=== PATIENT | female | born 1940 | race Caucasian/White ===

== ENCOUNTER 2018-02-14 01:47 | Emergency (ER) | payer MEDICARE, OTHER ==
[2018-02-14] MEDS ORDERED: Ketorolac Tromethamine 30 MG/ML VIAL ONE (02:02)
[2018-02-14] MEDS ORDERED: Metoclopramide HCl 10 MG/2 ML VIAL ONE (02:02)
[2018-02-14] MEDS ORDERED: diphenhydrAMINE 50 MG/ML VIAL ONE (02:02)
== END 2018-02-14 03:23 | disposition home or self-care (01) ==
LOC: SCSER 01:47
DX: R51 Headache (principal); E11.9 Type 2 diabetes mellitus without complications; E78.5 Hyperlipidemia, unspecified; I10 Essential (primary) hypertension; I25.10 Atherosclerotic heart disease of native coronary artery without angina pectoris
CPT/HCPCS: 96365; 96375; J1200; J1885; J2765

== ENCOUNTER 2018-02-15 05:46 | Observation (INO) | payer MEDICARE, OTHER ==
[2018-02-15 06:27] LABS: #Basophils 0.1 thou/uL (0.0-0.2); #Eosinphils 0.3 thou/uL (0.0-0.7); #Monocytes 0.6 thou/uL (0.11-0.59); #Neutrophils 4.7 thou/uL (1.40-6.50); %Basophils 1.2 % (0.0-1.0); %Eosinophils 3.6 % (0.0-10.0); %Lymphocytes 26.2 % (21.0-51.0); %Monocytes 7.7 % (0.0-10.0); %Neutrophils 61.3 % (42.0-75.0); Hemoglobin 10.8 g/dL (12.0-16.0); Mean Corpuscular Hemoglobin 30.9 pg (27.0-31.0); Mean Corpuscular Volume 88.2 fl (81.0-99.0); Mean Platelet Volume 7.4 fL (7.4-10.4); Platelet Count 267 thou/uL (130-400); RBC Distribution Width 10.8 % (11.5-14.5); Red Blood Cell (RBC) Count 3.51 mill/uL (4.20-5.40); White Blood Cell (WBC) Count 7.7 thou/uL (4.8-10.8)
[2018-02-15 06:36] LABS: ALT (SGPT) 10 U/L (8-55); AST (SGOT) 15 U/L (5-34); Albumin 4.1 g/dL (3.4-4.8); Alkaline Phosphatase 70 U/L (40-150); Anion Gap 19 mmol/L (10-20); BUN (Urea Nitrogen) 36 mg/dL (9.8-20.1); Bilirubin, Total 0.3 mg/dL (0.2-1.2); Calc. Creatinine Clearance 0 mL/min (70-130); Carbon Dioxide 18 mmol/L (23-31); Chloride 105 mmol/L (98-107); Estimated GFR-MDRD 12; Globulin 2.7 g/dL (2.4-3.5); Glucose 107 mg/dL (83-110); Potassium 3.9 mmol/L (3.5-5.1); Protein, Total 6.8 g/dL (6.0-8.3); Sodium 138 mmol/L (136-145)
[2018-02-15] MEDS ORDERED: diphenhydrAMINE 50 MG/ML VIAL ONE (06:37)
[2018-02-15] MEDS ORDERED: Metoclopramide HCl 10 MG/2 ML VIAL ONE (06:37)
[2018-02-15] MEDS ORDERED: Ketorolac Tromethamine 30 MG/ML VIAL ONE (06:37)
--- NOTE | 2018-02-15 08:11 | CT ---
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 All CT scans at this facility use one or more dose reduction techniques, viz.: automated exposure control; ma/kV adjustme nt per patient size (including targeted exams where dose is matched to indication; i.e. head); or ite rative reconstruction technique. COMPARISON: No relevant prior studies available. FINDINGS: Brain: Prominent sulci. Patchy hypodensity of the cerebral white matter which are nonspecific but lik ruthann secondary to microangiopathic changes. Ventricles: The ventricles are prominent secondary to diffuse volume loss/atrophy. Bones/joints: Normal. No acute fracture. Soft tissues: Normal. Sinuses: Unremarkable Mastoid air cells: Normal as visualized. No mastoid effusion. IMPRESSION: Chronic age related changes but no evidence of acute intracranial pathology. Thank you for allowing us to participate in the care of your patient. Dictated and Authenticated by: Katina Guerra MD 02/15/2018 7:06 AM Central Time ([place] & [place]) FINAL REPORT HEAD CT WITHOUT CONTRAST: Date: 02/15/18 COMPARISON: 05/27/17. HISTORY: Headache with nausea and vomiting. FINDINGS: I agree with the preliminary report given by vRlinette. The imaged paranasal sinuses and mastoid air cells are well aerated. There is atherosclerotic calcification of the distal vertebral arteries and cavern ous carotid arteries. No displaced calvarial fracture. No intracranial hemorrhage or midline shift. N o mass effect. Periventricular and deep white matter hypodensity noted, suggesting small vessel disea se. IMPRESSION: No acute findings. POS: [facility]
[2018-02-15] MEDS ORDERED: Ondansetron ODT 4 MG TAB SL PRN (10:09)
[2018-02-15] MEDS ORDERED: Ondansetron HCl/PF 4 MG/2 ML Vial IVP PRN (10:09)
[2018-02-15] MEDS ORDERED: Sodium Chloride 0.9% 1,000 ML IV SCH (10:30)
[2018-02-15] MEDS ORDERED: Bisacodyl 5 MG TAB PO PRN (12:54)
--- NOTE | 2018-02-15 13:34 | HP ---
HISTORY OF PRESENT ILLNESS: This is a 77-year-old white female with history of coronary artery disea se and migraine headaches, who presents with intractable nausea and vomiting. The patient was doing relatively well until yesterday. She developed a severe migraine which was unresponsive to her Jose Roberto cet. Her headache became progressively worse and to the point where she had intractable nausea and v omiting approximately 30 times during the past night. She then presented to the emergency room and s he was discharged; however, returned to the ER because the headache continued. Her creatinine was no maximiliano to be 3.65 and she appeared to be quite dehydrated. PAST MEDICAL HISTORY: Hypertension, diabetes, migraines, hyperlipidemia, depression, chronic low luzma k pain, anemia. PAST SURGICAL HISTORY: Include a bone spur right heel in 1961, a fatty tumor in the back of the neck 1964 exploratory surgery for infertility test in 1965, hysterectomy in 1984. Broken ankle in 1987, angioplasty 2000, back surgery T12-L5 fusion 2004. Umbrella filter 2004, hip replacement in 2004, an gioplasty and stent x2 in 2008, blepharoplasty 2010. Neuro stimulator insertion in June of 2013 . Bone density 2005, colonoscopy 2007, gallbladder surgery 12/2014. FAMILY HISTORY: Father at 75 with heart disease. Mother at 86 with deidra willams. No other family history of cancer. SOCIAL HISTORY: She is . She is retired. She has 1 adopted daughter, 1 adopted son. She ex ercises regularly. She travels. MEDICATIONS: Protonix 40 mg daily, aspirin 325 daily, multivitamin, vitamin C, biotin, vitamin E, vi tamin B12, vitamin D3, vitamin K, bupropion XL 150 mg daily, Singulair 10 mg daily, nitroglycerin p.r .n., Bisoprolol 5 daily, amlodipine 10 mg daily, isosorbide ER 60 mg daily, oxybutynin 5 b.i.d., Lipi tor 80 mg daily, tramadol 50 one to two q.8h. p.r.n., alprazolam 2.25 b.i.d. p.r.n., metformin 500 p. o. daily. ALLERGIES: PENICILLIN, CODEINE, SULFA and PHENERGAN. REVIEW OF SYSTEMS: As above. PHYSICAL EXAMINATION: VITAL SIGNS: Temperature 98.6, pulse 65, respiration rate 18, blood pressure 157/77. GENERAL: In no acute distress at this time. She appears well. HEENT: Mucous membranes clear. NECK: Supple. HEART: Regular rate and rhythm with a 2/6 systolic ejection murmur. LUNGS: Clear. ABDOMEN: Soft, nontender. EXTREMITIES: With no edema. LABORATORY AND X-RAY FINDINGS: White count 7.7, H&H 10 and 30, platelet of 267. Sodium 138, potassi um 3.9, creatinine 3.65, BUN 36, glucose 107. ASSESSMENT: 1. Intractable nausea and vomiting. 2. Intractable migraine. 3. Acute kidney injury on chronic kidney disease, creatinine normally is in the 1.4 to 1.8 range, an d it is 3.65 today, most likely consistent with prerenal azotemia. 4. Coronary artery disease. 5. Hypertension. 6. Hyperlipidemia. 7. Migraine history. 8. Gastroesophageal reflux. 9. History of depression. 10. History of anemia. PLAN: 1. Hydrate with normal saline. 2. Ultram p.o. p.r.n. 3. Repeat CBC and comprehensive in the a.m. 4. Migraine under control at this time. Possible hopefully discharge in the a.m.
[2018-02-15] MEDS: Sodium Chloride 0.9% 1,000 ML IV SCH ×2 (14:38→16:55)
[2018-02-15] MEDS: Acetaminophen 325 MG TAB PO PRN (15:25)
[2018-02-15] MEDS: ALPRAZolam 0.25 MG TAB PO PRN (15:27)
[2018-02-15] MEDS ORDERED: metFORMIN 500 MG TAB PO SCH (17:00)
[2018-02-15] MEDS ORDERED: Famotidine/PF 20 mg/2ml Vial SLOW IVP SCH (21:00)
[2018-02-15] MEDS ORDERED: Famotidine 40 MG/4 ML VIAL SLOW IVP SCH ×2 (21:00→21:30)
[2018-02-15] MEDS: Oxybutynin 5 MG TAB PO SCH (21:26)
[2018-02-15] MEDS ORDERED: traMADol HCl 50 MG TAB PO SCH (22:00)
[2018-02-16] MEDS: Sodium Chloride 0.9% 1,000 ML IV SCH ×3 (02:30→11:01)
[2018-02-16] MEDS ORDERED: Sodium Chloride 0.9% 0 ML ONE (05:29)
[2018-02-16 06:04] LABS: #Eosinphils 0.4 thou/uL (0.0-0.7); #Lymphocytes 1.9 thou/uL (1.20-3.40); #Monocytes 0.7 thou/uL (0.11-0.59); %Basophils 0.5 % (0.0-1.0); %Eosinophils 6.7 % (0.0-10.0); %Lymphocytes 31.2 % (21.0-51.0); %Monocytes 11.8 % (0.0-10.0); %Neutrophils 49.8 % (42.0-75.0); Hemoglobin 8.5 g/dL (12.0-16.0); Mean Corpuscular HGB CONC 32.5 g/dL (32.0-36.0); Mean Corpuscular Hemoglobin 29.9 pg (27.0-31.0); Mean Corpuscular Volume 91.8 fl (81.0-99.0); Mean Platelet Volume 7.6 fL (7.4-10.4); Platelet Count 207 thou/uL (130-400); Red Blood Cell (RBC) Count 2.83 mill/uL (4.20-5.40)
[2018-02-16 06:13] LABS: ALT (SGPT) 8 U/L (8-55); AST (SGOT) 11 U/L (5-34); Albumin 3.2 g/dL (3.4-4.8); Alkaline Phosphatase 76 U/L (40-150); Anion Gap 9 mmol/L (10-20); BUN (Urea Nitrogen) 37 mg/dL (9.8-20.1); Bilirubin, Total 0.2 mg/dL (0.2-1.2); Calc. Creatinine Clearance 15 mL/min (70-130); Calcium 7.8 mg/dL (7.8-10.44); Carbon Dioxide 21 mmol/L (23-31); Chloride 114 mmol/L (98-107); Estimated GFR-MDRD 13; Globulin 1.7 g/dL (2.4-3.5); Glucose 125 mg/dL (83-110); Potassium 4.6 mmol/L (3.5-5.1); Protein, Total 4.9 g/dL (6.0-8.3); Sodium 139 mmol/L (136-145)
[2018-02-16] MEDS: Bisoprolol Fumarate 5 MG TAB PO SCH (08:19)
[2018-02-16] MEDS: Oxybutynin 5 MG TAB PO SCH ×2 (08:20→21:02)
[2018-02-16] MEDS: Aspirin 325 MG TAB PO SCH (08:20)
[2018-02-16] MEDS: buPROPion 75 MG TAB PO SCH (08:20)
[2018-02-16] MEDS: metFORMIN 500 MG TAB PO SCH (08:21)
[2018-02-16] MEDS: Amlodipine 10 MG TAB PO SCH (08:21)
--- NOTE | 2018-02-16 10:55 | PRG ---
DATE OF SERVICE: 02/16/2018 SUBJECTIVE: The patient is feeling well. No complaints of headache. The patient desires to go home . OBJECTIVE: VITAL SIGNS: Temperature 98.6, pulse 73, respirations 16, blood pressure 124/76. HEART: Regular rate and rhythm with 2/6 systolic ejection murmur. LUNGS: Clear. ABDOMEN: Soft. EXTREMITIES: With no edema. LABORATORY: White count 6.0, H&H 8.5 and 26.0. Creatinine 3.65-3.42 today. BUN unchanged 37, blood sugar 107 and 125. ASSESSMENT: 1. Intractable nausea and vomiting and migraine, resolved. 2. Acute kidney injury on chronic kidney disease with a mild improvement with creatinine going from 3.65-3.42. Baseline is approximately 1.7-1.8. 3. Coronary artery disease. 4. Hypertension. 5. Hyperlipidemia. 6. Reflux. 7. Depression. 8. History of migraines. 9. Chronic anemia. PLAN: 1. Decrease normal saline from 125 to 75 mL per hour. 2. Recheck CBC and BMP in the a.m. 3. Hopefully, can discharge soon.
[2018-02-16] MEDS: ALPRAZolam 0.25 MG TAB PO PRN (11:25)
[2018-02-16] MEDS: Acetaminophen 325 MG TAB PO PRN (11:25)
[2018-02-16] MEDS ORDERED: Ondansetron ODT 4 MG TAB PO PRN (14:31)
[2018-02-16] MEDS ORDERED: Famotidine 20 MG TAB PO SCH (21:00)
[2018-02-16] MEDS ORDERED: Famotidine 40 MG/4 ML VIAL SLOW IVP SCH (21:00)
[2018-02-17] MEDS: Sodium Chloride 0.9% 1,000 ML IV SCH (01:05)
[2018-02-17 04:05] VITALS: TEMP 98
[2018-02-17 05:38] VITALS: BMI 28.2
[2018-02-17 05:58] LABS: #Eosinphils 0.4 thou/uL (0.0-0.7); #Lymphocytes 1.5 thou/uL (1.20-3.40); #Monocytes 0.6 thou/uL (0.11-0.59); #Neutrophils 3.1 thou/uL (1.40-6.50); %Basophils 0.8 % (0.0-1.0); %Eosinophils 7.2 % (0.0-10.0); %Lymphocytes 26.4 % (21.0-51.0); %Neutrophils 54.6 % (42.0-75.0); Hemoglobin 8.8 g/dL (12.0-16.0); Mean Corpuscular HGB CONC 34.4 g/dL (32.0-36.0); Mean Corpuscular Hemoglobin 31.8 pg (27.0-31.0); Mean Corpuscular Volume 92.2 fl (81.0-99.0); Mean Platelet Volume 7.7 fL (7.4-10.4); Platelet Count 184 thou/uL (130-400); RBC Distribution Width 11.1 % (11.5-14.5); Red Blood Cell (RBC) Count 2.77 mill/uL (4.20-5.40); White Blood Cell (WBC) Count 5.7 thou/uL (4.8-10.8)
[2018-02-17 06:11] LABS: Anion Gap 13 mmol/L (10-20); BUN (Urea Nitrogen) 34 mg/dL (9.8-20.1); Calc. Creatinine Clearance 17 mL/min (70-130); Calcium 7.7 mg/dL (7.8-10.44); Carbon Dioxide 18 mmol/L (23-31); Chloride 115 mmol/L (98-107); Estimated GFR-MDRD 14; Glucose 94 mg/dL (83-110); Potassium 4.5 mmol/L (3.5-5.1); Sodium 141 mmol/L (136-145)
[2018-02-17] MEDS: Acetaminophen 325 MG TAB PO PRN (07:17)
[2018-02-17 08:29] VITALS: BP 168/75
[2018-02-17] MEDS: metFORMIN 500 MG TAB PO SCH (08:49)
[2018-02-17] MEDS: Oxybutynin 5 MG TAB PO SCH (08:49)
[2018-02-17] MEDS: Aspirin 325 MG TAB PO SCH (08:49)
[2018-02-17] MEDS: buPROPion 75 MG TAB PO SCH (08:49)
[2018-02-17] MEDS: Amlodipine 10 MG TAB PO SCH (08:50)
[2018-02-17] MEDS: Bisoprolol Fumarate 5 MG TAB PO SCH (09:08)
[2018-02-17] MEDS: ALPRAZolam 0.25 MG TAB PO PRN (09:12)
--- NOTE | 2018-02-17 15:49 | DIS ---
DATE OF ADMISSION: 02/15/2018 DATE OF DISCHARGE: 02/17/2018 DISCHARGE DIAGNOSES: 1. Intractable nausea and vomiting. 2. Intractable migraine. 3. Acute kidney injury on chronic kidney disease. 4. Coronary artery disease. 5. Hypertension. 6. Hyperlipidemia. 7. Reflux. 8. Depression. 9. History of migraines. 10. Chronic anemia. DISCHARGE MEDICATIONS: Aspirin 325 p.o. daily, amlodipine 10 p.o. daily, alprazolam 0.25 p.o. t.i.d. p.r.n., tramadol 50 q.i.d. p.r.n., vitamin E daily, omeprazole 40 daily, multivitamin daily, lisinop ril 5 daily, vitamin D3 1000 units daily, Fiorinal q.4 p.r.n., bupropion 150 p.o. daily, Biotin 10 da shruthi, Lipitor 80 mg daily, vitamin C 1000 daily, Xanax 0.5 p.o. b.i.d. p.r.n. BRIEF HISTORY: This is a 77-year-old white female who presented with severe migraines with intractab le nausea and vomiting. This presented just the day prior to admission. This was unresponsive to Fi oricet. Her headache became progressively worse and she states that she had nausea and vomiting x3 t hat night. She presented to the emergency room and was found to have a creatinine 3.65. HOSPITAL COURSE: The patient was given IV pain medications with relief of her migraines. Throughout her hospital stay, she was hydrated with IV fluids. Her creatinine decreased from 3.65-3.11 over se veral days. The patient was desiring to go home after the first day, but I encouraged her to stay to hydrate her kidneys. She has improved. She is anxious to go home. She will follow up with Dr. Stanley Wood in the a.m. and repeat her labs. She may need to see Nephrology on an outpatient basis.
== END 2018-02-17 10:35 | disposition home or self-care (01) ==
LOC: SCSER 05:46 → SJJU 09:52
PROVIDERS: ADMIT Family Medicine; ATTEND Family Medicine
DX: R11.2 Nausea with vomiting, unspecified (principal); G43.919 Migraine, unspecified, intractable, without status migrainosus; E11.22 Type 2 diabetes mellitus with diabetic chronic kidney disease; I12.9 Hypertensive chronic kidney disease with stage 1 through stage 4 chronic kidney disease, or unspecified chronic kidney disease; N18.9 Chronic kidney disease, unspecified; N17.9 Acute kidney failure, unspecified; I25.10 Atherosclerotic heart disease of native coronary artery without angina pectoris; E78.5 Hyperlipidemia, unspecified; K21.9 Gastro-esophageal reflux disease without esophagitis; F32.9 Major depressive disorder, single episode, unspecified; D63.1 Anemia in chronic kidney disease; M54.5 Low back pain; G89.29 Other chronic pain; Z79.82 Long term (current) use of aspirin; Z79.84 Long term (current) use of oral hypoglycemic drugs; Z79.899 Other long term (current) drug therapy; Z88.0 Allergy status to penicillin; Z88.2 Allergy status to sulfonamides; Z88.5 Allergy status to narcotic agent; Z88.8 Allergy status to other drugs, medicaments and biological substances; Z98.1 Arthrodesis status; Z98.61 Coronary angioplasty status; Z96.9 Presence of functional implant, unspecified; Z90.710 Acquired absence of both cervix and uterus; Z98.890 Other specified postprocedural states
CPT/HCPCS: 70450; 80048; 80053 ×2; 85025 ×3; 85652; 96361 ×3; 96374; 96375 ×2; 99285; G0378; 36415; A4216; J1200; J1885; J2765; Q0162

== ENCOUNTER 2018-06-30 16:16 | Inpatient (IN) | payer MEDICARE, OTHER ==
[2018-06-30 17:17] LABS: #Basophils 0.1 thou/uL (0.0-0.2); #Eosinphils 0.3 thou/uL (0.0-0.7); #Lymphocytes 1.8 thou/uL (1.20-3.40); #Monocytes 0.9 thou/uL (0.11-0.59); #Neutrophils 5.7 thou/uL (1.40-6.50); %Basophils 1.1 % (0.0-1.0); %Eosinophils 3.4 % (0.0-10.0); %Lymphocytes 20.3 % (21.0-51.0); %Neutrophils 65.1 % (42.0-75.0); Hemoglobin 13.8 g/dL (12.0-16.0); Mean Corpuscular Hemoglobin 29.5 pg (27.0-31.0); Mean Corpuscular Volume 86.8 fL (78.0-98.0); Mean Platelet Volume 6.4 fL (7.4-10.4); Platelet Count 248 thou/uL (130-400); RBC Distribution Width 11.8 % (11.5-14.5); Red Blood Cell (RBC) Count 4.67 mill/uL (4.20-5.40); White Blood Cell (WBC) Count 8.7 thou/uL (4.8-10.8)
[2018-06-30 17:32] LABS: ALT (SGPT) 12 U/L (8-55); AST (SGOT) 13 U/L (5-34); Albumin 3.4 g/dL (3.4-4.8); Alkaline Phosphatase 69 U/L (40-150); Anion Gap 23 mmol/L (10-20); BUN (Urea Nitrogen) 89 mg/dL (9.8-20.1); Bilirubin, Total 0.3 mg/dL (0.2-1.2); Calc. Creatinine Clearance 0 mL/min (70-130); Calcium 8.5 mg/dL (7.8-10.44); Carbon Dioxide 12 mmol/L (23-31); Chloride 104 mmol/L (98-107); Estimated GFR-MDRD 4; Globulin 2.1 g/dL (2.4-3.5); Glucose 109 mg/dL (83-110); Potassium 5.9 mmol/L (3.5-5.1); Protein, Total 5.5 g/dL (6.0-8.3); Sodium 133 mmol/L (136-145)
[2018-06-30 17:34] LABS: CKMB 1.7 ng/mL (0-6.6); Troponin I 0.022 ng/mL (< 0.028)
[2018-06-30] MEDS ORDERED: Calcium Chloride 1 GM/10 ML Abboject SYRINGE ONE (17:57)
[2018-06-30] MEDS ORDERED: Insulin Regular 300 UNITS/3 ML VIAL ONE (17:57)
[2018-06-30] MEDS ORDERED: Dextrose 50% Abboject 50 ML SYRINGE ONE (17:57)
[2018-06-30] MEDS ORDERED: Albuterol Sulfate 2.5 mg/0.5 ml Neb ONE (18:01)
[2018-06-30] MEDS ORDERED: Sodium Chloride For Inhalation 0.9% 3 ML NEB ONE (18:01)
--- NOTE | 2018-06-30 19:04 | CT ---
CT BRAIN NONCONTRAST: HISTORY: 77-year-old female with dysarthria, memory deficit, and headache. FINDINGS: There is no midline shift or any other mass effect. There is no evidence of acute intracranial hemor rhage, large cortical infarct, obstructive hydrocephalus, or extraaxial fluid collection. The calvar ium is intact. There is diffuse parenchymal volume loss. There are low attenuation areas in the whi te matter. These are nonspecific, but in a patient of this age, they are probably chronic ischemic w mouna matter changes due to microvascular atherosclerosis. IMPRESSION: 1) No acute intracranial findings. 2) Involutional changes and chronic ischemic white matter changes. jn POS: [facility]
[2018-06-30 20:25] VITALS: BMI 30.6
[2018-06-30 21:12] LABS: Bilirubin Negative (Negative); Blood, Urine Trace (Negative); Clarity CLOUDY (Clear); Glucose, Urine (Dipstick) Negative (Negative); Leukocyte Large (Negative); Nitrite Negative (Negative); Protein, Urine (Dipstick) 30 mg/dL (Neg-Trace); Specific Gravity, Urine 1.007 (1.002-1.036); Urobilinogen 0.2 mg/dL (0.2-1.0); pH, Urine 5.5 (5.0-9.0)
[2018-06-30 21:14] LABS: Bacteria/HPF None Seen HPF (None Seen); Hyaline Casts/LPF 0-3 HYALINE CAST LPF (0-3 Hyaline); Squamous Epithelial None Seen HPF (0-3)
[2018-06-30] MEDS: Sodium Chloride 0.9% 1,000 ML IV SCH (22:27)
[2018-06-30] MEDS: cloNIDine 0.1 MG TAB PO PRN (22:29)
[2018-06-30] MEDS: Ondansetron ODT 4 MG TAB PO PRN (22:30)
[2018-07-01] MEDS: cefTRIAXone\\ROCEPHIN 1 GM in Sodium Chloride 0.9% 100 ML IVPB SCH (01:10)
[2018-07-01] MEDS: Sodium Chloride 0.9% 1,000 ML IV SCH ×3 (01:14→21:45)
[2018-07-01] MEDS: cloNIDine 0.1 MG TAB PO PRN (04:22)
[2018-07-01 05:37] LABS: #Eosinphils 0.1 thou/uL (0.0-0.7); #Lymphocytes 1.5 thou/uL (1.20-3.40); #Monocytes 0.7 thou/uL (0.11-0.59); #Neutrophils 5.5 thou/uL (1.40-6.50); %Basophils 0.3 % (0.0-1.0); %Eosinophils 1.9 % (0.0-10.0); %Lymphocytes 19.5 % (21.0-51.0); %Monocytes 8.3 % (0.0-10.0); Hemoglobin 12.6 g/dL (12.0-16.0); Mean Corpuscular HGB CONC 33.8 g/dL (32.0-36.0); Mean Corpuscular Hemoglobin 31.3 pg (27.0-31.0); Mean Corpuscular Volume 92.8 fL (78.0-98.0); Mean Platelet Volume 7.1 fL (7.4-10.4); Platelet Count 191 thou/uL (130-400); RBC Distribution Width 12.3 % (11.5-14.5); Red Blood Cell (RBC) Count 4.03 mill/uL (4.20-5.40); White Blood Cell (WBC) Count 7.9 thou/uL (4.8-10.8)
[2018-07-01 05:47] LABS: Anion Gap 23 mmol/L (10-20); BUN (Urea Nitrogen) 89 mg/dL (9.8-20.1); Calc. Creatinine Clearance 7 mL/min (70-130); Calcium 8.2 mg/dL (7.8-10.44); Chloride 109 mmol/L (98-107); Estimated GFR-MDRD 5; Glucose 134 mg/dL (83-110); Potassium 5.3 mmol/L (3.5-5.1); Sodium 136 mmol/L (136-145)
[2018-07-01 05:51] LABS: Carbon Dioxide 9 mmol/L (23-31); Phosphorus 9.5 mg/dL (2.3-4.7)
[2018-07-01] MEDS: Amlodipine 10 MG TAB PO SCH (08:17)
[2018-07-01] MEDS: Calcium Carbonate 500 MG ChewTAB PO PRN (08:18)
[2018-07-01] MEDS: Nebivolol HCl 5 MG TAB PO SCH (08:18)
[2018-07-01] MEDS: Calcitriol 0.25 MCG CAP PO SCH (08:18)
[2018-07-01] MEDS ORDERED: Prevnar 13-Val Conj/PF 0.5 ML SYRINGE IM ONE (09:00)
--- NOTE | 2018-07-01 10:16 | ULT ---
RENAL ULTRASOUND WITH DOPPLER EVALUATION: HISTORY: Renal failure. FINDINGS: Real-time imaging of the right and left kidneys was performed. Both kidneys are of increased echogen icity, the right kidney measuring 9 and the left kidney 9.8 cm. No signs of cyst, mass, or obstructi on. Bladder region appears unremarkable. IMPRESSION: Marked increased echogenicity of both kidneys with cortical thinning. Changes suggest underlying chr onic renal parenchymal disease. No mass or obstruction. POS: [facility]
--- NOTE | 2018-07-01 10:47 | PRG ---
DATE OF SERVICE: 07/01/2018 SERVCIE: Renal Medicine. SUBJECTIVE: Ms. Rojas is a 77-year-old white female, who was admitted for mental status change. Ment ation is much improved. This morning, she is feeling better. We were consulted due to the worsening renal dysfunction. Creatinine was noted at 8.98 on admission. We empirically volume repleted this patient. Creatinine is still relatively about the same with the value being 8.41. She is noted to h ave worsening metabolic acidosis. In addition, the phosphorus elevated at 9.5. She tells me she is feeling better. We also started her on IV antibiotics due to the UTI. No other complaints today. I did discuss at length the possibility of dialysis and the patient would like to think about it. PHYSICAL EXAMINATION: VITAL SIGNS: Blood pressure 175/77, heart rate 70, respiratory rate 19, temperature 98, pulse ox 95% . GENERAL EXAM: Noted to be awake, alert, comfortable, not in overt distress. SKIN: Adequate turgor. HEENT: She has pinkish conjunctivae, anicteric sclerae. NECK: No neck mass, no carotid bruits, no JVD. CHEST: No deformities. LUNGS: Clear breath sounds, no wheezing, no crackles. HEART: Normal sinus rhythm. No murmur, no gallops, no rubs. ABDOMEN: Globular, soft, nontender, no masses. EXTREMITIES: No edema, no deformities. Medications of 07/01/2018 reviewed. LABORATORY DATA: Laboratories of 07/01/2018, white count 7.9, hemoglobin 12.6. Sodium 136, potassiu m 5.3, chloride 109, carbon dioxide 9, BUN 89, creatinine 8.41, glucose 134, calcium 8.2, phosphorus 9.5. ASSESSMENT AND PLAN: 1. Metabolic acidosis. Start sodium bicarbonate 650 mg 1 tab t.i.d. 2. Acute kidney injury/chronic renal failure - renal ultrasound shows cortical thinning. I feel karol t this patient will need dialysis. She is declining at the moment and she would like to think about it. For the moment, we will continue IV hydration with this patient to see if we could still get bakari e significant renal improvement. 4. Hyperphosphatemia - Renvela 800 mg 1 tab t.i.d. with meals. 5. Metabolic acidosis. Sodium bicarbonate at 650 mg tab t.i.d. 6. Urinary tract infection, on IV antibiotics. Urine C and S pending. Overall, agree with current management. Recheck basic metabolic panel and CBC in a.m.
[2018-07-01] MEDS ORDERED: Sodium Chloride 0.9% 10 ML ONE (11:44)
[2018-07-01] MEDS: Sevelamer Carbonate 800 MG TAB PO SCH ×2 (11:46→17:15)
[2018-07-01] MEDS: Ondansetron ODT 4 MG TAB PO PRN ×2 (11:46→19:44)
--- NOTE | 2018-07-01 12:04 | HP ---
DATE OF ADMISSION: 06/30/2018 CHIEF COMPLAINT: Trouble thinking and increased blood pressure. HISTORY OF PRESENT ILLNESS: This is a 77-year-old female, patient of Dr. Fernandez Wood, wh o came to the emergency room due to family worried about having a TIA, due to the trouble thinking an d increased blood pressure. By the time of arrival in the ER, blood pressure had resolved and her ne urologic status was back to baseline. Full workup was entailed looking for possible TIA including he ad CT and the only thing found was a renal function that was acutely worse with a creatinine of 8.4. Of note, she had an admission back in January of this year with prerenal acute renal injury with a cre atinine up to 3.6 when she normally is around 1. In a short period of time that resolved back down t o her normal levels. PAST MEDICAL HISTORY: Positive for type 2 diabetes, I see where she had been on metformin, but was d iscontinued after the January renal insufficiency episode; hypertension; coronary artery disease; hyper lipidemia; migraines; anemia; depression; chronic low back pain; stress incontinence; and vitamin D d eficiency. PAST SURGICAL HISTORY: She had a catheterization done in 2000 and another catheterization done in 18 07 and in that second catheterization she had 2 stents placed. She also had a cholecystectomy done i 2014. She has had a neurostimulator done by Dr. Ambrose in her low back in 2012. She had a T2 through T5 fusion in 2004, along with a total hip replacement in 2004 and a Monroe filter placed in 2004. She had a total abdominal hysterectomy in 1984. She had an ankle fracture repair in 1987. She had an exploratory laparotomy in 1965, since they were looking for the reason given was inferti gabe. She also had a neck lipoma removed [id number], and a bone spur in heel removed in 1961. FAMILY HISTORY: Father at age 75 from heart disease. Mother at age 86 due t o natural causes. No heart disease is known. SOCIAL HISTORY: She is , retired, has 2 adopted children, and no toxic habits. ALLERGIES: PENICILLIN, SULFA, CODEINE, and PHENERGAN. CURRENT MEDICATIONS: She is on aspirin 325 once a day. She is on Bystolic 10 mg daily. She is on I smo ER 60 mg daily. She is on amlodipine 10 mg daily. She is on nitroglycerin 0.4 p.r.n. She is on Lipitor 80 mg daily. She is on Wellbutrin-XL 150 daily. She is on Singulair 10 mg daily, Protonix 40 mg daily, Detrol 5 mg b.i.d., vitamin D3 supplement, B12 supplement, and calcitriol 25 mcg daily. REVIEW OF SYSTEMS: No fevers or chills. No constitutional symptoms. No changes in vision, trouble chewing, or swallowing. Denies any chest pain, shortness of breath, cough. Denies any nausea or vom iting. No changes in bowel or bladder habits. No dysuria or hematuria. No paresis or paresthesias. No psych complaints. PHYSICAL EXAMINATION: VITAL SIGNS: On exam, she is afebrile with a blood pressure 167/63, satting 93% on room air, pulse 8 6, respiration is 16. HEENT EXAM: Essentially unremarkable. Pupils equal, round, reactive to light and accommodation. Ex traocular movements intact. Mucosal membranes are moist. NECK: Supple, no JVD, no bruits, no thyromegaly. LUNGS: Clear to auscultation bilaterally, no rales, rhonchi, or wheezes. HEART: S1 and S2, with no rubs, murmurs, or gallops. ABDOMEN: Soft, nontender, nondistended, no palpable masses, no hepatosplenomegaly. GENITOURINARY EXAM: Deferred. EXTREMITIES: Show good palpable pulses x4, mild rash in lower extremities with 1+ pitting edema. NEUROLOGIC: She is alert and oriented x4. Cranial nerves II-XII are equal and symmetrical. There a re no focal deficits noted. LABORATORY AND X-RAY FINDINGS: White count normal at 7.9, H and H is 12.6 and 37.4 respectively with 191,000 platelets. Sodium 136, potassium 5.3, chloride 109, bicarb is 9. Her BUN is 89, creatinine 8.4, glucose of 134. ASSESSMENT: Acute renal failure. PLAN: Hydration and Nephrology to see for possible dialysis. She has been admitted for that purpose .
[2018-07-01 12:30] LABS: Albumin 3.2 g/dL (3.4-4.8); Anion Gap 24 mmol/L (10-20); BUN (Urea Nitrogen) 87 mg/dL (9.8-20.1); BUN/Creatinine Ratio 10.36; Calc. Creatinine Clearance 7 mL/min (70-130); Calcium 8.3 mg/dL (7.8-10.44); Chloride 109 mmol/L (98-107); Estimated GFR-MDRD 5; Glucose 113 mg/dL (83-110); Potassium 4.8 mmol/L (3.5-5.1); Sodium 137 mmol/L (136-145)
[2018-07-01 12:34] LABS: Carbon Dioxide 9 mmol/L (23-31); Phosphorus 9.5 mg/dL (2.3-4.7)
[2018-07-01] MEDS: Sodium Bicarbonate Tab 325 MG TAB PO SCH ×2 (14:18→21:46)
--- NOTE | 2018-07-01 21:26 | CON ---
DATE OF CONSULTATION: 06/30/2018 HISTORY OF PRESENT ILLNESS: Ms. Rojas is a 77-year-old, white female with known history of chronic re nal failure secondary to a presumed diabetic nephropathy and was admitted for confusion. She went to the ER earlier tonight. She was noted initially to have a blood pressure of about 178/89. Unfortun ately, her creatinine was noted to be elevated more than 8 mg percent. I saw this patient at the [facility] back in April, and her creatinine was noted at 3.34 mg percent. She has underlying diabetic nephropathy and a previous acute kidney injury. We are currently empirically volume repleting this patient on normal saline at 125 mL per hour. She is less confused on my exam. A CT scan of the [facility] n showed no acute intracranial abnormality. REVIEW OF SYSTEMS: Positive for generalized malaise, decreased appetite, decreased p.o. intake. No gross hematuria, no dysuria, no frequency, no headache, no diplopia. Positive for confusion, decreas ed energy level. No dysuria. Occasional pruritus. Occasional headache. No tremors. No asterixis. Positive for occasional nausea. No hematochezia, no melena, no hematemesis. PAST MEDICAL HISTORY: Includes coronary artery disease, hyperlipidemia, hypertension, chronic renal failure from presumed diabetic nephropathy, DJD, chronic low back pain, chronic headache. PAST SURGICAL HISTORY: 1. Status post laparoscopic cholecystectomy. 2. Status post colonoscopy. 3. Status post back surgery. 4. Status post cardiac catheterization with coronary stent placement. 5. Status post left hip replacement. 6. Status post left ankle surgery. 7. Status post hysterectomy. 8. Status post appendectomy. 9. Status post back surgery. ALLERGIES: PENICILLIN, CODEINE, SULFA, IODINE, PHENERGAN. TRAUMA: Status post left ankle fracture. IMMUNIZATIONS: Up to date. HOSPITALIZATIONS: Please see past medical history. FAMILY HISTORY: No family history of ESRD. SOCIAL HISTORY: Patient is , 2 children, both adopted, lives in [place]. Education, 3 years of college. No history of smoking. Social drinking. 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 No IV drug abuse. PHYSICAL EXAMINATION: VITAL SIGNS: Blood pressure is noted at 177/91, heart rate 73, respiration 20, temperature 98.2, O2 sat 93% on room air. GENERAL: Awake, alert, obese, not in distress. SKIN: Adequate turgor, slightly lethargic. HEENT: Slightly pale conjunctivae, anicteric sclerae. NECK: No neck mass, no carotid bruits, no JVD. CHEST: No deformities. LUNGS: Clear breath sounds, no wheezing, no crackles. HEART: Normal sinus rhythm. No murmur, no gallops or rubs. ABDOMEN: Globular, soft, nontender, no masses. Positive for bowel sounds. EXTREMITIES: No edema, no deformities. NEUROLOGIC: Awake, alert, comfortable, moving extremities, no tremors, no asterixis, no ataxia. LABORATORY DATA AND X-RAY FINDINGS: Laboratories of 06/30/2018, sodium 133, 104, potassium 5.9 , 12, carbon dioxide 89, creatinine 8.98, glucose 109, GFR 4 mL per minute, calcium 8.5. AST 1 3, ALT 12, albumin is 3.4. Troponin I 0.022. On 05/13/2018, SPEP negative for M spike. White count 8.7, hemoglobin 13.8. On 06/30/2018, urinalysis shows specific gravity of 1.07, protein is 30. Positive for hyaline casts. No pigmented granular cast. Urine wbc greater than 50, rbc 11-20. CT scan of the head, no acute intracranial abnormality. ASSESSMENT AND PLAN: 1. Acute kidney injury on top of her chronic renal failure possibility of superimposed preren al azotemia. Empiric volume repletion with normal saline. We will increase IV fluid to 125 mL per h our. If no significant improvement, we may need to consider the possibility of dialytic intervention . This was mentioned to the patient and her edwardo. There is no emergent indication for an y dialytic intervention. 2. Mild hyperkalemia. Continue supportive care. We will simply observe this. Recheck in a. m. Please note this patient without any nephrotoxic drugs. My last note showed that the patient was not on lisinopril. However, we will make sure that she is not taking this. 3. Anemia, much improved-the patient has been evaluated by Dr. Martinez. She has received p.r.n. Pr ocrit in the past. 4. Renal ultrasound and Doppler will be ordered. I have resumed back some of her medications. Review of her medications shows that the patient is taking the following: Metformin? 500 mg p.o. b.i .d.?, lisinopril? 5 mg daily, calcitriol 0.25 mcg tab daily, amlodipine 10 mg tab once a day, atorvas tatin 80 mg tab at bedtime, Wellbutrin 150 mg daily, Bystolic 5 mg tab once a day, Zofran 4 mg sublin gual q.6 hours p.r.n. Overall, continue supportive care. Overall, prognosis remains guarded. Continue current management.
[2018-07-01] MEDS: Montelukast Sodium 10 mg Tablet PO SCH (21:45)
[2018-07-02] MEDS: ALPRAZolam 0.5 MG TAB PO PRN ×2 (00:53→20:55)
[2018-07-02] MEDS: Calcium Carbonate 500 MG ChewTAB PO PRN ×2 (00:53→20:54)
[2018-07-02] MEDS: cefTRIAXone\\ROCEPHIN 1 GM in Sodium Chloride 0.9% 100 ML IVPB SCH ×2 (00:53→23:37)
[2018-07-02] MEDS: Ondansetron ODT 4 MG TAB PO PRN (05:04)
[2018-07-02] MEDS: Sodium Chloride 0.9% 1,000 ML IV SCH ×3 (05:04→22:00)
[2018-07-02 05:23] LABS: #Basophils 0.1 thou/uL (0.0-0.2); #Eosinphils 0.4 thou/uL (0.0-0.7); #Lymphocytes 1.8 thou/uL (1.20-3.40); #Monocytes 0.5 thou/uL (0.11-0.59); #Neutrophils 4.1 thou/uL (1.40-6.50); %Basophils 0.8 % (0.0-1.0); %Eosinophils 5.6 % (0.0-10.0); %Lymphocytes 26.6 % (21.0-51.0); %Monocytes 7.8 % (0.0-10.0); %Neutrophils 59.3 % (42.0-75.0); Hemoglobin 12.4 g/dL (12.0-16.0); Mean Corpuscular Hemoglobin 30.6 pg (27.0-31.0); Mean Corpuscular Volume 92.8 fL (78.0-98.0); Mean Platelet Volume 7.3 fL (7.4-10.4); Platelet Count 202 thou/uL (130-400); RBC Distribution Width 12.4 % (11.5-14.5); Red Blood Cell (RBC) Count 4.05 mill/uL (4.20-5.40); White Blood Cell (WBC) Count 6.9 thou/uL (4.8-10.8)
[2018-07-02 05:40] LABS: Anion Gap 18 mmol/L (10-20); BUN (Urea Nitrogen) 85 mg/dL (9.8-20.1); Calc. Creatinine Clearance 7 mL/min (70-130); Calcium 8.1 mg/dL (7.8-10.44); Carbon Dioxide 14 mmol/L (23-31); Chloride 109 mmol/L (98-107); Estimated GFR-MDRD 5; Glucose 105 mg/dL (83-110); Potassium 4.6 mmol/L (3.5-5.1); Sodium 136 mmol/L (136-145)
--- NOTE | 2018-07-02 08:41 | PRG ---
DATE OF SERVICE: 07/02/2018 SUBJECTIVE: Ms. Rojas is a 77-year-old white female with chronic renal failure and admitted for worse millicent dysfunction. She has thought about dialysis. She wanted to proceed with hemodialysis. I have made arrangements for surgery to place a cuffed hemodialysis catheter as well as an AV fistula. She voices no new complaints today, no chest pain or shortness of breath. OBJECTIVE: VITAL SIGNS: Blood pressure 182/77, heart rate 70, respiratory rate 18, temperature 98.1, pulse ox 9 5%. GENERAL: Noted to be awake, alert, comfortable, not in distress, obese. SKIN: Adequate turgor. HEENT: She has pinkish conjunctivae, anicteric sclerae. NECK: No neck mass, no carotid bruits, no JVD. CHEST: No deformities. LUNGS: Clear breath sounds. No wheezing, no crackles. HEART: Normal sinus rhythm. No murmur, no gallops or rubs. ABDOMEN: Globular, soft, nontender, no masses. EXTREMITIES: No edema. No deformities. MEDICATIONS: 07/02/2018 - Reviewed. LABORATORY: 07/02/2018 - White count 6.9, hemoglobin 12.4. Sodium 136, potassium 4.6, chloride 109, carbon dioxide 14, BUN 85, creatinine 8.15, GFR 5 mL per minute, glucose 105, calcium 8.1. ASSESSMENT AND PLAN: 1. Acute kidney injury/chronic renal failure, unimproved renal function in spite of IV hydration. G FR remains unchanged at 5 mL per minute. My plan is to start dialysis. My plan is to do a 1-hour he modialysis today after a cuffed hemodialysis catheter is placed by surgery. A surgical consult has b een done. Social Work consult for outpatient dialysis placement has been done. 2. Hyperphosphatemia. Continue Renvela. 3. Secondary hyperparathyroidism, on calcitriol. Recheck base met and CBC in a.m.
[2018-07-02] MEDS ORDERED: Tuberculin PPD 0.1 ML VIAL I-DERMAL SCH (09:00)
[2018-07-02] MEDS: Sevelamer Carbonate 800 MG TAB PO SCH ×3 (09:36→17:36)
[2018-07-02] MEDS: Amlodipine 10 MG TAB PO SCH (09:36)
[2018-07-02] MEDS: Calcitriol 0.25 MCG CAP PO SCH (09:37)
[2018-07-02] MEDS: Bupropion 150 MG XL TAB PO SCH (09:37)
[2018-07-02] MEDS: Aspirin 325 MG TAB PO SCH (09:37)
[2018-07-02] MEDS: Isosorbide Mononitrate 20 MG TAB PO SCH (09:37)
[2018-07-02] MEDS: Sodium Bicarbonate Tab 325 MG TAB PO SCH ×3 (09:38→20:55)
[2018-07-02] MEDS: Nebivolol HCl 5 MG TAB PO SCH (09:38)
[2018-07-02] MEDS: TROSPIUM 20 MG TABLET PO SCH (09:39)
--- NOTE | 2018-07-02 11:57 | CON ---
HISTORY OF PRESENT ILLNESS: Guy Rojas is a 69-year-old female who lives with her and mirta rueda in [place]. The patient has history of diabetes, hypertension with chronic kidney dise ase progressing to end-stage renal disease. Dr. Quinn has seen her and recommended dialysis access. T he patient has had ultrasound vein mapping performed, results pending. She is left handed. ALLERGIES: PENICILLIN, IODINE, CODEINE, PHENERGAN. TOBACCO/ALCOHOL: None. MEDICATIONS: Xanax 0.5 mg t.i.d. p.r.n., Norvasc 10 mg daily, aspirin 81 mg a day, Wellbutrin 150 mg daily, Calcitriol 0.25 mg daily, Tums 1000 mg p.o. t.i.d. p.r.n., Rocephin daily, clonidine 0.1 mg d aily, turmeric daily, Ditropan 5 mg b.i.d., omeprazole 40 mg a day, nitroglycerin p.r.n., multivitami ns daily, isosorbide 60 mg a day, ginkgo biloba daily, ferrous sulfate b.i.d., calcitriol 1 cap p.o. daily p.r.n. Fiorinal q.4h. p.r.n., Wellbutrin-XL 150 mg at bedtime, atorvastatin, Lipitor 80 mg da shruthi, aspirin 81 mg a day, vitamin C daily, amlodipine 10 mg daily, Xanax 0.5 mg b.i.d. p.r.n. PAST SURGICAL HISTORY: Left hip replacement, multiple gynecological surgeries culminating in a total abdominal hysterectomy, laparoscopic cholecystectomy, lumbar surgery. Nerve stimulators Dr. Heredia pher 2012. She hopes to have that removed soon, T2-T5 fusion in 2004, [place] filter placement in 2004. Ankle fracture in 1987, laparotomy 1965 for fertility reasons, lipoma neck area 1964. Bone s pur heal in 1961, colonoscopy more than 10 years ago in [place], polypectomy performed, no colonosc opy since. SOCIAL HISTORY: The patient is , retired, 2 adopted children. PAST MEDICAL HISTORY: Type 2 diabetes mellitus, hypertension, coronary artery disease, status post c oronary stent placed by Dr. Mckeon, followed Dr. Mckeon, seen this year. No cardiac symptoms. C hronic low back pain, followed by Dr. Ambrose, stress urinary incontinence, vitamin D deficiency. FAMILY HISTORY: Noncontributory. REVIEW OF SYSTEMS: [place] otherwise noncontributory. No cardiac symptoms. PHYSICAL EXAMINATION: VITAL SIGNS: 5 feet, 172 pounds, 31 BMI, 98.1 degrees, 70, 18, 182/77. HEENT: Unremarkable. LUNGS: Clear to auscultation. CARDIAC: Regular rate and rhythm without murmur or gallop. ABDOMEN: Soft, nontender, no hernias evident. EXTREMITIES: Unremarkable. Palpable radial pulses. ASSESSMENT AND PLAN: 1. End-stage renal disease. We will plan placement of a hemodialysis catheter and right or left arm fistula. She is left handed. We will prefer the right arm, but this will depend on vein mapping th at is pending. Risk of infection, bleeding, reoperation discussed. They have discussed peritoneal d ialysis and they may be interested in that in the future. 2. Coronary artery disease, stable. 3. Chronic back pain, followed Dr. Ambrose status post TL spine fusion.
[2018-07-02 12:26] LABS: HBSAB Concentration 0.83 mIU/mL; Hep B Core Total Ab Non-Reactive (NonReactive); Hep B Core Total Index 0.05 S/CO (0-0.79); Hep B Surf AB Non-Reactive (NonReactive); Hep B Surf Ag Non-Reactive S/CO (NonReactive); Hep C IgG Ab Non-Reactive (NonReactive); Hep C Index 0.06 S/CO (0-0.79)
--- NOTE | 2018-07-02 15:30 | PRG ---
DATE OF SERVICE: 07/02/2018 SUBJECTIVE: Ms. Rojas is feeling well. She has no medical complaints. She is scheduled to undergo d ialysis catheter placed. . PHYSICAL EXAMINATION: VITAL SIGNS: BP 137/63, temperature 97.2. LUNGS: Clear. HEART: Reveals no murmur. LABORATORY DATA: Her creatinine is 8.15, glucoses are well controlled. Urine culture does reveal E. coli organism. IMPRESSION: 1. Acute on chronic renal failure. 2. Urinary tract infection. 3. Type 2 diabetes mellitus. 4. Atherosclerotic coronary artery disease. PLAN: I have spoken with the patient regards to need for hemodialysis. She is also on peritoneal di alysis, which can be undertaken at a later date. undergo hemodialysis more urgently. She unde rstands this and wishes to proceed.
[2018-07-02] MEDS: Montelukast Sodium 10 mg Tablet PO SCH (20:55)
[2018-07-03] MEDS: Ondansetron ODT 4 MG TAB PO PRN (02:40)
[2018-07-03 06:40] LABS: #Basophils 0.1 thou/uL (0.0-0.2); #Eosinphils 0.5 thou/uL (0.0-0.7); #Lymphocytes 1.9 thou/uL (1.20-3.40); #Monocytes 0.6 thou/uL (0.11-0.59); #Neutrophils 4.5 thou/uL (1.40-6.50); %Basophils 0.9 % (0.0-1.0); %Lymphocytes 25.1 % (21.0-51.0); %Monocytes 7.6 % (0.0-10.0); %Neutrophils 59.4 % (42.0-75.0); Mean Corpuscular HGB CONC 32.5 g/dL (32.0-36.0); Mean Corpuscular Hemoglobin 30.2 pg (27.0-31.0); Mean Corpuscular Volume 92.9 fL (78.0-98.0); Mean Platelet Volume 7.9 fL (7.4-10.4); Platelet Count 250 thou/uL (130-400); RBC Distribution Width 12.5 % (11.5-14.5); Red Blood Cell (RBC) Count 4.31 mill/uL (4.20-5.40); White Blood Cell (WBC) Count 7.5 thou/uL (4.8-10.8)
[2018-07-03 06:54] LABS: Anion Gap 23 mmol/L (10-20); BUN (Urea Nitrogen) 85 mg/dL (9.8-20.1); Calc. Creatinine Clearance 7 mL/min (70-130); Calcium 8.4 mg/dL (7.8-10.44); Carbon Dioxide 13 mmol/L (23-31); Chloride 108 mmol/L (98-107); Estimated GFR-MDRD 5; Glucose 85 mg/dL (83-110); Potassium 4.6 mmol/L (3.5-5.1); Sodium 139 mmol/L (136-145)
--- NOTE | 2018-07-03 08:33 | PRG ---
DATE OF SERVICE: 07/03/2018 SUBJECTIVE: Ms. Rojas is a 77-year-old white female with chronic renal failure and we are following h er up for her worsening renal dysfunction. Renal function remains unimproved in spite of volume repl etion. GFR today is still at 5 mL per minute and this remains unimproved. Our plan is to initiate d ialysis with her. We are awaiting for a dialysis catheter placement with Dr. Flores. No new complai nts today, no chest pain or shortness of breath. PHYSICAL EXAMINATION: VITAL SIGNS: Blood pressure 173/74, heart rate 79, respiratory rate 20, temperature 97.9, pulse ox 9 3%. GENERAL: Awake, alert, comfortable, obese, not in distress SKIN: Adequate turgor. HEENT: Pinkish conjunctivae, anicteric sclerae. NECK: No neck mass, no carotid bruits, no JVD. CHEST: No deformities. LUNGS: Clear breath sounds, no wheezing, no crackles. HEART: Normal sinus rhythm. No murmur, no gallops or rubs. ABDOMEN: Globular, soft, nontender, no masses. EXTREMITIES: Trace edema. MEDICATIONS: 07/03/2018 - Reviewed. LABORATORY DATA: 06/30/2018 - Urine C&S showed E. coli noted to be sensitive to ceftriaxone. White count 7.5, hemoglobin 13. Sodium 131, potassium 4.6, chloride 108, carbon dioxide 13, BUN 85, creatinine 7.95, GFR 5 mL per minute, glucose 85, calcium 8.4. ASSESSMENT AND PLAN: 1. Acute kidney injury/chronic renal failure, unimproved renal function. I am preparing this patien t for dialysis. Awaiting dialysis catheter placement. We will initiate a 1 hour hemodialysis once t he catheter line is in place. I will do then daily dialysis with incremental increase of treatment b y 1 hour each day for a total of 3-4 days. Awaiting outpatient dialysis placement. 2. Urinary tract infection on ceftriaxone. 3. Renal osteodystrophy, calcitriol and phosphate binders have been initiated. Recheck base met in a.m.
[2018-07-03] MEDS: Amlodipine 10 MG TAB PO SCH (08:50)
[2018-07-03] MEDS: Isosorbide Mononitrate 20 MG TAB PO SCH (08:51)
[2018-07-03] MEDS: Bupropion 150 MG XL TAB PO SCH (08:51)
[2018-07-03] MEDS: Nebivolol HCl 5 MG TAB PO SCH (08:52)
[2018-07-03] MEDS: TROSPIUM 20 MG TABLET PO SCH (08:52)
[2018-07-03] MEDS: Calcitriol 0.25 MCG CAP PO SCH (08:52)
[2018-07-03] MEDS: ALPRAZolam 0.5 MG TAB PO PRN (08:52)
[2018-07-03] MEDS: Sodium Bicarbonate Tab 325 MG TAB PO SCH ×3 (08:52→20:53)
[2018-07-03] MEDS: Sevelamer Carbonate 800 MG TAB PO SCH ×3 (09:03→16:45)
[2018-07-03] MEDS: Aspirin 325 MG TAB PO SCH (09:03)
--- NOTE | 2018-07-03 09:34 | ULT ---
ULTRASOUND VESSEL MAPPING FOR DIALYSIS ACCESS: Date: 07/02/18 HISTORY: 77-year-old female with ESRD. RIGHT UPPER EXTREMITY CEPHALIC VEIN Proximal Arm: 2.7 mm Mid Arm: 2.2 mm Distal Arm: 2.6 mm Antecubital Fossa: 3.3 mm Proximal Forearm: 3.0 mm Mid Forearm: 2.3 mm Distal Forearm: 1.6 mm BASILIC VEIN Proximal Arm: 7.9 mm Mid Arm: 4.2 mm Distal Arm: 2.7 mm Antecubital Fossa: 1.1 mm Proximal Forearm: 1.1 mm Mid Forearm: 1.0 mm Distal Forearm: 0.7 mm BRACHIAL ARTERY: 3.0 mm RADIAL ARTERY: 2.8 mm ULNAR ARTERY: 2.4 mm LEFT UPPER EXTREMITY CEPHALIC VEIN Proximal Arm: 3.8 mm Mid Arm: 4.7 mm Distal Arm: 3.0 mm Antecubital Fossa: 2.9 mm Proximal Forearm: Not given Mid Forearm: Not given Distal Forearm: Not given BASILIC VEIN Proximal Arm: 4.5 mm Mid Arm: 4.1 mm Distal Arm: 3.9 mm Antecubital Fossa: 3.8 mm Proximal Forearm: 2.4 mm Mid Forearm: 2.0 mm Distal Forearm: 1.7 mm BRACHIAL ARTERY: 4.8 mm RADIAL ARTERY: 2.8 mm ULNAR ARTERY: 2.8 mm POS: [facility]
[2018-07-03] MEDS: Sodium Chloride 0.9% 1,000 ML IV SCH ×2 (10:12→14:58)
[2018-07-03] MEDS ORDERED: Heparin 10,000 UNITS/ 10 ML VIAL ONE ×2 (10:27→12:20)
--- NOTE | 2018-07-03 10:44 | PRG ---
DATE OF SERVICE: 07/03/2018 Ms. Rojas is doing well. She is awaiting her hemodialysis catheter fistula creation. She notes no me dical complaints. OBJECTIVE: VITAL SIGNS: BP 141/69, pulse 79, temperature 97.6. LUNGS: Clear. HEART: Reveals no murmur. LABORATORY: Hemoglobin is 13.0, hematocrit 40.0, creatinine 7.95, potassium 4.6. IMPRESSION: Acute on chronic renal failure. PLAN: Continue process of setting up for hemodialysis.
[2018-07-03] MEDS ORDERED: Bupivacaine HCl 0.5%/Epinephrine 1:200,000/PF 30 ml Vial ONE ×2 (11:08→15:21)
[2018-07-03] MEDS ORDERED: Ondansetron HCl/PF 4 MG/2 ML Vial ONE (12:20)
[2018-07-03] MEDS ORDERED: Metoclopramide HCl 10 MG/2 ML VIAL ONE (12:20)
[2018-07-03] MEDS ORDERED: Lidocaine 1% PF 5 ML VIAL ONE (12:20)
[2018-07-03] MEDS ORDERED: PROPOFOL 200 MG/20 ML VIAL ONE (12:20)
[2018-07-03] MEDS ORDERED: Levofloxacin 500 mg/D5W 100 ml Premix Bag ONE (14:27)
[2018-07-03] MEDS ORDERED: Heparin 5,000 UNITS/ML VIAL ONE (15:21)
[2018-07-03] MEDS ORDERED: Protamine Sulfate 50 MG/5 ML VIAL ONE (15:21)
[2018-07-03] MEDS ORDERED: Lidocaine 2% 10 ML INJ ONE (15:21)
[2018-07-03] MEDS ORDERED: Heparin 10,000 UNITS/1 ML VIAL ONE (15:21)
[2018-07-03] MEDS ORDERED: Sodium Chloride 0.9% 40 ML ONE (15:23)
[2018-07-03] MEDS ORDERED: Esmolol 100 MG/10 ML VIAL ONE (15:36)
[2018-07-03] MEDS ORDERED: Midazolam HCl 2 mg/2 ml Vial ONE ×2 (15:39→18:22)
[2018-07-03] MEDS ORDERED: traMADol HCl 50 MG TAB PO PRN ×2 (15:53)
[2018-07-03] MEDS ORDERED: Famotidine/PF 20 mg/2ml Vial ONE (16:02)
[2018-07-03] MEDS ORDERED: Phenylephrine HCL 10 MG/ML VIAL ONE (16:03)
[2018-07-03] MEDS ORDERED: Ondansetron HCl/PF 4 MG/2 ML Vial IVP PRN (17:27)
[2018-07-03] MEDS ORDERED: Rocuronium Bromide 50 MG/5 ML VIAL ONE (18:15)
[2018-07-03] MEDS ORDERED: PROPOFOL 20 ML ONE (18:15)
[2018-07-03] MEDS ORDERED: Ventilator Sedation Protocol 1 EACH FS SCH (18:30)
[2018-07-03] MEDS ORDERED: Fentanyl BOLUS 250 ML IVPB PRN (18:37)
[2018-07-03] MEDS ORDERED: Propofol BOLUS 1,000 MG/100 ML VIAL IV PRN (18:37)
[2018-07-03] MEDS ORDERED: Propofol 1,000 MG/100 ML VIAL IV PRN (18:37)
[2018-07-03] MEDS ORDERED: DISCONTINUE PREVIOUS NARCOTIC PAIN MEDICATIONS AND BENZODIAZEPINES FS SCH (18:37)
[2018-07-03] MEDS ORDERED: fentaNYL Citrate/PF 2,000 MCG in Sodium Chloride 0.9% 60 ML IV SCH (18:37)
[2018-07-03] MEDS ORDERED: Lorazepam 2 MG/ML VIAL SLOW IVP PRN (18:37)
[2018-07-03] MEDS ORDERED: Propofol 1,000 MG/100 ML VIAL IV ONE (18:42)
--- NOTE | 2018-07-03 18:51 | RAD ---
PORTABLE AP CHEST X-RAY: 07/03/18 HISTORY: Central line placement. COMPARISON: 08/13/15. FINDINGS: A left internal jugular vein central venous catheter is noted in place. The tip is difficult to visua lize but probably overlies the expected location of the right atrium. A tunneled right internal jugul ar vein hemodialysis catheter has also been placed in the interim with the tip overlying the region o f the cavoatrial junction. No pneumothorax is present. Dorsal column stimulator leads again overlie t he thoracic spine with partial visualization of postsurgical changes of the thoracolumbar spine. The right hemidiaphragm is elevated on today's examination with volume loss at the right lung base. The cardiac silhouette is magnified by projection but is at the upper limits of normal in size. Coron lawson artery stent overlies the left cardiac border. Vascular calcifications are seen in the thoracic a rich. There is atelectasis at the left lung base. IMPRESSION: 1. Left internal jugular vein central venous catheter in place with tip overlying the region of the right atrium. 2. Tunneled right internal jugular vein hemodialysis catheter noted in place with tip overlying the cavoatrial junction. 3. No evidence of a pneumothorax. 4. Elevation right hemidiaphragm with volume loss at the right lung base. Small right pleural ef fusion cannot be entirely excluded. 5. Mild volume loss left lung base. POS: [facility]
[2018-07-03] MEDS ORDERED: Sodium Bicarb 50 MEQ/50 ML Abboject 8.4% SYRINGE IVP SCH (20:12)
[2018-07-03 20:39] LABS: Actual Bicarbonate (HCO3a) 10.7 mEq/L (22-28); Base Excess (BEa) 15.7 mEq/L (-2.0 to +3.0); CO2 Tension 27.7 mmHg (35.0-45.0); Hemoglobin (Hb) 13.2 g/dL (12.0-16.0); O2 Tension (PaO2) 155.1 mmHg (> 70.0); pH, Arterial 7.21 (7.35-7.45)
[2018-07-03 20:40] LABS: Calcium, Ionized 1.08 mmol/L (1.12-1.30); Potassium - ABG Lab 4.4 mmol/L (3.70-5.30); Puncture Site LRA
[2018-07-03 20:41] LABS: ALV-art Gradient 303.075 (0-20)
[2018-07-03] MEDS: Sodium Chloride 0.45% 1,000 ML IV SCH (20:51)
[2018-07-03] MEDS: Montelukast Sodium 10 mg Tablet PO SCH (20:53)
--- NOTE | 2018-07-03 23:33 | OP ---
DATE OF SERVICE: 07/03/2018 PREOPERATIVE DIAGNOSES: End-stage renal disease, poor IV access, obesity, respiratory failure, post- diabetes, hypertension. POSTOPERATIVE DIAGNOSES: End-stage renal disease, poor IV access, obesity, respiratory failure, post -diabetes, hypertension. PROCEDURE: Right IJ cuffed tunnel hemodialysis catheter, angiodynamics precurved. Left IJ triple nathaniel men catheter, ultrasound fluoroscopy used. Right arm (left-handed) primary AV fistula, perforating b ranch antecubital vein to the proximal of radial artery, outflow basilic, and cephalic vein, both wit h the cephalic vein outflow calibrated to 4 mm coronary artery dilator. SURGEON: Fernandez Flores M.D. ANESTHESIA: Regional. TIVA. Local 0.5% Marcaine with epinephrine 30 mL with 2% Xylocaine, 10 mL. PROCEDURE IN DETAIL: Patient was taken to the operating room where under intravenous sedation of reg ional anesthesia. Neck, chest, and right upper extremity were prepped with ChloraPrep, draped in rou eda fashion. Local anesthetic infiltrated into skin and subcutaneous tissue for placement of the ce ntral lines. A 0.5% Marcaine with epinephrine of 30 mL mixed with 2% Xylocaine, 10 mL mixture used. Using ultrasound guidance, the right and left internal jugular veins were cannulated with trocar cat heter. J-wire threaded. Trocar catheter removed. Skin incised and enlarged sharply. Stab incision made over the right chest. Using the Seldinger technique, a triple-lumen catheter placed into the l eft internal jugular vein and secured with 3-0 nylon suture x2. Biopatch sterile dressing applied. Each port aspirated and blood flushed with saline solution. Tunneling device used to tunnel a precurved angiodynamics and hemodialysis catheter between the two i ncisions over the right chest and neck. Fabric cuff beneath the placement of the skin exit site and catheter secured with 2 interrupted sutures of 3-0 nylon. Biopatch sterile dressing applied. Small er medium size dilators placed over the J-wire into the internal jugular vein and dilator and pull-aw ay sheath placed over the J-wire and into the superior vena cava and dilator and J-wire removed. Cat heter placed with a pull-away sheath. Pull-away sheath removed. Platysma approximated with 4-0 Foster cryl, skin with subdermal 4-0 Monocryl. DermaGlue and sterile dressings applied. Each port aspirate d blood and flushed with saline solution and heparinized saline solution of 1000 units of heparin per mL indicated volume of the port. Fluoroscopic images revealed good line placement. Incision was made in the proximal volar forearm longitudinally just below the antecubital fossa miguel ed down to the skin and subcutaneous tissue. Antecubital vein, proximal radial artery, brachial, ul atul arteries dissected free. Patient was given 6000 units of heparin intravenously. Perforating bra [facility] antecubital vein dissected free, dividing branch with 4-0 silk ties and clips. It was spatulated over a branch point and interrogated with coronary artery dilators, passing coronary artery dilators from a 2 mm to a 4 mm coronary artery dilator out the cephalic vein outflow. It also had a large co mmunicating branch to the basilic vein, which was preserved. Retrograde antecubital vein preserved. Proximal radial artery, brachial and ulnar artery clamped with vascular clamps. Longitudinal arteri otomy made in the proximal artery and elongated for a 2.5 to 3 cm arteriotomy and end vein perforatin g branch to side proximal aortic anastomosis created with continuous suture of 6-0 Prolene. After co mpleting the anastomosis, vascular clamps were released and there was good hemostasis noted and good flow in the cephalic and basilic vein outflows as interrogated by Doppler. Good hemostasis noted. P atient was given 25 mg protamine intravenously by Anesthesia. Subcutaneous tissues approximated with 3-0 Monocryl, skin with subdermal 4-0 Monocryl, and DermaGlue applied.
[2018-07-03] MEDS: cefTRIAXone\\ROCEPHIN 1 GM in Sodium Chloride 0.9% 100 ML IVPB SCH (23:35)
[2018-07-04 05:05] LABS: #Basophils 0.1 thou/uL (0.0-0.2); #Eosinphils 0.2 thou/uL (0.0-0.7); #Lymphocytes 1.3 thou/uL (1.20-3.40); #Monocytes 0.6 thou/uL (0.11-0.59); #Neutrophils 6.2 thou/uL (1.40-6.50); %Basophils 0.9 % (0.0-1.0); %Monocytes 7.2 % (0.0-10.0); %Neutrophils 73.9 % (42.0-75.0); Hemoglobin 11.5 g/dL (12.0-16.0); Mean Corpuscular HGB CONC 34.2 g/dL (32.0-36.0); Mean Corpuscular Hemoglobin 30.9 pg (27.0-31.0); Mean Corpuscular Volume 90.2 fL (78.0-98.0); Mean Platelet Volume 7.8 fL (7.4-10.4); Platelet Count 198 thou/uL (130-400); RBC Distribution Width 12.4 % (11.5-14.5); Red Blood Cell (RBC) Count 3.72 mill/uL (4.20-5.40); White Blood Cell (WBC) Count 8.3 thou/uL (4.8-10.8)
[2018-07-04 05:22] LABS: ALT (SGPT) 11 U/L (8-55); AST (SGOT) 16 U/L (5-34); Albumin 3.3 g/dL (3.4-4.8); Alkaline Phosphatase 61 U/L (40-150); Anion Gap 22 mmol/L (10-20); BUN (Urea Nitrogen) 58 mg/dL (9.8-20.1); Bilirubin, Total 0.3 mg/dL (0.2-1.2); Calc. Creatinine Clearance 9 mL/min (70-130); Calcium 8.3 mg/dL (7.8-10.44); Carbon Dioxide 15 mmol/L (23-31); Chloride 106 mmol/L (98-107); Estimated GFR-MDRD 7; Globulin 2.1 g/dL (2.4-3.5); Glucose 73 mg/dL (83-110); Magnesium 1.7 mg/dL (1.6-2.6); Phosphorus 6.3 mg/dL (2.3-4.7); Potassium 3.8 mmol/L (3.5-5.1); Protein, Total 5.4 g/dL (6.0-8.3); Sodium 139 mmol/L (136-145)
[2018-07-04 06:49] LABS: Actual Bicarbonate (HCO3a) 17.1 mEq/L (22-28); Base Excess (BEa) -7.4 mEq/L (-2.0 to +3.0); CO2 Tension 31.3 mmHg (35.0-45.0); Carboxyhemoglobin (COHb) 1.1 gm% (0.0-3.0); Hemoglobin (Hb) 11.8 g/dL (12.0-16.0); pH, Arterial 7.36 (7.35-7.45)
[2018-07-04 06:50] LABS: ALV-art Gradient 119.555 (0-20); Potassium - ABG Lab 4.1 mmol/L (3.70-5.30); Puncture Site LRA
[2018-07-04] MEDS ORDERED: DC Sedation Protocol FS ONE (07:50)
--- NOTE | 2018-07-04 08:08 | PRG ---
DATE OF SERVICE: 07/04/2018 Ms. Rojas was transferred to the unit last night, yesterday afternoon due to "acting different" she wa s intubated. The patient had previously undergone a procedure for fistula placement as well as dialy sis catheter placement. She underwent dialysis last night. She was seen this morning. She is arous able, breathing on her own. PHYSICAL EXAMINATION: VITAL SIGNS: Blood pressure 192/66, temperature 98.8. LUNGS: Revealed dry crackles bilaterally. HEART: Regular rate and rhythm with a 1/6 systolic murmur. LABORATORY: Hemoglobin 11.5, hematocrit 33.5, white blood count 8.3, sodium 139, potassium 3.8, chlo ride 106, CO2 15, BUN 58, creatinine 6.2. IMPRESSION: 1. Acute renal failure. 2. Acute change in mental status of unknown etiology, possibly related to fluid overload, possibly a cute renal failure. PLAN: Continue current medications. Pulmonary consult has been obtained from Dr. Best.
[2018-07-04] MEDS ORDERED: READ PPD TEST SITE PO SCH (09:00)
[2018-07-04] MEDS: Sodium Bicarbonate Tab 325 MG TAB PO SCH ×3 (09:00→20:41)
--- NOTE | 2018-07-04 09:02 | CON ---
DATE OF CONSULTATION: 07/04/2018 HISTORY: This is a 77-year-old female with acute on chronic renal failure. She was intubated post-p rocedure yesterday by Surgery. She came up to the ICU, intubated on the vent. She underwent emergency dialysis at about 8 or 9 o'cl ock in the evening. She was left on the vent. With a small amount of Diprivan. This medicine was discontinued this morn ing. She is awake, responsive, but slightly encephalopathic. The patient has been in the hospital since 06/30/2018. She presented initially with uncontrolled hyp ertension. Blood pressure was 290/109. She had some kind of metabolic encephalopathy. At the time she was admitted to the hospital most of her symptoms resolved with blood pressure improvement. EXTENSIVE PAST MEDICAL HISTORY: 1. Pertinent for carotid disease. 2. Previous multiple stents. 3. History of diabetes. 4. Hyperlipidemia. 5. High cholesterol. 6. Hypertension. 7. Arthritis. PAST SURGICAL HISTORY: 1. Back fusion T12 level 5. 2. Appendectomy. 3. Hysterectomy. 4. Some kind of hip surgery. 5. Ankle surgery. ALCOHOL/TOBACCO: No history of alcohol or tobacco abuse. HOME MEDICATIONS: Her list of medicine from home includes Xanax 0.5 p.r.n., Norvasc 10, vitamin C, L ipitor 8, ____ p.r.n. 10, Fiorinal, ISMO 60. Nitroglycerin, ____ 5, tramadol. REVIEW OF SYSTEMS: Unobtainable. PHYSICAL EXAMINATION: GENERAL: She is a little bit more responsive after sedation is withheld. VITAL SIGNS: Pulse 88, blood pressure 183/86, sats 100, respirations 19. CHEST: Chest revealed decreased breath sounds, no wheezing. CARDIAC: Normal S1-S2. No gallops. ABDOMEN: Soft, no masses. LABORATORY: White count 8000, H&H 11 and 33, platelet 188. PO2 is 98, pCO2 is 37.36, 36%. BUN and creatinine are 50 and 6.2. Urine shows E. coli. Chest x-ray shows cardiomegaly, small pleural effusion. IMPRESSION: 1. Urinary tract infection. 2. Acute on chronic renal failure. 3. Hypertension. 4. Metabolic encephalopathy. PLAN: Minimize sedation. Hopefully wean and extubate when she is more stable. Forty-five minutes critical care time.
[2018-07-04] MEDS: Sevelamer Carbonate 800 MG TAB PO SCH ×3 (09:45→16:08)
--- NOTE | 2018-07-04 10:13 | RAD ---
SEMIUPRIGHT PORTABLE CHEST 1 VIEW: Date: 07/03/18 HISTORY: 77-year-old female with history of respiratory insufficiency. COMPARISON: 07/03/18. FINDINGS: Left-sided central line, which appears to extend down to near the region of the right atrium. Large c aliber right venous access catheter. Endotracheal tube in satisfactory location. Considerable rotatio n to the left. Bilateral vascular congestion with poor inspiration with increased opacity in the left lower lobe, but with obliteration of the left hemidiaphragm when compared to the most recent prior s tudy, evidence for developing pleural effusion and/or atelectasis and/or pneumonia. IMPRESSION: Obliteration of the left hemidiaphragm, evidence for developing left lower lobe pneumonia, atelectasi s, and/or pleural effusion. Cardiomegaly. Bilateral vascular congestion. No pneumothorax. POS: OFF
--- NOTE | 2018-07-04 10:14 | PRG ---
DATE OF SERVICE: 07/04/2018 SUBJECTIVE: Ms. Rojas is a 77-year-old white female who was seen by the Renal Service for "worsening chronic renal failure". A dialysis catheter and AV fistula was placed yesterday. She underwent a 2 hour hemodialysis with about 2 liter fluid removal. She was transferred to the ICU due to mental sta tus change. This morning she is mentating better. No new complaints. No chest pain or shortness of breath. OBJECTIVE: VITAL SIGNS: Blood pressure is 196/76, heart rate 91, respiratory rate 21, pulse ox 99% on 3 liters. GENERAL: Noted to be awake, somewhat confused, but not in distress SKIN: Adequate turgor. HEENT: She has pinkish conjunctivae, anicteric sclerae. NECK: No neck mass, no carotid bruits, no JVD. CHEST: No deformities. LUNGS: Clear breath sounds. No wheezing, no crackles. HEART: Normal sinus rhythm. No murmur, no gallops or rubs. ABDOMEN: Globular, soft, nontender, no masses. EXTREMITIES: Trace edema. Chest x-ray of 07/04/2018 pending. LABORATORY: 07/04/2018 - White count 8.3, hemoglobin 11.5. Sodium 139, potassium 3.8, chloride 106, carbon dioxide 15, BUN 58, creatinine 6.2, phosphorus is 6.3, magnesium 1.7. ASSESSMENT AND PLAN: 1. End-stage renal disease/chronic renal failure - patient undergoing a 3-hour hemodialysis today. We will attempt 2 liter fluid removal as tolerated by the patient. We will then plan another 3-1/2 h our hemodialysis in a.m. 2. Hyperphosphatemia - on Renvela 800 mg p.o. t.i.d. with meals. 3. Mental status change. This could be related to the anesthetic she received from the surgery yest erday. She is mentating better. Overall, I agree with current management.
[2018-07-04] MEDS: Acetaminophen 500 MG TAB PO PRN (12:47)
[2018-07-04] MEDS: Nebivolol HCl 5 MG TAB PO SCH (12:47)
[2018-07-04] MEDS: Aspirin 325 MG TAB PO SCH (12:47)
[2018-07-04] MEDS: Calcitriol 0.25 MCG CAP PO SCH (12:47)
[2018-07-04] MEDS: Amlodipine 10 MG TAB PO SCH (12:47)
[2018-07-04] MEDS: Bupropion 150 MG XL TAB PO SCH (12:48)
[2018-07-04] MEDS: Isosorbide Mononitrate 20 MG TAB PO SCH (12:57)
[2018-07-04] MEDS: TROSPIUM 20 MG TABLET PO SCH (12:57)
[2018-07-04] MEDS: Sodium Chloride 0.45% 1,000 ML IV SCH ×2 (16:02→17:33)
[2018-07-04] MEDS ORDERED: Aspirin 81 mg Enteric Coated Tablet PO SCH (17:30)
[2018-07-04 17:51] LABS: Troponin I 0.029 ng/mL (< 0.028)
--- NOTE | 2018-07-04 18:04 | PRG ---
DATE OF SERVICE: 07/04/2018 SUBJECTIVE: Ms. Rojas is doing better today. She has been extubated this morning. Surgical wound lo oks good. Right arm fistula had good thrill and bruit. ASSESSMENT AND PLAN: Doing well. At this point, I will see as needed this hospitalization. She can use her arm and exercise it without restriction. She should follow up in my office in 3-4 weeks or sooner as indicated.
--- NOTE | 2018-07-04 22:35 | CON ---
DATE OF CONSULTATION: 07/04/2018 CARDIOLOGY CONSULTATION PRIMARY PIPE STEM ALIGNER: Kenroy Mckeon M.D. REASON FOR CONSULTATION: Congestive heart failure. HISTORY OF PRESENT ILLNESS: Ms. Guy Rojas is a pleasant patient with end-stage renal disease, adm itted to the hospital with difficulty breathing and renal failure. Ms. Rojas is 77 years of age. She was brought to the hospital apparently on 06/30/2018 with renal anup lure and diabetic nephropathy. She developed difficulty breathing while she is here related to volum e overload. She received dialysis and has improved dramatically. Apparently, 4 liters had been take n off. She was transiently intubated. The patient's blood pressure was as high as 290/109. PAST MEDICAL HISTORY: 1. Carotid arterial disease. 2. History of coronary stent implantation. 3. Diabetes. 4. Hypercholesterolemia. PAST SURGICAL HISTORY: 1. Appendectomy. 2. Hysterectomy. SOCIAL HISTORY: Alcohol and tobacco, none. ALLERGIES: To CODEINE, IODINE, PENICILLIN, PROMETHAZINE. REVIEW OF SYSTEMS: Constitutional: No significant weight gain or loss. Vision: No changes. Heari ng: No changes. Pulmonary: Positive for shortness of breath. Cardiac: No chest pain or pressure. Gastrointestinal: No nausea, vomiting or diarrhea. PHYSICAL EXAMINATION: GENERAL: This is a pleasant 77-year-old woman who is now resting comfortably. VITAL SIGNS: Her blood pressure is 126/53, pulse 83, it is regular. NECK: Neck veins are normal. Carotid normal upstrokes. LUNGS: A few rales at the bases. No wheezing. CARDIOVASCULAR: Normal S1, normal S2. There is a 3/6 systolic murmur heard loudest at the left mids ternal border. There is no diastolic murmur. No S3. ABDOMEN: Soft, nontender. EXTREMITIES: No clubbing or cyanosis. There is only [id number] edema. SKIN: Warm and dry. PSYCHIATRIC: Mood and affect normal. NEUROLOGIC: Grossly normal. Reviewing the previous notes, the patient does have a history of percutaneous stent implantation. Dr walker-coated stent placed in 2008 in the [facility]. The stent was a 2.5 x 24 mm stent and another stent, a 2. 5 x 16. These were Taxus stents. She also had stenting done in 2000 and a PTCA in 1999. PERTINENT LABORATORY DATA: Here, she has had a hemoglobin of 11.5, creatinine 6.2, potassium 3.8. H er blood gas 07/03/2018 was 7.21 pH, today it was 7.36. Troponin level was 0.022 on the 2nd. ASSESSMENT: 1. Episode of congestive heart failure, thought to be related to volume overloaded. 2. History of coronary artery disease. 3. There were no acute changes on EKG on 06/30/2018. I do not see a recent EKG. PLAN: 1. EKG to be requested. 2. Troponin now and tomorrow morning. 3. Continue antiplatelet drugs. 4. Echocardiogram will need to be done in view of the murmur. Dr. Mckeon to resume care tomorrow.
[2018-07-05] MEDS: Acetaminophen 500 MG TAB PO PRN (00:05)
[2018-07-05 04:50] LABS: #Basophils 0.1 thou/uL (0.0-0.2); #Eosinphils 0.5 thou/uL (0.0-0.7); #Lymphocytes 1.6 thou/uL (1.20-3.40); #Monocytes 0.9 thou/uL (0.11-0.59); #Neutrophils 3.7 thou/uL (1.40-6.50); %Basophils 1.2 % (0.0-1.0); %Eosinophils 7.5 % (0.0-10.0); %Lymphocytes 23.3 % (21.0-51.0); %Monocytes 13.2 % (0.0-10.0); %Neutrophils 54.9 % (42.0-75.0); Hemoglobin 10.7 g/dL (12.0-16.0); Mean Corpuscular HGB CONC 33.5 g/dL (32.0-36.0); Mean Corpuscular Hemoglobin 30.7 pg (27.0-31.0); Mean Corpuscular Volume 91.7 fL (78.0-98.0); Mean Platelet Volume 7.9 fL (7.4-10.4); Platelet Count 169 thou/uL (130-400); RBC Distribution Width 12.5 % (11.5-14.5); Red Blood Cell (RBC) Count 3.48 mill/uL (4.20-5.40); White Blood Cell (WBC) Count 6.7 thou/uL (4.8-10.8)
[2018-07-05 05:05] LABS: ALT (SGPT) 11 U/L (8-55); AST (SGOT) 18 U/L (5-34); Albumin 3.2 g/dL (3.4-4.8); Alkaline Phosphatase 60 U/L (40-150); Anion Gap 15 mmol/L (10-20); BUN (Urea Nitrogen) 30 mg/dL (9.8-20.1); Bilirubin, Total 0.3 mg/dL (0.2-1.2); Calc. Creatinine Clearance 13 mL/min (70-130); Calcium 8.2 mg/dL (7.8-10.44); Carbon Dioxide 26 mmol/L (23-31); Chloride 104 mmol/L (98-107); Estimated GFR-MDRD 9; Glucose 91 mg/dL (83-110); Potassium 3.5 mmol/L (3.5-5.1); Protein, Total 5.2 g/dL (6.0-8.3); Sodium 141 mmol/L (136-145)
[2018-07-05] MEDS: Sevelamer Carbonate 800 MG TAB PO SCH ×3 (08:00→17:53)
--- NOTE | 2018-07-05 08:05 | PRG ---
DATE OF SERVICE: 07/05/2018 Ms. Rojas is doing a little better. She is more awake and alert. She has developed atrial fibrillati on through the night last night. Otherwise, no other medical complaints. She is feeling better. PHYSICAL EXAMINATION: VITAL SIGNS: Pulse 118 and regular, temperature 98.4. LUNGS: Clear bilaterally. HEART: Reveals an irregular regular rhythm with a 2/6 systolic ejection murmur. EXTREMITIES: No clubbing, edema or cyanosis. Creatinine is down to 4.5. IMPRESSION: 1. Acute renal injury with renal failure. 2. New development of atrial fibrillation. 3. Mental status changes, improving. 4. Urinary tract infection. PLAN: 1. Further workup with Cardiology as well as treatment for atrial fibrillation will be addressed by Cardiology. 2. Continue IV Levaquin. 3. Continue renal dialysis per Renal team.
--- NOTE | 2018-07-05 08:19 | PRG ---
DATE OF SERVICE: 07/05/2018 Ms. Rojas was extubated yesterday post-resection of a dialysis catheter. She had developed SVT yester day. She has history of asthma, but denies any shortness of breath, coughing or wheezing. PHYSICAL EXAMINATION: VITAL SIGNS: Her pulse is 100. Blood pressure 137/98, pulse 120, atrial fibrillation, respirations 14. CHEST: No wheezing or crackles. CARDIAC: Normal S1, S2, no gallops. ABDOMEN: Soft. No masses. LABORATORY AND X-RAY FINDINGS: Chest x-ray shows continued cardiomegaly and some cephalization. IMPRESSION: 1. Chronic renal failure. 2. Pulmonary edema. 3. Supraventricular tachycardia. 4. Asthma. PLAN: Deep venous thrombosis prophylaxis is being initiated. Otherwise, PT and supportive care. She can be transferred to a monitored bed.
--- NOTE | 2018-07-05 09:17 | RAD ---
CHEST 1 VIEW: Date: 07/05/18 HISTORY: Ventilated patient. COMPARISON: Chest radiograph prior day. FINDINGS: Heart size is enlarged. Mild edema. Left IJ central venous catheter tip right atrium. Dialysis cathet er tip cavoatrial junction. Vascular calcifications are present. Dorsal column stimulator leads are seen. IMPRESSION: Improving left basilar air space opacity. POS: [facility]
--- NOTE | 2018-07-05 09:54 | PRG ---
DATE OF SERVICE: 07/05/2018 SUBJECTIVE: Ms. Rojas is a 77-year-old white female who was admitted for worsening renal dysfunction. She has been initiated with hemodialysis due to uremic signs and symptoms. She has undergone 2 con secutive dialysis. Her mentation is much improved today. I am currently at the bedside supervising her dialysis. My plan is to do a 3.5 hour dialysis with fluid removal only as tolerated. No other c omplaints, no chest pain or shortness of breath. OBJECTIVE: VITAL SIGNS: Blood pressure 137/69, heart rate 105, respiratory rate 17, pulse ox 99%. GENERAL: Noted to be awake, supine, comfortable, not in distress. SKIN: Adequate turgor. HEENT: Pinkish conjunctivae, anicteric sclerae. NECK: No neck mass, no carotid bruits, no JVD. CHEST: No deformities. LUNGS: Clear breath sounds. No wheezing, no crackles. HEART: Normal sinus rhythm. No murmur, no gallops or rubs. ABDOMEN: Globular, soft, nontender, no masses. EXTREMITIES: No edema, no deformities. MEDICATIONS: 07/05/2018 - Reviewed. LABORATORY DATA: 07/05/2018 - White count 6.7, hemoglobin 10.7, sodium 141, potassium 3.5, chloride 104, carbon dioxide 26, BUN 30, creatinine 4.74. AST 18, ALT 11, albumin 3.2. ASSESSMENT AND PLAN: 1. Chronic renal failure/end-stage renal disease - continue hemodialysis regimen. We will do a 3.5 hour hemodialysis and then place her on regular 3 times a week hemodialysis regimen. Fluid removal a s tolerated. We are awaiting outpatient dialysis placement with this patient. 2. Hyperphosphatemia currently on Renvela. Overall, I agree with current management.
[2018-07-05] MEDS: TROSPIUM 20 MG TABLET PO SCH (14:15)
[2018-07-05] MEDS: Amlodipine 10 MG TAB PO SCH (14:15)
[2018-07-05] MEDS: Aspirin 81 mg Enteric Coated Tablet PO SCH (14:15)
[2018-07-05] MEDS: Bupropion 150 MG XL TAB PO SCH (14:15)
[2018-07-05] MEDS: Calcitriol 0.25 MCG CAP PO SCH (14:15)
[2018-07-05] MEDS: Nebivolol HCl 5 MG TAB PO SCH (14:16)
[2018-07-05] MEDS: Heparin 5,000 UNITS/ML VIAL SC SCH ×2 (14:17→20:13)
[2018-07-05] MEDS: Sodium Bicarbonate Tab 325 MG TAB PO SCH (14:18)
--- NOTE | 2018-07-05 16:06 | EKG ---
Test Reason : ROUTINE Blood Pressure : / mmHG Vent. Rate : 081 BPM Atrial Rate : 081 BPM P-R Int : 162 ms QRS Dur : 086 ms QT Int : 418 ms P-R-T Axes : 041 034 062 degrees QTc Int : 485 ms Sinus rhythm Possible Inferior infarct , age undetermined Abnormal ECG When compared with ECG of 30-JUN-2018 16:34, (Unconfirmed) Fusion complexes are now Present Premature ventricular complexes are now Present Inverted T waves have replaced nonspecific T wave abnormality in Anterior leads Confirmed by DR. Mei SEGURA ([id number]) on 07/05/2018 4:06:04 PM Referred By: Confirmed By:DR. Mei SEGURA
--- NOTE | 2018-07-05 16:07 | EKG ---
Test Reason : STAT Blood Pressure : / mmHG Vent. Rate : 083 BPM Atrial Rate : 082 BPM P-R Int : 000 ms QRS Dur : 094 ms QT Int : 410 ms P-R-T Axes : 000 048 043 degrees QTc Int : 481 ms Atrial fibrillation Nonspecific T wave abnormality Prolonged QT Abnormal ECG When compared with ECG of 04-JUL-2018 17:58, (Unconfirmed) Atrial fibrillation has replaced Sinus rhythm Confirmed by DR. Mei SEGURA ([id number]) on 07/05/2018 4:07:00 PM Referred By: DONALD Confirmed By:DR. Mei SEGURA
[2018-07-05] MEDS ORDERED: Diltiazem 125 MG in Sodium Chloride 0.9% 100 ML IVPB SCH (16:45)
[2018-07-05] MEDS ORDERED: Heparin 10,000 UNITS/ 10 ML VIAL ONE (17:23)
[2018-07-05] MEDS: Sodium Chloride 0.45% 1,000 ML IV SCH (17:52)
[2018-07-05] MEDS: cefTRIAXone\\ROCEPHIN 1 GM in Sodium Chloride 0.9% 100 ML IVPB SCH ×2 (23:23)
[2018-07-06 05:00] LABS: ALT (SGPT) 17 U/L (8-55); AST (SGOT) 24 U/L (5-34); Albumin 3.1 g/dL (3.4-4.8); Alkaline Phosphatase 53 U/L (40-150); Anion Gap 13 mmol/L (10-20); BUN (Urea Nitrogen) 16 mg/dL (9.8-20.1); Bilirubin, Total 0.3 mg/dL (0.2-1.2); Calc. Creatinine Clearance 18 mL/min (70-130); Calcium 8.4 mg/dL (7.8-10.44); Carbon Dioxide 26 mmol/L (23-31); Chloride 103 mmol/L (98-107); Estimated GFR-MDRD 14; Globulin 2.1 g/dL (2.4-3.5); Glucose 115 mg/dL (83-110); Potassium 3.9 mmol/L (3.5-5.1); Protein, Total 5.2 g/dL (6.0-8.3); Sodium 138 mmol/L (136-145)
[2018-07-06] MEDS: Sevelamer Carbonate 800 MG TAB PO SCH ×3 (08:30→18:17)
[2018-07-06] MEDS: Calcitriol 0.25 MCG CAP PO SCH (08:30)
[2018-07-06] MEDS: TROSPIUM 20 MG TABLET PO SCH (08:31)
[2018-07-06] MEDS: Heparin 5,000 UNITS/ML VIAL SC SCH ×2 (08:31→20:30)
[2018-07-06] MEDS: Aspirin 81 mg Enteric Coated Tablet PO SCH (08:31)
[2018-07-06] MEDS: Bupropion 150 MG XL TAB PO SCH (08:31)
[2018-07-06] MEDS: Amlodipine 10 MG TAB PO SCH (09:45)
[2018-07-06] MEDS: Nebivolol HCl 5 MG TAB PO SCH (09:45)
--- NOTE | 2018-07-06 10:37 | PRG ---
DATE OF SERVICE: 07/06/2018 PRIMARY CARE PHYSICIAN: Dr. Fernandez Wood. SUBJECTIVE: The patient is feeling much better. She continues to have a cough. Denies chest pain, denies shortness of breath. She is tolerating physical therapy. She is anxious to go home. She is tolerating hemodialysis and feels like her swelling has gone down. Again, her only complaint is her cough which is improved. OBJECTIVE: VITAL SIGNS: Temperature 98.6, pulse of 75, respirations 18, blood pressure 129/60, pulse oximetry i s 95% on 2 liters. GENERAL: She is awake and alert, in no acute distress. Speech is clear. HEENT: Mucosa is moist. HEART: Regular rate and rhythm with a 3/6 systolic ejection murmur. LUNGS: With scattered rhonchi, no wheezes. EXTREMITIES: No clubbing, cyanosis or edema, 2+ peripheral pulses bilaterally. LABORATORY DATA: Sodium 138, potassium 3.9, chloride 103, CO2 26, BUN and creatinine are 16 and 3.26 with a GFR of 14. Accu-Cheks of 101, 110, 132. Albumin of 3.1. X-RAY FINDINGS: Chest x-ray from yesterday was reviewed and showed improved left basilar airspace op acity. ASSESSMENT AND PLAN: This is a 77-year-old female with type 2 diabetes and hypertension admitted wit h acute renal failure. 1. End-stage renal disease. We will continue hemodialysis per Dr. Quinn. Family states that outpatie nt dialysis was arranged already. 2. Episode of supraventricular tachycardia, which is resolved with Cardizem. Cardiology likely to d iscontinue the Cardizem. She may need oral antiarrhythmics. 3. Respiratory failure, resolved after postoperatively episode. 4. Urinary tract infection on day 7 of Rocephin. We will continue the 7-day treatment while she is here in the hospital due to her severe illness with respiratory failure and renal failure. 5. Disposition: Home when okay with Cardiology and Nephrology.
--- NOTE | 2018-07-06 10:44 | PRG ---
DATE OF SERVICE: 07/06/2018 RENAL MEDICINE SUBJECTIVE: Ms. Rojas is a 77-year-old white female followed by the Renal Service for her maintenance hemodialysis. She was started on dialysis due to uremic signs and symptoms. She underwent a three and half hour dialysis yesterday with fluid removal. No new complaints except for occasional cough. No chest pain, no shortness of breath. PHYSICAL EXAMINATION: VITAL SIGNS: Blood pressure is 129/60, heart rate 75, respiratory rate 18, temperature 98.6, pulse o x 95%. GENERAL: Noted to be awake, supine, comfortable, not in overt distress. SKIN: Adequate turgor. HEENT: She has pinkish conjunctivae, anicteric sclerae. NECK: No neck mass, no carotid bruits, no JVD. CHEST: No deformities. LUNGS: Decreased breath sounds. HEART: Normal sinus rhythm. No murmur, no gallops, no rubs. ABDOMEN: Globular, soft, nontender, no masses. EXTREMITIES: No edema, no deformities. MEDICATIONS: Of 07/06/2018 reviewed. LABORATORY DATA: Of 07/05/2018, white count 6.7, hemoglobin 10.7. On 07/06/2018, sodium 138, potass ium 3.9, chloride 103, carbon dioxide 26, BUN 16, creatinine 3.23, glucose 115, calcium 8.4, AST 24, ALT 17, albumin 3.1. Chest x-ray of 07/05/2018 showed improving left basilar air space opacity - mil d edema. ASSESSMENT AND PLAN: 1. End-stage renal disease/chronic renal failure, stable. Tolerating hemodialysis. My plan is to r esume back dialysis this coming Sunday. I plan to do a 3.5 hour hemodialysis with this patient. 2. Mild congestive heart failure - clinically improved with the repeat chest x-ray. Significant flu id has been removed with dialysis. 3. Left basilar opacity - clinically much improved. Overall, agree with current management. Recheck base met and CBC in a.m.
[2018-07-06] MEDS: Acetaminophen 500 MG TAB PO PRN ×2 (13:37→20:31)
--- NOTE | 2018-07-06 13:50 | PRG ---
DATE OF SERVICE: 07/06/2018. SUBJECTIVE: The patient is sitting up, eating, appears to be doing well, has no complaints. PHYSICAL EXAMINATION: VITAL SIGNS: Temperature is 98.7, pulse 74, respirations 18, O2 sat 94% room air, blood pressure 136 /61. HEENT: Unremarkable. NECK: No JVD. LUNGS: Diminished breath sounds in the bases. CARDIAC: S1 and S2 regular. ABDOMEN: Soft. EXTREMITIES: No edema. LABORATORY DATA: Sodium 130, potassium 3.9, chloride 103, CO2 26, BUN 16, creatinine 3.2, glucose 11 5, albumin 3.1. ASSESSMENT: 1. Chronic renal failure. 2. Pulmonary edema. 3. Supraventricular tachycardia. 4. Asthma. PLAN: The patient seems stable from a pulmonary standpoint. Main issue now is the treatment of the renal failure and Rehabilitation. No further pulmonary recommendations. We will sign off the case. Please recall if further assistance needed.
--- NOTE | 2018-07-06 17:36 | PDOC.CTH ---
<Jocelin Mayorga - Last Filed: 07/06/18 17:34> Cardiology Progress Note - Subjective The pt seen and examined. No overnight events. No cardiac complaints. Bruise to Rt side. - Objective Vital Signs Temp Pulse Pulse Resp BP BP BP 07/06/18 16:00 98.5 F 74 18 156/70 H 07/06/18 11:55 76 164/72 H 144/68 H 07/06/18 11:41 98.7 F 74 18 138/61 07/06/18 07:48 98.6 F 75 18 07/06/18 07:29 98.6 F 75 18 129/60 07/06/18 05:39 Pulse Ox 07/06/18 16:00 92 L 07/06/18 11:55 07/06/18 11:41 94 L 07/06/18 07:48 95 07/06/18 07:29 95 07/06/18 05:39 93 L Weight 166 lb 6.4 oz 07/05/18 07/06/18 07/07/18 06:59 06:59 06:59 Intake Total 1670.9 1724 Output Total 1515 3585 Balance 155.9 -1861 - Physical Examination General/Neuro: alert & oriented x3 Neck: no JVD present Lungs: CTA Heart: RRR Abdomen: soft Extremities: other: (No edema) - Telemetry Telemetry Rhythm: SR 70s - Labs Result Diagrams: 07/05/18 04:35 07/06/18 03:54 Troponin/CKMB CK-MB (CK-2) 1.7 ng/mL (0-6.6) 06/30/18 17:10 Troponin I 0.029 ng/mL (< 0.028) H 07/04/18 17:00 - Assessment/Plan 1. Hx of SVT/Afib - Converted back to SR on 129, 07/06/18. Changed Diltiazem from IV to Po 120mg qd. Cont. to monitor on tele/ 2. New-onset of CHF - Stable with Echo result is pending. On Bblocer, but no on JESI/ARB due to hx of CKD 3. Acute on CKD stage 5 - possible HD, managed by solid tire finisher 4. CAD with hx of stent in 1999, 2000, 2008 5. DM type 2 - 6. Hyperlipidemia - 7. UTI - on IV antibiotics; managed by PCP 8. Asthma - MAR reviewed Review of Systems - Review of Systems Constitutional: reports: no symptoms reported EENTM: reports: no symptoms reported Respiratory: reports: no symptoms reported Cardiac (ROS): reports: no symptoms reported ABD/GI: reports: no symptoms reported : reports: no symptoms reported Musculoskeletal: reports: no symptoms reported <Jeannette Castorena - Last Filed: 07/06/18 23:44> Cardiology Progress Note - Objective Vital Signs Temp Pulse Pulse Resp BP BP BP 07/06/18 20:21 98.2 F 78 18 157/78 H 07/06/18 20:00 98.2 F 78 18 07/06/18 16:00 98.5 F 74 18 156/70 H 07/06/18 11:55 76 164/72 H 144/68 H Pulse Ox 07/06/18 20:21 92 L 07/06/18 20:00 07/06/18 16:00 92 L 07/06/18 11:55 Weight 166 lb 6.4 oz 07/05/18 07/06/18 07/07/18 06:59 06:59 06:59 Intake Total 1670.9 1724 1215 Output Total 1515 3585 600 Balance 155.9 -1861 615 - Labs Result Diagrams: 07/05/18 04:35 07/06/18 03:54 Troponin/CKMB CK-MB (CK-2) 1.7 ng/mL (0-6.6) 06/30/18 17:10 Troponin I 0.029 ng/mL (< 0.028) H 07/04/18 17:00 - Assessment/Plan Pt. seen and evaluated by me.I agree with the A/P by the ROCK CRUSHING MACHINE OPERATOR. Chest clear
[2018-07-06] MEDS: Sodium Chloride 0.45% 1,000 ML IV SCH (18:18)
--- NOTE | 2018-07-06 19:20 | EKG ---
Test Reason : Blood Pressure : / mmHG Vent. Rate : 070 BPM Atrial Rate : 070 BPM P-R Int : 190 ms QRS Dur : 094 ms QT Int : 412 ms P-R-T Axes : 011 043 045 degrees QTc Int : 444 ms Normal sinus rhythm Normal ECG Confirmed by GREGORY ZHU DO ([id number]), purchase request editor REGINO GUZMAN ([id number]) on 07/06/2018 7:19:42 PM Referred By: Confirmed By:GREGORY ZHU DO
[2018-07-07] MEDS: cefTRIAXone\\ROCEPHIN 1 GM in Sodium Chloride 0.9% 100 ML IVPB SCH (00:09)
[2018-07-07] MEDS ORDERED: ALPRAZolam 0.5 MG TAB PO SCH (04:15)
[2018-07-07 05:07] LABS: #Basophils 0.1 thou/uL (0.0-0.2); #Eosinphils 0.7 thou/uL (0.0-0.7); #Lymphocytes 1.7 thou/uL (1.20-3.40); #Monocytes 0.8 thou/uL (0.11-0.59); #Neutrophils 3.7 thou/uL (1.40-6.50); %Basophils 1.4 % (0.0-1.0); %Eosinophils 9.5 % (0.0-10.0); %Lymphocytes 24.3 % (21.0-51.0); %Monocytes 11.7 % (0.0-10.0); %Neutrophils 53.2 % (42.0-75.0); Hemoglobin 9.6 g/dL (12.0-16.0); Mean Corpuscular HGB CONC 32.9 g/dL (32.0-36.0); Mean Corpuscular Hemoglobin 30.5 pg (27.0-31.0); Mean Corpuscular Volume 92.9 fL (78.0-98.0); Mean Platelet Volume 8.6 fL (7.4-10.4); Platelet Count 163 thou/uL (130-400); RBC Distribution Width 12.2 % (11.5-14.5); Red Blood Cell (RBC) Count 3.16 mill/uL (4.20-5.40)
[2018-07-07 05:15] LABS: Anion Gap 15 mmol/L (10-20); BUN (Urea Nitrogen) 24 mg/dL (9.8-20.1); Calc. Creatinine Clearance 13 mL/min (70-130); Calcium 8.6 mg/dL (7.8-10.44); Carbon Dioxide 25 mmol/L (23-31); Chloride 99 mmol/L (98-107); Estimated GFR-MDRD 10; Glucose 102 mg/dL (83-110); Potassium 3.8 mmol/L (3.5-5.1); Sodium 135 mmol/L (136-145)
[2018-07-07] MEDS: Amlodipine 10 MG TAB PO SCH (09:20)
[2018-07-07] MEDS: Calcitriol 0.25 MCG CAP PO SCH (09:21)
[2018-07-07] MEDS: Bupropion 150 MG XL TAB PO SCH (09:21)
[2018-07-07] MEDS: Aspirin 81 mg Enteric Coated Tablet PO SCH (09:21)
[2018-07-07] MEDS: Nebivolol HCl 5 MG TAB PO SCH (09:23)
[2018-07-07] MEDS: TROSPIUM 20 MG TABLET PO SCH (09:24)
[2018-07-07] MEDS: Heparin 5,000 UNITS/ML VIAL SC SCH ×2 (09:25→21:18)
[2018-07-07] MEDS: Sevelamer Carbonate 800 MG TAB PO SCH ×3 (09:31→19:01)
--- NOTE | 2018-07-07 10:39 | RAD ---
FRONTAL RADIOGRAPH CHEST: DATE: 07/07/18. COMPARISON: 07/05/18. HISTORY: Cough. FINDINGS: Stable dorsal column stimulators overlie the midthoracic spine. There is stable right dialysis manuel ter, left vascular catheter, and incompletely imaged thoracolumbar junction postoperative hardware. No pneumothorax, pleural fluid, lobar consolidation, or alveolar edema. Heart and mediastinal contou rs are stable. IMPRESSION: Stable appearance of the chest. POS: KARTHIKEYAN
[2018-07-07] MEDS ORDERED: Epoetin (ESRD) 20,000 UNITS/ML SC SCH (11:00)
--- NOTE | 2018-07-07 11:10 | PRG ---
DATE OF SERVICE: 07/07/2018 SERVICE: Renal Medicine. SUBJECTIVE: Ms. Rojas is a 77-year-old white female with chronic renal failure/ESRD. Due to the wors ening renal dysfunction, patient had been initiated with dialysis. She underwent dialysis last Luiza y. The plan is for her to undergo dialysis again tomorrow for 3-1/2 hours. No new complaints today, no chest pain or shortness of breath. OBJECTIVE: VITAL SIGNS: Blood pressure 156/64, heart rate 73, respiratory rate 18, temperature 98.2, pulse ox 9 2%. GENERAL EXAM: Awake, alert, comfortable, not in distress, sitting SKIN: Adequate turgor. HEENT: She has pinkish conjunctivae, anicteric sclerae. NECK: No neck mass, no carotid bruits, no JVD. CHEST: No deformities. LUNGS: Clear breath sounds. HEART: She has a normal sinus rhythm. She does have a grade 2/6 systolic murmur, no gallops, no rub s. ABDOMEN: Globular, soft, nontender, no masses. EXTREMITIES: No edema, no deformities. Medications of 07/07/2018 was reviewed. LABORATORY DATA: Laboratories of 07/07/2018, white count 7, hemoglobin 9.6. Sodium 135, potassium 3 .8, chloride 99, carbon dioxide 25, BUN 24, creatinine 4.4, glucose 102, calcium 8.6. Cardiac echo, normal EF. ASSESSMENT AND PLAN: 1. Anemia. Restart Epogen 7500 units subcutaneously every week. 2. End-stage renal disease/chronic renal failure. Continue 3 times a week hemodialysis. Awaiting o utpatient dialysis placement. 3. Shortness of breath, clinically much improved. Fluid removal with dialysis. Recheck basic metab olic panel and CBC in a.m.
--- NOTE | 2018-07-07 14:53 | PDOC.CTH ---
<Jocelin Mayorga - Last Filed: 07/07/18 14:51> Cardiology Progress Note - Subjective The pt seen and examined. No overnight events. No cardiac complaints. Bruise to Rt side. - Objective Vital Signs Temp Pulse Resp BP BP BP BP 07/07/18 14:35 86 18 07/07/18 11:52 97.8 F 70 14 152/76 H 07/07/18 09:33 73 156/64 H 07/07/18 09:20 73 156/65 H 07/07/18 08:25 98.2 F 73 18 07/07/18 08:07 98.2 F 73 18 156/64 H 07/07/18 04:00 97.8 F 73 20 148/70 H Pulse Ox 07/07/18 14:35 90 L 07/07/18 11:52 94 L 07/07/18 09:33 07/07/18 09:20 07/07/18 08:25 92 L 07/07/18 08:07 92 L 07/07/18 04:00 92 L Weight 169 lb 11.2 oz 07/06/18 07/07/18 07/08/18 06:59 06:59 06:59 Intake Total 1724 1955 Output Total 3585 950 Balance -1861 1005 - Physical Examination General/Neuro: alert & oriented x3 Neck: no JVD present Lungs: CTA (diminished at bases) Heart: RRR Abdomen: soft Extremities: other: (No edema) - Telemetry Telemetry Rhythm: SR - Labs Result Diagrams: 07/07/18 04:33 07/07/18 04:33 Troponin/CKMB CK-MB (CK-2) 1.7 ng/mL (0-6.6) 06/30/18 17:10 Troponin I 0.029 ng/mL (< 0.028) H 07/04/18 17:00 - Assessment/Plan 1. Hx of SVT/Afib - Converted back to SR on 129, 07/06/18. Maintains in SR with Diltiazem 120mg qd. Cont. to monitor on 2. New-onset of CHF - Echo on 07/06/18 showed EF 60-65%, mild-mod MR, mild TR, mild HI and mod-severe . Stable with BBlocker, but not on JESI/ARB due to hx of CKD 3. Acute on CKD stage 5 - Plan for 4th HD tomorrow, managed by photo lab technician 4. CAD with hx of stent in 1999, 2000, 2009 - stable; on BBlocker and ASA. 5. DM type 2 - managed by PCP 6. UTI - on IV antibiotics; managed by PCP 8. Asthma - stable MAR reviewed * Plan for d/c tomorrow. Waiting for HD placement. * Dr Mckeon's Pt. Review of Systems - Review of Systems Constitutional: reports: no symptoms reported EENTM: reports: no symptoms reported Respiratory: reports: no symptoms reported Cardiac (ROS): reports: no symptoms reported ABD/GI: reports: no symptoms reported : reports: no symptoms reported Musculoskeletal: reports: no symptoms reported <Jeannette Castorena - Last Filed: 07/07/18 18:35> Cardiology Progress Note - Objective Vital Signs Temp Pulse Resp BP BP BP BP 07/07/18 16:00 97.8 F 74 16 156/67 H 07/07/18 14:35 86 18 07/07/18 11:52 97.8 F 70 14 152/76 H 07/07/18 09:33 73 156/64 H 07/07/18 09:20 73 156/65 H 07/07/18 08:25 98.2 F 73 18 07/07/18 08:07 98.2 F 73 18 156/64 H Pulse Ox 07/07/18 16:00 96 07/07/18 14:35 90 L 07/07/18 11:52 94 L 07/07/18 09:33 07/07/18 09:20 07/07/18 08:25 92 L 07/07/18 08:07 92 L Weight 169 lb 11.2 oz 07/06/18 07/07/18 07/08/18 06:59 06:59 06:59 Intake Total 1724 1955 960 Output Total 3585 950 340 Balance -1861 1005 620 - Labs Result Diagrams: 07/07/18 04:33 07/07/18 04:33 Troponin/CKMB CK-MB (CK-2) 1.7 ng/mL (0-6.6) 06/30/18 17:10 Troponin I 0.029 ng/mL (< 0.028) H 07/04/18 17:00 - Assessment/Plan Pt. seen and eval. by me. I agree with the A/P by the SENIOR SALES ENGINEER. She is feeling better and wants to go home. RRR, scattered rhonchi.
--- NOTE | 2018-07-07 17:21 | DIS ---
DATE OF ADMISSION: 06/30/2018 DATE OF DISCHARGE: 07/07/2018 ADMISSION DIAGNOSES: 1. Acute on chronic renal failure. 2. Type 2 diabetes. 3. Hypertension. 4. Hyperlipidemia. 5. Coronary artery disease. DISCHARGE DIAGNOSES: 1. End-stage renal disease on hemodialysis. 2. Postoperative respiratory arrest, requiring intubation. 3. Urinary tract infection. 4. Metabolic encephalopathy. 5. Congestive heart failure secondary to volume overload. CONSULTATIONS: Dr. Quinn for Nephrology, Dr. Flores for Surgery, Dr. Best for Pulmonary, Dr. Lafleur [facility] Cardiology. PROCEDURES: Renal ultrasound, hemodialysis catheter placement, ICU monitoring, echocardiogram to rul e out myocardial infarction. HOSPITAL COURSE: This is a 77-year-old female patient of Dr. Fernandez Wood with a history of type 2 diabetes, hypertension, hyperlipidemia, coronary artery disease, chronic pain, presented to the emerg ency department with confusion. On admission, she was found to have a creatinine of 8.4 and symptoms of uremia. Nephrology was consulted. Dr. Quinn saw the patient and agreed with admission. Emergent dialysis was not necessary, but then she eventually did show no improvement in her kidney function an d needed dialysis. She underwent a catheter placement, but then following postoperative period, she had an episode of respiratory distress, requiring intubation. She was transferred to the ICU and she was able to quickly wean off of the ventilator and was transferred out of the ICU at that point. Silke figueroa was seen by Dr. Lafleur as well for cardiac evaluation and felt like her CHF was likely due to fluid overload. She was diuresed with dialysis and that improved as well. She clinically continued to im prove. Her respiratory status improved except for her chronic cough which has been going on for montez ral months. Outpatient dialysis was arranged and she was anxious to go home and stable for discharge on the day of discharge. DISCHARGE PHYSICAL EXAMINATION: VITAL SIGNS: Temperature 98.2, pulse of 73, respirations 18, blood pressure 156/64, pulse ox 92%-95% on room air, blood pressure 156/64. GENERAL: She is awake and alert, in no acute distress. Speech is clear. HEENT: Mucosa is moist. NECK: Supple. HEART: Regular rate and rhythm with a 3/6 systolic ejection murmur. LUNGS: With a rare rhonchi, no wheeze, rales to auscultation, her breathing is easy. ABDOMEN: Soft. EXTREMITIES: With trace edema. DISCHARGE LABORATORY DATA: White blood cell count 7000, hemoglobin and hematocrit 9.6 and 29.3, plat elets of 163,000. Sodium 135, potassium 3.8, chloride 99, CO2 of 25, BUN and creatinine 24 and 4.4 w ith a GFR of 10. Accu-Cheks of 129, 108, 124. Chest x-ray showed no active disease. DISCHARGE MEDICATIONS: Tylenol p.r.n., DuoNebs for cough, albuterol inhaler p.r.n., amlodipine 10 mg daily, aspirin 81 mg daily, Wellbutrin 150 mg daily, calcitriol 0.25 mcg daily, Tums 1000 mg t.i.d., Cardizem-CD 120 mg daily, Procrit 7500 units every week, Imdur 60 mg daily, Bystolic 5 mg daily, Pro tonix 40 mg daily, Renvela 800 mg t.i.d., trospium 20 mg p.o. daily. FOLLOWUP INSTRUCTIONS: Patient to follow up with Dr. Quinn as continue dialysis. Follow up with Dr. Mónica nicholas in 1 week.?
[2018-07-08] MEDS: cefTRIAXone\\ROCEPHIN 1 GM in Sodium Chloride 0.9% 100 ML IVPB SCH (00:05)
[2018-07-08 05:46] LABS: #Basophils 0.1 thou/uL (0.0-0.2); #Eosinphils 0.6 thou/uL (0.0-0.7); #Lymphocytes 1.3 thou/uL (1.20-3.40); #Monocytes 0.7 thou/uL (0.11-0.59); #Neutrophils 3.8 thou/uL (1.40-6.50); %Eosinophils 9.1 % (0.0-10.0); %Lymphocytes 20.6 % (21.0-51.0); %Monocytes 11.2 % (0.0-10.0); %Neutrophils 58.1 % (42.0-75.0); Hemoglobin 9.4 g/dL (12.0-16.0); Mean Corpuscular HGB CONC 32.6 g/dL (32.0-36.0); Mean Corpuscular Hemoglobin 30.4 pg (27.0-31.0); Mean Corpuscular Volume 93.2 fL (78.0-98.0); Mean Platelet Volume 8.1 fL (7.4-10.4); Platelet Count 188 thou/uL (130-400); RBC Distribution Width 12.2 % (11.5-14.5); Red Blood Cell (RBC) Count 3.08 mill/uL (4.20-5.40); White Blood Cell (WBC) Count 6.5 thou/uL (4.8-10.8)
[2018-07-08 05:52] LABS: Anion Gap 17 mmol/L (10-20); BUN (Urea Nitrogen) 35 mg/dL (9.8-20.1); Calc. Creatinine Clearance 9 mL/min (70-130); Calcium 8.9 mg/dL (7.8-10.44); Carbon Dioxide 24 mmol/L (23-31); Chloride 100 mmol/L (98-107); Estimated GFR-MDRD 7; Glucose 117 mg/dL (83-110); Potassium 3.8 mmol/L (3.5-5.1); Sodium 137 mmol/L (136-145)
--- NOTE | 2018-07-08 08:33 | PRG ---
DATE OF SERVICE: 07/08/2018 SUBJECTIVE: Ms. Rojas is a 77-year-old white female, who was initiated with hemodialysis due to progr essive azotemia. She is currently being dialyzed. I am at the bedside, supervising her dialysis. S he voices no new complaints. No chest pain or shortness of breath. PHYSICAL EXAMINATION: VITAL SIGNS: Blood pressure 171/79, heart rate 73, respiratory rate 18, temperature 98.2, and pulse ox 98%. GENERAL: Noted to be awake, alert, supine, comfortable, not in distress. SKIN: Adequate turgor. HEENT: Pinkish conjunctivae, anicteric sclerae. NECK: No neck mass, no carotid bruits, no JVD. CHEST: No deformities. LUNGS: Clear breath sounds. No wheezing, no crackles. HEART: Normal sinus rhythm. She has a grade 2/6 systolic murmur, no gallops or rubs. ABDOMEN: Globular, soft, nontender. EXTREMITIES: No edema. MEDICATIONS: 07/08/2018 was reviewed. LABORATORY DATA: On 07/08/2018, white count 6.5, hemoglobin 9.4, sodium 137, potassium 3.8, chloride 100, carbon dioxide 24, BUN 35, creatinine 5.94, glucose 117, calcium 8.9. ASSESSMENT AND PLAN: 1. End-stage renal disease/chronic renal failure, continuing 3 times a week hemodialysis. My plan i s to do a 3.5 hour hemodialysis today. Again, fluid removal only as tolerated. 2. Anemia - continuing weekly Epogen. Awaiting outpatient dialysis placement.
[2018-07-08] MEDS: Sevelamer Carbonate 800 MG TAB PO SCH ×3 (09:24→18:41)
[2018-07-08 12:28] VITALS: TEMP 98.6
[2018-07-08] MEDS: Calcitriol 0.25 MCG CAP PO SCH (12:29)
[2018-07-08] MEDS: Aspirin 81 mg Enteric Coated Tablet PO SCH (12:29)
[2018-07-08] MEDS: Bupropion 150 MG XL TAB PO SCH (12:29)
[2018-07-08] MEDS: TROSPIUM 20 MG TABLET PO SCH (12:29)
[2018-07-08] MEDS: Nebivolol HCl 5 MG TAB PO SCH (12:29)
[2018-07-08] MEDS: Heparin 5,000 UNITS/ML VIAL SC SCH (12:38)
[2018-07-08] MEDS: Amlodipine 10 MG TAB PO SCH (14:04)
[2018-07-08 17:12] VITALS: BP 141/62
[2018-07-08] MEDS ORDERED: Apixaban 5 MG TAB PO SCH (21:00)
--- NOTE | 2018-07-11 13:39 | PQF ---
SAP Data Sme Crystal Reports Winform ViewerBRAXTON CARNEY RICHARD A MD [id number] [facility]251 [id number] CLINICAL DOCUMENTATION CLARIFICATION FORM: POST DISCHARGE Please exercise your independent, professional judgment in responding to the clarification form. Clinical indicators are provided on the bottom of this form for your review. Thank you. Please check appropriate box(s): HEART FAILURE: A. TYPE: [ ] Systolic / HFrEF [ ] Diastolic / HFpEF [ ] Combined Systolic / Diastolic B. ACUITY [ ] Acute [ ] Acute on Chronic [ ] Chronic [ ] Other diagnosis [ ] Unable to determine In addition, please specify: Present on Admission (POA): [ ] Yes [ ] No [ ] Unable to determine For continuity of documentation, please document condition throughout progress notes and discharge summary. Thank You. CLINICAL INDICATORS - SIGNS / SYMPTOMS / LABS Congestive heart failure secondary to volume overload - DS 07/07/18 mild congestive heart failure - PN 07/06/18 New development of afib - PN 07/05/18 Echo - 07/06/18 - 60-65 % EF mod-severe aortic stenosis, mild TR, mild MS, mild MR RISKS: HTN, CAD, ARF - HP 07/01/18, ESRD - PN 07/06/18 TREATMENTS: dialysis 07/08/18 (This form is maintained as a part of the permanent medical record) SAP Data Sme Crystal Reports Winform [id number]. All Rights Reserved Nora Villa, CCS, AIRCRAFT SYSTEMS TECHNICIAN, CASC [email or web address]
--- NOTE | 2018-07-11 13:51 | PQF ---
SAP Microfilm Technician Crystal Reports Winform AnibalSHAMARJANESSA GARZA MD [id number] [facility]251 [id number] CLINICAL DOCUMENTATION CLARIFICATION FORM: POST DISCHARGE Please exercise your independent, professional judgment in responding to the clarification form. Clinical indicators are provided on the bottom of this form for your review. Thank you. Please check appropriate box(s): [ ] Post-op Acute pulmonary insufficiency [ ] Thoracic surgery [ ] Non-Thoracic surgery [ ] Post-op Acute respiratory failure [ ] Thoracic surgery [ ] Non-Thoracic surgery [ ] Length of Ventilator management as a part of normal recovery, usual and customary for procedure [ ] Respiratory failure not related to surgical procedure [ ] Acute [ ] Chronic [ ] Acute on chronic [ ] Other diagnosis [ ] Unable to determine In addition, please specify: Present on Admission (POA): [ ] Yes [ ] No [ ] Unable to determine For continuity of documentation, please document condition throughout progress notes and discharge summary. Thank You. CLINICAL INDICATORS - SIGNS / SYMPTOMS / LABS Respiratory Failure resolved after postoperative episode - PN 07/06/18 mild congestie heart failure - clinically improved with the repeat x-ray - PN 07/06/18 following postoperative period required intubation - DS 07/08/18 O2 sat 93, 94, room air 07/03/18 RISKS FACTORS Tunnelled catheter placement and Fistula creation for dialysis 07/03/2018 congestive heart failure - DS 07/08/18, ESRD - PN 07/06/18 TREATMENT: intubation with ventilation 07/03/18 (This form is maintained as a part of the permanent medical record) 2014 [employer], [employer]. All Rights Reserved SAP Microfilm Technician Crystal Reports Baljeet[employer] Jacoby Villa, JOSE, VECTOR CONTROL SPECIALIST, CASC [email or web address]
== END 2018-07-08 18:22 | disposition home or self-care (01) | DRG 673 ==
LOC: SCSER 16:16 → 2NO 18:15 → CCU 07-03 20:03 → 2NO 07-05 11:59
PROVIDERS: ADMIT Family Medicine; ATTEND Family Medicine
PROC: 0JH63XZ Insertion of Tunneled Vascular Access Device into Chest Subcutaneous Tissue and Fascia, Percutaneous Approach (ICD-10-PCS; principal; 2018-07-03)
PROC: 031B0ZF Bypass Right Radial Artery to Lower Arm Vein, Open Approach (ICD-10-PCS; 2018-07-03)
PROC: 05HN33Z Insertion of Infusion Device into Left Internal Jugular Vein, Percutaneous Approach (ICD-10-PCS; 2018-07-03)
PROC: 5A1935Z Respiratory Ventilation, Less than 24 Consecutive Hours (ICD-10-PCS; 2018-07-03)
DX: N17.9 Acute kidney failure, unspecified (principal); J96.90 Respiratory failure, unspecified, unspecified whether with hypoxia or hypercapnia; G93.41 Metabolic encephalopathy; I12.0 Hypertensive chronic kidney disease with stage 5 chronic kidney disease or end stage renal disease; I47.1 Supraventricular tachycardia; J81.1 Chronic pulmonary edema; N39.0 Urinary tract infection, site not specified; E87.2 Acidosis; I25.10 Atherosclerotic heart disease of native coronary artery without angina pectoris; E78.5 Hyperlipidemia, unspecified; D64.9 Anemia, unspecified; F32.9 Major depressive disorder, single episode, unspecified; M54.5 Low back pain; G89.29 Other chronic pain; Z88.5 Allergy status to narcotic agent; Z88.2 Allergy status to sulfonamides; E11.22 Type 2 diabetes mellitus with diabetic chronic kidney disease; N18.6 End stage renal disease; E66.9 Obesity, unspecified; J45.909 Unspecified asthma, uncomplicated; I50.9 Heart failure, unspecified; E83.39 Other disorders of phosphorus metabolism; I48.91 Unspecified atrial fibrillation; R41.82 Altered mental status, unspecified; E21.3 Hyperparathyroidism, unspecified; E11.21 Type 2 diabetes mellitus with diabetic nephropathy; Z90.49 Acquired absence of other specified parts of digestive tract; Z90.710 Acquired absence of both cervix and uterus; E87.5 Hyperkalemia; I48.0 Paroxysmal atrial fibrillation; I08.3 Combined rheumatic disorders of mitral, aortic and tricuspid valves; Z95.5 Presence of coronary angioplasty implant and graft
CPT/HCPCS: 36415; 36416; 70450; 71045; 76770; 80048; 80053; 81003; 81015; 82553; 82805; 83735; 83970; 84100; 84443; 84484; 85025; 86580; 86704; 86706; 86803; 87077; 87086; 87186; 87340; 90471; 90670; 90935; 93005; 93010; 93306; 93970; 94002; 94003; 94640; 94760; 96361; 96374; 96375; A4216; C1752; C1769; G0009; G0257; G0365; G8978-GP-CM; G8979-GP-CK; J0670; J0696; J1644; J1815; J1956; J2001; J2060; J2250; J2370; J2405; J2704; J2720; J2765; J7050; J7611; J7620; Q0162; Q4081; S0028

== ENCOUNTER 2018-09-13 07:29 | Day surgery (SDC) | payer MEDICARE, OTHER ==
[2018-09-13 09:54] VITALS: BMI 29.0
[2018-09-13 09:55] VITALS: TEMP 98.1
--- NOTE | 2018-09-13 11:27 | SPC ---
RIGHT UPPER EXTREMITY DIALYSIS FISTULOGRAM: HISTORY: Renal failure. New right upper extremity dialysis fistula. Evaluate for access. TECHNIQUE: Sonographic guided access, right upper extremity dialysis fistula. After explaining the procedure and answering all questions, the right upper extremity was prepped and draped in the usual sterile fashion. Sterile technique, buffered local anesthesia, sonographic guid ance, and a 22 gauge needle were used to carefully access the right cephalic dialysis fistula, just a samir the level of the antecubital fossa. A 4 [place] micropuncture sheath was placed for serial imaging. FINDINGS: The cephalic vein is small but widely patent with multiple small collaterals along its course. There is dominant outflow to a widely patent basilic vein with very few collaterals. The superior ve na cava is patent. Attempts to reflux the arterial anastomosis were unsuccessful due to vigorous arterial inflow and dom inant outflow from the basilic vein. The sheath was removed, and hemostasis was obtained using direct pressure. The patient tolerated the procedure well and was returned to the holding area in good condition, for further monitoring. IMPRESSION: Right upper arm dialysis fistula is widely patent with dominant flow to the basilic vein. POS: KARTHIKEYAN
[2018-09-13] MEDS ORDERED: Heparin 1,000 UNITS/ML VIAL ONE (14:27)
== END 2018-09-13 09:43 | disposition home or self-care (01) ==
LOC: SPEC 07:29
PROVIDERS: ATTEND Specialist
PROC: B50W1ZZ Plain Radiography of Dialysis Shunt/Fistula using Low Osmolar Contrast (ICD-10-PCS; principal; 2018-09-13)
DX: I12.0 Hypertensive chronic kidney disease with stage 5 chronic kidney disease or end stage renal disease (principal); E11.22 Type 2 diabetes mellitus with diabetic chronic kidney disease; N18.6 End stage renal disease; D63.1 Anemia in chronic kidney disease; E78.00 Pure hypercholesterolemia, unspecified; F32.9 Major depressive disorder, single episode, unspecified; Z79.01 Long term (current) use of anticoagulants; Z79.899 Other long term (current) drug therapy; Z88.0 Allergy status to penicillin; Z88.5 Allergy status to narcotic agent; Z88.8 Allergy status to other drugs, medicaments and biological substances; Z91.041 Radiographic dye allergy status; Z99.2 Dependence on renal dialysis
CPT/HCPCS: 36901; 76942; J1644

== ENCOUNTER 2018-09-24 10:47 | Day surgery (SDC) | payer MEDICARE, OTHER ==
[2018-09-23 15:41] VITALS: BMI 29.0
== END 2018-09-24 12:00 | disposition home or self-care (01) ==
LOC: SDC 10:47
PROVIDERS: ATTEND Specialist
DX: N18.6 End stage renal disease (principal); Z53.09 Procedure and treatment not carried out because of other contraindication; Z79.01 Long term (current) use of anticoagulants; Z88.0 Allergy status to penicillin; Z88.2 Allergy status to sulfonamides; Z88.5 Allergy status to narcotic agent; Z88.8 Allergy status to other drugs, medicaments and biological substances; Z91.013 Allergy to seafood; Z91.041 Radiographic dye allergy status; Z79.899 Other long term (current) drug therapy; Z79.82 Long term (current) use of aspirin

== ENCOUNTER 2018-10-01 10:12 | Day surgery (SDC) | payer MEDICARE, OTHER ==
[2018-09-30 13:26] VITALS: BMI 29.0
[2018-10-01] MEDS ORDERED: CEFAZOLIN 2 GM/50 ML BAG ONE (11:19)
[2018-10-01 11:26] LABS: #Basophils 0.1 thou/uL (0.0-0.2); #Eosinphils 0.2 thou/uL (0.0-0.7); #Lymphocytes 1.8 thou/uL (1.20-3.40); #Monocytes 0.7 thou/uL (0.11-0.59); #Neutrophils 3.4 thou/uL (1.40-6.50); %Basophils 0.8 % (0.0-1.0); %Eosinophils 3.1 % (0.0-10.0); %Monocytes 11.6 % (0.0-10.0); %Neutrophils 55.5 % (42.0-75.0); Hemoglobin 8.1 g/dL (12.0-16.0); Mean Corpuscular HGB CONC 35.9 g/dL (32.0-36.0); Mean Corpuscular Hemoglobin 33.3 pg (27.0-31.0); Mean Corpuscular Volume 92.7 fL (78.0-98.0); Mean Platelet Volume 7.8 fL (7.4-10.4); Platelet Count 263 thou/uL (130-400); RBC Distribution Width 13.3 % (11.5-14.5); Red Blood Cell (RBC) Count 2.44 mill/uL (4.20-5.40); White Blood Cell (WBC) Count 6.1 thou/uL (4.8-10.8)
[2018-10-01] MEDS ORDERED: Propofol 500 MG/50 ML VIAL ONE (11:37)
[2018-10-01] MEDS ORDERED: Fentanyl 100 MCG/2 ML VIAL ONE ×2 (11:37→12:15)
[2018-10-01] MEDS ORDERED: Ketamine 50 MG/ML (10ML VIAL) ONE (11:37)
[2018-10-01] MEDS ORDERED: Midazolam HCl 2 mg/2 ml Vial ONE ×2 (11:37→12:14)
[2018-10-01] MEDS ORDERED: Heparin 5,000 UNITS/ML VIAL ONE (11:40)
[2018-10-01] MEDS ORDERED: Protamine Sulfate 50 MG/5 ML VIAL ONE (11:40)
[2018-10-01] MEDS ORDERED: Bupivacaine HCl 0.5%/Epinephrine 1:200,000/PF 30 ml Vial ONE ×2 (11:40→15:41)
[2018-10-01] MEDS ORDERED: Ioversol 68 % 50 ML VIAL ONE (11:41)
[2018-10-01] MEDS ORDERED: Lidocaine 2% PF 5 ML VIAL ONE (11:41)
[2018-10-01 11:42] LABS: Anion Gap 14 mmol/L (10-20); BUN (Urea Nitrogen) 53 mg/dL (9.8-20.1); Calc. Creatinine Clearance 10 mL/min (70-130); Calcium 9.1 mg/dL (7.8-10.44); Carbon Dioxide 31 mmol/L (23-31); Chloride 97 mmol/L (98-107); Estimated GFR-MDRD 8; Glucose 101 mg/dL (83-110); Potassium 4.7 mmol/L (3.5-5.1); Sodium 137 mmol/L (136-145)
[2018-10-01] MEDS ORDERED: Levofloxacin 500 mg/D5W 100 ml Premix Bag ONE (12:35)
[2018-10-01] MEDS ORDERED: Phenylephrine HCL 10 MG/ML VIAL ONE (13:42)
[2018-10-01] MEDS ORDERED: Albumin 5% 500 ML ONE (16:15)
[2018-10-01] MEDS ORDERED: Heparin 10,000 UNITS/ 10 ML VIAL ONE ×2 (16:21→16:59)
[2018-10-01] MEDS ORDERED: PHENYLEPHRINE-NS 100 MCG/ML 10 ML SYRINGE ONE (16:21)
[2018-10-01] MEDS ORDERED: ePHEDrine/0.9% NaCl/PF SYRINGE 50 mg/10 ml ONE (16:21)
--- NOTE | 2018-10-01 21:18 | OP ---
DATE OF PROCEDURE: 10/01/2018 PREOPERATIVE DIAGNOSES: End-stage renal disease, right arm dialysis fistula malfunction. POSTOPERATIVE DIAGNOSES: End-stage renal disease, right arm dialysis fistula malfunction. PROCEDURE: Right arm basilic vein transposition. ANESTHESIA: Regional TIVA, local of 0.5% Marcaine with epinephrine 30 mL mixed with 2% Xylocaine 10 mL. DESCRIPTION OF PROCEDURE: The patient was taken to the operating room where under regional anesthesia and sedation, right upper extremity was prepared with ChloraPrep, draped in routine fashion. An incision was made the right arm from the proximal volar forearm skin and subcutaneous tissue through the deep fascia. Mobilized the basilic vein, dividing branches between 4-0 silk ties and clips marking it for orientation. used to create a new tunnel anteriorly in the arm and using a tunneling device, the basilic vein was then connected and tunneled and then disconnected and flushed with heparinized saline solution. The patient given 6000 units of heparin intravenously. Arterial inflow to the fistula. I clamped the cephalic vein stump, dissected free and outflow ligated with 3-0 silk ties. At the point where the basilic vein was disconnected, a venotomy was created in end basilic vein to end cephalic vein inflow, anastomosis created with continuous suture of 6-0 Prolene. Complete anastomosis released with arterial inflow, noting good flow in the fistula. Good hemostasis was noted. Surgicel placed in the vein harvest wound. Subcutaneous tissues were approximated with 3-0 Monocryl, skin with alina. Sterile dressing applied. Job ID: [id number]
== END 2018-10-01 17:50 | disposition home or self-care (01) ==
LOC: SDC 10:12
PROVIDERS: ATTEND Specialist
PROC: 05SB0ZZ Reposition Right Basilic Vein, Open Approach (ICD-10-PCS; principal; 2018-10-01)
DX: I12.0 Hypertensive chronic kidney disease with stage 5 chronic kidney disease or end stage renal disease (principal); E11.22 Type 2 diabetes mellitus with diabetic chronic kidney disease; N18.6 End stage renal disease; D63.1 Anemia in chronic kidney disease; T82.510A Breakdown (mechanical) of surgically created arteriovenous fistula, initial encounter; I48.91 Unspecified atrial fibrillation; E78.00 Pure hypercholesterolemia, unspecified; J45.909 Unspecified asthma, uncomplicated; F32.9 Major depressive disorder, single episode, unspecified; Z79.01 Long term (current) use of anticoagulants; Z79.82 Long term (current) use of aspirin; Z79.899 Other long term (current) drug therapy; Z88.0 Allergy status to penicillin; Z88.2 Allergy status to sulfonamides; Z88.5 Allergy status to narcotic agent; Z91.013 Allergy to seafood; Z91.041 Radiographic dye allergy status; Z99.2 Dependence on renal dialysis
CPT/HCPCS: 36819; 80048; 85025; P9045; 36415; J0131; J0670; J1644; J1956; J2001; J2250; J2370; J2704; J2720; J3010; Q9967

== ENCOUNTER 2018-11-28 09:54 | Day surgery (SDC) | payer MEDICARE, OTHER ==
--- NOTE | 2018-11-19 08:36 | HP ---
HISTORY OF PRESENT ILLNESS: Guy Rojas is a 78-year-old female, who dialysis at [facility], Sunday, Sunday, and Sunday, who on July 03, 2018, had a right IJ cuffed tunneled hemodialysis catheter and right arm primary AV fistula (left-handed patient), perforating branch antecubital vein to the proximal radial artery outflow, basilic vein and cephalic vein, both calibrated to a 4-mm dilator. The patient's fistula was not developing well. She underwent angiogram revealing cephalic vein widely patent with multiple small collaterals. Abdominal outflow, widely patent basilic vein with very few collaterals. She had good arterial inflow. The patient's fistula did not mature and she underwent a right arm basilic vein transposition on October 01, 2018. This has been serving her well for dialysis and is well healed. She is interested in laparoscopic peritoneal dialysis catheter. I have discussed with Dr. Kenroy Mckeon, her pinner printed circuit boards, states she should do well with a general anesthetic for this procedure. We will plan this as an outpatient. Family understands risks and benefits of the procedure and consents. ALLERGIES: CODEINE, IODINE, PENICILLINS, PROMETHAZINE, SHELLFISH. PAST SURGICAL HISTORY: On 01/04/2015, laparoscopic cholecystectomy, normal cholangiograms. On 01/03/2015, ERCP, sphincterotomy, left hip replacement, multiple gynecological surgeries culminating total abdominal hysterectomy, laparoscopic lumbar surgery, nerve stimulator, Dr. Ambrose in 2012, T2 to T5 fusion in 2004, [place] filter in 2004, ankle fracture in 1987, laparotomy in 1967 for fertility reasons, lipoma of neck resected in 1964, bone spur of heel in 1961. Colonoscopy more than 10 years ago in [place], polypectomy, no polypectomy since. SOCIAL HISTORY: The patient is , retired, has two adopted children. PAST MEDICAL HISTORY: Type 2 diabetes mellitus, end-stage renal disease, on maintenance dialysis at [facility], Sunday, Sunday, and Sunday. Stable coronary artery disease, post coronary stent placed by Dr. Mckeon, followed by Dr. Mckeon, asymptomatic from cardiac standpoint. Chronic low back pain, followed by Dr. Ambrose, stress urinary incontinence. Vitamin D deficiency. TOBACCO: None. ALCOHOL: None. MEDICATIONS: Vitamin C, Biotin, multivitamins, vitamin E 400 units a day, B12 vitamins, vitamin D3, atorvastatin 80 mg a day, bupropion HCL ER 150 mg a day, Protonix 40 mg a day Cartia (diltiazem) 120 mg sustained release daily, Eliquis 5 mg orally a day, ferrous sulfate 220 mg a day, Bystolic 10 mg orally a day, folic acid daily, aspirin 81 mg delayed release a day, Cardia XT 120 mg a day, Prilosec 40 mg a day, Renvela 800 mg a day with meals, Cardizem 150 a day, Wellbutrin XL daily, tramadol p.r.n., Xanax 0.5 mg twice a day, prednisone 25 mg b.i.d. on tapering dose, discontinued, tramadol p.r.n. pain, isosorbide mononitrate 60 mg daily, bisoprolol daily, lisinopril 5 mg a day, amlodipine 10 mg a day. PHYSICAL EXAMINATION: VITAL SIGNS: Weight 162 pounds, height 60 inches, blood pressure 95/76, 60 heart rate, temperature 97.5 degrees. HEAD, EARS EYES, NOSE, AND THROAT: Unremarkable. LUNGS: Clear to auscultation. CARDIAC: Regular and rhythm without murmur or gallop. ABDOMEN: Soft and nontender. Scar per above history. EXTREMITIES: Right basilic vein transposition fistula functioning. Extremities are unremarkable. ASSESSMENT AND PLAN: Desires peritoneal dialysis. I have talked to Dr. Mckeon who has cleared her for surgery. She will need to hold her Eliquis three days prior to surgery. Risk of infection, bleeding, reoperation, malfunction of the catheter was discussed, she consents. Job ID: [id number]
[2018-11-27 16:16] VITALS: BMI 29.2
[2018-11-28] MEDS ORDERED: Levofloxacin 500 mg/D5W 100 ml Premix Bag ONE (11:12)
[2018-11-28] MEDS ORDERED: Fentanyl 100 MCG/2 ML VIAL ONE ×2 (11:16→13:19)
[2018-11-28 11:43] LABS: #Basophils 0.1 thou/uL (0.0-0.2); #Eosinphils 0.2 thou/uL (0.0-0.7); #Lymphocytes 2.4 thou/uL (1.20-3.40); #Monocytes 0.6 thou/uL (0.11-0.59); #Neutrophils 2.3 thou/uL (1.40-6.50); %Basophils 1.6 % (0.0-1.0); %Eosinophils 3.4 % (0.0-10.0); %Lymphocytes 42.7 % (21.0-51.0); %Monocytes 11.1 % (0.0-10.0); %Neutrophils 41.3 % (42.0-75.0); Hemoglobin 11.1 g/dL (12.0-16.0); Mean Corpuscular HGB CONC 32.3 g/dL (32.0-36.0); Mean Corpuscular Hemoglobin 32.1 pg (27.0-31.0); Mean Corpuscular Volume 99.5 fL (78.0-98.0); Mean Platelet Volume 8.3 fL (7.4-10.4); Platelet Count 224 thou/uL (130-400); RBC Distribution Width 13.1 % (11.5-14.5); Red Blood Cell (RBC) Count 3.45 mill/uL (4.20-5.40); White Blood Cell (WBC) Count 5.7 thou/uL (4.8-10.8)
[2018-11-28] MEDS ORDERED: Bupivacaine HCl 0.5%/Epinephrine 1:200,000/PF 30 ml Vial ONE (11:43)
[2018-11-28] MEDS ORDERED: Lidocaine 2% PF 5 ML VIAL ONE (11:43)
[2018-11-28] MEDS ORDERED: Heparin 10,000 UNITS/1 ML VIAL ONE (11:43)
[2018-11-28 12:14] LABS: Anion Gap 17 mmol/L (10-20); BUN (Urea Nitrogen) 35 mg/dL (9.8-20.1); Calc. Creatinine Clearance 13 mL/min (70-130); Calcium 9.4 mg/dL (7.8-10.44); Carbon Dioxide 29 mmol/L (23-31); Chloride 96 mmol/L (98-107); Estimated GFR-MDRD 11; Glucose 96 mg/dL (83-110); Potassium 4.5 mmol/L (3.5-5.1); Sodium 137 mmol/L (136-145)
[2018-11-28] MEDS ORDERED: Albuterol Sulfate 1.25 MG/3 ML NEB ONE (13:12)
--- NOTE | 2018-11-28 13:49 | OP ---
DATE OF PROCEDURE: 11/28/2018 PREOPERATIVE DIAGNOSES: End-stage renal disease, functioning fistula right upper arm, desires peritoneal dialysis. POSTOPERATIVE DIAGNOSES: End-stage renal disease, functioning fistula right upper arm, desires peritoneal dialysis, prior hysterectomy and no adhesions in the pelvis, omentum adherent to the upper abdominal wall, not required omentopexy. PROCEDURE PERFORMED: Laparoscopic placement of double-cuffed pigtail peritoneal dialysis catheter. ANESTHESIA: General, local 0.25% Marcaine with epinephrine 60 mL. DESCRIPTION OF PROCEDURE: The patient was taken to the operating room, where under intravenous sedation, abdomen was prepared with ChloraPrep and draped in routine fashion. Local anesthetic was infiltrated in the skin and subcutaneous tissue about the operative site. Bilateral far lateral subcostal incision was made and pneumoperitoneum to 15 mmHg was obtained with a Veress needle, replaced with a 5 port. Laparoscope was inserted. Contralateral 5 port was placed under laparoscopic visualization. The omentum was adherent to the anterior abdominal wall superiorly. Omentopexy was not required. In the pelvis, there were no adhesions. A counter incision was made right paraumbilical slightly above and using an 8 mm trocar catheter directed through this incision directed caudally towards the pelvis. Visualized laparoscopically tunneled within the rectus sheath to train the abdominal wall inferiorly. Double-cuffed pigtail peritoneal dialysis catheter was placed under laparoscopic visualization directed into the pelvis, placing the internal cuff in the rectus sheath and the port was removed. A counter incision was made at the planned exit site in the right lower quadrant and a [place] dissector was placed through the tunnel, grasping the catheter and pulling out the excess. I placed an external cuff beneath the skin exit site. Catheter device was inserted in the end, and it was flushed with saline solution and heparinized saline solution with 1000 units of heparin per 10 mL. The catheter had a good dependent line in the pelvis. Omentum was noted to be adherent to the abdominal wall superiorly. Omentopexy not required. Irrigant and pneumoperitoneum evacuated. All instruments were removed. All skin incisions were approximated with interrupted subdermal 4-0 Monocryl and [place] glue and sterile dressings applied. Job ID: [id number]
[2018-11-28] MEDS ORDERED: Heparin 10,000 UNITS/ 10 ML VIAL ONE ×3 (15:30→15:31)
[2018-11-28] MEDS ORDERED: PROPOFOL 200 MG/20 ML VIAL ONE (17:11)
[2018-11-28] MEDS ORDERED: Rocuronium Bromide 10 MG/ML (10ML VIAL) ONE (17:11)
[2018-11-28] MEDS ORDERED: Ondansetron PF 4 MG/2 ML Vial ONE (17:11)
[2018-11-28] MEDS ORDERED: Glycopyrrolate 0.2 MG/ML 5 ML SYRINGE ONE (17:11)
[2018-11-28] MEDS ORDERED: ePHEDrine 50 MG/ML VIAL ONE (17:11)
[2018-11-28] MEDS ORDERED: Lidocaine 1% PF 5 ML VIAL ONE (17:11)
== END 2018-11-28 15:50 | disposition home or self-care (01) ==
LOC: SDC 09:54
PROVIDERS: ATTEND Specialist
PROC: 0WHG43Z Insertion of Infusion Device into Peritoneal Cavity, Percutaneous Endoscopic Approach (ICD-10-PCS; principal; 2018-11-28)
DX: E11.22 Type 2 diabetes mellitus with diabetic chronic kidney disease (principal); N18.6 End stage renal disease; I25.10 Atherosclerotic heart disease of native coronary artery without angina pectoris; E55.9 Vitamin D deficiency, unspecified; G89.29 Other chronic pain; M54.5 Low back pain; N39.3 Stress incontinence (female) (male); Z79.01 Long term (current) use of anticoagulants; Z79.82 Long term (current) use of aspirin; Z79.899 Other long term (current) drug therapy; Z99.2 Dependence on renal dialysis; Z88.0 Allergy status to penicillin; Z88.5 Allergy status to narcotic agent; Z88.8 Allergy status to other drugs, medicaments and biological substances; Z91.013 Allergy to seafood; Z91.041 Radiographic dye allergy status; Z95.5 Presence of coronary angioplasty implant and graft
CPT/HCPCS: 49324; 80048; 85025; C1769; J0670; J1644; J1956; J2001; J2405; J2704; J3010; J3490

== ENCOUNTER 2019-01-28 15:21 | Observation (INO) | payer MEDICARE, OTHER ==
[2019-01-28] MEDS ORDERED: Nitroglycerin 2% Ointment 1 INCH/1 GM Packet ONE (15:47)
[2019-01-28] MEDS ORDERED: Famotidine/PF 20 mg/2ml Vial ONE (15:47)
[2019-01-28] MEDS ORDERED: Aspirin Chewable 81 MG TAB ONE (15:47)
[2019-01-28 16:07] LABS: #Basophils 0.1 thou/uL (0.0-0.2); #Eosinphils 0.2 thou/uL (0.0-0.7); #Monocytes 1.1 thou/uL (0.11-0.59); #Neutrophils 6.9 thou/uL (1.40-6.50); %Basophils 1.1 % (0.0-1.0); %Eosinophils 2.3 % (0.0-10.0); %Lymphocytes 19.8 % (21.0-51.0); %Monocytes 10.1 % (0.0-10.0); %Neutrophils 66.7 % (42.0-75.0); Hemoglobin 10.8 g/dL (12.0-16.0); Mean Corpuscular HGB CONC 31.8 g/dL (32.0-36.0); Mean Corpuscular Hemoglobin 30.1 pg (27.0-31.0); Mean Corpuscular Volume 94.7 fL (78.0-98.0); Mean Platelet Volume 7.8 fL (7.4-10.4); Platelet Count 181 thou/uL (130-400); RBC Distribution Width 13.3 % (11.5-14.5); Red Blood Cell (RBC) Count 3.58 mill/uL (4.20-5.40); White Blood Cell (WBC) Count 10.3 thou/uL (4.8-10.8)
--- NOTE | 2019-01-28 16:07 | RAD ---
FExam: Chest one view HISTORY:Chest pain Comparison: 07/05/2018 FINDINGS: Lungs: Left lung base is partially obscured by the enlarged cardiac silhouette Cardiac silhouette:Enlarged, similar appearing Pulmonary vessels: Slight prominence Pleural Spaces: Clear Pneumothorax: None Osseous abnormalities: No acute findings IMPRESSION: Enlarged cardiac silhouette and mild prominence of pulmonary vasculature indicating CHF. Left lung base is obscured by the enlarged cardiac silhouette. As necessary, further evaluation may b e obtained with 2 view chest series.
[2019-01-28 16:25] LABS: ALT (SGPT) 9 U/L (8-55); AST (SGOT) 8 U/L (5-34); Albumin 3.6 g/dL (3.4-4.8); Alkaline Phosphatase 89 U/L (40-150); Anion Gap 18 mmol/L (10-20); BUN (Urea Nitrogen) 49 mg/dL (9.8-20.1); Bilirubin, Total 0.4 mg/dL (0.2-1.2); Calc. Creatinine Clearance 0 mL/min (70-130); Calcium 8.5 mg/dL (7.8-10.44); Carbon Dioxide 21 mmol/L (23-31); Chloride 102 mmol/L (98-107); Estimated GFR-MDRD 5; Globulin 2.3 g/dL (2.4-3.5); Glucose 144 mg/dL (83-110); Lipase 11 U/L (8-78); Protein, Total 5.9 g/dL (6.0-8.3); Sodium 137 mmol/L (136-145)
[2019-01-28 16:42] LABS: CKMB 0.8 ng/mL (0-6.6)
[2019-01-28] MEDS ORDERED: Ondansetron ODT 4 MG TAB PO PRN (17:51)
[2019-01-28] MEDS ORDERED: Acetaminophen 325 MG TAB PO PRN (17:51)
[2019-01-28] MEDS ORDERED: Morphine 2 MG/ML SYRINGE IVP PRN (17:54)
[2019-01-28] MEDS ORDERED: Dextrose 50% Abboject 50 ML SYRINGE SLOW IVP PRN (17:55)
[2019-01-28] MEDS ORDERED: HumaLOG 300 UNITS/3 ML VIAL SC PRN (17:55)
[2019-01-28] MEDS ORDERED: Dextrose 5% in Water 1,000 ML IV PRN (17:55)
[2019-01-28] MEDS ORDERED: ALPRAZolam 0.5 MG TAB PO PRN (17:56)
[2019-01-28 18:33] VITALS: BMI 30.4
[2019-01-28] MEDS: Bupropion 150 MG XL TAB PO SCH (21:34)
[2019-01-28] MEDS: Atorvastatin Calcium 40 MG TAB PO SCH (21:34)
[2019-01-28] MEDS: Apixaban 5 MG TAB PO SCH (21:34)
[2019-01-28] MEDS: Ferrous Sulfate 325 MG TAB PO SCH (21:34)
[2019-01-28 22:19] LABS: Troponin I 0.019 ng/mL (< 0.028)
--- NOTE | 2019-01-29 00:09 | HP ---
HISTORY OF PRESENT ILLNESS: The patient is a 78-year-old female with known history of atherosclerotic coronary artery disease, type 2 diabetes mellitus, history of renal disease, now on peritoneal dialysis, have been previously on hemodialysis. She reported to the emergency room complaining of shortness of breath associated with midsternal chest pain, fullness, and pressure. She was seen and evaluated in the ER. Initial cardiac enzymes did not show evidence of acute MS, although elevated troponin was noted to be indeterminate. She has a known history of atrial fibrillation. Her BNP was slightly elevated. She was given transdermal nitroglycerin as well as aspirin. Her chest pain did debi somewhat. She has not noted any fever, productive coughing, nausea, vomiting, or diarrhea. The pain actually began approximately 1 day ago and has become worse over the last 24 to 48 hours. Once again, no fever. She had chest x-ray performed, which did reveal a large cardiac silhouette with prominent vasculature indicating possible congestive heart failure. As noted, she has a known history of atherosclerotic coronary artery disease, previous history of end-stage renal disease, previous history of atrial fibrillation, previous history of type 2 diabetes mellitus. She states, otherwise, that she is feeling well. ALLERGIES: SHE IS ALLERGIC TO CODEINE, IODINE, PENICILLIN, PROMETHAZINE, AND SHELLFISH. PAST SURGICAL HISTORY: Positive for cholecystectomy, left hip replacement, hysterectomy, multiple lumbar surgeries. PAST MEDICAL HISTORY: Positive for type 2 diabetes mellitus, end-stage renal disease, and atherosclerotic coronary artery disease. SOCIAL AND PERSONAL HISTORY: She is . She does not smoke nor does she drink alcohol. CURRENT MEDICATIONS: Have been reviewed and noted in the chart. FAMILY HISTORY: Noncontributory. PHYSICAL EXAMINATION: VITAL SIGNS: Temperature 98.4, BP 110/74, pulse 78 and regular, O2 sats 97%. GENERAL: She is alert and active, in no distress. HEENT: Normocephalic and atraumatic. Extraocular movements intact. Sclerae and conjunctivae clear. NECK: Supple. Full range of motion. No masses. LUNGS: Clear. HEART: Reveals a regular rate and rhythm. Question of a 2/6 systolic ejection murmur at the left sternal border, appears to be fairly soft otherwise. ABDOMEN: Soft and nontender. Bowel sounds present and active. There is a peritoneal dialysis catheter insert present and does not show any adverse tenderness. EXTREMITIES: No clubbing, edema, or cyanosis noted. LABORATORY DATA: Her hemoglobin is 10.8, hematocrit 33.9, white count is 10.3. Sodium 137, potassium 4.0, chloride 102, CO2 of 21, BUN 49, creatinine 7.2, glucose is 144. BNP is elevated at 1167.8. EKG revealed atrial fibrillation without evidence of acute changes. Troponin is noted to be mildly elevated at 0.41, indeterminate range. IMPRESSION: 1. A 78-year-old female with midsternal chest pain and discomfort, possibly consistent with atherosclerotic coronary artery disease and angina, could be consistent with volume overload. 2. History of type 2 diabetes mellitus. 3. History of end-stage renal disease. PLAN: The patient will be placed on observation on telemetry tonight. We will get Cardiology consult as well as Nephrology consult. We will get serial cardiac enzymes as well. Further treatment will be dictated by her further laboratory analysis. Job ID: [id number]
[2019-01-29] MEDS: Sevelamer Carbonate 800 MG TAB PO SCH ×3 (08:59→17:44)
[2019-01-29] MEDS: Bisoprolol Fumarate 5 MG TAB PO SCH (09:00)
[2019-01-29] MEDS: Apixaban 5 MG TAB PO SCH (09:00)
[2019-01-29] MEDS: Amlodipine 10 MG TAB PO SCH (09:00)
[2019-01-29] MEDS: Aspirin 81 mg Enteric Coated Tablet PO SCH (09:00)
[2019-01-29] MEDS: Famotidine 20 MG TAB PO SCH (09:01)
[2019-01-29] MEDS: Vitamin E 400 UNITS CAP PO SCH (09:01)
[2019-01-29] MEDS: Calcitriol 0.25 MCG CAP PO SCH (09:01)
[2019-01-29] MEDS: Ferrous Sulfate 325 MG TAB PO SCH ×2 (09:02→21:50)
--- NOTE | 2019-01-29 10:15 | CON ---
DATE OF CONSULTATION: SERVICE: Renal Medicine HISTORY OF PRESENT ILLNESS: Ms. Rojas is a 78-year-old white female, who was admitted for chest pain. On close questioning, she describes her chest pain as more pleuritic in nature. She tells me that the pain occurs when she takes a deep breath and also when moving on certain directions. We are now being consulted for peritoneal dialysis. I did review the chest x-ray and it shows increased lung markings. The patient is hemodynamically stable and comfortable. My plan is to initiate back her peritoneal dialysis tonight. We will be using a 2.5% PD solution to enhance ultrafiltration. We are awaiting Cardiology consult with her. REVIEW OF SYSTEMS: No shortness of breath. Positive for pleuritic chest pain. No nausea. No vomiting. No syncopal episode. No productive cough. No fever or chills. No abdominal pain. No dysuria. No urinary frequency. No headache. No diplopia. No hematochezia. No melena. No hematemesis. Occasional joint pains. MEDICATIONS: The patient is currently on the following; 1. Xanax 0.5 mg p.o. b.i.d. 2. Norvasc 10 mg q.a.m. 3. Eliquis 5 mg p.o. b.i.d. 4. Ecotrin 81 mg daily. 5. Lipitor 80 mg at bedtime. 6. Zebeta 5 mg q.a.m. 7. Bupropion 150 mg at bedtime. 8. Calcitriol 0.25 mcg daily. 9. Pepcid 20 mg daily. 10. Ferrous sulfate 325 mg p.o. b.i.d. 11. Humalog/lispro sliding scale. 12. Imdur 60 mg q.a.m. 13. Morphine sulfate 2 mg IV q.2. 14. Protonix 40 mg tablet once a day. 15. Renvela 800 mg p.o. t.i.d. with meals. PAST MEDICAL HISTORY: 1. ESRD, currently on peritoneal dialysis - CCPD regimen and previously was on hemodialysis. 2. Coronary artery disease. 3. Type 2 diabetes mellitus. 4. DJD. 5. Chronic low back pain. 6. Chronic headache. 7. Hypertension. 8. Hyperlipidemia. PAST SURGICAL HISTORY: Status post cuffed hemodialysis catheter placement, status post PD catheter placement, status post colonoscopy, status post cardiac cath with coronary stent placement, status post left hip replacement, status post left ankle surgery, status post back surgery, status post appendectomy, and status post hysterectomy. ALLERGIES: SULFA, PENICILLIN, CODEINE, IODINE, AND PHENERGAN. TRAUMA: Status post left ankle fracture. IMMUNIZATIONS: Up-to-date. HOSPITALIZATIONS: Please see past medical history. FAMILY HISTORY: No family history of ESRD. SOCIAL HISTORY: The patient lives in [place]. , 2 children - both adopted. Education, 3 years college. 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 No IV drug abuse. No smoking. No alcohol intake. PHYSICAL EXAMINATION: VITAL SIGNS: Blood pressure is noted at 106/53, heart rate 64, respiratory rate 16, pulse ox 97%, and temperature 97.8. GENERAL: Noted to be awake, alert, supine, comfortable, not in distress. SKIN: Adequate turgor. HEENT: She has pinkish conjunctivae. Anicteric sclerae. NECK: No neck mass. No carotid bruits. No JVD. CHEST: No deformities. LUNGS: Clear breath sounds. No wheezing. No crackles. HEART: Normal sinus rhythm. No murmurs. No gallops. No rubs. ABDOMEN: Globular, soft, and nontender. No masses. Positive for PD catheter. EXTREMITIES: No edema. No deformities. LABORATORY DATA: Laboratories of January 28, 2019; white count 10.3, hemoglobin 10.8. On January 29, 2019; glucose 110. On January 28, 2019; sodium 137, potassium 4, chloride 102, carbon dioxide 21, BUN 49, creatinine 7.82, glucose 144, calcium 8.5, AST 8, and ALT 9. Troponin I 0.041. IMAGING DATA: Chest x-ray, increased lung marking. ASSESSMENT AND PLAN: 1. End-stage renal disease - no indication for any emergent peritoneal dialysis this morning. My plan is to resume back her PD regimen starting tonight. Due to the increased lung markings on chest x-ray, I will be using a 2.5% PD solution to enhance ultrafiltration with this patient. 2. Chest pain. The patient being ruled out for myocardial infarction. Cardiology has been consulted. 3. Chronic anemia. No indication for any Procrit at the moment. Overall, agree with current management. Job ID: [id number]
--- NOTE | 2019-01-29 14:00 | PRG ---
DATE OF SERVICE: 01/29/2019 SUBJECTIVE: Ms. Rojas is still having some chest pain, but notes that the pain is worse when she moves. No shortness of breath is otherwise noted. OBJECTIVE: VITAL SIGNS: Temperature 98.3, BP 92/51. LUNGS: Clear. HEART: Reveals regular rhythm without murmur, gallops, or rubs. LABORATORY DATA: Troponins now are normal. Her blood sugars are under control. IMPRESSION: 1. Chest pain, does not appear to be cardiac. 2. End-stage renal disease. PLAN: I think the patient possibly discharged home, but we will look for Dr. Mckeon to evaluate the patient. No further renal intervention per Dr. Quinn. Job ID: [id number]
[2019-01-29] MEDS: Atorvastatin Calcium 40 MG TAB PO SCH (21:49)
[2019-01-29] MEDS: Bupropion 150 MG XL TAB PO SCH (21:50)
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
[2019-01-30] MEDS ORDERED: Enoxaparin Sodium 80 MG/0.8 ML SYRINGE SC SCH (06:00)
--- NOTE | 2019-01-30 09:33 | PRG ---
DATE OF SERVICE: 01/30/2019 SUBJECTIVE: Ms. Rojas is a 78-year-old white female with ESRD, admitted for chest pain. She has been evaluated by Cardiology and currently being worked up. She underwent peritoneal dialysis last night without any difficulty. My plan is to continue current CCPD regimen. No complaints of chest pain or shortness of breath. OBJECTIVE: VITAL SIGNS: Blood pressure is 104/52, heart rate 84, respiratory rate 12, temperature 99, and pulse oximetry 92%. GENERAL: Awake, comfortable, not in overt distress. SKIN: Adequate turgor. HEENT: She has a pinkish conjunctivae. Anicteric sclerae. NECK: No neck mass. No carotid bruits. No JVD. CHEST: No deformities. LUNGS: Clear breath sounds. No wheezing. No crackles. HEART: Normal sinus rhythm. No murmur. No gallops. No rubs. ABDOMEN: Globular, soft, nontender. No masses. Positive for PD catheter. EXTREMITIES: No edema. MEDICATIONS: Of January 30, 2019 was reviewed. LABORATORY DATA: Laboratories of January 30, 2019, glucose 129. January 28, 2019, BUN 49, creatinine 7.82, potassium 4. Troponin I 0.019. BNP is 1167. ASSESSMENT AND PLAN: 1. Congestive heart failure, I have changed the PD solution to 2.5% PD solution to enhance ultrafiltration. So far tolerating said treatment. 2. End-stage renal disease, stable. As previously mentioned, we will continue the current 2.5% PD solution. No changes will be made with the current peritoneal dialysis regimen. 3. Anemia, currently on ferrous sulfate. 4. Chest pain. The patient ruled out for myocardial infarction, being evaluated by Cardiology. 5. Recheck basic metabolic panel and CBC in a.m. Job ID: [id number]
[2019-01-30] MEDS: Ferrous Sulfate 325 MG TAB PO SCH (09:54)
[2019-01-30] MEDS: Sevelamer Carbonate 800 MG TAB PO SCH ×2 (09:54→13:00)
[2019-01-30] MEDS: Bisoprolol Fumarate 5 MG TAB PO SCH (09:55)
[2019-01-30] MEDS: Calcitriol 0.25 MCG CAP PO SCH (09:55)
[2019-01-30] MEDS: Vitamin E 400 UNITS CAP PO SCH (09:55)
[2019-01-30] MEDS: Famotidine 20 MG TAB PO SCH (09:55)
[2019-01-30] MEDS: Aspirin 81 mg Enteric Coated Tablet PO SCH (09:55)
[2019-01-30] MEDS: Amlodipine 10 MG TAB PO SCH (09:55)
[2019-01-30 11:51] VITALS: BP 101/55; TEMP 98.3
--- NOTE | 2019-01-30 21:02 | PRG ---
DATE OF SERVICE: 01/30/2019 SUBJECTIVE: Ms. Rojas is resting comfortably. She notes no further chest pain or discomfort at this time. A 2D echocardiogram has been done. OBJECTIVE: VITAL SIGNS: Temperature 98.3, BP 101/55. LUNGS: Clear. HEART: Reveals an irregularly irregular rhythm with a grade 2/6 systolic ejection murmur. EXTREMITIES: No clubbing, edema, or cyanosis. LABORATORY DATA: Her blood sugars are adequately controlled. IMPRESSION: Chest pain, I believe it is noncardiac chest pain. PLAN: We will await final echocardiogram. I believe she can be discharged home. Follow up with me in approximately 1 week. Job ID: [id number]
== END 2019-01-30 15:57 | disposition home or self-care (01) ==
LOC: SCSER 15:21 → 2SW 16:55
PROVIDERS: ADMIT Family Medicine; ATTEND Family Medicine
DX: R07.89 Other chest pain (principal); I12.0 Hypertensive chronic kidney disease with stage 5 chronic kidney disease or end stage renal disease; E11.22 Type 2 diabetes mellitus with diabetic chronic kidney disease; N18.6 End stage renal disease; Z99.2 Dependence on renal dialysis; D63.1 Anemia in chronic kidney disease; I25.10 Atherosclerotic heart disease of native coronary artery without angina pectoris; I35.0 Nonrheumatic aortic (valve) stenosis; I48.91 Unspecified atrial fibrillation; M19.90 Unspecified osteoarthritis, unspecified site; E78.00 Pure hypercholesterolemia, unspecified; E66.9 Obesity, unspecified; Z68.30 Body mass index [BMI] 30.0-30.9, adult; F41.9 Anxiety disorder, unspecified; Z88.5 Allergy status to narcotic agent; Z88.0 Allergy status to penicillin; Z88.8 Allergy status to other drugs, medicaments and biological substances; Z91.013 Allergy to seafood; Z91.09 Other allergy status, other than to drugs and biological substances; Z96.642 Presence of left artificial hip joint; Z95.5 Presence of coronary angioplasty implant and graft; Z90.49 Acquired absence of other specified parts of digestive tract; Z90.710 Acquired absence of both cervix and uterus; Z88.2 Allergy status to sulfonamides; Z79.01 Long term (current) use of anticoagulants; Z79.4 Long term (current) use of insulin; Z79.891 Long term (current) use of opiate analgesic; Z79.899 Other long term (current) drug therapy; Z98.890 Other specified postprocedural states
CPT/HCPCS: 71045; 80053; 82553; 82962 ×3; 83690; 83880; 84484 ×2; 85025; 93005; 93306; 96374; 96375; 99285; G0378 ×2; 36415; 36416; 90945; G0257; J1650; J2270; Q0162; S0028

== ENCOUNTER 2019-02-07 17:11 | Inpatient (IN) | payer MEDICARE, OTHER ==
[2019-02-07 17:45] LABS: #Basophils 0.1 thou/uL (0.0-0.2); #Eosinphils 0.1 thou/uL (0.0-0.7); #Lymphocytes 1.5 thou/uL (1.20-3.40); %Eosinophils 1.5 % (0.0-10.0); %Lymphocytes 15.5 % (21.0-51.0); %Monocytes 10.1 % (0.0-10.0); %Neutrophils 71.9 % (42.0-75.0); Hemoglobin 9.7 g/dL (12.0-16.0); Mean Corpuscular HGB CONC 31.4 g/dL (32.0-36.0); Mean Corpuscular Volume 95.4 fL (78.0-98.0); Mean Platelet Volume 7.4 fL (7.4-10.4); Platelet Count 284 thou/uL (130-400); RBC Distribution Width 13.8 % (11.5-14.5); Red Blood Cell (RBC) Count 3.22 mill/uL (4.20-5.40); White Blood Cell (WBC) Count 9.8 thou/uL (4.8-10.8)
[2019-02-07 18:01] LABS: ALT (SGPT) 6 U/L (8-55); AST (SGOT) 8 U/L (5-34); Albumin 3.6 g/dL (3.4-4.8); Alkaline Phosphatase 104 U/L (40-150); Anion Gap 22 mmol/L (10-20); BUN (Urea Nitrogen) 60 mg/dL (9.8-20.1); Bilirubin, Total 0.3 mg/dL (0.2-1.2); Calc. Creatinine Clearance 0 mL/min (70-130); Calcium 8.8 mg/dL (7.8-10.44); Carbon Dioxide 21 mmol/L (23-31); Chloride 96 mmol/L (98-107); Estimated GFR-MDRD 4; Globulin 2.5 g/dL (2.4-3.5); Glucose 188 mg/dL (83-110); Potassium 4.7 mmol/L (3.5-5.1); Protein, Total 6.1 g/dL (6.0-8.3); Sodium 134 mmol/L (136-145)
--- NOTE | 2019-02-07 18:22 | RAD ---
Chest one view HISTORY: Chest pain. COMPARISON: 01/28/2019. FINDINGS: Cardiac silhouette is magnified and enlarged. Pulmonary vasculature is slightly improved. M ediastinum is midline with aortic calcification. No lobar consolidation or evidence of pneumothorax. applications processor leads overlie the chest. IMPRESSION: Cardiomegaly with borderline pulmonary vascular congestion.
[2019-02-07 20:42] LABS: Troponin I 0.016 ng/mL (< 0.028)
[2019-02-07] MEDS ORDERED: Ondansetron ODT 4 MG TAB SL PRN (21:05)
[2019-02-07] MEDS ORDERED: Ondansetron PF 4 MG/2 ML Vial IVP PRN (21:05)
[2019-02-07 21:14] VITALS: BMI 28.1
[2019-02-07 22:16] LABS: Lactic Acid 1.6 mmol/L (0.5-2.2)
[2019-02-08 00:10] LABS: Troponin I 0.019 ng/mL (< 0.028)
[2019-02-08] MEDS ORDERED: Acetaminophen 500 MG TAB PO PRN (10:30)
[2019-02-08] MEDS ORDERED: ALPRAZolam 0.5 MG TAB PO PRN (10:30)
[2019-02-08] MEDS ORDERED: traMADol HCl 50 MG TAB PO PRN (10:30)
--- NOTE | 2019-02-08 12:22 | CON ---
DATE OF CONSULTATION: HISTORY OF PRESENT ILLNESS: Ms. Rojas is a 78-year-old white female with ESRD, admitted for a ? of chest pain with mild shortness of breath. She has also complained abdominal fullness. She is currently using a 2 L of fill volume with dialysis. Due to the issue that she may not be tolerating the PD fill volume, we will decrease the PD fill volume from 2 L to 1.75 L. In view of also the increased lung markings on chest x-ray, we will use a 2.5% PD solution to enhance fluid removal. This morning, she is feeling better. Shortness of breath is mild. Denies any chest pain. On close examination, the chest pain was more felt by pressure or application pressure. We are being consulted for maintenance peritoneal dialysis. REVIEW OF SYSTEMS: Positive for abdominal fullness. Positive for chest pain - reproducible with palpation. Mild shortness of breath. No diarrhea. No constipation. No fever or chills. No productive cough. No syncopal episode. No dysuria. No urinary frequency. No headache. No sore throat. Occasional joint pains. MEDICATIONS: 1. Xanax 0.5 mg p.o. b.i.d. 2. Eliquis 5 mg p.o. b.i.d. 3. Ecotrin 81 mg tablet daily. 4. Zebeta 5 mg q.a.m. 5. Wellbutrin 150 mg at bedtime. 6. Calcitriol 0.25 mcg daily. 7. Diltiazem 120 mg once a day. 8. Imdur 60 mg q.a.m. 9. Lipitor 80 mg at bedtime. 10. Vitamin E 400 units daily. 11. Renvela 800 mg p.o. t.i.d. 12. Tramadol p.r.n. PAST MEDICAL HISTORY: 1. ESRD - currently on peritoneal dialysis, previously on hemodialysis. 2. Hyperlipidemia. 3. Coronary artery disease. 4. Status post CHF. 5. Type 2 diabetes mellitus. 6. History of diastolic dysfunction. 7. Hypertension. 8. Chronic headache. 9. Chronic low back pain. PAST SURGICAL HISTORY: Status post cuffed hemodialysis catheter placement, status post AV fistula placement, status post PD catheter placement, status post cuffed hemodialysis catheter placement, status post appendectomy, status post hysterectomy, status post left hip replacement, status post cardiac catheterization with coronary artery stent placement, and status post left ankle surgery. ALLERGIES: SULFA, PENICILLIN, CODEINE, IODINE, AND PHENERGAN. TRAUMA: Status post left ankle fracture. IMMUNIZATION: Up-to-date. HOSPITALIZATIONS: Please see past medical history. FAMILY HISTORY: No family history of ESRD. SOCIAL HISTORY: The patient lives in [place]. , 2 children, both adopted. Education, 3 years college. 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 IV drug abuse. No smoking. No alcohol. PHYSICAL EXAMINATION: VITAL SIGNS: Blood pressure is noted at 104/53, heart rate 84, respiratory rate 16, temperature 98.5, and pulse ox 93%. GENERAL: Awake, alert, supine, comfortable, not in distress. SKIN: Adequate turgor. HEENT: Slightly pale conjunctivae. Anicteric sclerae. NECK: No neck mass. No carotid bruits. No JVD. CHEST: No deformities. LUNGS: Clear breath sounds. No wheezing. No crackles. HEART: Normal sinus rhythm. Grade 2/6 systolic murmur. No gallops. No rubs. ABDOMEN: Globular, soft, and nontender. No masses. Positive for PD catheter. EXTREMITIES: No edema. No deformities. Right upper extremity AV fistula - positive for bruit. LABORATORY DATA: Laboratories of February 07, 2019, white count 9.8 and hemoglobin 9.7. Sodium 134, potassium 4.7, chloride 96, carbon dioxide 21, BUN 60, creatinine 9.48, glucose 188, calcium 8.8, AST 8, and ALT 6. Troponin I 0.019. Chest x-ray increased lung markings. ASSESSMENT AND PLAN: 1. Mild congestive heart failure - we will be using a 2.5% PD solution to enhance ultrafiltration. 2. Abdominal fullness - we will decrease the fill volume with the patient using 2.5% PD solution with a fill volume of 1.75 L. 3. End-stage renal disease. We will be continue current continuous cycling peritoneal dialysis regimen except for the decrease fill volume. I did instruct the nursing staff to change the PD solution to a 2.5% PD solution instead of the standard regular PD bath. We will recheck basic metabolic and CBC. Anemia, start Epogen 7500 units subcu every week. Job ID: [id number] [facility]
[2019-02-08] MEDS ORDERED: EPOETIN ALFA-EPBX (ESRD) 4,000 UNIT/ML VIAL SC SCH (13:00)
[2019-02-08 14:18] LABS: Hemoglobin 9.8 g/dL (12.0-16.0); Platelet Count 229 thou/uL (130-400)
[2019-02-08] MEDS: Sevelamer Carbonate 800 MG TAB PO SCH ×2 (14:36→16:51)
[2019-02-08] MEDS ORDERED: Epoetin (ESRD) 20,000 UNITS/ML SC SCH (15:45)
[2019-02-08] MEDS ORDERED: HumaLOG 300 UNITS/3 ML VIAL SC PRN (17:00)
[2019-02-08] MEDS ORDERED: Bupropion 150 MG XL TAB PO SCH (21:00)
[2019-02-08] MEDS ORDERED: Atorvastatin Calcium 40 MG TAB PO SCH (21:00)
[2019-02-08] MEDS: Ascorbic Acid 500 mg Chewable Tablet PO SCH (21:29)
[2019-02-08] MEDS: Apixaban 5 MG TAB PO SCH (21:29)
[2019-02-08] MEDS: Ferrous Sulfate 325 MG TAB PO SCH (21:30)
[2019-02-09 05:28] LABS: #Eosinphils 0.3 thou/uL (0.0-0.7); #Lymphocytes 1.4 thou/uL (1.20-3.40); #Monocytes 0.8 thou/uL (0.11-0.59); #Neutrophils 4.5 thou/uL (1.40-6.50); %Basophils 0.4 % (0.0-1.0); %Eosinophils 3.6 % (0.0-10.0); %Monocytes 11.6 % (0.0-10.0); %Neutrophils 64.4 % (42.0-75.0); Hemoglobin 10.1 g/dL (12.0-16.0); Mean Corpuscular HGB CONC 31.8 g/dL (32.0-36.0); Mean Corpuscular Hemoglobin 31.3 pg (27.0-31.0); Mean Corpuscular Volume 98.4 fL (78.0-98.0); Mean Platelet Volume 8.2 fL (7.4-10.4); Platelet Count 253 thou/uL (130-400); RBC Distribution Width 13.2 % (11.5-14.5); Red Blood Cell (RBC) Count 3.23 mill/uL (4.20-5.40); White Blood Cell (WBC) Count 6.9 thou/uL (4.8-10.8)
[2019-02-09 05:53] LABS: Anion Gap 22 mmol/L (10-20); BUN (Urea Nitrogen) 64 mg/dL (9.8-20.1); Calc. Creatinine Clearance 6 mL/min (70-130); Calcium 8.6 mg/dL (7.8-10.44); Carbon Dioxide 17 mmol/L (23-31); Chloride 98 mmol/L (98-107); Estimated GFR-MDRD 4; Glucose 260 mg/dL (83-110); Potassium 3.8 mmol/L (3.5-5.1); Sodium 133 mmol/L (136-145)
[2019-02-09] MEDS: Sevelamer Carbonate 800 MG TAB PO SCH ×2 (08:33→12:13)
[2019-02-09] MEDS: Ascorbic Acid 500 mg Chewable Tablet PO SCH (08:34)
[2019-02-09] MEDS: Ferrous Sulfate 325 MG TAB PO SCH (08:34)
[2019-02-09] MEDS: Apixaban 5 MG TAB PO SCH (08:34)
[2019-02-09] MEDS ORDERED: Vitamin E 400 UNITS CAP PO SCH (09:00)
[2019-02-09] MEDS ORDERED: Calcitriol 0.25 MCG CAP PO SCH (09:00)
[2019-02-09] MEDS ORDERED: Non-Formulary Item 1 EACH (Biotin/Keratin [Biotin Plus Keratin Tablet] 1 EACH) PO SCH (09:00)
[2019-02-09] MEDS ORDERED: Gentamicin TOPICAL Ointment 0.1% 15 gm Tube TOP SCH (09:00)
[2019-02-09] MEDS ORDERED: Multivit, Chewable SF 1 TAB PO SCH (09:00)
[2019-02-09] MEDS ORDERED: Aspirin 81 mg Enteric Coated Tablet PO SCH (09:00)
[2019-02-09] MEDS ORDERED: Bisoprolol Fumarate 5 MG TAB PO SCH (09:00)
--- NOTE | 2019-02-09 12:01 | PRG ---
DATE OF SERVICE: 02/09/2019 SERVICE: Renal Medicine. SUBJECTIVE: Ms. Rojas is a 78-year-old white female with known history of ESRD-currently on peritoneal dialysis and admitted for abdominal discomfort. In the interim, I adjusted the fill volume of her PD regimen-decreased from 2 L to 1.75 L. She tolerated said treatment. Denies any abdominal fullness. No chest pain or shortness of breath. OBJECTIVE: VITAL SIGNS: Blood pressure is 93/52, heart rate 64, respiratory rate 20, temperature 97.7, pulse ox 92%. GENERAL: Awake, alert, comfortable, not in distress. SKIN: Adequate turgor. HEENT: She has slightly pale conjunctivae. Anicteric sclerae. NECK: No neck mass. No carotid bruits. No JVD. CHEST: No deformities. LUNGS: Clear breath sounds. No wheezing. No crackles. HEART: Normal sinus rhythm. She does have a grade 2/6 systolic murmur. No gallops. No rubs. ABDOMEN: Globular, soft, nontender. No masses. Positive for PD catheter. EXTREMITIES: No edema. No deformities. MEDICATIONS: Medications of February 09, 2019, reviewed. LABORATORY DATA: Laboratories of February 09, 2019; hemoglobin 10.1. Sodium 133, potassium 3.8, chloride 98, carbon dioxide 17, BUN 64, creatinine 9.5, glucose 260, calcium 8.6. ASSESSMENT AND PLAN: 1. Abdominal fullness, much improved with adjustment of the peritoneal dialysis fill volume. Continue current PD regimen. My plan is to continue 2.5% PD solution with her tonight. Ultrafiltration only as tolerated. 2. Mild congestive heart failure, clinically improved with fluid removal with dialysis. 3. Anemia, continuing weekly Epogen. No changes to be made with the current PD regimen. Agree with current management. Job ID: [id number]
[2019-02-09 15:12] VITALS: BP 103/55; TEMP 98.5
--- NOTE | 2019-02-09 22:32 | SS ---
DATE OF ADMISSION: 02/07/2019 DATE OF DISCHARGE: 02/09/2019 PRIMARY CARE PHYSICIAN: Dr. Fernandez Wood. ADMISSION DIAGNOSES: 1. Chest pain. 2. Shortness of breath. 3. Renal failure. 4. Intolerance to peritoneal dialysis. CONSULTATION: Dr. Quinn for Nephrology. PROCEDURES: Telemetry monitoring, rule out CT protocol, peritoneal dialysis. HOSPITAL COURSE: This is a 78-year-old female patient with a history of end-stage renal disease on peritoneal dialysis, recently transitioned, hypertension, hyperlipidemia, coronary artery disease, anxiety disorder, presented to the emergency department with chest pain and feeling short of breath. The patient states that she has had several episodes of this, was recently admitted for similar episode. Dr. Quinn had been changing her fluid to do the fills for her dialysis and she apparently has not been tolerating them. She felt bloated, fluid overloaded and short of breath and presented to emergency department for evaluation. She was admitted. She was eventually ruled out for an CT with negative cardiac enzymes. No EKG changes. She was seen by Dr. Quinn and he adjusted her fluid filled for the peritoneal dialysis and she tolerated it well last night and is feeling much better this morning and back at her baseline and wanting to go home. Her blood pressure did get low over the last day and her blood pressure medicines were held this morning except for the Cardizem. She had no further episodes. Her heart rate remained stable throughout and she was stable for discharge. DISCHARGE PHYSICAL EXAMINATION: VITAL SIGNS: Temperature 97.7, pulse 64 to 96, respirations 20, blood pressure 93-110/52-77, pulse ox is 94% to 95% on room air. GENERAL: She is awake and alert, in no acute distress. Speech is clear. She is smiling, sitting up in bed, ate all of her breakfast. HEENT: Mucosa is moist. NECK: Supple. HEART: Irregularly irregular. LUNGS: Clear. ABDOMEN: Soft, minimal tenderness. EXTREMITIES: With no edema. LABORATORY DATA: White blood cell count 6900, hemoglobin and hematocrit 10.1 and 31.8, platelets of 253. Sodium 133, potassium 3.8, chloride 98, CO2 of 17, BUN and creatinine 64 and 9.5 with a GFR of 4, serum glucose of 260. DISCHARGE MEDICATIONS: Include: 1. Tylenol p.r.n. 2. Xanax 0.5 mg b.i.d. p.r.n. Eliquis 5 mg b.i.d. 3. Vitamin C 1000 mg b.i.d. 4. Aspirin 81 mg daily. 5. Lipitor 80 mg daily. 6. Wellbutrin 150 mg daily. 7. Calcitriol 0.25 mcg daily. 8. Cardizem 120 mg daily. 9. Procrit 7500 units weekly. 10. Iron sulfate 325 b.i.d. 11. Multivitamin daily. 12. Pantoprazole 40 mg daily. 13. Renvela 800 mg t.i.d. 14. Tramadol p.r.n. pain. 15. Vitamin E 400 units daily. 16. She is to hold her Imdur and bisoprolol until she follows up with Dr. Wood in 1 to 2 weeks. Job ID: [id number]
--- NOTE | 2019-02-10 08:35 | HP ---
PRIMARY CARE PHYSICIAN: Dr. Fernandez Wood. CHIEF COMPLAINT: Chest pain and shortness of breath. HISTORY OF PRESENT ILLNESS: This is a 78-year-old female patient of Dr. Wood's with a past history of end-stage renal disease, on dialysis; type 2 diabetes; known coronary artery disease, who has been transitioned to peritoneal dialysis from hemodialysis over the past few months, presents to the emergency department with shortness of breath and pleuritic type chest pain. She was recently admitted on 01/28/2019 and discharged on 01/30/2019 with similar complaints. She was sent home in good condition, and her symptoms worsened over the past couple of days. The patient states that per instructions given by Nephrology, she infused 2 L of fluid on night, and I was to perform peritoneal dialysis yesterday, but she felt so badly she presented to the emergency department. She has some improved this morning, but continues to have some chest pain with deep inspirations. Shortness of breath is stable and improved with oxygen therapy at this time. On the last admission, she ruled out for an PA. PAST MEDICAL HISTORY: Type 2 diabetes; end-stage renal disease, on peritoneal dialysis; atherosclerotic coronary artery disease. MEDICATIONS: Include, 1. Tylenol p.r.n. 2. Xanax 0.5 mg b.i.d. p.r.n. anxiety. 3. Eliquis 5 mg b.i.d. 4. Aspirin 81 mg daily. 5. Bisoprolol 5 mg daily. 6. Wellbutrin 150 mg at bedtime. 7. Calcitriol 0.25 mcg daily. 8. Cardizem CD 120 mg daily. 9. Imdur 60 mg daily. 10. Vitamin C daily. 11. Atorvastatin 80 mg at bedtime. 12. Ferrous sulfate 325 mg b.i.d. 13. Biotin daily. 14. Multivitamin daily. 15. Vitamin E daily. 16. Protonix 40 mg daily. 17. Renvela 800 mg t.i.d. 18. Tramadol 50 mg q.4 p.r.n. pain. ALLERGIES: TO IODINE, CODEINE, PENICILLIN, PROMETHAZINE, SHELLFISH, AND SULFA. PAST SURGICAL HISTORY: Peritoneal dialysis catheter placement, dialysis fistula procedure, cholecystectomy, left hip replacement, hysterectomy, multiple lumbar surgeries. SOCIAL HISTORY: She is . Has a supportive . No smoking. No alcohol. Lives at home. FAMILY HISTORY: Noncontributory. REVIEW OF SYSTEMS: As per the history of present illness. CONSTITUTIONAL: She denies any recent fevers or chills. She has had upper respiratory cough. CARDIAC: As per the history of present illness. No palpitations. History of rate controlled atrial fibrillation. PULMONARY: Positive cough, some shortness of breath. GI: No nausea, vomiting, abdominal pain, melena, or hematochezia. : Denies hematuria. MUSCULOSKELETAL: Positive chronic back pain. Positive chronic hip pain. PHYSICAL EXAMINATION: VITAL SIGNS: Temperature 98.5, pulse of 70 to 84, respirations 16, blood pressure 104/53, pulse ox is 93% on 2 L nasal cannula. GENERAL: She is awake and alert, in no acute distress. Speech is clear. HEENT: Mucosa is moist. NECK: Supple. HEART: Irregularly irregular. LUNGS: Distant, but clear anteriorly. ABDOMEN: Soft, nontender, and nondistended. EXTREMITIES: No edema. 2+ peripheral pulses bilaterally. LABORATORY DATA: Sodium 134, potassium 4.7, chloride 96, CO2 of 21, BUN and creatinine 60 and 9.48 with a GFR of 4, serum glucose of 188, Accu-Chek of 136. Lactic acid 2.2 and 1.6. Calcium of 8.8. Troponin I has been negative x3. BNP last night was 1529. White blood cell count 9800, hemoglobin and hematocrit 9.7 and 30.9, and platelets of 284. DIAGNOSTIC DATA: Chest x-ray reveals cardiomegaly with borderline pulmonary vascular congestion. No signs of infiltrates. ASSESSMENT AND PLAN: This is a 78-year-old female with multiple medical problems including end-stage chronic kidney disease with renal failure, on dialysis; coronary artery disease; atrial fibrillation, now with apparent fluid overload. 1. Chronic kidney disease, on dialysis. Plan per Dr. Quinn, likely to dialyze soon. 2. History of congestive heart failure with elevated BNP. Should improve with dialysis. Continue to monitor. Echo on 07/06/2018 revealed an ejection fraction of 60% to 65%. 3. Coronary artery disease with history of stent in 1999, 2000, and 2008, appears to be stable at this time. 4. Type 2 diabetes. We will continue serial Accu-Cheks. 5. Anemia of chronic disease. We will continue iron supplementation and management per Nephrology. Job ID: [id number]
--- NOTE | 2019-02-11 13:25 | PQF ---
BRAXTON CARNEYDENNIS HERNANDEZ DO [id number] [id number] CLINICAL DOCUMENTATION IMPROVEMENT CLARIFICATION FORM: ICD-10 Updated PLEASE DO AN ADDENDUM TO THE PROGRESS NOTE WITH ANY DOCUMENTATION UPDATES OR ADDITIONS AND CARRY THROUGH TO DC SUMMARY. THANK YOU. DATE: 02/11/19 ATTN: DR BENTON Please exercise your independent, professional judgment in responding to the clarification form. Clinical indicators are provided on the bottom of this form for your review Please check appropriate box(s): HEART FAILURE: A. TYPE: [ ] Diastolic / HFpEF [ xx ] Combined Systolic / Diastolic B. ACUITY [ xx] Acute on Chronic [ ] Chronic [ ] Other diagnosis [ ] Unable to determine In addition, please specify: Present on Admission (POA): [ xx ] Yes [ ] No [ ] Unable to determine For continuity of documentation, please document condition throughout progress notes and discharge summary. Thank You. CLINICAL INDICATORS - SIGNS / SYMPTOMS / LABS 02/08 HISTORY OF CHF WITH ELEVATED BNP ECHO 07/06/18 EF 60-65% H&P Elevated BNP 1529 per 02/07 LAB SOB / FLUID OVERLOAD H&P 02/07 CXR: CARDIOMEGALY WITH BORDERLINE PULM VASC CONGESTION 02/08 RENAL: ABD FULLNESS. MILD CHF RISKS: S/P CHF, DIASTOLIC DYSFUNCTION, HTN, ESRD 02/08 RENAL NOTE TREATMENTS: PERITONEAL DIALYSIS 02/08-02/09 PER ORDERS Cardiac monitoring / telemetry 02/07 ORDERS OXYGEN 2L NC PER 02/07 ORDERS (This form is maintained as a part of the permanent medical record) 2014 [employer]. All Rights Reserved Liliane Presley RN, BSN, CCDS [email or web address]
== END 2019-02-09 16:31 | disposition home or self-care (01) | DRG 640 ==
LOC: SCSER 17:11 → 2NO 19:21
PROVIDERS: ADMIT Family Medicine; ATTEND Family Medicine
DX: E87.70 Fluid overload, unspecified (principal); N18.6 End stage renal disease; I50.43 Acute on chronic combined systolic (congestive) and diastolic (congestive) heart failure; I13.2 Hypertensive heart and chronic kidney disease with heart failure and with stage 5 chronic kidney disease, or end stage renal disease; E11.22 Type 2 diabetes mellitus with diabetic chronic kidney disease; Z99.2 Dependence on renal dialysis; E78.5 Hyperlipidemia, unspecified; I25.10 Atherosclerotic heart disease of native coronary artery without angina pectoris; D63.1 Anemia in chronic kidney disease; I48.91 Unspecified atrial fibrillation; G89.29 Other chronic pain; M54.9 Dorsalgia, unspecified
CPT/HCPCS: 36415; 36416; 71045; 80048; 80053; 82565; 83605; 83880; 84484; 85014; 85018; 85025; 85049; 90945; 96360; G0257; Q4081; Q5105

== ENCOUNTER 2019-05-04 10:17 | Emergency (ER) | payer MEDICARE, OTHER ==
[2019-05-04] MEDS ORDERED: traMADol HCl 50 MG TAB ONE (10:29)
[2019-05-04 10:42] LABS: #Basophils 0.1 thou/uL (0.0-0.2); #Eosinphils 0.3 thou/uL (0.0-0.7); #Lymphocytes 2.1 thou/uL (1.20-3.40); #Monocytes 0.6 thou/uL (0.11-0.59); #Neutrophils 4.2 thou/uL (1.40-6.50); %Basophils 1.8 % (0.0-1.0); %Eosinophils 3.8 % (0.0-10.0); %Lymphocytes 28.5 % (21.0-51.0); %Monocytes 8.3 % (0.0-10.0); %Neutrophils 57.6 % (42.0-75.0); Hemoglobin 10.2 g/dL (12.0-16.0); Mean Corpuscular HGB CONC 33.3 g/dL (32.0-36.0); Mean Corpuscular Hemoglobin 30.4 pg (27.0-31.0); Mean Corpuscular Volume 91.3 fL (78.0-98.0); Mean Platelet Volume 7.3 fL (7.4-10.4); Platelet Count 238 thou/uL (130-400); RBC Distribution Width 12.4 % (11.5-14.5); Red Blood Cell (RBC) Count 3.35 mill/uL (4.20-5.40); White Blood Cell (WBC) Count 7.3 thou/uL (4.8-10.8)
[2019-05-04 10:56] LABS: ALT (SGPT) 14 U/L (8-55); AST (SGOT) 11 U/L (5-34); Albumin 3.5 g/dL (3.4-4.8); Alkaline Phosphatase 104 U/L (40-150); Anion Gap 22 mmol/L (10-20); BUN (Urea Nitrogen) 44 mg/dL (9.8-20.1); Bilirubin, Total 0.3 mg/dL (0.2-1.2); Calc. Creatinine Clearance 0 mL/min (70-130); Carbon Dioxide 22 mmol/L (23-31); Chloride 101 mmol/L (98-107); Estimated GFR-MDRD 5; Globulin 2.6 g/dL (2.4-3.5); Glucose 145 mg/dL (83-110); Protein, Total 6.1 g/dL (6.0-8.3); Sodium 141 mmol/L (136-145)
== END 2019-05-04 11:19 | disposition home or self-care (01) ==
LOC: SCSER 10:17
DX: T85.691A Other mechanical complication of intraperitoneal dialysis catheter, initial encounter (principal)
CPT/HCPCS: 80053; 85025; 99284

== ENCOUNTER 2019-05-05 12:02 | Outpatient (CLI) | payer MEDICARE, OTHER ==
--- NOTE | 2019-05-05 12:23 | RAD ---
Exam: 1 VIEW ABDOMEN: HISTORY: Nonfunctioning dialysis catheter. FINDINGS: There appears to be a left-sided hip arthroplasty. Bilateral lumbar spine transpedicular screws from T12 to L5. No perihardware lucency. Laminectomy def ect at L3, L4. IVC filter is noted. Right-sided dorsal column stimulator. There is a catheter projecting over the right hemipelvis with the distal coil in the midline of the p radhames, compatible with a peritoneal dialysis catheter. IMPRESSION: Lines and tubes as above. Post surgical changes as above. Transcribed Date/Time: 05/05/2019 1:10 PM
== END 2019-05-05 12:03 | disposition home or self-care (01) ==
LOC: BICRAD 12:02
PROVIDERS: ATTEND Internal Medicine Nephrology
DX: T85.611A Breakdown (mechanical) of intraperitoneal dialysis catheter, initial encounter (principal); Z98.890 Other specified postprocedural states
CPT/HCPCS: 74018

== ENCOUNTER 2019-07-08 00:45 | Inpatient (IN) | payer MEDICARE, OTHER ==
[2019-07-08 01:22] LABS: #Basophils 0.1 thou/uL (0.0-0.2); #Eosinphils 0.6 thou/uL (0.0-0.7); #Lymphocytes 1.3 thou/uL (1.20-3.40); #Monocytes 0.9 thou/uL (0.11-0.59); #Neutrophils 5.6 thou/uL (1.40-6.50); %Basophils 1.2 % (0.0-1.0); %Eosinophils 6.9 % (0.0-10.0); %Monocytes 10.6 % (0.0-10.0); %Neutrophils 66.2 % (42.0-75.0); Hemoglobin 10.9 g/dL (12.0-16.0); Mean Corpuscular HGB CONC 34.1 g/dL (32.0-36.0); Mean Corpuscular Hemoglobin 30.9 pg (27.0-31.0); Mean Corpuscular Volume 90.5 fL (78.0-98.0); Platelet Count 229 thou/uL (130-400); RBC Distribution Width 12.8 % (11.5-14.5); Red Blood Cell (RBC) Count 3.53 mill/uL (4.20-5.40); White Blood Cell (WBC) Count 8.5 thou/uL (4.8-10.8)
[2019-07-08 01:52] LABS: ALT (SGPT) 9 U/L (8-55); AST (SGOT) 8 U/L (5-34); Albumin 3.5 g/dL (3.4-4.8); Alkaline Phosphatase 94 U/L (40-150); Anion Gap 22 mmol/L (10-20); BUN (Urea Nitrogen) 40 mg/dL (9.8-20.1); Bilirubin, Total 0.2 mg/dL (0.2-1.2); Calcium 8.9 mg/dL (7.8-10.44); Carbon Dioxide 24 mmol/L (23-31); Chloride 96 mmol/L (98-107); Globulin 2.6 g/dL (2.4-3.5); Glucose 194 mg/dL (83-110); Potassium 3.5 mmol/L (3.5-5.1); Protein, Total 6.1 g/dL (6.0-8.3); Sodium 138 mmol/L (136-145)
[2019-07-08] MEDS ORDERED: ALPRAZolam 0.5 MG TAB ONE (01:56)
[2019-07-08] MEDS ORDERED: Aspirin 325 MG TAB ONE (01:57)
[2019-07-08 02:01] LABS: Calc. Creatinine Clearance 0 mL/min (70-130); Estimated GFR-MDRD 5
[2019-07-08 03:26] VITALS: BMI 28.7
[2019-07-08] MEDS ORDERED: Acetaminophen 325 MG TAB PO PRN ×2 (04:13→07:50)
[2019-07-08] MEDS ORDERED: Ondansetron ODT 4 MG TAB SL PRN (04:13)
[2019-07-08] MEDS ORDERED: Ondansetron PF 4 MG/2 ML Vial IVP PRN (04:13)
[2019-07-08 06:03] LABS: Troponin I 0.026 ng/mL (< 0.028)
[2019-07-08] MEDS ORDERED: Insulin Regular 300 UNITS/3 ML VIAL SC PRN (07:50)
[2019-07-08] MEDS ORDERED: Dextrose 5% in Water 1,000 ML IV PRN (07:50)
[2019-07-08] MEDS ORDERED: Dextrose 50% Abboject 50 ML SYRINGE SLOW IVP PRN (07:50)
[2019-07-08] MEDS ORDERED: [UNRECOGNIZED DRUG - OTHER] PO PRN (07:54)
[2019-07-08] MEDS ORDERED: Non-Formulary Item 1 EACH (Lactulose [Lactulose] 15 ML) PO PRN (07:54)
[2019-07-08] MEDS ORDERED: ALPRAZolam 0.5 MG TAB PO PRN (07:54)
[2019-07-08] MEDS ORDERED: Non-Formulary Item 1 EACH (Omeprazole [Omeprazole] 40 MG) PO PRN (07:54)
[2019-07-08] MEDS ORDERED: BUTALBITAL PO PRN (07:54)
[2019-07-08] MEDS ORDERED: traMADol HCl 50 MG TAB PO PRN (07:54)
[2019-07-08] MEDS ORDERED: ASPIRIN PO PRN (07:54)
[2019-07-08] MEDS ORDERED: CAFFEINE PO PRN (07:54)
--- NOTE | 2019-07-08 08:20 | RAD ---
PORTABLE CHEST: Date: 07/08/19 INDICATION: Shortness of breath. COMPARISON: 02/07/19. FINDINGS: Right pleural effusion and right lung atelectasis and consolidation obscures the right lung base. Left lung appears clear. Mild cardiomegaly again noted with aortic calcification again noted. IMPRESSION: New opacification in the right lung base consistent with effusion and right basilar infiltrate and co nsolidation. POS: OFF
[2019-07-08] MEDS ORDERED: Non-Formulary Item 1 EACH (Vitamin E [Vitamin E] 400 UNIT) PO SCH (09:00)
[2019-07-08] MEDS ORDERED: Non-Formulary Item 1 EACH (Ascorbic Acid [Vitamin C] 1,000 MG) PO SCH (09:00)
[2019-07-08] MEDS ORDERED: MULTIVITAMIN PO SCH (09:00)
[2019-07-08] MEDS ORDERED: MONTELUKAST SODIUM PO SCH (09:00)
[2019-07-08] MEDS ORDERED: FERRIC CITRATE PO SCH (09:00)
[2019-07-08] MEDS ORDERED: Non-Formulary Item 1 EACH (Biotin/Keratin [Biotin Plus Keratin Tablet] 1 EACH) PO SCH (09:00)
[2019-07-08] MEDS: Sevelamer Carbonate 800 MG TAB PO SCH ×3 (09:12→16:18)
[2019-07-08] MEDS: Ascorbic Acid 500 mg Chewable Tablet PO SCH ×2 (09:13→20:48)
[2019-07-08] MEDS: Vitamin E 400 UNITS CAP PO SCH (09:13)
[2019-07-08] MEDS: Ezetimibe 10 MG TAB PO SCH (09:13)
[2019-07-08] MEDS: Calcitriol 0.25 MCG CAP PO SCH (09:13)
[2019-07-08] MEDS: Multivit, Therapeutic 1 TAB PO SCH (09:13)
[2019-07-08] MEDS ORDERED: Activase 2 MG VIAL CATH SCH (09:30)
[2019-07-08 10:09] LABS: Troponin I 0.039 ng/mL (< 0.028)
[2019-07-08 11:34] LABS: Fluid, Triglycerides Less than 11 mg/dL (Not Available); Pleural Fluid, Amylase Less than 30 U/L (Not Available); Pleural Fluid, Glucose 238 mg/dL; Pleural Fluid, LDH 31 U/L (Not Available); Pleural Fluid, Protein Less than 1.0 g/dL
--- NOTE | 2019-07-08 13:19 | CON ---
DATE OF CONSULTATION: HISTORY OF PRESENT ILLNESS: The patient is a 78-year-old female, who presents to the hospital with shortness of breath. Denied any fever or chills. In fact, she was just recently in the hospital in January, where chest x-ray was normal. She denied any chest pain, chills, or sweats. PAST MEDICAL HISTORY: End-stage renal disease, diabetes, hypertension. She is in the peritoneal dialysis for about a year. Hyperlipidemia. Chronic arthritis. PAST SURGICAL HISTORY: Appendix, hysterectomy, left hip and ankle surgery. HABITS: Alcohol, none. Tobacco, none. HOME MEDICATIONS: Includes, 1. Singulair 10. 2. Bisoprolol. 3. Zetia. 4. Lactulose. 5. Imdur 60. 6. Eliquis 5 twice a day. 7. Xanax 0.5. 8. Lipitor 80. 9. Aspirin. 10. Wellbutrin 150. 11. Cardizem 120. 12. Omeprazole 40. 13. Vitamin. ALLERGIES: IODINE, CODEINE, PENICILLIN, PHENERGAN, SULFA. REVIEW OF SYSTEMS: Unremarkable. PHYSICAL EXAMINATION: GENERAL: She is in mild distress. VITAL SIGNS: Temperature 97, pulse 79, respirations 16, saturations 100% on 2 L, blood pressure 120/70. CHEST: Decreased breath sounds right lower one-third. Left unremarkable. CARDIAC: Normal S1, S2. No gallops. ABDOMEN: No mass. LABORATORY DATA: White count 8000, H and H 10 and 31, platelet count 229. Creatinine 8.5. ASSESSMENT AND PLAN: 1. Chronic renal failure. 2. Diabetes. 3. Hypertension. 4. Advanced age. PLAN: I think the fluid is probably secondary to her peritoneal dialysis. I spoke to the nurse, apparently they are not able to get the fluid back as much they are putting in. In the round, we will try and do a diagnostic/therapeutic thoracentesis to relieve some of her dyspnea. Further recommendation thereafter. Consultation note, 70 minutes, 50% direct patient care. This is exclusive of the thoracentesis. Job ID: [id number]
--- NOTE | 2019-07-08 13:29 | OP ---
DATE OF PROCEDURE: 07/08/2019 PROCEDURE PERFORMED: Thoracentesis. INDICATION: Pleural effusion. DESCRIPTION OF PROCEDURE: After informed consent, the right posterior thorax was cleaned with chlorhexidine. 1% lidocaine was infiltrated into the right ninth intercostal space in the midscapular area all the way to pleura. Pleural cavity was entered in and about 20 mL of relatively clear pleural effusion was removed, felt to be secondary to the peritoneal dialysis fluid. Thereafter, using an 8-Kazakh catheter, a total of 1200 mL was removed without difficulty. The patient tolerated the procedure well. Pleural effusion sent only for Gram stain and INSPECTOR PUBLICATIONS. We will notify Dr. Quinn that the pleural effusion is probably secondary to peritoneal fluid that is being used as a dialysis for peritoneal dialysis. Job ID: [id number]
[2019-07-08 14:26] LABS: RBC Count-Automated (BF) 43 /cumm; WBC/Nucleated-Auto (BF) 373 uL
[2019-07-08 14:32] LABS: BF Color Colorless; Body Fluid Source Thoracentesis Fluid; Clarity Hazy (Clear); Tube # EDTA
--- NOTE | 2019-07-08 14:50 | HP ---
HISTORY OF PRESENT ILLNESS: The patient is a 78-year-old white female with known history of type 2 diabetes mellitus, atherosclerotic coronary artery disease, aortic stenosis, end-stage renal disease, down to using peritoneal dialysis. The patient presented to the emergency room complaining of shortness of breath. She was seen and evaluated in the ER. It was noted on a chest x-ray, she had a large pleural effusion. No evidence of any atherosclerotic coronary artery disease causing her problems such as congestive heart failure were noted. Her BNP was noted she had fairly normal. She has been experiencing probably shortness of breath for several weeks, noted increasingly, so she was seen by my physician addictions counselor assistant yesterday. She did not get her chest x-ray yesterday due to other problems. As noted, she was came in yesterday for shortness of breath. She was found to have O2 saturation of 84% on room air prior to oxygen administration. She did not note any fever, nausea, vomiting, or diarrhea. No chest pain. No productive coughing. She notes she has been having difficulties, she feels like was getting complete drainage from her peritoneal dialysis catheter, which she changed 2 weeks ago. Otherwise, no other medical complaints are noted. ALLERGIES: SHE IS ALLERGIC TO CODEINE, IODINE, PENICILLIN, PHENERGAN, AND SULFA. CURRENT MEDICATIONS: 1. Wellbutrin. 2. Omeprazole. 3. Atorvastatin. 4. Zantac. 5. Tramadol. 6. Aspirin. 7. Bisoprolol. 8. Butalbital/acetaminophen/caffeine. 9. Calcitriol. 10. Diltiazem. 11. Eliquis. 12. Isosorbide mononitrate. 13. Lactulose. 14. Montelukast. PAST MEDICAL HISTORY: Significant for end-stage renal disease; atherosclerotic coronary artery disease; aortic stenosis; type 2 diabetes mellitus, controlled with diet; hypercholesterolemia; and chronic back pain. PAST SURGICAL HISTORY: Positive for nerve stimulator, appendectomy, hysterectomy, and multiple orthopedic surgeries. SOCIAL AND PERSONAL HISTORY: She retired. She lives with her . She does not smoke nor does she drink alcohol. REVIEW OF SYSTEMS: GI: Positive as above. : Negative. CARDIOVASCULAR: Positive as above. RESPIRATORY: Positive as above. NEUROLOGICAL: Positive as above. PHYSICAL EXAMINATION: VITAL SIGNS: Temperature 98.2, pulse 84, O2 saturation is 97% on 3 L, and blood pressure 134/73. GENERAL: She is alert and active, in no acute distress. HEENT: Normocephalic and atraumatic. Sclerae and conjunctivae clear. NECK: Supple. Full range of motion. No masses. No bruits. Thyroid is midline. No thyromegaly or thyroid masses. LUNGS: Reveal decreased breath sounds at the right lung. HEART: Reveals a regular rate and rhythm with a grade 2/6 systolic ejection murmur heard best at left sternal border. ABDOMEN: Soft. There is no evidence of any significant abdominal tenderness. EXTREMITIES: No clubbing, edema, or cyanosis. NEUROLOGIC: She is alert and oriented x3. LABORATORY DATA: Hemoglobin is 10.9, hematocrit 31.9, and white blood count 8.5. Sodium 138, potassium 3.5, chloride 96, CO2 of 24, BUN 40, and creatinine 8.5. Troponin 0.046. Repeat troponin 0.026. BNP 404.9. IMPRESSION: 1. Pleural effusion with hypoxia. 2. End-stage renal disease. 3. History of atherosclerotic coronary artery disease. 4. Aortic stenosis. PLAN: 1. We will consult Pulmonology for a consideration for diagnostic and therapeutic tap of pleural effusion. 2. We will consult Dr. Flores for evaluation of her peritoneal dialysis catheter. 3. Consider Cardiology consult if necessary. Job ID: [id number]
[2019-07-08 14:52] LABS: BF Segmented Neutrophils 13 %; Cell Count Non Hematic 67 %; Eosinophils 3 %; Lymphocytes 15 %
--- NOTE | 2019-07-08 15:21 | CON ---
DATE OF CONSULTATION: SERVICE: Renal Medicine. HISTORY OF PRESENT ILLNESS: Ms. Rojas is a 78-year-old white female with ESRD, who was admitted for shortness of breath and cough. Denies any associated fever with this. We are now being consulted for peritoneal dialysis. The tells me that the PD catheter was not draining well. For that reason, we will probably Activase the PD catheter. She was also complaining of some dried blood around the PD catheter site. Surgery has been reconsulted regarding this. REVIEW OF SYSTEMS: No chest pain. Mild shortness of breath. Positive for cough. Denies any fever or chills. No gross hematuria. No abdominal pain. No dysuria. No frequency. No hematochezia. No melena. Appetite and energy level are fair. No headache. No diplopia. No syncopal episode. CURRENT MEDICATIONS: 1. Xanax 0.5 mg p.o. b.i.d. 2. Ascorbic acid 1000 mg p.o. b.i.d. 3. Atorvastatin 80 mg at bedtime. 4. Bisoprolol 5 mg p.o. at bedtime. 5. Bupropion 150 mg at bedtime. 6. Butalbital 1 capsule q.4 p.r.n. 7. Calcitriol 0.25 mcg tab daily. 8. Diltiazem 120 mg ER daily. 9. Zetia 10 mg at bedtime. 10. Imdur 60 mg at bedtime. 11. Singulair 20 mg q.p.m. 12. Protonix 40 mg tablet once a day. 13. Renvela 800 mg p.o. t.i.d. 14. Vitamin E 400 international units daily. PAST MEDICAL HISTORY: 1. ESRD, currently on peritoneal dialysis. 2. Coronary artery disease. 3. Hyperlipidemia. 4. Hypertension. 5. Chronic headache. 6. Chronic low back pain. 7. DJD. 8. Depression. 9. Type 2 diabetes mellitus. PAST SURGICAL HISTORY: 1. Status post cuffed hemodialysis catheter placement. 2. Status post AV fistula placement. 3. Status post PD catheter placement. 4. Status post colonoscopy. 5. Status post cardiac catheterization with coronary artery stent placement. 6. Status post left hip replacement. 7. Status post left ankle surgery. 8. Status post back surgery. 9. Status post appendectomy. 10. Status post hysterectomy. ALLERGIES: 1. SULFA. 2. PENICILLIN. 3. CODEINE. 4. IODINE. 5. PHENERGAN. TRAUMA: Status post left ankle fracture. IMMUNIZATION: Up-to-date. HOSPITALIZATIONS: Please see past medical history. FAMILY HISTORY: No family history of ESRD. SOCIAL HISTORY: The patient is . She lives in [place]. 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 Education, 3 years of college. No IV drug abuse. No smoking. No alcohol intake. Two children, both adopted. PHYSICAL EXAMINATION: VITAL SIGNS: Blood pressure is noted at 120/70, heart rate 79, respiratory rate 16, temperature 97.4, pulse ox 100%. GENERAL: Noted to be awake, alert, comfortable, not in distress. SKIN: Adequate turgor. HEENT: Slightly pale conjunctivae. Anicteric sclerae. NECK: No neck mass. No carotid bruits. No JVD. CHEST: No deformities. LUNGS: Decreased breath sounds. HEART: Normal sinus rhythm. Grade 2/6 systolic murmur. No gallops or rubs. ABDOMEN: Globular, soft, nontender. No masses. Positive for PD catheter. EXTREMITIES: No edema. No deformities. NEUROLOGIC: Moving all extremities. No tremors. No asterixis. No ataxia. LABORATORY DATA: Laboratories of July 08, 2019, white count 8.5, hemoglobin 10.9, sodium 138, potassium 3.5, chloride 96, carbon dioxide 24, BUN 40, creatinine 8.5, glucose 194, calcium 8.9, AST 8, ALT 9, CK 2.0. IMAGING STUDIES: Chest x-ray of July 08, 2019, shows new opacification of the right lung base consistent with effusion and right basilar infiltrate/consolidation. Left lung appears clear. ASSESSMENT AND PLAN: 1. Shortness of breath. Unclear etiology. Consider maxing out fluid removal. Due to the PD catheter not functioning well, we will apply Activase the whole day and then resume peritoneal dialysis tonight. We will use a 2.5% PD solution to enhance ultrafiltration. I offered hemodialysis backup with this patient, she declined. 2. Bleeding around PD catheter site, Surgical consult has been done. 3. Anemia, continuing weekly Epogen. 4. Shortness of breath, Pulmonary to evaluate the patient. I overall agree with current management. Job ID: [id number]
[2019-07-08] MEDS: Bupropion 150 MG XL TAB PO SCH (20:48)
[2019-07-08] MEDS: Atorvastatin Calcium 40 MG TAB PO SCH (20:48)
[2019-07-08] MEDS: Bisoprolol Fumarate 5 MG TAB PO SCH (20:48)
[2019-07-08] MEDS: Montelukast Sodium 10 mg Tablet PO SCH (20:48)
[2019-07-08] MEDS ORDERED: Non-Formulary Item 1 EACH (Atorvastatin Calcium [Lipitor] 80 MG) PO SCH (21:00)
[2019-07-08] MEDS ORDERED: Bisoprolol Fumarate 5 MG TAB PO SCH (21:00)
[2019-07-09 05:16] LABS: #Eosinphils 0.5 thou/uL (0.0-0.7); #Lymphocytes 1.2 thou/uL (1.20-3.40); #Monocytes 0.7 thou/uL (0.11-0.59); #Neutrophils 4.7 thou/uL (1.40-6.50); %Basophils 0.7 % (0.0-1.0); %Eosinophils 7.6 % (0.0-10.0); %Monocytes 9.7 % (0.0-10.0); %Neutrophils 65.1 % (42.0-75.0); Hemoglobin 9.6 g/dL (12.0-16.0); Mean Corpuscular HGB CONC 34.2 g/dL (32.0-36.0); Mean Corpuscular Hemoglobin 31.3 pg (27.0-31.0); Mean Corpuscular Volume 91.5 fL (78.0-98.0); Mean Platelet Volume 7.7 fL (7.4-10.4); Platelet Count 206 thou/uL (130-400); RBC Distribution Width 12.4 % (11.5-14.5); Red Blood Cell (RBC) Count 3.06 mill/uL (4.20-5.40); White Blood Cell (WBC) Count 7.2 thou/uL (4.8-10.8)
[2019-07-09 05:31] LABS: Anion Gap 25 mmol/L (10-20); BUN (Urea Nitrogen) 50 mg/dL (9.8-20.1); Calc. Creatinine Clearance 6 mL/min (70-130); Calcium 8.4 mg/dL (7.8-10.44); Carbon Dioxide 18 mmol/L (23-31); Chloride 97 mmol/L (98-107); Estimated GFR-MDRD 5; Glucose 207 mg/dL (83-110); Potassium 3.9 mmol/L (3.5-5.1); Sodium 136 mmol/L (136-145)
[2019-07-09] MEDS ORDERED: Epoetin (ESRD) 20,000 UNITS/ML SC SCH (08:15)
--- NOTE | 2019-07-09 08:42 | PRG ---
DATE OF SERVICE: 07/09/2019 SUBJECTIVE: Ms. Rojas is a 78-year-old white female with ESRD. Last night, we did the CCPD. She had a good inflow with the peritoneal dialysis. However, outflow was nonfunctional. For that reason, we placed a hold on dialysis. My plan is to do a KUB to make sure that the dialysis is located in an appropriate location. If it is located in an appropriate location and there is no outflow, we probably will consider surgical reconsult with Dr. Flores for nonfunctional PD catheter. For the moment, I will do a backup hemodialysis for 2 hours. The patient has not had a good peritoneal dialysis for the last three nights. No complaints of chest pain or shortness of breath. OBJECTIVE: VITAL SIGNS: Blood pressure 130/59, heart rate 77, respiratory rate 20, temperature 99.2, and pulse ox is 97%. GENERAL: Noted to be awake, alert, and comfortable, not in overt distress. SKIN: Adequate turgor. HEENT: She has slightly pale conjunctivae. Anicteric sclerae. NECK: No neck mass. No carotid bruits. No JVD. CHEST: No deformities. LUNGS: Clear breath sounds. HEART: Normal sinus rhythm. No murmurs. No gallops. No rubs. ABDOMEN: Globular, soft, and nontender. No masses. Positive for PD catheter. EXTREMITIES: Trace edema. MEDICATIONS: Medications of July 09, 2019, reviewed. LABORATORY DATA: Laboratories of July 09, 2019, white count 7.2 and hemoglobin 9.6. Sodium 136, potassium 3.9, chloride 97, carbon dioxide 18, BUN 50, creatinine 8.48, and calcium 8.4. ASSESSMENT AND PLAN: 1. End-stage renal disease - nonfunctional peritoneal dialysis. We will do a backup hemodialysis for 2 hours, fluid removal as tolerated. Check KUB for position of the peritoneal dialysis catheter. 2. Anemia - resume Epogen 7500 units subcu weekly. 3. Agree with current management. Recheck basic metabolic and CBC in a.m. KUB today. ADDENDUM: Renal Medicine. I discussed the case with Dr. Best. He did a thoracentesis of her pleural effusion, it turned out that it was PD fluid from the abdomen. I feel that there maybe a diaphragmatic hole. For this reason, we will place this patient on hemodialysis for the next several weeks in the hope that the hole would spontaneously close. I did discuss the case with the patient and her . They have agreed to go to backup hemodialysis. I plan to do hemodialysis 3 times a week for the next several weeks. Job ID: [id number]
[2019-07-09] MEDS: Sevelamer Carbonate 800 MG TAB PO SCH ×3 (08:51→17:29)
--- NOTE | 2019-07-09 09:59 | RAD ---
KUB: Date: 07/09/19 HISTORY: Evaluation of peritoneal dialysis catheter position. COMPARISON: 05/05/19. FINDINGS: Bowel gas pattern is nonobstructed with a moderate amount of stool in the colon. Postoperative change s of the spine are noted. A dorsal column stimulator and IVC filters are noted. Peritoneal dialysis c atheter is seen within the pelvis. A left hip prosthesis is noted. Postop cholecystectomy changes are seen. IMPRESSION: Stable overall examination. Peritoneal dialysis catheter is seen in the pelvis. POS: TPC
[2019-07-09] MEDS ORDERED: EPOETIN ALFA-EPBX (ESRD) 4,000 UNIT/ML VIAL SC SCH ×2 (12:00→14:00)
--- NOTE | 2019-07-09 13:22 | PRG ---
DATE OF SERVICE: 07/09/2019 SUBJECTIVE: The patient is feeling much better. She had thoracentesis done 1200 mL of fluid, felt to be dialysate fluid, was drawn off her chest. She reports that she is breathing better. OBJECTIVE: VITAL SIGNS: Temperature 99.2, BP 138/59, O2 saturations 97% on room air. LUNGS: Reveal bilateral breath sounds. HEART: Reveals a regular rate and rhythm. No murmurs, gallops, or rubs. LABORATORY DATA: Hemoglobin 9.6 and hematocrit 28.0. Sodium 136, potassium 3.9, chloride 97, CO2 of 18. Blood sugars adequately controlled. IMPRESSION: 1. Pleural effusion secondary to dialysate, improved. 2. Probable malfunction of her peritoneal dialysis catheter. PLAN: Await further input from Nephrology and General Surgery regarding her PD catheter. She has improved at this time. Continue current care. Job ID: [id number]
[2019-07-09] MEDS: Ascorbic Acid 500 mg Chewable Tablet PO SCH ×2 (13:40→20:45)
[2019-07-09] MEDS: Calcitriol 0.25 MCG CAP PO SCH (13:57)
[2019-07-09] MEDS: Vitamin E 400 UNITS CAP PO SCH (13:58)
[2019-07-09] MEDS: Ezetimibe 10 MG TAB PO SCH (13:58)
[2019-07-09] MEDS: Multivit, Therapeutic 1 TAB PO SCH (13:59)
[2019-07-09] MEDS: BIOTIN PO SCH (15:06)
[2019-07-09] MEDS: KERATIN PO SCH (15:06)
[2019-07-09] MEDS ORDERED: Diabetic Tussin 200 MG/10 ML UDCUP PO PRN (17:26)
[2019-07-09] MEDS: Montelukast Sodium 10 mg Tablet PO SCH (20:44)
[2019-07-09] MEDS: Bisoprolol Fumarate 5 MG TAB PO SCH (20:44)
[2019-07-09] MEDS: Atorvastatin Calcium 40 MG TAB PO SCH (20:45)
[2019-07-09] MEDS: Bupropion 150 MG XL TAB PO SCH (20:45)
[2019-07-10 04:56] LABS: Anion Gap 12 mmol/L (10-20); BUN (Urea Nitrogen) 21 mg/dL (9.8-20.1); Calc. Creatinine Clearance 11 mL/min (70-130); Calcium 8.3 mg/dL (7.8-10.44); Carbon Dioxide 28 mmol/L (23-31); Chloride 101 mmol/L (98-107); Estimated GFR-MDRD 9; Glucose 103 mg/dL (83-110); Potassium 3.4 mmol/L (3.5-5.1); Sodium 138 mmol/L (136-145)
[2019-07-10 05:06] LABS: Band 1 % (5-11); Eosinophils 2 % (0-10); Hemoglobin 9.9 g/dL (12.0-16.0); Hypochromia SLIGHT = 6-15 cells (100X) (0-5/hpf); Lymphocytes 19 % (21-51); MDiff Complete? YES; Mean Corpuscular HGB CONC 33.5 g/dL (32.0-36.0); Mean Corpuscular Hemoglobin 31.2 pg (27.0-31.0); Mean Corpuscular Volume 93.1 fL (78.0-98.0); Monocytes 4 % (0-10); Neutrophil 74 % (42-75); Platelet Count 199 thou/uL (130-400); Platelet Morphology Comment Appears Adequate; RBC Distribution Width 12.2 % (11.5-14.5); Red Blood Cell (RBC) Count 3.17 mill/uL (4.20-5.40); White Blood Cell (WBC) Count 6.6 thou/uL (4.8-10.8)
[2019-07-10] MEDS: Sevelamer Carbonate 800 MG TAB PO SCH ×2 (08:27→12:09)
[2019-07-10] MEDS: Ezetimibe 10 MG TAB PO SCH (08:27)
[2019-07-10] MEDS: Ascorbic Acid 500 mg Chewable Tablet PO SCH (08:27)
[2019-07-10] MEDS: Calcitriol 0.25 MCG CAP PO SCH (08:27)
[2019-07-10] MEDS: Multivit, Therapeutic 1 TAB PO SCH (08:27)
[2019-07-10] MEDS: Vitamin E 400 UNITS CAP PO SCH (08:32)
--- NOTE | 2019-07-10 08:38 | PRG ---
DATE OF SERVICE: 07/09/2019 SUBJECTIVE: Guy Rojas's pleural fluid has been reviewed. Protein was less than 1 g, glucose 238, LDH 31, triglycerides less than 11, white count 373, RBC 43. IMPRESSION: Trsnsudative effusion most consistent with pleural effusion associated with ineffective volume removal with peritoneal dialysis ,or right hemidiaphragm transfer of peritoneal fluid into pleural space{more likely}. We will sign off. Job ID: [id number] MTDD
[2019-07-10] MEDS ORDERED: Potassium Chloride 20 MEQ TAB PO SCH (09:30)
--- NOTE | 2019-07-10 10:10 | PRG ---
DATE OF SERVICE: 07/10/2019 SUBJECTIVE: Ms. Rojas is a 78-year-old white female followed up by the Renal Service for her maintenance peritoneal dialysis. Her PD catheter was essentially partially functioning. A KUB was done and showed it to be in place. However, she did show moderate amount of stools in the KUB. In addition, significant pleural effusion was tapped by the senior publications specialist. They think this is PD fluid in the thoracic cavity. We will place a hold on PD for the moment and place her on backup hemodialysis for the next several weeks. OBJECTIVE: VITAL SIGNS: Blood pressure is 112/58, heart rate 68, respiratory rate 18, temperature 98.3, and pulse ox 94%. GENERAL EXAM: Awake, alert, comfortable. Not in distress. SKIN: Adequate turgor. HEENT: Slightly pale conjunctivae. Anicteric sclerae. No neck mass. No carotid bruits. No JVD. CHEST: No deformities. LUNGS: Decreased breath sounds. HEART: Normal sinus rhythm. No murmurs. No gallops. No rubs. ABDOMEN: Globular, soft, nontender. No masses. EXTREMITIES: No edema. No deformities. Positive for PD catheter. Positive for AV fistula. MEDICATIONS: Medications of July 10, 2019, reviewed. LABORATORY DATA: Laboratories of July 10, 2019; white count is 6.6, hemoglobin 9.9, hematocrit is 29. Sodium 138, potassium 3.4, chloride 101, carbon dioxide 28, BUN 21, creatinine 4.68, glucose 103, calcium 8.3. ASSESSMENT AND PLAN: 1. End-stage renal disease, currently on backup hemodialysis due to extravasation of the PD fluid to the thoracic cavity. We will hold off peritoneal dialysis for several weeks. Hopefully, the diaphragmatic leak will close. 2. For the moment, continue laxatives for her constipation. No indication for an emergent hemodialysis. She tolerated hemodialysis yesterday. Job ID: [id number] [facility]
--- NOTE | 2019-07-10 10:56 | PRG ---
DATE OF SERVICE: 07/10/2019 SUBJECTIVE: The patient is doing well. She had undergone hemodialysis as it appears that she would not need further peritoneal dialysis. By nurse reports, she is supposed to be looking for a dialysis bed. Once the dialysis bed can be found, she could be discharged in my opinion. OBJECTIVE: VITAL SIGNS: BP 112/58, O2 saturation is 94% on room air, and temperature 98.3. LUNGS: Clear. HEART: Reveals a regular rate and rhythm. No murmurs, gallops, or rubs. IMPRESSION: Left pleural effusion, dialysate fluid secondary to malfunctioning of peritoneal dialysis. PLAN: Hemodialysis in the future. Once that is settled, she can be discharged safely. Job ID: [id number]
[2019-07-10 12:08] VITALS: BP 130/73; TEMP 97.9
[2019-07-10] MEDS: Ferric Citrate [Auryxia] PO SCH ×2 (15:11→15:12)
== END 2019-07-10 15:05 | disposition home or self-care (01) | DRG 919 ==
LOC: SCSER 00:45 → 2NO 02:06
PROVIDERS: ADMIT Family Medicine; ATTEND Family Medicine
PROC: 0W993ZZ Drainage of Right Pleural Cavity, Percutaneous Approach (ICD-10-PCS; principal; 2019-07-08)
DX: T85.611A Breakdown (mechanical) of intraperitoneal dialysis catheter, initial encounter (principal); N18.6 End stage renal disease; J90 Pleural effusion, not elsewhere classified; I12.0 Hypertensive chronic kidney disease with stage 5 chronic kidney disease or end stage renal disease; I25.10 Atherosclerotic heart disease of native coronary artery without angina pectoris; E11.22 Type 2 diabetes mellitus with diabetic chronic kidney disease; I35.0 Nonrheumatic aortic (valve) stenosis; E78.00 Pure hypercholesterolemia, unspecified; G89.29 Other chronic pain; M54.9 Dorsalgia, unspecified; D64.9 Anemia, unspecified; M19.90 Unspecified osteoarthritis, unspecified site; K59.00 Constipation, unspecified; Z99.2 Dependence on renal dialysis; Z88.5 Allergy status to narcotic agent; Z88.0 Allergy status to penicillin; Z88.2 Allergy status to sulfonamides; Z88.8 Allergy status to other drugs, medicaments and biological substances; Z90.710 Acquired absence of both cervix and uterus; Y84.1 Kidney dialysis as the cause of abnormal reaction of the patient, or of later complication, without mention of misadventure at the time of the procedure
CPT/HCPCS: 36415; 36416; 71045; 74018; 80048; 80053; 82150; 82553; 82945; 83615; 83880; 84157; 84478; 84484; 85025; 85060; 87070; 87116; 87205; 87206; 88112; 88305; 89051; 90935; 90945; 93005; G0257; J1642; J1815; J2997; Q5105

== ENCOUNTER 2019-08-30 15:51 | Inpatient (IN) | payer MEDICARE, OTHER ==
[2019-08-30] MEDS ORDERED: Nitroglycerin 2% Ointment 1 INCH/1 GM Packet ONE (16:16)
[2019-08-30 16:25] LABS: #Basophils 0.1 thou/uL (0.0-0.2); #Eosinphils 0.3 thou/uL (0.0-0.7); #Lymphocytes 1.7 thou/uL (1.20-3.40); #Monocytes 0.5 thou/uL (0.11-0.59); #Neutrophils 4.8 thou/uL (1.40-6.50); %Eosinophils 4.1 % (0.0-10.0); %Lymphocytes 23.2 % (21.0-51.0); %Monocytes 7.3 % (0.0-10.0); %Neutrophils 64.4 % (42.0-75.0); Hemoglobin 10.4 g/dL (12.0-16.0); Mean Corpuscular HGB CONC 33.5 g/dL (32.0-36.0); Mean Corpuscular Hemoglobin 31.8 pg (27.0-31.0); Mean Platelet Volume 6.9 fL (7.4-10.4); Platelet Count 238 thou/uL (130-400); RBC Distribution Width 13.1 % (11.5-14.5); Red Blood Cell (RBC) Count 3.26 mill/uL (4.20-5.40); White Blood Cell (WBC) Count 7.4 thou/uL (4.8-10.8)
--- NOTE | 2019-08-30 16:31 | RAD ---
PORTABLE CHEST: 08/30/19 HISTORY: Difficulty breathing. COMPARISON: 07/08/19 study. Heart size is enlarged. Persistent large right pleural effusion and parenchymal lung changes fairly s imilar to the prior examination. It may be slightly increased but the difference is minimal. The left lung is clear. No pulmonary vascular engorgement. A dorsal column stimulator is seen. Postoperative changes of the spine. IMPRESSION: Large right pleural effusion with associated parenchymal lung change. This is of fairly similar appea tatiana to that seen on the prior 07/08/19 study. POS: ENRIQUE
[2019-08-30 16:44] LABS: ALT (SGPT) 14 U/L (8-55); AST (SGOT) 12 U/L (5-34); Albumin 3.9 g/dL (3.4-4.8); Alkaline Phosphatase 120 U/L (40-110); Anion Gap 23 mmol/L (10-20); BUN (Urea Nitrogen) 51 mg/dL (9.8-20.1); Bilirubin, Total 0.4 mg/dL (0.2-1.2); CK (CPK) 38 U/L (29-168); Calc. Creatinine Clearance 0 mL/min (70-130); Calcium 9.2 mg/dL (7.8-10.44); Carbon Dioxide 20 mmol/L (23-31); Chloride 102 mmol/L (98-107); Estimated GFR-MDRD 4; Globulin 2.6 g/dL (2.4-3.5); Glucose 149 mg/dL (83-110); Potassium 3.6 mmol/L (3.5-5.1); Protein, Total 6.5 g/dL (6.0-8.3); Sodium 141 mmol/L (136-145)
[2019-08-30 19:28] VITALS: BMI 28.5
[2019-08-30] MEDS ORDERED: Dextrose 5% in Water 1,000 ML IV PRN (19:36)
[2019-08-30] MEDS ORDERED: Acetaminophen 325 MG TAB PO PRN (19:36)
[2019-08-30] MEDS ORDERED: HumaLOG 300 UNITS/3 ML VIAL SC PRN (19:36)
[2019-08-30] MEDS ORDERED: Dextrose 50% Abboject 50 ML SYRINGE SLOW IVP PRN (19:36)
[2019-08-30] MEDS ORDERED: hydrALAZINE 20 MG/ML VIAL SLOW IVP PRN (19:36)
--- NOTE | 2019-08-30 20:23 | HP ---
PRIMARY CARE PHYSICIAN: Dr. Fernandez Wood. CHIEF COMPLAINT: Trouble breathing. HISTORY OF PRESENT ILLNESS: Ms. Rojas is a pleasant 78-year-old female who has a history of end-stage renal disease, diabetes, as well as aortic stenosis. She says that she had done her peritoneal dialysis the last night and noticed that she had a lot less fluid come out than what she had administered. She also says that she believes she slept on her right side and possibly the catheter may have been obstructed. She says later she started to have difficulty breathing. It progressed throughout the day to the point where she could not lay back without getting short of breath. She denies having any chest pain. No palpitations and no lower extremity edema. She also denies any fevers or chills or any other type of symptoms, but as a result of the difficulty breathing, she went to the [facility] for evaluation. There, it was noted that she had a fairly large right pleural effusion and she is being admitted for further evaluation. The patient says she was not aware of the aortic stenosis. She says that she has been seeing Dr. Mckeon and saw him about 5 months ago and her next appointment is in about a month. It was noted that on her last echo, which was in January, the valve area was estimated at 0.76 sq cm. REVIEW OF SYSTEMS: The patient denies any syncope or presyncope. No palpitations and no dyspnea on exertion. Otherwise, all systems were reviewed and are negative, except for that mentioned above. PAST MEDICAL HISTORY: Significant for end-stage renal disease, on peritoneal dialysis; atrial fibrillation; coronary artery disease; diabetes mellitus; hypercholesterolemia; and critical aortic stenosis. PAST SURGICAL HISTORY: Includes she has had a nerve stimulator placed, appendectomy, hysterectomy, and multiple orthopedic surgeries. ALLERGIES: TO PHENERGAN, CODEINE, IODINE, PENICILLIN, AND SULFA. FAMILY HISTORY: No history of any heritable diseases. SOCIAL HISTORY: She is a nonsmoker and nondrinker. She is retired and she is . CURRENT MEDICATIONS: Include; 1. Renvela 800 mg t.i.d. with meals. 2. Lactulose 30 b.i.d. 3. Epogen 7500 units as directed. 4. Calcitriol 0.25 mcg p.o. daily. 5. Aspirin 81 mg daily. 6. Eliquis 5 mg twice daily. 7. Vitamin E 400 units daily. 8. Tramadol 50 mg q.4 hours as needed. 9. Omeprazole 40 mg p.o. daily. 10. Multivitamin once a day. 11. Singulair 10 mg daily. 12. as needed. 13. Imdur 60 mg at bedtime. 14. Auryxia one tablet t.i.d. 15. Zetia 10 mg daily. 16. Cartia XT 120 mg daily. 17. Aspirin plus caffeine 1 tablet q.4 as needed. 18. Wellbutrin XR 150 mg at bedtime. 19. Bisoprolol 5 mg at bedtime. 20. Atorvastatin 80 mg at bedtime. 21. Vitamin C 1000 mg daily. 22. Xanax 0.5 mg twice a day as needed. PHYSICAL EXAMINATION: GENERAL: She is alert and oriented. She appears to be in no acute distress. She is well developed and well nourished. VITAL SIGNS: Blood pressure was 182/77, heart rate 79, respiratory rate of 22, temperature is 98.2, and O2 saturation 95% on room air. HEENT: Pupils are equal, round, and reactive to light. Extraocular muscles are intact. Her sclerae anicteric. Throat, no erythema, no exudates. NECK: No adenopathy. No bruits. LUNGS: Essentially clear to auscultation. She did have some coarse breath sounds and basically decreased breath sounds throughout most of the right lung field. CARDIOVASCULAR: She has a normal S1, S2. I did not appreciate an S3 or S4. She did have a fairly loud grade 2/6 systolic murmur which was radiating to the carotids and also into the axilla. ABDOMEN: Soft. It is nontender and nondistended. Positive bowel sounds. No rebound. No guarding. EXTREMITIES: There is no clubbing or cyanosis. No edema. NEUROLOGIC: The exam is grossly nonfocal. SKIN AND INTEGUMENT: No skin changes. No rash. LAB RESULTS: Her sodium is 141, potassium 3.6, chloride is 102, CO2 is 20, BUN is 51, creatinine 10.4, and glucose is 149. She had a troponin of 0.031. The white blood cell count 7.4, hemoglobin 10.4, hematocrit is 30.9, and platelet count is 238. ASSESSMENT: 1. This is a very pleasant 78-year-old female who presents with acute respiratory failure as a result of the large right pleural effusion. This could be the result of the dialysis fluid as it appears it had been a few months ago when this occurred. However, she does have a history of aortic stenosis and this could be related to valvular heart disease as well. She will be admitted to telemetry. We will consult Pulmonology to see if she is a candidate for a therapeutic thoracentesis. We will also consult Cardiology given her history of critical aortic stenosis. 2. End-stage renal disease, on peritoneal dialysis. Nephrology has been consulted for continued peritoneal dialysis. 3. Diabetes mellitus. This is apparently diet controlled. We will place her on a sliding scale. 4. History of atrial fibrillation. She is on chronic anticoagulation and currently her heart rate is regular. Job ID: [id number]
[2019-08-30] MEDS: Atorvastatin Calcium 40 MG TAB PO SCH (20:55)
[2019-08-30] MEDS: Bisoprolol Fumarate 5 MG TAB PO SCH (20:55)
[2019-08-30] MEDS ORDERED: Apixaban 5 MG TAB PO SCH (21:00)
--- NOTE | 2019-08-30 21:59 | CON ---
DATE OF CONSULTATION: 08/30/2019 SERVICE: Nephrology. REQUESTING PHYSICIAN: Gunner Lucas MD REASON FOR CONSULTATION: End-stage renal disease management. HISTORY OF PRESENT ILLNESS: A 78-year-old female with known history of end-stage renal disease, on peritoneal dialysis, who presents to the hospital with acute onset of shortness of breath while doing peritoneal dialysis last night. The patient was admitted in this hospital in June due to acute onset of shortness of breath during dialysis. Evaluation then showed right pleural effusion, which was felt to be hydrothorax due to PD fluid leakage into the pleural space. The patient had thoracentesis with improvement of shortness of breath while peritoneal dialysis was suspended and the patient commenced on hemodialysis for about a month. The patient was started back on PD about a month ago and was doing well up until last night when she noticed poor drainage with exchanges such that by the third exchange, she has already 1700 mL of fluid positive and about the same time, she started having shortness of breath. Because of the shortness of breath and poor drainage, the patient discontinued PD and was later seen in the ER for same symptoms. Evaluation with chest x-ray showed large pleural effusion on the right side. The patient denied chest pain, fever, abdominal pain, leg swelling, dysuria, hematuria, headache, nausea, vomiting, or focal weakness. She, however, admitted to constipation. Blood pressure was elevated on presentation; hence, the patient was started on Nitropaste. She also was started on oxygen supplementation due to shortness of breath. She is currently feeling better. She admitted to orthopnea and exertional dyspnea since onset of symptoms. PAST MEDICAL HISTORY: 1. End-stage renal disease, on PD. 2. Atrial fibrillation. 3. Chronic anticoagulation with Eliquis. 4. Coronary artery disease. 5. Diabetes mellitus. 6. Hyperlipidemia. 7. Critical aortic stenosis. PAST SURGICAL HISTORY: 1. Nerve stimulator placement. 2. Appendectomy. 3. Hysterectomy. 4. Multiple orthopedic surgeries. 5. Recent thoracentesis. FAMILY HISTORY: Reviewed, but noncontributory. SOCIAL HISTORY: The patient lives with spouse. She is retired. She denied smoking, alcohol, or recreational drug use. ALLERGIES: 1. PHENERGAN. 2. CODEINE. 3. IODINE. 4. PENICILLIN. 5. SULFA. PRIOR TO HOSPITAL MEDICATIONS: 1. Butalbital/aspirin/caffeine 50/325/40 one tablet q.4 p.r.n. for pain. 2. Lactulose 10 g q.4 p.r.n. for constipation. 3. Tramadol 50 mg q.4 p.r.n. 4. Xanax 0.5 mg q.6 p.r.n. 5. Lipitor 80 mg daily at bedtime. 6. Bisoprolol 5 mg p.o. daily at bedtime. 7. Wellbutrin XL 150 mg p.o. daily at bedtime. 8. 120 mg p.o. daily. 9. Zetia 10 mg p.o. daily. 10. Ferric citrate (Auryxia) 210 mg p.o. daily. 11. Isosorbide mononitrate 60 mg p.o. daily. 12. Omeprazole 40 mg p.o. daily. 13. Eliquis 5 mg p.o. b.i.d. 14. Aspirin 81 mg p.o. daily. 15. Calcitriol 0.25 mcg p.o. daily. 16. Epoetin chel 7500 units subcutaneously q.7 days. 17. Sevelamer 800 mg p.o. t.i.d. with meals. REVIEW OF SYSTEMS: 12-point review of systems performed was negative other than pertinent positives and negatives included in the history of present illness. PHYSICAL EXAMINATION: VITAL SIGNS: Temperature 97.9, pulse 76, respiratory rate 12, SpO2 of 97% on 2 L nasal cannula, blood pressure is 155/70. GENERAL: Comfortable elderly female, in no obvious distress. Afebrile. Anicteric. Acyanotic. HEENT: Normocephalic, atraumatic. Oral mucosa is moist. NECK: Supple. Nontender with good range of motion. No JVD or masses appreciated. CARDIOVASCULAR: Regular rhythm and rate with normal heart sounds 1 and 2. Systolic murmur heard over the precordium. RESPIRATORY: Diminished air movement on the right hemithorax noted especially at the base and mid zone. Work of breathing is not increased. No obvious rhonchi were appreciated. GI: Full, soft, nontender, nondistended with normal bowel sounds. PD catheter noted. EXTREMITIES: Grossly normal looking, atraumatic with no edema or erythema. TECHNICAL ASSISTANT: Conscious, alert, oriented x3 with appropriate mental status. Cranial nerves 2 through 12 are grossly intact. The patient moves all extremities. AV FISTULA: Access. PD catheter and right upper limb AV fistula noted. DIAGNOSTIC DATA: CBC showed WBC count of 7.4, hemoglobin of 10.4, MCV of 95, platelet of 238. CMP showed sodium 141, potassium 3.6, chloride 102, CO2 of 20, anion gap 23, BUN 51, creatinine 10.43, glucose 149, calcium 9.2, total bilirubin 0.4, AST 12, ALT 14, alkaline phosphatase 120, total protein 6.5, albumin 3.9, globulin 2.6. Initial cardiac enzymes showed CK 38, CK-MB 2.0, troponin 0.031, and BNP 270. Chest x-ray showed large right pleural effusion. Cardiomegaly also was noted. ASSESSMENT: 1. Acute respiratory failure with hypoxia: Due to acute hydrothorax on the right side. 2. 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 This is recurrent. This is the second episode in the last 3 months. The patient was doing well prior to yesterday when she suddenly developed shortness of breath and poor drainage of peritoneal dialysis fluid. 3. Hypertension: Control is suboptimal. We will monitor the patient with resumption of usual antihypertensives. 4. Aortic stenosis. 5. Paroxysmal atrial fibrillation. 6. Diabetes mellitus. 7. End-stage renal disease, on peritoneal dialysis. The patient's peritoneal dialysis was suspended for about a month, but was restarted a month ago. She was doing well prior to last night. PLAN: 1. We will hold peritoneal dialysis for now. 2. We will agree with pulmonary consultation. Thoracentesis tomorrow is anticipated. 3. We will hold Eliquis for now until after the thoracentesis. We will check glucose in the pleural fluid to confirm PD leakage. We will plan on doing hemodialysis tomorrow. The patient has a functional AV fistula on the right upper extremity. 4. We will restart antihypertensives and monitor blood pressure with a view to adjusting to get adequate BP control. 5. We will continue phosphate binder. 6. Other treatment as per primary attending and other consulted specialties. Many thanks for involving us in the care of this patient. We will follow along with you. Job ID: [id number]
[2019-08-31 05:49] LABS: #Basophils 0.1 thou/uL (0.0-0.2); #Eosinphils 0.3 thou/uL (0.0-0.7); #Lymphocytes 2.2 thou/uL (1.20-3.40); #Monocytes 0.6 thou/uL (0.11-0.59); #Neutrophils 3.8 thou/uL (1.40-6.50); %Basophils 0.9 % (0.0-1.0); %Eosinophils 4.8 % (0.0-10.0); %Lymphocytes 31.1 % (21.0-51.0); %Neutrophils 54.2 % (42.0-75.0); Hemoglobin 9.4 g/dL (12.0-16.0); Mean Corpuscular HGB CONC 33.3 g/dL (32.0-36.0); Mean Corpuscular Hemoglobin 31.5 pg (27.0-31.0); Mean Corpuscular Volume 94.5 fL (78.0-98.0); Mean Platelet Volume 7.7 fL (7.4-10.4); Platelet Count 241 thou/uL (130-400); RBC Distribution Width 12.7 % (11.5-14.5); Red Blood Cell (RBC) Count 2.99 mill/uL (4.20-5.40); White Blood Cell (WBC) Count 6.9 thou/uL (4.8-10.8)
[2019-08-31 06:12] LABS: Albumin 3.5 g/dL (3.4-4.8); Anion Gap 22 mmol/L (10-20); BUN (Urea Nitrogen) 58 mg/dL (9.8-20.1); BUN/Creatinine Ratio 5.43; Calc. Creatinine Clearance 5 mL/min (70-130); Calcium 8.8 mg/dL (7.8-10.44); Carbon Dioxide 22 mmol/L (23-31); Chloride 101 mmol/L (98-107); Estimated GFR-MDRD 3; Glucose 111 mg/dL (83-110); Sodium 141 mmol/L (136-145)
[2019-08-31 06:18] LABS: Phosphorus 9.6 mg/dL (2.3-4.7)
[2019-08-31] MEDS: Aspirin 81 mg Enteric Coated Tablet PO SCH (08:49)
[2019-08-31] MEDS: Calcitriol 0.25 MCG CAP PO SCH (08:49)
[2019-08-31] MEDS: Sevelamer Carbonate 800 MG TAB PO SCH ×3 (08:50→17:27)
--- NOTE | 2019-08-31 09:29 | PDOC.HOSPP ---
- Subjective Encounter Date: 08/31/19 Encounter Time: 09:28 Subjective: Ms. Rojas was seen today in follow-up of respiratory failure. She is still short of breath. She denies any chest pain. - Objective Vital Signs & Weight: Vital Signs (12 hours) Temp Pulse Resp BP Pulse Ox 08/31/19 08:49 63 08/31/19 07:31 97.6 F 63 18 150/67 H 93 L 08/31/19 03:08 98 F 66 24 H 137/60 93 L Weight Weight 156 lb I&O: 08/30/19 08/31/19 09/01/19 07:59 06:59 06:59 Intake Total Output Total Balance Result Diagrams: 08/31/19 05:01 08/31/19 05:01 Additional Labs: Accuchecks 08/31/19 08/30/19 05:57 20:58 POC Glucose 97 106 Hospitalist ROS - Medication Medications: Active Medications Generic Name Dose Route Start Last Admin Trade Name Freq PRN Reason Stop Dose Admin Aspirin 81 mg 08/31/19 09:00 08/31/19 08:49 Ecotrin PO 81 mg DAILY CHRIS Administration Atorvastatin Calcium 80 mg 08/30/19 21:00 08/30/19 20:55 Lipitor PO 80 mg HS CHRIS Administration Bisoprolol Fumarate 5 mg 08/30/19 21:00 08/30/19 20:55 Zebeta PO 5 mg HS CHRIS Administration Calcitriol 0.25 mcg 08/31/19 09:00 08/31/19 08:49 Rocaltrol PO 0.25 mcg DAILY CHRIS Administration Diltiazem HCl 120 mg 08/31/19 09:00 08/31/19 08:49 Cardizem Cd PO 120 mg DAILY CHRIS Administration Isosorbide Mononitrate 60 mg 08/30/19 21:00 08/30/19 20:55 Imdur PO 60 mg HS CHRIS Administration Sevelamer Carbonate 800 mg 08/31/19 08:00 08/31/19 08:50 Renvela PO Not Given TID-WM CHRIS Sodium Chloride 10 ml 08/30/19 21:00 08/31/19 08:49 Flush - Normal Saline IVF 10 ml Q12HR CHRIS Administration - Exam Eye: PERRL Heart: RRR, no murmur, no gallops, murmur present (systolic to carotids, and axilla), III/IV Respiratory: CTAB (but with diminished breath sounds on the right, through most of the lung field), no wheezes, no rales, no ronchi Gastrointestinal: soft, non-tender, non-distended, normal bowel sounds Extremities: no cyanosis, no clubbing, no edema Hosp A/P (1) Acute respiratory failure with hypoxemia Code(s): J96.01 - ACUTE RESPIRATORY FAILURE WITH HYPOXIA Status: Acute (2) Hypertension Code(s): I10 - ESSENTIAL (PRIMARY) HYPERTENSION Status: Acute (3) End-stage renal disease (ESRD) Code(s): N18.6 - END STAGE RENAL DISEASE Status: Acute (4) CAD (coronary artery disease) Code(s): I25.10 - ATHSCL HEART DISEASE OF [place] CORONARY ARTERY W/O ANG PCTRS Status: Chronic (5) Diabetes mellitus type 2 in nonobese Code(s): E11.9 - TYPE 2 DIABETES MELLITUS WITHOUT COMPLICATIONS Status: Chronic - Plan * Acute respiratory failure with hypoxemia- due to large right pleural effusion - await Pulmonary Consult * ESRD on PD- plan is to transition to HD * Aortic Stenosis- not sure if this is contributing to her volume overload- will consult Mike Hickey in the AM * Prognosis is guarded to to multiple advanced medical conditions * HTN- blood pressure is stable * DM- blood glucose is stable
[2019-08-31 12:25] LABS: Fluid, Triglycerides Less than 11 mg/dL (Not Available); Pleural Fluid, Amylase Less than 30 U/L (Not Available); Pleural Fluid, Glucose 358 mg/dL; Pleural Fluid, LDH Less than 25 U/L (Not Available); Pleural Fluid, Protein Less than 1.0 g/dL
--- NOTE | 2019-08-31 12:41 | CON ---
DATE OF CONSULTATION: 08/31/2019 REASON FOR CONSULTATION: Right pleural effusion. The following encompassed 70 minutes time, of that time, greater than 50% spent with the patient and/or the patient unit in the hospital. HISTORY OF PRESENT ILLNESS: The patient is a 78-year-old female, who presented to the hospital yesterday with trouble breathing for several days. She has a history of right-sided pleural effusion thought secondary to peritoneal dialysis. She was tapped by Dr. Best about a month ago and had a large volume of fluid removed. At that time, the glucose in the pleural fluid was 238, which is extremely elevated and is probably consistent with pleural fluid dialysate. The fluid was otherwise transudative in nature. She stopped peritoneal dialysis for a while, went on hemodialysis and had recovery of her pulmonary status. However, she switched back to peritoneal dialysis recently and now has shortness of breath again. PAST MEDICAL HISTORY: 1. End-stage renal disease, requiring peritoneal dialysis. 2. Atrial fibrillation. 3. Coronary artery disease. 4. Diabetes mellitus. 5. Critical aortic stenosis. 6. Hyperlipidemia. PAST SURGICAL HISTORY: 1. Appendectomy. 2. Hysterectomy. 3. Multiple orthopedic procedures. ALLERGIES: 1. PHENERGAN. 2. CODEINE. 3. IODINE. 4. PENICILLIN. 5. SULFA. FAMILY MEDICAL HISTORY: Unremarkable. SOCIAL HISTORY: Nonsmoker and nondrinker. . MEDICATIONS: Prior to admission, these were reviewed and listed on chart. Of note, she is on Eliquis 5 mg b.i.d. for her atrial fibrillation. REVIEW OF SYSTEMS: Twelve-point review of systems was negative. PHYSICAL EXAMINATION: VITAL SIGNS: Temperature 97.6, pulse 63, respirations 18, O2 saturation 93%, and blood pressure 150/67. GENERAL: She is awake, sitting up, alert, and in no distress. HEENT: Pupils react. Sclerae are icteric. Oropharynx clear. NECK: No adenopathy or JVD. LUNGS: She has diminished breath sounds and dullness to percussion right inferior two-thirds of her chest. Left side is clear. CARDIAC: S1 and S2. Irregular with a 3/6 holosystolic murmur. ABDOMEN: Soft and nontender to palpation. EXTREMITIES: No clubbing, cyanosis, or edema. LABORATORY DATA: White blood cell count 6.9, hematocrit 28.3, and platelet count 241. D-dimer 0.45. Sodium 141, potassium 4, chloride 101, CO2 of 22, BUN 58, creatinine 10.0, and glucose 111. Chest x-ray shows a sizable right pleural effusion. ASSESSMENT: 1. Right pleural effusion secondary to peritoneal dialysate. 2. Symptomatic dyspnea. 3. History of critical aortic stenosis. PLAN: Therapeutic right-sided thoracentesis. Explained the risks to the patient and her including bleeding, infection, and pneumothorax and they agreed to proceed. Further disposition to follow. Job ID: [id number]
--- NOTE | 2019-08-31 12:44 | OP ---
DATE OF PROCEDURE: 08/31/2019 PROCEDURE PERFORMED: Right thoracentesis. PREOPERATIVE DIAGNOSIS: Right pleural effusion. POSTOPERATIVE DIAGNOSIS: Right pleural effusion. ANESTHESIA: 1% lidocaine without epinephrine. DESCRIPTION OF PROCEDURE: Informed consent was obtained prior to the procedure. The patient was placed in the sitting position. 1% lidocaine was used to anesthetize the space at the midscapular line, approximately in the 5th and 6th space posteriorly on the right. The site had been previously prepped with chlorhexidine and draped sterilely. After a local anesthetic was applied, a [id number] catheter was placed in the pleural space. Approximately, 1.5 L of clear pleural fluid was removed and sent for appropriate studies. She tolerated the procedure very well. Job ID: [id number]
[2019-08-31 13:46] LABS: RBC Count-Automated (BF) 67 /cumm; WBC/Nucleated-Auto (BF) 48 uL
[2019-08-31 13:50] LABS: Body Fluid Source Pleural Fluid
[2019-08-31 13:51] LABS: BF Color Colorless; Clarity Hazy (Clear)
[2019-08-31 13:59] LABS: BF Segmented Neutrophils 3 %; Cell Count Non Hematic 70 %; Eosinophils 9 %; Lymphocytes 17 %
--- NOTE | 2019-08-31 14:27 | PRG ---
DATE OF SERVICE: 08/31/2019 SERVICE: Nephrology. SUBJECTIVE: A 78-year-old female with known history of end-stage renal disease on PD, admitted due to acute onset of shortness of breath while doing peritoneal dialysis treatment. The patient reported that she had poor drainage with positive of 1700 after 3rd exchange. Evaluation in the ER showed large pleural effusion on the right side. Of note, the patient had a similar problem and was thought to have a PD fluid leakage into the peritoneal fluid and PD was suspended for a period. The patient is still having some shortness of breath, but denied nausea, vomiting, abdominal pain, fever, chills, or rigors. OBJECTIVE: VITAL SIGNS: Temperature 98.3, pulse 60, respiratory rate 17, SpO2 of 96% on 2 L nasal cannula, blood pressure is 143/64. GENERAL: Elderly female, in no obvious distress. Afebrile. Anicteric. Acyanotic. HEENT: Normocephalic and atraumatic. Oral mucosa is moist. NECK: Supple with no JVD. CARDIOVASCULAR: Regular rhythm and rate with normal heart sounds one and two. Systolic murmur heard over the precordium. RESPIRATORY: Diminished air entry on right hemithorax. However, work of breathing is not increased. GI: Full, soft, nontender, nondistended with normal bowel sounds. PD catheter noted. EXTREMITIES: Grossly normal looking and atraumatic with no edema or erythema. SHOE STICKS REPAIRER: Conscious, alert, oriented x3 with appropriate mental status. Cranial nerves 2 through 12 are grossly intact. DIAGNOSTIC DATA: CBC showed WBC count of 6.9, hemoglobin of 9.4, MCV of 94.5, platelet of 241. Renal function panel showed sodium 141, potassium 4.0, chloride 101, CO2 of 22, BUN 58, creatinine 10.68, glucose 111, calcium 8.8, phosphorus 9.6, albumin 3.5. ASSESSMENT: 1. Acute respiratory failure with hypoxia due to hydrothorax on the right side. 2. Right hydrothorax: Presumed to be leakage of PD fluid into the right pleural effusion. The patient had a similar problem about 2 months ago. 3. Hypertension: Control is better. 4. Aortic stenosis. 5. Paroxysmal atrial fibrillation, on chronic anticoagulation. 6. End-stage renal disease, on peritoneal dialysis. PLAN: In view of normal electrolytes and acceptable acid-base balance and volume status, there is no urgent need for hemodialysis today. We will plan on dialyzing the patient tomorrow morning and continue with Sunday, Sunday, Sunday regimen. We will also get Case Management to arrange for outpatient hemodialysis here as the patient will be on hemodialysis for some time. Continue current antihypertensives. We will start phosphate binder and increase the dose given hyperphosphatemia. Further treatment to follow depending on hospital course. Pulmonology and primary attending are also following. Job ID: [id number]
[2019-08-31] MEDS: HumaLOG 300 UNITS/3 ML VIAL SC PRN (17:27)
[2019-08-31] MEDS: Apixaban 5 MG TAB PO SCH (20:38)
[2019-08-31] MEDS: Atorvastatin Calcium 40 MG TAB PO SCH (20:38)
[2019-08-31] MEDS: Bisoprolol Fumarate 5 MG TAB PO SCH (20:38)
--- NOTE | 2019-08-31 21:55 | CON ---
DATE OF CONSULTATION: HISTORY OF PRESENT ILLNESS: The patient is a 78-year-old woman, who presents for evaluation of dyspnea. The patient has a previous history of congestive heart failure and aortic stenosis. The patient has a long history of coronary artery disease. She has previously undergone placement of several stents. She has recently been switching between hemodialysis and peritoneal dialysis. The patient presents with acute onset of dyspnea. She had an episode several months ago, where she presented with dyspnea and had a pleural effusion. The patient denied having any chest discomfort. PAST MEDICAL HISTORY: 1. Congestive heart failure. 2. Aortic stenosis. 3. Chronic kidney disease. 4. Diabetes mellitus. 5. Hypertension. 6. End-stage renal disease. PAST SURGICAL HISTORY: AV fistula placed, hip replacement, ankle surgery, back surgery, appendectomy, and hysterectomy. ALLERGIES: SULFA, IODINE, CODEINE, PENICILLIN, AND PHENERGAN. FAMILY HISTORY: No strong family history of heart disease. SOCIAL HISTORY: Nonsmoker. MEDICATIONS: See nursing list. REVIEW OF SYSTEMS: Ten-point system otherwise unremarkable. PHYSICAL EXAMINATION: GENERAL: This is a well-developed woman, in no acute distress. VITAL SIGNS: Blood pressure 143/64. NECK: Showed no jugular venous distention. LUNGS: Have decreased breath sounds in the right base. HEART: Regular rate and rhythm. Normal S1, S2. 3/6 systolic ejection murmur. ABDOMEN: Nondistended. EXTREMITIES: Showed no edema, VASCULAR: Radial pulses 2+. LABORATORY DATA: Sodium 141, potassium 4.0, chloride 101, bicarbonate 22, BUN 58, creatinine was 10. Her chest x-ray revealed a large right-sided effusion. EKG revealed normal sinus rhythm with a non-specific ST-T wave abnormality. IMPRESSION: 1. Pleural effusion. 2. Congestive heart failure. 3. Aortic stenosis. 4. Coronary artery disease. 5. Diabetes mellitus. 6. Hypertension. This patient presents with a pleural effusion. This is most likely secondary to her dialysis. The patient has significant aortic stenosis, but this does not appear to be the etiology of the effusion or her symptoms. We will follow this patient with you through her hospitalization. Job ID: [id number] [facility]
[2019-09-01 05:16] LABS: Albumin 3.2 g/dL (3.4-4.8); Anion Gap 19 mmol/L (10-20); BUN (Urea Nitrogen) 63 mg/dL (9.8-20.1); BUN/Creatinine Ratio 5.85; Calc. Creatinine Clearance 5 mL/min (70-130); Calcium 8.2 mg/dL (7.8-10.44); Carbon Dioxide 21 mmol/L (23-31); Chloride 98 mmol/L (98-107); Estimated GFR-MDRD 3; Glucose 196 mg/dL (83-110); Potassium 3.9 mmol/L (3.5-5.1); Sodium 134 mmol/L (136-145)
[2019-09-01 05:22] LABS: Phosphorus 9.5 mg/dL (2.3-4.7)
[2019-09-01] MEDS: HumaLOG 300 UNITS/3 ML VIAL SC PRN ×2 (06:23→17:00)
[2019-09-01] MEDS ORDERED: EPOETIN ALFA-EPBX (ESRD) 4,000 UNIT/ML VIAL SC SCH (08:45)
--- NOTE | 2019-09-01 09:19 | PRG ---
DATE OF SERVICE: 09/01/2019 SERVICE: Renal Medicine SUBJECTIVE: Ms. Rojas is a 78-year-old white female with ESRD and was on CCPD. However, she had again recurrence of her pleural effusion. The feeling is that there maybe a PD leakage into the thoracic cavity. This happened to her about more than a month ago. Our plan is to place her on maintenance hemodialysis. She is undergoing hemodialysis at the present time. She voices no new complaints. She also underwent a thoracentesis. No other complaints today. OBJECTIVE: VITAL SIGNS: Blood pressure 120/59, heart rate 55, respiratory rate 18, temperature 98.1, and pulse ox is 93%. GENERAL: Noted to be awake, alert, comfortable, not in overt distress. SKIN: Adequate turgor. HEENT: She has slightly pale conjunctivae. Anicteric sclerae. NECK: No neck mass. No carotid bruits. No JVD. CHEST: No deformities. LUNGS: Decreased breath sounds. HEART: Normal sinus rhythm. No murmur. No gallops. No rubs. ABDOMEN: Globular, soft, nontender. No masses. EXTREMITIES: No edema. No deformities. MEDICATIONS: Medications of September 01, 2019, were reviewed. LABORATORY DATA: Laboratories of August 31, 2019; white count 6.9, hemoglobin 9.4. Sodium 134, potassium 3.9, chloride 98, carbon dioxide 21, BUN 63, creatinine 10.7, phosphorus 9.5, albumin 3.2, glucose 205. ASSESSMENT AND PLAN: 1. Hyperphosphatemia. Renvela 800 mg 2 tablets t.i.d. with meals. 2. End-stage renal disease. The patient changed to hemodialysis for 3-hour treatment with fluid removal as tolerated. 3. Pleural effusion status post thoracentesis secondary to peritoneal leak from the abdomen into the thoracic cavity. Continue to hold PD regimen for the moment. 4. Anemia. We will continue current weekly Epogen with this patient, 7500 units subcu q.week. Job ID: [id number]
--- NOTE | 2019-09-01 09:39 | PRG ---
DATE OF SERVICE: 09/01/2019 SUBJECTIVE: She is much better this morning. She is being dialyzed. Less short of breath. Recurrent right pleural effusion, which appears to be a transudate. OBJECTIVE: VITAL SIGNS: Blood pressure is 120/59, saturations are 96% on room air, respiratory rate 18, temperature 98. CHEST: No wheezing or crackles. CARDIAC: Normal S1 and S2. No gallops. ASSESSMENT: 1. Recurrent right pleural effusion, status post thoracentesis, transudate. 2. End-stage renal disease, on dialysis. PLAN: 1. Pulmonary josé, disposition as per Nephrology. She can be discharged home any time. 2. In the past, transudate secondary to the peritoneal dialysis. 3. We will follow. Job ID: [id number] MTDD
[2019-09-01] MEDS: Sevelamer Carbonate 800 MG TAB PO SCH ×3 (10:02→16:59)
--- NOTE | 2019-09-01 10:12 | PDOC.HOSPP ---
- Subjective Encounter Date: 09/01/19 Encounter Time: 10:10 Subjective: Ms. Rojas was seen today in follow-up of respiratory failure. She is breathing better today after the thorocentesis. - Objective Vital Signs & Weight: Vital Signs (12 hours) Temp Pulse Resp BP Pulse Ox 09/01/19 07:30 98.2 F 56 L 16 125/58 L 93 L 09/01/19 07:25 93 L 09/01/19 04:10 98.1 F 55 L 18 120/59 L 96 Weight Weight 155 lb I&O: 08/31/19 09/01/19 09/02/19 06:59 06:59 06:59 Intake Total 300 Output Total 500 Balance -200 Result Diagrams: 08/31/19 05:01 09/01/19 04:08 Additional Labs: Accuchecks 09/01/19 08/31/19 08/31/19 06:08 20:39 16:54 POC Glucose 205 H 142 H 180 H 08/31/19 10:46 POC Glucose 135 H Hospitalist ROS - Medication Medications: Active Medications Generic Name Dose Route Start Last Admin Trade Name Freq PRN Reason Stop Dose Admin Apixaban 5 mg 08/31/19 21:00 08/31/19 20:38 Eliquis PO 5 mg BID CHRIS Administration Aspirin 81 mg 08/31/19 09:00 08/31/19 08:49 Ecotrin PO 81 mg DAILY CHRIS Administration Atorvastatin Calcium 80 mg 08/30/19 21:00 08/31/19 20:38 Lipitor PO 80 mg HS CHRIS Administration Bisoprolol Fumarate 5 mg 08/30/19 21:00 08/31/19 20:38 Zebeta PO 5 mg HS CHRIS Administration Calcitriol 0.25 mcg 08/31/19 09:00 08/31/19 08:49 Rocaltrol PO 0.25 mcg DAILY CHRIS Administration Diltiazem HCl 120 mg 08/31/19 09:00 08/31/19 08:49 Cardizem Cd PO 120 mg DAILY CHRIS Administration Insulin Human Lispro 0 units 08/30/19 19:36 09/01/19 06:23 Humalog SC 3 unit .MILD SLIDING SCALE PRN Administration Mild Correctional Scale Isosorbide Mononitrate 60 mg 08/30/19 21:00 08/31/19 20:38 Imdur PO 60 mg HS CHRIS Administration Lactulose 10 gm 08/31/19 19:41 08/31/19 20:40 Lactulose PO 10 gm Q4H PRN Administration STOOL SOFTNER Sevelamer Carbonate 1,600 mg 08/31/19 13:58 09/01/19 10:02 Renvela PO Not Given TID-WM CHRIS Sodium Chloride 10 ml 08/30/19 21:00 08/31/19 20:39 Flush - Normal Saline IVF 10 ml Q12HR CHRIS Administration - Exam Eye: PERRL, anicteric sclera Heart: RRR, no murmur, no gallops, no rubs, murmur present (systolic murmur to the carotids and axilla), III/IV Respiratory: CTAB, no wheezes, no rales, no ronchi, normal chest expansion Gastrointestinal: soft, non-tender, non-distended, normal bowel sounds, no palpable masses, no hepatomegaly, no splenomegaly Extremities: no cyanosis, no clubbing, no edema Hosp A/P (1) Acute respiratory failure with hypoxemia Code(s): J96.01 - ACUTE RESPIRATORY FAILURE WITH HYPOXIA Status: Acute (2) Hypertension Code(s): I10 - ESSENTIAL (PRIMARY) HYPERTENSION Status: Acute (3) End-stage renal disease (ESRD) Code(s): N18.6 - END STAGE RENAL DISEASE Status: Acute (4) CAD (coronary artery disease) Code(s): I25.10 - ATHSCL HEART DISEASE OF [place] CORONARY ARTERY W/O ANG PCTRS Status: Chronic (5) Diabetes mellitus type 2 in nonobese Code(s): E11.9 - TYPE 2 DIABETES MELLITUS WITHOUT COMPLICATIONS Status: Chronic - Plan * Acute respiratory failure with hypoxemia- due to large right pleural effusion - she is s/p therapeutic thorocentesis * ESRD on PD- she is currently undergoing HD * Aortic Stenosis- severe * HTN- blood pressure is stable * DM- blood glucose is stable * Home once ok by Cardiology and Nephrology
[2019-09-01 10:38] LABS: HBSAg Index 0.14 S/CO (0-0.99); Hep B Surf Ag Non-Reactive S/CO (NonReactive)
[2019-09-01] MEDS: Calcitriol 0.25 MCG CAP PO SCH (12:26)
[2019-09-01] MEDS: Aspirin 81 mg Enteric Coated Tablet PO SCH (12:27)
[2019-09-01] MEDS: Apixaban 5 MG TAB PO SCH ×2 (12:27→21:06)
[2019-09-01] MEDS: Bisoprolol Fumarate 5 MG TAB PO SCH (21:06)
[2019-09-01] MEDS: Atorvastatin Calcium 40 MG TAB PO SCH (21:06)
[2019-09-01] MEDS: ALPRAZolam 0.5 MG TAB PO PRN (21:15)
[2019-09-02] MEDS: HumaLOG 300 UNITS/3 ML VIAL SC PRN ×2 (06:02→12:09)
[2019-09-02] MEDS ORDERED: Lidocaine 1% (PF) 30 ML VIAL ONE (06:37)
[2019-09-02] MEDS ORDERED: Heparin 10,000 UNITS/1 ML VIAL ONE (06:37)
[2019-09-02 06:42] LABS: Cardiac Risk 2.8 (Less than 4.5)
--- NOTE | 2019-09-02 09:41 | PRG ---
DATE OF SERVICE: 09/02/2019 SUBJECTIVE: Ms. Rojas is a 78-year-old white female with ESRD and admitted for shortness of breath. She had significant pleural effusion and a thoracentesis was done. About 1.7 L of fluid was removed. This is most likely related to her peritoneal dialysis fluid, which is communicating with her thoracic cavity. Her PD will be discontinued. She is now currently on maintenance hemodialysis. No new complaints today. No chest pain or shortness of breath. OBJECTIVE: VITAL SIGNS: Blood pressure is ranging from 90/47 to 121/57, heart rate 56, respiratory rate 16, temperature 98.4, and pulse ox 98%. GENERAL: Awake, alert, comfortable, not in distress. SKIN: Adequate turgor. HEENT: She has slightly pale conjunctivae. Anicteric sclerae. NECK: No neck mass. No carotid bruits. No JVD. CHEST: No deformities. LUNGS: Clear breath sounds. HEART: Normal sinus rhythm. She does have a grade 2/6 systolic murmur. No gallops. No rubs. ABDOMEN: Globular, soft, nontender. No masses. EXTREMITIES: No edema. MEDICATIONS: Of September 02, 2019, were reviewed. LABORATORY DATA: Laboratories of August 31, 2019; hemoglobin 9.4. On September 02, 2019, glucose was 181. On September 01, 2019, BUN 63, creatinine 10.7, and phosphorus 9.5. ASSESSMENT: 1. End-stage renal disease-the patient has now been converted to hemodialysis. Peritoneal dialysis will be discontinued due to the fact that she must probably have a diaphragmatic leak that is precipitating the PD fluid to traverse the thoracic cavity. I did explain it to the patient. I have made arrangements for her to go to a Sunday, Sunday, and Sunday hemodialysis regimen. 2. Anemia, currently on Epogen. 3. Hyperphosphatemia. Renvela has been started. 4. Aortic stenosis-medical safety director is following her up for this. Job ID: [id number]
[2019-09-02] MEDS: Sevelamer Carbonate 800 MG TAB PO SCH ×3 (09:43→18:12)
[2019-09-02] MEDS: Aspirin 81 mg Enteric Coated Tablet PO SCH (09:43)
[2019-09-02] MEDS: Calcitriol 0.25 MCG CAP PO SCH (09:43)
[2019-09-02] MEDS: Apixaban 5 MG TAB PO SCH ×2 (09:43→20:19)
--- NOTE | 2019-09-02 11:49 | PRG ---
DATE OF SERVICE: 09/02/2019 SUBJECTIVE: This morning, she is better, less short of breath. OBJECTIVE: VITAL SIGNS: Saturations are 98% on room air, blood pressure 107/52, pulse 60, and respirations 18. CHEST: Good breath sounds at right base. Left, unremarkable. CARDIAC: Normal S1, S2. No gallops. ABDOMEN: No masses. IMPRESSION: Right pleural effusion, secondary to peritoneal dialysis. End-stage renal disease. Pulmonary josé, she is discharged to home. Disposition as per Nephrology. Job ID: [id number]
--- NOTE | 2019-09-02 13:49 | PDOC.HOSPP ---
- Subjective Encounter Date: 09/02/19 Encounter Time: 13:47 Subjective: Ms. Rojas was seen today in follow-up of Respiratory failure. She does not have any new complaints. She is breathing better today. - Objective Vital Signs & Weight: Vital Signs (12 hours) Temp Pulse Pulse Pulse Resp BP BP 09/02/19 11:35 98.3 F 59 L 20 09/02/19 09:56 60 58 L 113/60 09/02/19 09:45 56 L 99/50 L 09/02/19 07:15 98.4 F 56 L 16 09/02/19 05:23 98 F 54 L 17 BP BP Pulse Ox Pulse Ox Pulse Ox 09/02/19 11:35 102/55 L 96 09/02/19 09:56 107/52 L 95 97 09/02/19 09:45 09/02/19 07:15 90/47 L 98 09/02/19 05:23 121/57 L 93 L Weight Weight 146 lb 9.718 oz I&O: 09/01/19 09/02/19 09/03/19 06:59 06:59 06:59 Intake Total 300 1440 300 Output Total 500 2150 Balance -200 -710 300 Result Diagrams: 08/31/19 05:01 09/01/19 04:08 Additional Labs: Accuchecks 09/02/19 09/02/19 09/01/19 11:40 05:32 21:28 POC Glucose 229 H 181 H 167 H 09/01/19 16:51 POC Glucose 166 H Hospitalist ROS - Medication Medications: Active Medications Generic Name Dose Route Start Last Admin Trade Name Jaradq PRN Reason Stop Dose Admin Alprazolam 0.5 mg 08/30/19 19:37 09/01/19 21:15 Xanax PO 0.5 mg BIDPRN PRN Administration Anxiety Apixaban 5 mg 08/31/19 21:00 09/02/19 09:43 Eliquis PO 5 mg BID CHRIS Administration Aspirin 81 mg 08/31/19 09:00 09/02/19 09:43 Ecotrin PO 81 mg DAILY CHRIS Administration Atorvastatin Calcium 80 mg 08/30/19 21:00 09/01/19 21:06 Lipitor PO 80 mg HS CHRIS Administration Calcitriol 0.25 mcg 08/31/19 09:00 09/02/19 09:43 Rocaltrol PO 0.25 mcg DAILY CHRIS Administration Diltiazem HCl 120 mg 08/31/19 09:00 09/02/19 09:45 Cardizem Cd PO 120 mg DAILY CHRIS Administration Epoetin Jayce-epbx 7,500 unit 09/01/19 08:45 09/01/19 13:17 Retacrit SC 7,500 unit Q7D CHRIS Administration Insulin Human Lispro 0 units 08/30/19 19:36 09/02/19 12:09 Humalog SC 3 unit .MILD SLIDING SCALE PRN Administration Mild Correctional Scale Isosorbide Mononitrate 60 mg 08/30/19 21:00 09/01/19 21:06 Imdur PO 60 mg HS CHRIS Administration Lactulose 10 gm 08/31/19 19:41 09/01/19 21:07 Lactulose PO 10 gm Q4H PRN Administration STOOL SOFTNER Sevelamer Carbonate 1,600 mg 08/31/19 13:58 09/02/19 12:09 Renvela PO 1,600 mg TID-WM CHRIS Administration Sodium Chloride 10 ml 08/30/19 21:00 09/02/19 07:44 Flush - Normal Saline IVF 10 ml Q12HR CHRIS Administration - Exam Eye: PERRL Heart: RRR, no murmur, no gallops, no rubs, normal peripheral pulses Respiratory: CTAB, no wheezes, no rales, no ronchi, normal chest expansion, no tachypnea Gastrointestinal: soft, non-tender, non-distended, normal bowel sounds, no palpable masses, no hepatomegaly Extremities: no cyanosis, no clubbing, no edema Hosp A/P (1) Acute respiratory failure with hypoxemia Code(s): J96.01 - ACUTE RESPIRATORY FAILURE WITH HYPOXIA Status: Acute (2) Hypertension Code(s): I10 - ESSENTIAL (PRIMARY) HYPERTENSION Status: Acute (3) End-stage renal disease (ESRD) Code(s): N18.6 - END STAGE RENAL DISEASE Status: Acute (4) CAD (coronary artery disease) Code(s): I25.10 - ATHSCL HEART DISEASE OF [place] CORONARY ARTERY W/O ANG PCTRS Status: Chronic (5) Diabetes mellitus type 2 in nonobese Code(s): E11.9 - TYPE 2 DIABETES MELLITUS WITHOUT COMPLICATIONS Status: Chronic - Plan * Acute respiratory failure with hypoxemia- due to large right pleural effusion - improved after thorcentesis * ESRD on PD- she is currently undergoing HD * Aortic Stenosis- severe but stable * HTN- blood pressure is stable * DM- blood glucose is stable * Anticipate home tomorrow
[2019-09-02] MEDS: ALPRAZolam 0.5 MG TAB PO PRN (20:19)
[2019-09-02] MEDS: Atorvastatin Calcium 40 MG TAB PO SCH (20:19)
[2019-09-03 06:09] LABS: Hemoglobin 9.5 g/dL (12.0-16.0); Platelet Count 211 thou/uL (130-400)
[2019-09-03] MEDS: Apixaban 5 MG TAB PO SCH (09:01)
[2019-09-03] MEDS: Sevelamer Carbonate 800 MG TAB PO SCH ×2 (09:02→12:25)
[2019-09-03] MEDS: Aspirin 81 mg Enteric Coated Tablet PO SCH (09:02)
[2019-09-03] MEDS: Calcitriol 0.25 MCG CAP PO SCH (09:02)
--- NOTE | 2019-09-03 10:55 | PRG ---
DATE OF SERVICE: 09/03/2019 SUBJECTIVE: This morning, she is better. She is less short of breath. She is due to be dialyzed sometime today. OBJECTIVE: VITAL SIGNS: Temperature 98, pulse 52, blood pressure 112/57, saturations are 90% on room air. CHEST: No wheezing. No crackles. CARDIAC: Normal S1 and S2. ABDOMEN: Negative mass. IMPRESSION: Chronic renal failure. Right pleural effusion. No recurrence. Status post thoracentesis. PLAN: Continue supportive care PT. Disposition home any time. Job ID: [id number]
[2019-09-03] MEDS: HumaLOG 300 UNITS/3 ML VIAL SC PRN (11:18)
[2019-09-03 11:47] VITALS: BP 121/80; TEMP 97.5
--- NOTE | 2019-09-03 19:05 | DIS ---
DATE OF ADMISSION: 08/30/2019 DATE OF DISCHARGE: 09/03/2019 PRIMARY CARE PHYSICIAN: Fernandez Wood MD DISCHARGE DISPOSITION: Home. PRIMARY DISCHARGE DIAGNOSES: 1. Acute respiratory failure with hypoxemia. 2. Large right pleural effusion. 3. End-stage renal disease, on dialysis, currently she has been changed to hemodialysis. 4. Hypertension. 5. Critical aortic stenosis. DISCHARGE MEDICATIONS: Include; 1. Renvela 800 mg p.o. t.i.d. 2. Retacrit 7500 units subcu daily. 3. Calcitriol 0.25 mcg p.o. daily. 4. Aspirin 81 mg daily. 5. Eliquis 5 mg p.o. twice daily. 6. Tramadol 50 mg q.4 as needed. 7. Omeprazole 40 mg daily. 8. Lactulose q.4 hours as needed. 9. Imdur 60 mg daily. 10. Ferric citrate 210 mg p.o. daily. 11. Zetia 10 mg daily. 12. Cartia XT 120 mg extended release daily. 13. Gymkxuedwe-rurpnxd-pupdbxxn 1 tablet q.4 hours as needed. 14. Wellbutrin XL 150 mg at bedtime. 15. Bisoprolol 5 mg at bedtime. 16. Lipitor 80 mg at bedtime. 17. Xanax 0.5 q.6 as needed. PROCEDURES DONE DURING ADMISSION: The patient had a therapeutic thoracentesis with a removal of 1.5 L of fluid. The patient also had an echocardiogram showing an EF of 60% to 65%, E-to-A flow reversal suggestive of diastolic dysfunction and odqrkmyk-nt-wgdvel aortic stenosis with a valve area of 0.99 cm2. HOSPITAL COURSE: Ms. Rojas is a pleasant 78-year-old female, who presented to the emergency room complaining of dyspnea on exertion. She was found to have a recurrent right pleural effusion. This is thought to be as a result of the peritoneal dialysis fluid leaking into the pleural space. She underwent therapeutic thoracentesis with good improvement in her symptoms and during her hospital stay, she was taken off peritoneal dialysis and transitioned to hemodialysis. She tolerated this well and once the outpatient hemodialysis chair was arranged, she was able to be discharged home. She was also seen by Nephrology as well as Cardiology during her hospital stay and Pulmonology, Dr. Holt, who performed the thoracentesis. Job ID: [id number]
--- NOTE | 2019-09-04 06:38 | PQF ---
BRAXTON CARNEY TONI MD [id number] [facility] [id number] CLINICAL DOCUMENTATION CLARIFICATION FORM: POST DISCHARGE Addendum to original discharge summary date: ____ Late entry note date: __ DATE: 09/04/19 ATTN: Gunner Nicholson Please exercise your independent, professional judgment in responding to the clarification form. Clinical indicators are provided on the bottom of this form for your review Please check appropriate box(s): [X ] Pleural effusion is a complication of Peritoneal dialysis [ ] Pleural effusion is not a complication of Peritoneal dialysis [ ] Other diagnosis [ ] Unable to determine In addition, please specify: Present on Admission (POA): [ X] Yes [ ] No [ ] Unable to determine CLINICAL INDICATORS - SIGNS / SYMPTOMS / LABS H&P p1 08/30 Dr Lucas She says that she had done her peritoneal dialysis the last night and noticed that she had a lot less fluid come out than what she administered H&P p1 08/30 Dr Lucas She did have some coarse breath sounds ad basically decreased breath sounds H&P p3 08/30 Dr Lucas A larege pleural effusion this could be result of dialysis fluid as it appears it had been a few month Consult p3 08/30 Right hydrothorax due to leakage of peritoneal dialysis fluid into the right pleural effusion RISK FACTORS H&P p1 11 ESRD H&P p1 08/30 DM H&P p3 08/30 Acute respiratory Failure TREATMENT: H&P p3 08/30- Therapeutic thoracenthesis Nephro consult 08/30 Maryann Hickey Obi (This form is maintained as a part of the permanent medical record) 2014 [employer] All Rights Reserved [email or web address] [not provided] MTDD
== END 2019-09-03 12:23 | disposition home or self-care (01) | DRG 811 ==
LOC: SCSER 15:51 → 2SW 17:44 → OBSVTOIN 17:44
PROVIDERS: ADMIT Internal Medicine; ATTEND Internal Medicine
PROC: 0W993ZZ Drainage of Right Pleural Cavity, Percutaneous Approach (ICD-10-PCS; principal; 2019-08-31)
PROC: 5A1D70Z Performance of Urinary Filtration, Intermittent, Less than 6 Hours Per Day (ICD-10-PCS; 2019-09-02)
DX: T80.89XA Other complications following infusion, transfusion and therapeutic injection, initial encounter (principal); J96.01 Acute respiratory failure with hypoxia; N18.6 End stage renal disease; J90 Pleural effusion, not elsewhere classified; I12.0 Hypertensive chronic kidney disease with stage 5 chronic kidney disease or end stage renal disease; J94.8 Other specified pleural conditions; I13.2 Hypertensive heart and chronic kidney disease with heart failure and with stage 5 chronic kidney disease, or end stage renal disease; E11.22 Type 2 diabetes mellitus with diabetic chronic kidney disease; I35.0 Nonrheumatic aortic (valve) stenosis; I25.10 Atherosclerotic heart disease of native coronary artery without angina pectoris; E78.00 Pure hypercholesterolemia, unspecified; I48.0 Paroxysmal atrial fibrillation; I50.9 Heart failure, unspecified; Z96.649 Presence of unspecified artificial hip joint; Y84.1 Kidney dialysis as the cause of abnormal reaction of the patient, or of later complication, without mention of misadventure at the time of the procedure; E83.39 Other disorders of phosphorus metabolism; Z88.2 Allergy status to sulfonamides; Z91.041 Radiographic dye allergy status; Z88.0 Allergy status to penicillin; Z91.013 Allergy to seafood; Z79.899 Other long term (current) drug therapy; Z79.82 Long term (current) use of aspirin; Z79.01 Long term (current) use of anticoagulants; Z90.710 Acquired absence of both cervix and uterus; Z99.2 Dependence on renal dialysis
CPT/HCPCS: 36415; 36416; 71045; 80053; 80061; 80069; 82150; 82550; 82553; 82565; 82945; 83615; 83880; 84157; 84478; 84484; 85014; 85018; 85025; 85049; 85060; 85379; 87070; 87116; 87205; 87206; 87340; 88112; 89051; 90935; 93005; 93306; 93798; G0257; J1642; J1644; J2001; Q5105

== ENCOUNTER 2019-11-19 05:40 | Day surgery (SDC) | payer MEDICARE, OTHER ==
[2019-11-18 12:07] VITALS: BMI 29.0
--- NOTE | 2019-11-18 12:30 | HP ---
HISTORY OF PRESENT ILLNESS: Guy Rojas is an 79-year-old female, dialyzes at [facility] at 3 p.m. on Sunday, Sunday, and Sunday. She is followed by Dr. Quinn. She is morbidly obese, complicating her dialysis access. On July 03, 2018, she had a right IJ cuffed tunneled dialysis catheter, right arm fistula, perforating branch antecubital vein to the proximal radial artery outflow basilic vein and cephalic vein, both calibrated to a 4 mm dilator. On 10/01/2018, the patient was taken back to the operating room for a basilic vein transposition fistula on the right and the laparoscopic PD catheter placed on 11/28/2018. She has a functioning right arm fistula. She; however, wants her PD catheter removed as she is not utilizing it. She has been started back on Eliquis for atrial fibrillation. She has a cardiac murmur. She has had a cardiac workup recently at [facility] for renal transplant. She is asymptomatic from a cardiac standpoint. She presents my office today, expecting to have her PD catheter removed, but it was explained to her that she needs to hold her Eliquis and we do this under sedation local as an outpatient in the hospital. We will schedule this on a nondialysis day as an outpatient. She hold her Eliquis for two and half days prior and resume her Eliquis 36 hours postoperatively. The patient states that they have told at the dialysis center, she needs to have her fistula checked every three months. I have told her that I disagree with this and this is not necessary. She states her fistula is working fine. ALLERGIES: IODINE, CODEINE, PENICILLIN, AND PROMETHAZINE. SOCIAL HISTORY: Tobacco, none. Alcohol, none. MEDICATIONS: 1. Alprazolam. 2. B12. 3. D3. 4. Folic acid. 5. Sevelamer. 6. Vitamin C. 7. Biotin. 8. Multivitamins. 9. Vitamin E. 10. Iron sulfate. 11. Aspirin. 12. Tramadol. 13. Diltiazem. 14. Eliquis 5 mg b.i.d. 15. Atorvastatin 80 mg daily. 16. Bupropion daily. 17. Isosorbide mononitrate 60 mg daily. 18. Omeprazole 40 mg a day. 19. Bisoprolol fumarate 5 mg daily. 20. Calcitriol 0.25 mg daily. 21. Zetia 10 mg daily. 22. Lactulose daily. PAST MEDICAL HISTORY: Hypertension, diabetes mellitus, headaches, high cholesterol, anemia, depression, end-stage renal disease on maintenance dialysis, neurostimulator placed by Dr. Ambrose, coronary artery disease, atrial fibrillation, stress test and cardiac evaluation is negative for transplant, and atrial fibrillation. PAST SURGICAL HISTORY: Bone spur right heel, fatty tumor, back and neck exploration for infertility in 1965 and 1969, hysterectomy in 1984, ORIF ankle in 1987, angioplasty in 2000, back surgery T12-L5 fusion in 2004, umbrella filter in 2004, hip replacement in 2004, angioplasty stent placement in 2008, blepharoplasty in 2010, neurostimulator insertion in June 2013, colonoscopy in 2007, cholecystectomy in 2014, and hemodialysis access as noted above. REVIEW OF SYSTEMS: Ten-point noncontributory. PHYSICAL EXAMINATION: VITAL SIGNS: Weight 158 pounds, 62 inches, and 28 BMI. HEAD, EARS, EYES, NOSE, AND THROAT: Unremarkable. LUNGS: Clear to auscultation. CARDIAC: Irregular rate and rhythm with 2/6 ejection murmur. ABDOMEN: Soft, obese, and nontender. PD catheter placement, right upper extremity, brachiobasilic transposition fistula, good thrill and bruit. EXTREMITIES: Unremarkable, otherwise. ASSESSMENT AND PLAN: Desire PD catheter. Plan removal of her PD catheter as an outpatient. She understands risks and benefits, consents. She will hold her Eliquis two and half days prior and resume a day and half postoperatively. Job ID: [id number]
[2019-11-19] MEDS ORDERED: Levofloxacin 500 mg/D5W 100 ml Premix Bag ONE (06:21)
[2019-11-19] MEDS ORDERED: Fentanyl 100 MCG/2 ML VIAL ONE (06:37)
[2019-11-19] MEDS ORDERED: Famotidine/PF 20 mg/2ml Vial ONE (06:37)
[2019-11-19 06:42] LABS: #Basophils 0.1 thou/uL (0.0-0.2); #Eosinphils 0.2 thou/uL (0.0-0.7); #Lymphocytes 2.2 thou/uL (1.20-3.40); #Monocytes 0.7 thou/uL (0.11-0.59); #Neutrophils 4.1 thou/uL (1.40-6.50); %Basophils 0.8 % (0.0-1.0); %Eosinophils 3.2 % (0.0-10.0); %Lymphocytes 30.6 % (21.0-51.0); %Monocytes 9.7 % (0.0-10.0); %Neutrophils 55.7 % (42.0-75.0); Mean Corpuscular Volume 97.1 fL (78.0-98.0); Mean Platelet Volume 8.4 fL (7.4-10.4); Platelet Count 207 thou/uL (130-400); RBC Distribution Width 11.6 % (11.5-14.5); Red Blood Cell (RBC) Count 2.42 mill/uL (4.20-5.40); White Blood Cell (WBC) Count 7.3 thou/uL (4.8-10.8)
[2019-11-19] MEDS ORDERED: Bupivacaine PF 0.5% 30 ML VIAL ONE (06:48)
[2019-11-19] MEDS ORDERED: Lidocaine 1% w/Epinephrine 1:100K 20 ML VIAL ONE (06:48)
[2019-11-19 07:03] LABS: Anion Gap 19 mmol/L (10-20); BUN (Urea Nitrogen) 48 mg/dL (9.8-20.1); Calc. Creatinine Clearance 8 mL/min (70-130); Calcium 9.1 mg/dL (7.8-10.44); Carbon Dioxide 28 mmol/L (23-31); Chloride 98 mmol/L (98-107); Estimated GFR-MDRD 6; Glucose 142 mg/dL (83-110); Potassium 4.7 mmol/L (3.5-5.1); Sodium 140 mmol/L (136-145)
[2019-11-19] MEDS ORDERED: Midazolam HCl 2 mg/2 ml Vial ONE (07:30)
--- NOTE | 2019-11-19 09:58 | OP ---
DATE OF PROCEDURE: 11/19/2019 PREOPERATIVE DIAGNOSES: 1. Undesired peritoneal dialysis catheter. 2. End-stage renal disease. POSTOPERATIVE DIAGNOSES: 1. Undesired peritoneal dialysis catheter. 2. End-stage renal disease. PROCEDURE PERFORMED: Removal of peritoneal dialysis catheter. ANESTHESIA: LMA, local 0.5% Marcaine 30 mL mixed with 1% Xylocaine with epinephrine 20 mL, 30 mL volume used. DESCRIPTION OF PROCEDURE: The patient was taken to the operating room, where under anesthesia, abdomen and PD catheter prepared with ChloraPrep and draped in routine fashion. Local anesthetic was infiltrated in the skin and subcutaneous tissue about the operative site. Catheter and cuffs removed, dissected free. Catheter removed intact along with cuffs, and gauze dressing applied. The patient tolerated the procedure well without complications. Job ID: [id number]
[2019-11-19] MEDS ORDERED: Metoclopramide HCl 10 MG/2 ML VIAL ONE (12:22)
[2019-11-19] MEDS ORDERED: ePHEDrine/0.9% NaCl/PF SYRINGE 50 mg/10 ml ONE (12:22)
[2019-11-19] MEDS ORDERED: Ondansetron PF 4 MG/2 ML Vial ONE (12:22)
[2019-11-19] MEDS ORDERED: Lidocaine 1% PF 5 ML VIAL ONE (12:22)
[2019-11-19] MEDS ORDERED: PROPOFOL 200 MG/20 ML VIAL ONE (12:22)
== END 2019-11-19 09:59 | disposition home or self-care (01) ==
LOC: SDC 05:40
PROVIDERS: ATTEND Specialist
PROC: 05PY0YZ Removal of Other Device from Upper Vein, Open Approach (ICD-10-PCS; principal; 2019-11-19)
DX: I12.0 Hypertensive chronic kidney disease with stage 5 chronic kidney disease or end stage renal disease (principal); E11.22 Type 2 diabetes mellitus with diabetic chronic kidney disease; N18.6 End stage renal disease; D63.1 Anemia in chronic kidney disease; E78.00 Pure hypercholesterolemia, unspecified; F32.9 Major depressive disorder, single episode, unspecified; E66.01 Morbid (severe) obesity due to excess calories; Z68.29 Body mass index [BMI] 29.0-29.9, adult; Z79.01 Long term (current) use of anticoagulants; Z79.82 Long term (current) use of aspirin; Z79.899 Other long term (current) drug therapy; Z88.0 Allergy status to penicillin; Z88.5 Allergy status to narcotic agent; Z88.8 Allergy status to other drugs, medicaments and biological substances; Z91.041 Radiographic dye allergy status; Z99.2 Dependence on renal dialysis
CPT/HCPCS: 36415; 80048; 85025; J1956; J2001; J2250; J2405; J2704; J2765; J3010; S0020; S0028

== ENCOUNTER 2020-02-16 00:18 | Observation (INO) | payer MEDICARE, OTHER ==
[2020-02-16 01:00] LABS: #Basophils 0.1 thou/uL (0.0-0.2); #Eosinphils 0.2 thou/uL (0.0-0.7); #Lymphocytes 2.1 thou/uL (1.20-3.40); #Monocytes 0.9 thou/uL (0.11-0.59); #Neutrophils 5.5 thou/uL (1.40-6.50); %Basophils 0.7 % (0.0-1.0); %Eosinophils 2.6 % (0.0-10.0); %Lymphocytes 23.6 % (21.0-51.0); %Monocytes 10.1 % (0.0-10.0); Mean Corpuscular Hemoglobin 31.4 pg (27.0-31.0); Mean Corpuscular Volume 98.1 fL (78.0-98.0); Mean Platelet Volume 7.9 fL (7.4-10.4); Platelet Count 268 thou/uL (130-400); RBC Distribution Width 14.8 % (11.5-14.5); Red Blood Cell (RBC) Count 3.83 mill/uL (4.20-5.40); White Blood Cell (WBC) Count 8.8 thou/uL (4.8-10.8)
[2020-02-16 01:26] LABS: ALT (SGPT) 14 U/L (8-55); AST (SGOT) 14 U/L (5-34); Albumin 4.1 g/dL (3.4-4.8); Alkaline Phosphatase 75 U/L (40-110); BUN (Urea Nitrogen) 46 mg/dL (9.8-20.1); Bilirubin, Total 0.5 mg/dL (0.2-1.2); Calc. Creatinine Clearance 0 mL/min (70-130); Calcium 9.3 mg/dL (7.8-10.44); Carbon Dioxide 24 mmol/L (23-31); Chloride 100 mmol/L (98-107); Estimated GFR-MDRD 6; Glucose 97 mg/dL (83-110); Potassium 4.7 mmol/L (3.5-5.1); Protein, Total 6.1 g/dL (6.0-8.3); Sodium 139 mmol/L (136-145)
[2020-02-16 01:42] LABS: CKMB 1.2 ng/mL (0-6.6)
[2020-02-16 01:48] LABS: Anion Gap 20 mmol/L (10-20)
[2020-02-16] MEDS ORDERED: Acetaminophen 325 MG TAB PO PRN (04:55)
[2020-02-16] MEDS ORDERED: Nitroglycerin 0.4 MG TAB (25 Tab Bottle) PO PRN (04:55)
--- NOTE | 2020-02-16 05:00 | PDOC.HHP ---
Hospitalist HPI - History of Present Illness has anxiety History of Present Illness: Case of an 79 female w pmhx of htn ckd cad and dm who presents to the ED with c /o anxiety since yesterday afternoon. Pt states her anxiety has become worse tonight. Pt denies fever, cough, chest pain, vomiting, diarrhea, or new weakness /numbness. Pt states she is not anxious about anything in particular. was evaluated at the ed and fund with elevated troponin for which hospitalist was consulted for further evaluation and managment Hospitalist ROS - Review of Systems All other systems reviewed; all pertinent +/- noted in HPI/Subj Hospitalist History - Past Medical History Cardiac: reports: CAD, HTN, Hyperlipidemia Endocrine: reports: Diabetes - Past Surgical History Past Surgical History: reports: Cholecystectomy, Hysterectomy - Family History Family History: reports: cardiac disorder - Social History Smoking Status: Never smoker Alcohol: reports: None Drugs: reports: none Living Situation: With Family Activity level: uses cane/walker - Exam General Appearance: awake alert Eye: PERRL, anicteric sclera ENT: normocephalic atraumatic, no oropharyngeal lesions Neck: supple, symmetric, no JVD Heart: RRR, no murmur, no gallops, no rubs Respiratory: CTAB, no wheezes, no rales, no ronchi Gastrointestinal: soft, non-tender, non-distended, normal bowel sounds Extremities: no cyanosis, no clubbing Skin: normal turgor, no lesions Neurological: cranial nerve grossly intact, normal sensation to touch, no weakness Musculoskeletal: normal tone, normal strength, no muscle wasting, generalized weakness Psychiatric: normal affect, normal behavior, A&O x 3, oriented to person Hospitalist Results - Labs Result Diagrams: 02/16/20 00:52 02/16/20 00:52 Lab results: WBC 8.8 thou/uL (4.8-10.8) 02/16/20 00:52 Hgb 12.0 g/dL (12.0-16.0) 02/16/20 00:52 Hct 37.6 % (36.0-47.0) 02/16/20 00:52 MCV 98.1 fL (78.0-98.0) H 02/16/20 00:52 Plt Count 268 thou/uL (130-400) 02/16/20 00:52 Neutrophils % 63.0 % (42.0-75.0) 02/16/20 00:52 Sodium 139 mmol/L (136-145) 02/16/20 00:52 Potassium 4.7 mmol/L (3.5-5.1) 02/16/20 00:52 Chloride 100 mmol/L (98-107) 02/16/20 00:52 Carbon Dioxide 24 mmol/L (23-31) 02/16/20 00:52 BUN 46 mg/dL (9.8-20.1) H 02/16/20 00:52 Creatinine 6.76 mg/dL (0.6-1.1) H 02/16/20 00:52 Glucose 97 mg/dL (83-110) 02/16/20 00:52 Calcium 9.3 mg/dL (7.8-10.44) 02/16/20 00:52 Total Bilirubin 0.5 mg/dL (0.2-1.2) 02/16/20 00:52 AST 14 U/L (5-34) 02/16/20 00:52 ALT 14 U/L (8-55) 02/16/20 00:52 Alkaline Phosphatase 75 U/L (40-110) 02/16/20 00:52 CK-MB (CK-2) 1.2 ng/mL (0-6.6) 02/16/20 00:52 Troponin I 0.041 ng/mL (< 0.028) H 02/16/20 03:51 Serum Total Protein 6.1 g/dL (6.0-8.3) 02/16/20 00:52 Albumin 4.1 g/dL (3.4-4.8) 02/16/20 00:52 - EKG Interpretation EK lead EKG interpreted by Emergency Department Physician at time of study, 12 lead EKG shows normal sinus rhythm, Rate (beats per minute): 68, Interpretation : normal EKG, Conduction normal, ST segments normal, T waves normal, Clinical impression: Normal EKG. - Radiology Interpretation Chest x-ray Status: image reviewed by me (no effusion infiltrates or consolidation) Hospitalist H&P A/P - Problem (1) Elevated troponin Code(s): R79.89 - OTHER SPECIFIED ABNORMAL FINDINGS OF BLOOD CHEMISTRY Status : Acute (2) End-stage renal disease (ESRD) Code(s): N18.6 - END STAGE RENAL DISEASE Status: Acute (3) Hypertension Code(s): I10 - ESSENTIAL (PRIMARY) HYPERTENSION Status: Acute (4) CAD (coronary artery disease) Code(s): I25.10 - ATHSCL HEART DISEASE OF [place] CORONARY ARTERY W/O ANG PCTRS Status: Chronic (5) Diabetes mellitus type 2 in nonobese Code(s): E11.9 - TYPE 2 DIABETES MELLITUS WITHOUT COMPLICATIONS Status: Chronic - Plan Plan: elevated troponins - minor elevation, likely related to ckd, will continue to send series to evaluated trend, will monitor overnight with tele, if no significant increase d/h in am. pt is completly asymptomtic, ekg nsr, cxr wnl esrd on h/d - neprhologist consulted, continue w treatment contiue home meds for chronic conditions dm - accu checks and sliding scale
[2020-02-16] MEDS ORDERED: Dextrose 5% in Water 1,000 ML IV PRN (05:35)
[2020-02-16] MEDS ORDERED: Dextrose 50% Abboject 50 ML SYRINGE SLOW IVP PRN (05:35)
[2020-02-16] MEDS ORDERED: Ondansetron PF 4 MG/2 ML Vial ONE (05:35)
[2020-02-16] MEDS ORDERED: cloNIDine 0.1 MG TAB ONE (05:35)
[2020-02-16] MEDS ORDERED: HumaLOG 300 UNITS/3 ML VIAL SC PRN (05:35)
[2020-02-16 07:28] VITALS: BMI 29.7
--- NOTE | 2020-02-16 07:38 | RAD ---
SINGLE VIEW CHEST: Date: 02/16/2020 COMPARISON: 08/30/2019. HISTORY: Anxious feeling and chest pain. FINDINGS: Single view of the chest shows an enlarged but stable cardiomediastinal silhouette. There is no evide nce of consolidation, mass, or pleural effusion. Hardware is seen in the spine. A spinal stimulation device is seen. IMPRESSION: No evidence of acute cardiopulmonary disease. POS: [facility]
[2020-02-16 09:14] LABS: Troponin I 0.036 ng/mL (< 0.028)
[2020-02-16] MEDS ORDERED: ALPRAZolam 0.5 MG TAB PO PRN (12:26)
[2020-02-16] MEDS ORDERED: Buprenorphine Hcl [Belbuca] 75 MCG SL PRN (12:45)
[2020-02-16 12:46] LABS: Troponin I 0.037 ng/mL (< 0.028)
[2020-02-16] MEDS ORDERED: Sevelamer Carbonate 800 MG TAB PO SCH ×2 (13:30→17:00)
[2020-02-16 15:55] VITALS: BP 153/70; TEMP 97.7
--- NOTE | 2020-02-16 17:52 | CON ---
DATE OF CONSULTATION: HISTORY OF PRESENT ILLNESS: Ms. Rojas is an 79-year-old white female with ESRD and was initially seen in the ER due to severe anxiety. During the workup, she was noted to have elevated troponin I. For this reason, she is admitted for rule out ND. In addition, we are being consulted for maintenance hemodialysis. REVIEW OF SYSTEMS: Positive for anxiety. No chest pain. Denies any shortness of breath. No productive cough. No fever or chills. Appetite and energy level are fair. No gross hematuria. No dysuria. No urinary frequency. No productive cough. No hematochezia. No melena. No hematemesis. HOME MEDICATIONS: Include the following. These are medications based on the last medical history: 1. Xanax 0.5 mg p.o. b.i.d. 2. Ascorbic acid 1000 mg p.o. b.i.d. 3. Atorvastatin 80 mg tablet at bedtime. 4. Bisoprolol 5 mg at bedtime. 5. Bupropion 150 mg at bedtime. 6. Calcitriol 0.25 mcg tablet daily. 7. Diltiazem 120 mg ER tab daily. 8. Zetia 10 mg at bedtime. 9. Imdur 60 mg at bedtime. 10. Renvela 800 mg p.o. t.i.d. with meals. PAST MEDICAL HISTORY: 1. ESRD - currently on maintenance hemodialysis, failed peritoneal dialysis. 2. Coronary artery disease. 3. Hyperlipidemia. 4. Longstanding hypertension. 5. Chronic headache. 6. Chronic low back pain. 7. DJD. 8. Depression. 9. Type 2 diabetes mellitus. PAST SURGICAL HISTORY: Status post cuffed hemodialysis catheter placement, status post AV fistula placement, status post PD catheter placement with subsequent removal, status post cardiac cath with coronary artery stent placement, status post colonoscopy, status post left hip replacement, status post left ankle surgery, status post back surgery, status post appendectomy, status post hysterectomy. ALLERGIES: SULFA, PENICILLIN, CODEINE, IODINE, PHENERGAN. TRAUMA: Status post left ankle fracture. IMMUNIZATION: Up-to-date. HOSPITALIZATIONS: Please see past medical history. FAMILY HISTORY: No family history of ESRD. SOCIAL HISTORY: The patient is . Lives with her . She lives in [place]. 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 Education, 3 years of college. No IV drug use. No smoking. No alcohol intake. Two children, both adopted. PHYSICAL EXAMINATION: VITAL SIGNS: Blood pressure 177/77, heart rate 65, respiratory rate 18, temperature 97.8, pulse ox 94%. GENERAL: The patient is awake, alert, comfortable, not in distress. SKIN: Adequate turgor. HEENT: She has pinkish conjunctivae, anicteric sclerae. NECK: No neck mass. No carotid bruits. No JVD. CHEST: No deformities. LUNGS: Clear breath sounds. HEART: Normal sinus rhythm. No murmur. No gallops. No rubs. ABDOMEN: Globular, soft, nontender no masses. EXTREMITIES: No edema. LABORATORY DATA: February 16, 2020; white count 8.8, hemoglobin 12. Sodium 139, potassium 4.7, chloride 100, carbon dioxide 24. BUN is 46, creatinine 6.76. Calcium 9.3. AST 14, ALT 14. CK-MB is 1.2. Albumin is 4.1. Troponin I is 0.036. Chest x-ray, February 16, 2020, showed no evidence of cardiopulmonary disease. ASSESSMENT AND PLAN: 1. End-stage renal disease, stable. We will continue current hemodialysis regimen on Sunday, Sunday, and Sunday. Fluid removal only as tolerated. She has been tolerating a regular dialysis. Review of the last Kt/V suggests she is adequately dialyzed with the current dialysis regimen. 2. Borderline elevated troponin I - the patient being ruled out for myocardial infarction. 3. Anxiety. Continue p.r.n. antianxiety medications. Agree with current management. Job ID: [id number]
[2020-02-16] MEDS ORDERED: Bupropion 150 MG XL TAB PO SCH (21:00)
[2020-02-16] MEDS ORDERED: Atorvastatin Calcium 40 MG TAB PO SCH (21:00)
[2020-02-16] MEDS ORDERED: Ezetimibe 10 MG TAB PO SCH (21:00)
[2020-02-16] MEDS ORDERED: Apixaban 2.5 MG TAB PO SCH (21:00)
[2020-02-17] MEDS ORDERED: Aspirin 81 mg Enteric Coated Tablet PO SCH (09:00)
[2020-02-17] MEDS ORDERED: Multivit, Therapeutic 1 TAB PO SCH (09:00)
--- NOTE | 2020-02-18 10:14 | DIS ---
DATE OF ADMISSION: 02/16/2020 DATE OF DISCHARGE: 02/16/2020 DISCHARGE DIAGNOSES: 1. Anxiety. 2. Chronically elevated troponin. 3. End-stage renal disease, on dialysis. 4. Hypertension. 5. Diabetes. 6. Coronary artery disease. HISTORY OF PRESENT ILLNESS: This patient is an 79-year-old female, who presented to the emergency department reporting an increase in anxiety. Her workup was negative with the exception of slightly elevated troponins and the patient was subsequently admitted to the hospital for observation. HOSPITAL COURSE: The patient remained stable. Her troponins remained . She subsequently underwent hemodialysis and felt completely fine and back to her baseline. Review of the record indicates the patient's troponins were consistent with her usual level based on her age and her end-stage renal disease and were not felt to be significant and therefore the patient was felt to be stable for discharge to home. PHYSICAL EXAMINATION: VITAL SIGNS: At the time of discharge, temperature is 97.7, pulse 72, respirations 16, O2 saturation 98% on room air, and blood pressure 153/70. GENERAL: She was awake and alert, pleasant, cooperative. HEART: Regular rate and rhythm. LUNGS: Clear. ABDOMEN: Benign. EXTREMITIES: No edema. DISPOSITION: The patient is discharged to home. DIET: She is to continue a renal diet. ACTIVITY: As tolerated. DISCHARGE MEDICATIONS: She will have no changes in her medications. FOLLOWUP: She is to follow up with her [employer] Operator and Primary Care Provider within next 2 weeks. She can return to the hospital at anytime should she have the need to do so. Job ID: [id number]
== END 2020-02-16 18:40 | disposition home or self-care (01) ==
LOC: ERS 00:18 → 2NO 04:58
PROVIDERS: ADMIT Internal Medicine; ATTEND Internal Medicine
DX: R79.89 Other specified abnormal findings of blood chemistry (principal); F41.9 Anxiety disorder, unspecified; I12.0 Hypertensive chronic kidney disease with stage 5 chronic kidney disease or end stage renal disease; E11.22 Type 2 diabetes mellitus with diabetic chronic kidney disease; N18.6 End stage renal disease; I25.10 Atherosclerotic heart disease of native coronary artery without angina pectoris; E78.5 Hyperlipidemia, unspecified; M19.90 Unspecified osteoarthritis, unspecified site; G89.29 Other chronic pain; R51 Headache; M54.5 Low back pain; F32.9 Major depressive disorder, single episode, unspecified; Z79.01 Long term (current) use of anticoagulants; Z79.82 Long term (current) use of aspirin; Z79.899 Other long term (current) drug therapy; Z88.0 Allergy status to penicillin; Z88.2 Allergy status to sulfonamides; Z88.5 Allergy status to narcotic agent; Z88.8 Allergy status to other drugs, medicaments and biological substances; Z91.013 Allergy to seafood; Z99.2 Dependence on renal dialysis
CPT/HCPCS: 71045; 80053; 82553; 82962; 84484 ×2; 85025; 93005; 96374; 99285; G0378; J2405; 36415; 36416; 90935; G0257

== ENCOUNTER 2020-06-22 08:31 | Emergency (ER) | payer MEDICARE, OTHER ==
[2020-06-22 09:26] LABS: Base Excess-Venous -0.1 mmol/L (-2.0 to 3.0); Bicarbonate (HCO3v) 22.9 mmol/L (22.0-28.0); CO2 Tension (PvCO2) 31.3 mmHg (40.0-50.0); Calcium, Ionized 0.98 mmol/L (See Comments:); Chloride 103 mmol/L (98-107); Hemoglobin - Calc 11.3 g/dL (12.0-16.0); Potassium 4.3 mmol/L (3.5-5.1); Sodium 135 mmol/L (138-145); T. Carbon Dioxide 23.9 mmol/L (22.0-28.0); vO2 Saturation-calc 93.7 % (60.0-85.0)
[2020-06-22 09:32] LABS: #Basophils 0.1 thou/uL (0.0-0.2); #Eosinphils 0.3 thou/uL (0.0-0.7); #Lymphocytes 1.5 thou/uL (1.20-3.40); #Monocytes 0.8 thou/uL (0.11-0.59); #Neutrophils 5.1 thou/uL (1.40-6.50); %Basophils 0.8 % (0.0-1.0); %Lymphocytes 19.1 % (21.0-51.0); %Monocytes 10.2 % (0.0-10.0); Hemoglobin 10.8 g/dL (12.0-16.0); Mean Corpuscular HGB CONC 32.3 g/dL (32.0-36.0); Mean Corpuscular Hemoglobin 32.2 pg (27.0-31.0); Mean Corpuscular Volume 99.7 fL (78.0-98.0); Mean Platelet Volume 9.1 fL (7.4-10.4); Platelet Count 212 thou/uL (130-400); RBC Distribution Width 15.3 % (11.5-14.5); Red Blood Cell (RBC) Count 3.34 mill/uL (4.20-5.40); White Blood Cell (WBC) Count 7.7 thou/uL (4.8-10.8)
[2020-06-22 09:51] LABS: ALT (SGPT) 9 U/L (8-55); AST (SGOT) 11 U/L (5-34); Alkaline Phosphatase 105 U/L (40-110); Anion Gap 19 mmol/L (10-20); BUN (Urea Nitrogen) 53 mg/dL (9.8-20.1); Bilirubin, Total 0.7 mg/dL (0.2-1.2); Calc. Creatinine Clearance 0 mL/min (70-130); Calcium 9.4 mg/dL (7.8-10.44); Carbon Dioxide 23 mmol/L (23-31); Chloride 98 mmol/L (98-107); Estimated GFR-MDRD 6; Globulin 2.4 g/dL (2.4-3.5); Glucose 150 mg/dL (83-110); Potassium 4.4 mmol/L (3.5-5.1); Protein, Total 6.4 g/dL (6.0-8.3); Sodium 136 mmol/L (136-145)
--- NOTE | 2020-06-22 10:05 | RAD ---
PORTABLE CHEST: Date: 06/22/2020 INDICATION: Dyspnea. COMPARISON: 02/16/2020. FINDINGS: Cardiomegaly. There is vascular and interstitial congestion bilaterally which is more pronounced than on the prior study. Evidence of small effusions. Right basilar atelectasis and/or confluent infiltra te. IMPRESSION: Diffuse vascular and interstitial prominence suggesting congestion with interstitial edema. Small eff usions and right basilar infiltrate and/or atelectasis. Superimposed infectious process cannot be exc luded. POS: [facility]
[2020-06-22 10:12] LABS: CKMB 1.4 ng/mL (0-6.6)
== END 2020-06-22 11:01 | disposition home or self-care (01) ==
LOC: ERS 08:31
DX: I12.0 Hypertensive chronic kidney disease with stage 5 chronic kidney disease or end stage renal disease (principal); E11.22 Type 2 diabetes mellitus with diabetic chronic kidney disease; N18.6 End stage renal disease; Z99.2 Dependence on renal dialysis; E87.70 Fluid overload, unspecified; E78.5 Hyperlipidemia, unspecified; I25.10 Atherosclerotic heart disease of native coronary artery without angina pectoris; E78.00 Pure hypercholesterolemia, unspecified; Z79.01 Long term (current) use of anticoagulants; Z79.82 Long term (current) use of aspirin; Z79.899 Other long term (current) drug therapy
CPT/HCPCS: 36415; 71045; 80053; 82330; 82553; 82803; 83880; 84484; 85025; 93005

== ENCOUNTER 2021-01-27 11:35 | Inpatient (IN) | payer MEDICARE, OTHER ==
[2021-01-27] MEDS ORDERED: Iopamidol-370 76% 500 ML 1 ML ONE (13:57)
[2021-01-27 14:33] LABS: #Eosinphils 0.5 thou/uL (0.0-0.7); #Lymphocytes 1.4 thou/uL (1.20-3.40); #Monocytes 0.9 thou/uL (0.11-0.59); #Neutrophils 4.6 thou/uL (1.40-6.50); %Basophils 0.4 % (0.0-1.0); %Eosinophils 6.8 % (0.0-10.0); %Monocytes 11.6 % (0.0-10.0); %Neutrophils 62.2 % (42.0-75.0); Hemoglobin 10.4 g/dL (12.0-16.0); Mean Corpuscular HGB CONC 32.3 g/dL (32.0-36.0); Mean Corpuscular Hemoglobin 31.1 pg (27.0-31.0); Mean Corpuscular Volume 96.4 fL (78.0-98.0); Mean Platelet Volume 8.6 fL (7.4-10.4); Platelet Count 223 thou/uL (130-400); RBC Distribution Width 14.3 % (11.5-14.5); Red Blood Cell (RBC) Count 3.35 mill/uL (4.20-5.40); White Blood Cell (WBC) Count 7.4 thou/uL (4.8-10.8)
[2021-01-27 14:57] LABS: ALT (SGPT) 11 U/L (8-55); AST (SGOT) 16 U/L (5-34); Alkaline Phosphatase 107 U/L (40-110); Anion Gap 16 mmol/L (10-20); BUN (Urea Nitrogen) 52 mg/dL (9.8-20.1); Bilirubin, Total 0.6 mg/dL (0.2-1.2); Calc. Creatinine Clearance 0 mL/min (70-130); Carbon Dioxide 29 mmol/L (23-31); Chloride 95 mmol/L (98-107); Globulin 2.5 g/dL (2.4-3.5); Glucose 249 mg/dL (83-110); Lipase 14 U/L (8-78); Potassium 4.4 mmol/L (3.5-5.1); Protein, Total 6.5 g/dL (5.8-8.1); Sodium 136 mmol/L (136-145)
[2021-01-27] MEDS ORDERED: Famotidine/PF 20 mg/2ml Vial ONE (15:03)
[2021-01-27] MEDS ORDERED: diphenhydrAMINE 50 MG/ML VIAL ONE (15:03)
[2021-01-27] MEDS ORDERED: methylPREDNISolone Sod Succ 40 MG VIAL ONE (15:03)
[2021-01-27 15:09] LABS: CKMB 0.9 ng/mL (0-6.6)
[2021-01-27] MEDS ORDERED: Lorazepam 2 MG/ML VIAL ONE (15:32)
[2021-01-27] MEDS ORDERED: cefTRIAXone\\ROCEPHIN 1 GM VIAL ONE (16:57)
[2021-01-27] MEDS ORDERED: Dexamethasone 10 MG/ML VIAL ONE (16:57)
[2021-01-27] MEDS ORDERED: Albuterol 200 PUFF (6.7GM INHALER) ONE (17:24)
[2021-01-27] MEDS ORDERED: Vancomycin 1 GM/200 ML BAG ONE (17:43)
[2021-01-27 18:15] LABS: SARS-CoV-2 NAA Rapid Test Not Detected (NotDetected)
[2021-01-27] MEDS ORDERED: Dextrose 50% Abboject 50 ML SYRINGE SLOW IVP PRN (20:38)
[2021-01-27] MEDS ORDERED: Dextrose 5% in Water 1,000 ML IV PRN (20:38)
[2021-01-27 20:51] VITALS: BMI 28.7
[2021-01-27] MEDS: Azithromycin 200 MG/5 ML Oral Suspension PO SCH (21:02)
[2021-01-27 21:21] LABS: Troponin I 0.076 ng/mL (< 0.028)
[2021-01-27] MEDS ORDERED: Melatonin 3 MG TAB PO PRN (21:43)
[2021-01-28 01:34] LABS: Troponin I 0.064 ng/mL (< 0.028)
[2021-01-28] MEDS: ALPRAZolam 0.5 MG TAB PO PRN (01:41)
[2021-01-28 05:30] LABS: #Lymphocytes 0.7 thou/uL (1.20-3.40); #Monocytes 0.1 thou/uL (0.11-0.59); #Neutrophils 3.5 thou/uL (1.40-6.50); %Basophils 0.7 % (0.0-1.0); %Eosinophils 0.3 % (0.0-10.0); %Monocytes 2.6 % (0.0-10.0); %Neutrophils 80.4 % (42.0-75.0); Hemoglobin 9.7 g/dL (12.0-16.0); Mean Corpuscular HGB CONC 31.3 g/dL (32.0-36.0); Mean Corpuscular Hemoglobin 30.4 pg (27.0-31.0); Mean Platelet Volume 8.7 fL (7.4-10.4); Platelet Count 209 thou/uL (130-400); RBC Distribution Width 14.4 % (11.5-14.5); White Blood Cell (WBC) Count 4.4 thou/uL (4.8-10.8)
[2021-01-28 06:16] LABS: Anion Gap 26 mmol/L (10-20); BUN (Urea Nitrogen) 57 mg/dL (9.8-20.1); Calc. Creatinine Clearance 7 mL/min (70-130); Calcium 9.4 mg/dL (7.8-10.44); Carbon Dioxide 14 mmol/L (23-31); Chloride 93 mmol/L (98-107); Glucose 455 mg/dL (83-110); Potassium 4.9 mmol/L (3.5-5.1); Sodium 128 mmol/L (136-145)
[2021-01-28] MEDS: HumaLOG 300 UNITS/3 ML VIAL SC PRN ×3 (07:05→15:30)
[2021-01-28] MEDS ORDERED: BUPRENORPHINE HCL 75 MCG PO PRN (08:01)
[2021-01-28] MEDS ORDERED: VITAMIN D3 PO SCH (09:00)
[2021-01-28] MEDS ORDERED: VITAMIN K2 PO SCH (09:00)
[2021-01-28] MEDS: Vitamin E 400 UNITS CAP PO SCH (10:05)
[2021-01-28] MEDS: Sevelamer Carbonate 800 MG TAB PO SCH ×3 (10:05→18:06)
[2021-01-28] MEDS: Aspirin 81 mg Enteric Coated Tablet PO SCH (10:05)
[2021-01-28] MEDS: Multivit, Therapeutic 1 TAB PO SCH (10:08)
[2021-01-28] MEDS: Apixaban 2.5 MG TAB PO SCH ×2 (10:14→21:43)
[2021-01-28] MEDS ORDERED: Epoetin (ESRD) 20,000 UNITS/ML SC SCH (11:30)
[2021-01-28] MEDS ORDERED: Ferric Citrate [Auryxia] 210 MG Tablet PO SCH (12:00)
[2021-01-28] MEDS ORDERED: EPOETIN ALFA-EPBX (ESRD) 4,000 UNIT/ML VIAL SC SCH (12:00)
[2021-01-28] MEDS ORDERED: Acetaminophen 325 MG TAB PO PRN (14:14)
[2021-01-28] MEDS ORDERED: traMADol HCl 50 MG TAB PO SCH (15:02)
[2021-01-28] MEDS ORDERED: Nitroglycerin 0.4 MG TAB (25 Tab Bottle) SL SCH (15:15)
[2021-01-28 16:57] LABS: Troponin I 0.055 ng/mL (< 0.028)
[2021-01-28] MEDS ORDERED: Dexamethasone 6 MG in Sodium Chloride 0.9% 50 ML IVPB SCH (19:00)
[2021-01-28] MEDS ORDERED: Lorazepam 2 MG/ML VIAL SLOW IVP SCH (21:00)
[2021-01-28] MEDS ORDERED: Lantus 1000 UNITS/10 ML VIAL SC SCH (21:00)
[2021-01-28 21:02] LABS: Actual Bicarbonate (HCO3v) 27 mEq/L (22-28); Base Excess 4.4 mEq/L (-2.0 to +3.0); Calcium, Ionized (venous) 1.05 mmol/L (1.16-1.32); Chloride (VBG) 96 mmol/L (98-106); Hemoglobin (Hb) 10.6 g/dL (11.7-16.1); Potassium (VBG) 3.72 mmol/L (3.70-5.30); Sodium 136.6 mmol/L (133-146); pH (venous) 7.54 (7.32-7.43)
[2021-01-28 21:13] LABS: Anion Gap 14 mmol/L (10-20); BUN (Urea Nitrogen) 28 mg/dL (9.8-20.1); Calc. Creatinine Clearance 13 mL/min (70-130); Calcium 9.6 mg/dL (7.8-10.44); Carbon Dioxide 28 mmol/L (23-31); Chloride 99 mmol/L (98-107); Glucose 165 mg/dL (83-110); Magnesium 1.8 mg/dL (1.6-2.6); Potassium 3.3 mmol/L (3.5-5.1); Sodium 138 mmol/L (136-145)
[2021-01-28] MEDS: Bupropion 150 MG XL TAB PO SCH (21:43)
[2021-01-28] MEDS: cefTRIAXone\\ROCEPHIN 1 GM in Sodium Chloride 0.9% 100 ML IVPB SCH (21:43)
[2021-01-28] MEDS: Atorvastatin Calcium 40 MG TAB PO SCH (21:43)
[2021-01-28] MEDS: Ezetimibe 10 MG TAB PO SCH (21:43)
[2021-01-28] MEDS: Azithromycin 200 MG/5 ML Oral Suspension PO SCH (21:54)
[2021-01-29 04:45] LABS: #Lymphocytes 1.5 thou/uL (1.20-3.40); %Basophils 0.1 % (0.0-1.0); %Eosinophils 0.2 % (0.0-10.0); %Lymphocytes 11.9 % (21.0-51.0); %Monocytes 8.3 % (0.0-10.0); %Neutrophils 79.5 % (42.0-75.0); Hemoglobin 10.4 g/dL (12.0-16.0); Mean Corpuscular HGB CONC 32.3 g/dL (32.0-36.0); Mean Corpuscular Hemoglobin 30.9 pg (27.0-31.0); Mean Corpuscular Volume 95.6 fL (78.0-98.0); Mean Platelet Volume 8.5 fL (7.4-10.4); Platelet Count 268 thou/uL (130-400); RBC Distribution Width 14.4 % (11.5-14.5); Red Blood Cell (RBC) Count 3.38 mill/uL (4.20-5.40); White Blood Cell (WBC) Count 12.5 thou/uL (4.8-10.8)
[2021-01-29 04:53] LABS: Anion Gap 17 mmol/L (10-20); BUN (Urea Nitrogen) 29 mg/dL (9.8-20.1); Calc. Creatinine Clearance 12 mL/min (70-130); Calcium 9.5 mg/dL (7.8-10.44); Carbon Dioxide 27 mmol/L (23-31); Chloride 97 mmol/L (98-107); Glucose 244 mg/dL (83-110); Potassium 3.7 mmol/L (3.5-5.1); Sodium 137 mmol/L (136-145)
[2021-01-29] MEDS: Sevelamer Carbonate 800 MG TAB PO SCH ×3 (08:57→17:14)
[2021-01-29] MEDS: Aspirin 81 mg Enteric Coated Tablet PO SCH (08:57)
[2021-01-29] MEDS: Apixaban 2.5 MG TAB PO SCH ×2 (08:57→20:26)
[2021-01-29] MEDS: Multivit, Therapeutic 1 TAB PO SCH (08:57)
[2021-01-29] MEDS: Vitamin E 400 UNITS CAP PO SCH (09:15)
[2021-01-29] MEDS: HumaLOG 300 UNITS/3 ML VIAL SC PRN (11:24)
[2021-01-29] MEDS: cefTRIAXone\\ROCEPHIN 1 GM in Sodium Chloride 0.9% 100 ML IVPB SCH (17:16)
[2021-01-29] MEDS: Bupropion 150 MG XL TAB PO SCH (20:25)
[2021-01-29] MEDS: Ezetimibe 10 MG TAB PO SCH (20:25)
[2021-01-29] MEDS: Atorvastatin Calcium 40 MG TAB PO SCH (20:26)
[2021-01-29] MEDS: Azithromycin 200 MG/5 ML Oral Suspension PO SCH (20:31)
[2021-01-29] MEDS ORDERED: cefTRIAXone\\ROCEPHIN 1 GM in Sodium Chloride 0.9% 100 ML IVPB SCH (22:00)
[2021-01-29] MEDS: ALPRAZolam 0.5 MG TAB PO PRN (22:50)
[2021-01-30] MEDS ORDERED: Lorazepam 2 MG/ML VIAL SLOW IVP SCH (04:45)
[2021-01-30] MEDS: Apixaban 2.5 MG TAB PO SCH (08:30)
[2021-01-30] MEDS: Sevelamer Carbonate 800 MG TAB PO SCH ×2 (08:30→12:34)
[2021-01-30] MEDS: Multivit, Therapeutic 1 TAB PO SCH (08:30)
[2021-01-30] MEDS: Aspirin 81 mg Enteric Coated Tablet PO SCH (08:30)
[2021-01-30] MEDS: Vitamin E 400 UNITS CAP PO SCH (08:35)
[2021-01-30 13:05] VITALS: TEMP 98.2
[2021-01-30 15:57] LABS: HBSAg Index 0.19 S/CO (0-0.99); Hep B Surf Ag Non-Reactive S/CO (NonReactive)
[2021-01-30 17:11] VITALS: BP 149/66
[2021-01-30] MEDS ORDERED: Haloperidol 5 MG TAB PO SCH (21:00)
== END 2021-01-30 17:05 | disposition home or self-care (01) | DRG 640 ==
LOC: ERS 11:35 → 2SW 17:38 → 2NO 01-28 20:12
PROVIDERS: ADMIT Internal Medicine; ATTEND Internal Medicine
PROC: 5A1D70Z Performance of Urinary Filtration, Intermittent, Less than 6 Hours Per Day (ICD-10-PCS; principal; 2021-01-28)
DX: E87.70 Fluid overload, unspecified (principal); N18.6 End stage renal disease; J96.01 Acute respiratory failure with hypoxia; J18.9 Pneumonia, unspecified organism; R44.3 Hallucinations, unspecified; I13.2 Hypertensive heart and chronic kidney disease with heart failure and with stage 5 chronic kidney disease, or end stage renal disease; I25.10 Atherosclerotic heart disease of native coronary artery without angina pectoris; M19.90 Unspecified osteoarthritis, unspecified site; F32.9 Major depressive disorder, single episode, unspecified; G89.29 Other chronic pain; M54.5 Low back pain; E11.22 Type 2 diabetes mellitus with diabetic chronic kidney disease; Z96.642 Presence of left artificial hip joint; R45.1 Restlessness and agitation; Z20.822 Contact with and (suspected) exposure to COVID-19; D63.1 Anemia in chronic kidney disease; E78.00 Pure hypercholesterolemia, unspecified; I35.0 Nonrheumatic aortic (valve) stenosis; F41.9 Anxiety disorder, unspecified; I50.9 Heart failure, unspecified; Z99.2 Dependence on renal dialysis; Z98.1 Arthrodesis status; Z95.5 Presence of coronary angioplasty implant and graft; Z90.49 Acquired absence of other specified parts of digestive tract; Z90.710 Acquired absence of both cervix and uterus; Z88.0 Allergy status to penicillin; Z88.2 Allergy status to sulfonamides; Z88.5 Allergy status to narcotic agent; Z91.041 Radiographic dye allergy status; Z88.8 Allergy status to other drugs, medicaments and biological substances
CPT/HCPCS: 0240U; 36415; 36416; 71045; 71275; 74177; 76770; 80048; 80053; 82553; 82728; 82805; 83615; 83690; 83735; 83880; 84145; 84484; 85025; 86140; 87340; 90935; 93005; 93010; 94664; 96365; 96367; 96372; 96375; G0257; J0696; J1100; J1200; J1815; J2060; J2920; J3370; J3490; Q5105; Q9967; S0028

== ENCOUNTER 2021-06-15 10:50 | Outpatient (CLI) | payer MEDICARE, OTHER ==
[2021-06-15 12:29] LABS: #Basophils 0.1 10x3/uL (0.0-0.2); #Eosinphils 0.2 10x3/uL (0.0-0.5); #Monocytes 0.6 10x3/uL (0.0-1.1); #Neutrophils 3.2 10x3/uL (1.5-8.4); %Basophils 1.4 % (0.0-2.0); %Lymphocytes 28.3 % (18.0-47.0); %Monocytes 10.5 % (0.0-10.0); %Neutrophils 56.6 % (40.0-75.0); Hemoglobin 11.1 g/dL (12.0-15.5); Mean Corpuscular HGB CONC 31.4 g/dL (32.0-36.0); Mean Corpuscular Hemoglobin 30.7 pg (27.0-33.0); Mean Corpuscular Volume 97.8 fl (81.6-98.3); Mean Platelet Volume 10.9 fl (7.4-10.4); Platelet Count 205 10x3/uL (150-450); RBC Distribution Width 14.4 % (11.5-14.5); Red Blood Cell (RBC) Count 3.62 10x6/uL (3.90-5.03); White Blood Cell (WBC) Count 5.6 10x3/uL (3.5-10.5)
[2021-06-15 12:49] LABS: ALT (SGPT) 11 U/L (8-55); AST (SGOT) 15 U/L (5-34); Albumin 3.9 g/dL (3.4-4.8); Alkaline Phosphatase 132 U/L (40-110); Anion Gap 17 mmol/L (10-20); BUN (Urea Nitrogen) 40 mg/dL (9.8-20.1); Bilirubin, Total 0.6 mg/dL (0.2-1.2); Calc. Creatinine Clearance 0 mL/min (70-130); Calcium 9.5 mg/dL (7.8-10.44); Carbon Dioxide 29 mmol/L (23-31); Chloride 96 mmol/L (98-107); Globulin 2.5 g/dL (2.4-3.5); Glucose 172 mg/dL (83-110); Potassium 4.4 mmol/L (3.5-5.1); Protein, Total 6.4 g/dL (5.8-8.1); Sodium 138 mmol/L (136-145)
[2021-06-15 13:21] LABS: SARS-CoV-2 NAA Rapid Test Not Detected (NotDetected)
== END 2021-06-15 10:51 | disposition home or self-care (01) ==
LOC: LABBT 10:50
PROVIDERS: ATTEND Internal Medicine Cardiovascular Disease
DX: Z01.812 Encounter for preprocedural laboratory examination (principal); I35.0 Nonrheumatic aortic (valve) stenosis; Z20.822 Contact with and (suspected) exposure to COVID-19
CPT/HCPCS: 80053; 85025; U0002

== ENCOUNTER 2021-06-17 06:05 | Day surgery (SDC) | payer MEDICARE, OTHER ==
[2021-06-17] MEDS ORDERED: Heparin 10,000 UNITS/ 10 ML VIAL ONE (06:42)
[2021-06-17] MEDS ORDERED: Lidocaine 1% (PF) 30 ML VIAL ONE ×2 (06:42→08:00)
[2021-06-17] MEDS ORDERED: diphenhydrAMINE 25 MG CAP ONE (07:08)
[2021-06-17] MEDS ORDERED: Hydrocortisone Sod Succ/PF 100 mg/2 ml Vial ONE (07:08)
[2021-06-17] MEDS ORDERED: diphenhydrAMINE 50 MG CAP PO SCH (07:15)
[2021-06-17] MEDS ORDERED: Hydrocortisone Sod Succ/PF 100 mg/2 ml Vial IVP SCH (07:15)
[2021-06-17] MEDS ORDERED: Fentanyl 100 MCG/2 ML VIAL ONE ×2 (07:52→10:09)
[2021-06-17] MEDS ORDERED: Midazolam HCl 2 mg/2 ml Vial ONE (07:53)
[2021-06-17] MEDS ORDERED: Protamine Sulfate 50 MG/5 ML VIAL ONE (08:49)
== END 2021-06-17 16:11 | disposition home or self-care (01) ==
LOC: SDC 06:05
PROVIDERS: ATTEND Internal Medicine Cardiovascular Disease
PROC: 4A023N8 Measurement of Cardiac Sampling and Pressure, Bilateral, Percutaneous Approach (ICD-10-PCS; principal; 2021-06-17)
PROC: B2011ZZ Plain Radiography of Multiple Coronary Arteries using Low Osmolar Contrast (ICD-10-PCS; 2021-06-17)
DX: I25.10 Atherosclerotic heart disease of native coronary artery without angina pectoris (principal); I35.0 Nonrheumatic aortic (valve) stenosis; I12.0 Hypertensive chronic kidney disease with stage 5 chronic kidney disease or end stage renal disease; E11.22 Type 2 diabetes mellitus with diabetic chronic kidney disease; N18.6 End stage renal disease; E78.00 Pure hypercholesterolemia, unspecified; I48.0 Paroxysmal atrial fibrillation; K21.9 Gastro-esophageal reflux disease without esophagitis; Z79.01 Long term (current) use of anticoagulants; Z79.82 Long term (current) use of aspirin; Z79.899 Other long term (current) drug therapy; Z82.49 Family history of ischemic heart disease and other diseases of the circulatory system; Z88.0 Allergy status to penicillin; Z88.2 Allergy status to sulfonamides; Z88.5 Allergy status to narcotic agent; Z88.8 Allergy status to other drugs, medicaments and biological substances; Z91.013 Allergy to seafood; Z95.5 Presence of coronary angioplasty implant and graft; Z86.16 Personal history of COVID-19
CPT/HCPCS: 76942; 85347; 93460; 93561; 99152; 99153; J1644; J1720; J2001; J2250; J2720; J3010

== ENCOUNTER 2021-11-08 08:57 | Emergency (ER) | payer MEDICARE, OTHER ==
[2021-11-08] MEDS ORDERED: methylPREDNISolone Sod Succ/PF 125 MG/2 ML VIAL ONE (09:42)
[2021-11-08] MEDS ORDERED: Famotidine/PF 20 mg/2ml Vial ONE (09:42)
[2021-11-08] MEDS ORDERED: diphenhydrAMINE 50 MG/ML VIAL ONE (09:42)
[2021-11-08 10:04] LABS: ALT (SGPT) 18 U/L (8-55); AST (SGOT) 16 U/L (5-34); Albumin 4.2 g/dL (3.4-4.8); Alkaline Phosphatase 152 U/L (40-110); Anion Gap 18 mmol/L (10-20); BUN (Urea Nitrogen) 69 mg/dL (9.8-20.1); Bilirubin, Total 0.5 mg/dL (0.2-1.2); Calc. Creatinine Clearance 0 mL/min (70-130); Calcium 9.7 mg/dL (7.8-10.44); Carbon Dioxide 27 mmol/L (23-31); Chloride 97 mmol/L (98-107); Globulin 2.6 g/dL (2.4-3.5); Glucose 250 mg/dL (83-110); Potassium 4.3 mmol/L (3.5-5.1); Protein, Total 6.8 g/dL (5.8-8.1); Sodium 138 mmol/L (136-145)
[2021-11-08 10:41] LABS: #Eosinphils 0.1 thou/uL (0.0-0.7); #Lymphocytes 1.5 thou/uL (1.20-3.40); #Monocytes 0.5 thou/uL (0.11-0.59); #Neutrophils 4.6 thou/uL (1.40-6.50); %Basophils 0.3 % (0.0-1.0); %Eosinophils 2.1 % (0.0-10.0); %Lymphocytes 21.6 % (21.0-51.0); %Monocytes 7.3 % (0.0-10.0); %Neutrophils 68.8 % (42.0-75.0); Hemoglobin 14.1 g/dL (12.0-16.0); MDiff Complete? YES; Mean Corpuscular HGB CONC 34.4 g/dL (32.0-36.0); Mean Corpuscular Hemoglobin 33.2 pg (27.0-31.0); Mean Corpuscular Volume 96.3 fL (78.0-98.0); Mean Platelet Volume 9.5 fL (7.4-10.4); Platelet Count 119 thou/uL (130-400); Platelet Morphology Comment Appears Decreased; Polychromasia SLIGHT = 2-3 cells (100X) (0-2/hpf); RBC Distribution Width 13.6 % (11.5-14.5); Red Blood Cell (RBC) Count 4.24 mill/uL (4.20-5.40); White Blood Cell (WBC) Count 6.7 thou/uL (4.8-10.8)
[2021-11-08] MEDS ORDERED: Ondansetron PF 4 MG/2 ML Vial ONE (11:49)
[2021-11-08] MEDS ORDERED: Morphine 4 MG/ML VIAL ONE (11:49)
[2021-11-08] MEDS ORDERED: Nitroglycerin 2% Ointment 1 INCH/1 GM Packet ONE (12:22)
[2021-11-08] MEDS ORDERED: Furosemide 40 MG/4 ML VIAL ONE (12:22)
[2021-11-08] MEDS ORDERED: cloNIDine 0.1 MG TAB ONE (12:36)
[2021-11-08 22:56] LABS: SARS-CoV-2 PCR by NAA Not Detected (NotDetected)
== END 2021-11-08 13:15 | disposition home or self-care (01) ==
LOC: ERS 08:57
DX: R10.31 Right lower quadrant pain (principal); R11.2 Nausea with vomiting, unspecified; Z20.822 Contact with and (suspected) exposure to COVID-19; I10 Essential (primary) hypertension; E11.9 Type 2 diabetes mellitus without complications; E78.5 Hyperlipidemia, unspecified; E78.00 Pure hypercholesterolemia, unspecified; I25.10 Atherosclerotic heart disease of native coronary artery without angina pectoris; Z79.82 Long term (current) use of aspirin; Z79.01 Long term (current) use of anticoagulants
CPT/HCPCS: 71045; 74177; 80053; 84484; 85025; 93005; 96374; 96375; 99284; U0003; U0005; J1200; J1940; J2270; J2405; J2930; S0028

== ENCOUNTER 2021-11-11 08:55 | Emergency (ER) | payer MEDICARE, OTHER ==
[2021-11-11 09:53] LABS: #Eosinphils 0.2 thou/uL (0.0-0.7); #Lymphocytes 1.6 thou/uL (1.20-3.40); #Monocytes 0.7 thou/uL (0.11-0.59); #Neutrophils 4.5 thou/uL (1.40-6.50); %Basophils 0.5 % (0.0-1.0); %Eosinophils 2.7 % (0.0-10.0); %Lymphocytes 22.3 % (21.0-51.0); %Monocytes 9.7 % (0.0-10.0); %Neutrophils 64.8 % (42.0-75.0); Hemoglobin 14.2 g/dL (12.0-16.0); Mean Corpuscular HGB CONC 32.2 g/dL (32.0-36.0); Mean Platelet Volume 9.7 fL (7.4-10.4); Platelet Count 137 thou/uL (130-400); RBC Distribution Width 13.9 % (11.5-14.5); White Blood Cell (WBC) Count 6.9 thou/uL (4.8-10.8)
[2021-11-11] MEDS ORDERED: Ondansetron PF 4 MG/2 ML Vial ONE (10:14)
[2021-11-11 10:20] LABS: ALT (SGPT) 15 U/L (8-55); AST (SGOT) 21 U/L (5-34); Albumin 4.2 g/dL (3.4-4.8); Alkaline Phosphatase 111 U/L (40-110); Anion Gap 25 mmol/L (10-20); BUN (Urea Nitrogen) 61 mg/dL (9.8-20.1); Bilirubin, Total 0.5 mg/dL (0.2-1.2); Calc. Creatinine Clearance 0 mL/min (70-130); Calcium 8.8 mg/dL (7.8-10.44); Carbon Dioxide 20 mmol/L (23-31); Chloride 97 mmol/L (98-107); Globulin 2.8 g/dL (2.4-3.5); Glucose 214 mg/dL (83-110); Lipase 24 U/L (8-78); Potassium 5.4 mmol/L (3.5-5.1); Sodium 137 mmol/L (136-145)
[2021-11-11 12:24] LABS: Anion Gap 22 mmol/L (10-20); BUN (Urea Nitrogen) 57 mg/dL (9.8-20.1); Calc. Creatinine Clearance 0 mL/min (70-130); Calcium 8.8 mg/dL (7.8-10.44); Carbon Dioxide 19 mmol/L (23-31); Chloride 99 mmol/L (98-107); Glucose 183 mg/dL (83-110); Potassium 4.5 mmol/L (3.5-5.1); Sodium 135 mmol/L (136-145); Troponin I 0.029 ng/mL (< 0.028)
== END 2021-11-11 13:03 | disposition home or self-care (01) ==
LOC: ERS 08:55
DX: R11.2 Nausea with vomiting, unspecified (principal); I10 Essential (primary) hypertension; E11.9 Type 2 diabetes mellitus without complications; E78.5 Hyperlipidemia, unspecified; I25.10 Atherosclerotic heart disease of native coronary artery without angina pectoris; Z99.2 Dependence on renal dialysis; Z79.82 Long term (current) use of aspirin
CPT/HCPCS: 36415; 80053; 82553; 83690; 84484; 85025; 93005; 96374; J2405

== ENCOUNTER 2022-11-22 11:15 | Emergency (ER) | payer MEDICARE, OTHER ==
[2022-11-22 13:10] LABS: #Eosinphils 0.3 thou/uL (0.0-0.7); #Lymphocytes 1.5 thou/uL (1.20-3.40); #Monocytes 0.6 thou/uL (0.11-0.59); #Neutrophils 4.3 thou/uL (1.40-6.50); %Basophils 0.5 % (0.0-1.0); %Eosinophils 5.1 % (0.0-10.0); %Lymphocytes 22.5 % (21.0-51.0); %Monocytes 8.7 % (0.0-10.0); %Neutrophils 63.2 % (42.0-75.0); Mean Corpuscular Hemoglobin 33.9 pg (27.0-31.0); Mean Platelet Volume 8.8 fL (7.4-10.4); Platelet Count 173 10x3/uL (130-400); Red Blood Cell (RBC) Count 3.55 mill/uL (4.20-5.40); White Blood Cell (WBC) Count 6.8 10x3/uL (4.8-10.8)
[2022-11-22 13:38] LABS: ALT (SGPT) 22 U/L (8-55); AST (SGOT) 19 U/L (5-34); Albumin 4.1 g/dL (3.4-4.8); Alkaline Phosphatase 113 U/L (40-110); Anion Gap 16 mmol/L (10-20); BUN (Urea Nitrogen) 27 mg/dL (9.8-20.1); Bilirubin, Total 0.5 mg/dL (0.2-1.2); CK (CPK) 26 U/L (29-168); Calc. Creatinine Clearance 0 mL/min (70-130); Calcium 10.3 mg/dL (7.8-10.44); Carbon Dioxide 30 mmol/L (23-31); Chloride 96 mmol/L (98-107); Estimated GFR 9; Globulin 2.3 g/dL (2.4-3.5); Glucose 304 mg/dL (83-110); Lipase 18 U/L (8-78); Potassium 4.8 mmol/L (3.5-5.1); Protein, Total 6.4 g/dL (5.8-8.1); Sodium 137 mmol/L (136-145)
== END 2022-11-22 14:02 | disposition home or self-care (01) ==
LOC: ERS 11:15
DX: I13.2 Hypertensive heart and chronic kidney disease with heart failure and with stage 5 chronic kidney disease, or end stage renal disease (principal); N18.6 End stage renal disease; I50.9 Heart failure, unspecified; E11.22 Type 2 diabetes mellitus with diabetic chronic kidney disease; E78.5 Hyperlipidemia, unspecified; Z99.2 Dependence on renal dialysis
CPT/HCPCS: 36415; 80053; 82550; 82553; 83690; 83880; 84484; 85025; 93005

== ENCOUNTER 2023-09-06 15:05 | Outpatient (CLI) | payer MEDICARE, OTHER | END 2023-09-06 15:06 | disposition home or self-care (01) | LOC: SCSRAD 15:05 | PROVIDERS: ATTEND Nurse Practitioner Family | DX: S99.922A Unspecified injury of left foot, initial encounter (principal) ==

== ENCOUNTER 2023-09-29 13:34 | Inpatient (IN) | payer MEDICARE, OTHER ==
[2023-09-29 14:41] LABS: #Basophils 0.1 thou/uL (0.0-0.2); #Eosinphils 0.1 thou/uL (0.0-0.7); #Monocytes 0.6 thou/uL (0.11-0.59); #Neutrophils 3.5 thou/uL (1.40-6.50); %Basophils 1.3 % (0.0-1.0); %Eosinophils 0.9 % (0.0-10.0); %Monocytes 11.4 % (0.0-10.0); %Neutrophils 62.9 % (42.0-75.0); Hematocrit 36.5 % (36.0-47.0); Hemoglobin 11.1 g/dL (12.0-16.0); Mean Corpuscular HGB CONC 30.4 g/dL (32.0-36.0); Mean Corpuscular Hemoglobin 33.6 pg (27.0-31.0); Mean Corpuscular Volume 110.6 fl (78.0-98.0); Mean Platelet Volume 11.9 fL (7.4-10.4); Platelet Count 171 10x3/uL (130-400); RBC Distribution Width 16.2 % (11.5-14.5); White Blood Cell (WBC) Count 5.5 10x3/uL (4.8-10.8)
[2023-09-29 15:03] LABS: SARS-CoV-2 NAA Rapid Test Not Detected (NotDetected)
[2023-09-29 15:11] LABS: Burr Cells SLIGHT = 2-5 cells HPF (0-1); CellaVision Operator ID LAB.KB; Hypochromia SLIGHT = 6-15 cells HPF (0-5); Large Platelets 6.9 % (0-5); Macrocytosis SLIGHT = 6-15 cells HPF (0-5); Ovalocytes SLIGHT = 2-5 cells HPF (0-1); Platelet Adequacy Comment Platelets Normal; Polychromasia SLIGHT = 2-3 cells HPF (0-2); Smudge Cells 15.8 %
[2023-09-29 15:14] LABS: ALT (SGPT) 23 U/L (8-55); AST (SGOT) 21 U/L (5-34); Albumin 3.5 g/dL (3.4-4.8); Alkaline Phosphatase 132 U/L (40-110); Anion Gap 22 mmol/L (10-20); BUN (Urea Nitrogen) 26 mg/dL (9.8-20.1); Bilirubin, Total 0.6 mg/dL (0.2-1.2); Calc. Creatinine Clearance 0 mL/min (70-130); Calcium 8.9 mg/dL (7.8-10.44); Carbon Dioxide 25 mmol/L (23-31); Chloride 93 mmol/L (98-107); Estimated GFR 8; Globulin 2.3 g/dL (2.4-3.5); Glucose 340 mg/dL (83-110); Potassium 4.1 mmol/L (3.5-5.1); Protein, Total 5.8 g/dL (5.8-8.1); Sodium 136 mmol/L (136-145)
[2023-09-29 15:35] LABS: Troponin I 0.037 ng/mL (< 0.028)
[2023-09-29] MEDS ORDERED: Dextrose 50% Abboject 50 ML SYRINGE SLOW IVP PRN (18:17)
[2023-09-29] MEDS ORDERED: HumaLOG 300 UNITS/3 ML VIAL SC PRN (18:17)
[2023-09-29] MEDS ORDERED: Dextrose 5% in Water 1,000 ML IV PRN (18:17)
[2023-09-29] MEDS ORDERED: Glucagon 1 MG/ML KIT IM PRN (18:17)
[2023-09-29] MEDS ORDERED: Ondansetron PF 4 MG/2 ML Vial IVP PRN (18:19)
[2023-09-29] MEDS ORDERED: Acetaminophen 650 MG Suppository PR PRN (18:19)
[2023-09-29] MEDS ORDERED: Ondansetron ODT 4 MG TAB PO PRN (18:19)
[2023-09-29] MEDS ORDERED: Acetaminophen 325 MG TAB PO PRN (18:19)
[2023-09-29 18:51] LABS: HBSAg Index 0.18 S/CO (0-0.99); Hep B Core Total Ab Non-Reactive (NonReactive); Hep B Core Total Index 0.07 S/CO (0-0.79); Hep B Surf Ag Non-Reactive S/CO (NonReactive); Hep C IgG Ab Non-Reactive S/CO (NonReactive); Hep C Index 0.07 S/CO (0-0.79)
[2023-09-29 19:03] LABS: Hep B Surf AB Reactive (NonReactive)
[2023-09-30 02:12] VITALS: BMI 26.7
[2023-09-30] MEDS: Heparin 5,000 UNITS/ML VIAL SC SCH ×2 (03:17→08:45)
[2023-09-30 06:18] LABS: Anion Gap 18 mmol/L (10-20); BUN (Urea Nitrogen) 11 mg/dL (9.8-20.1); Calc. Creatinine Clearance 15 mL/min (70-130); Calcium 8.8 mg/dL (7.8-10.44); Carbon Dioxide 24 mmol/L (23-31); Chloride 99 mmol/L (98-107); Estimated GFR 14; Glucose 176 mg/dL (83-110); Potassium 3.4 mmol/L (3.5-5.1); Sodium 138 mmol/L (136-145)
[2023-09-30 06:21] LABS: #Basophils 0.1 thou/uL (0.0-0.2); #Eosinphils 0.1 thou/uL (0.0-0.7); #Monocytes 0.9 thou/uL (0.11-0.59); #Neutrophils 5.6 thou/uL (1.40-6.50); %Basophils 0.7 % (0.0-1.0); %Eosinophils 0.7 % (0.0-10.0); %Lymphocytes 12.2 % (21.0-51.0); %Monocytes 11.5 % (0.0-10.0); %Neutrophils 74.5 % (42.0-75.0); Hematocrit 37.4 % (36.0-47.0); Hemoglobin 11.4 g/dL (12.0-16.0); Mean Corpuscular HGB CONC 30.5 g/dL (32.0-36.0); Mean Corpuscular Hemoglobin 33.7 pg (27.0-31.0); Mean Corpuscular Volume 110.7 fl (78.0-98.0); Mean Platelet Volume 11.6 fL (7.4-10.4); Platelet Count 174 10x3/uL (130-400); RBC Distribution Width 16.4 % (11.5-14.5); Red Blood Cell (RBC) Count 3.38 mill/uL (4.20-5.40); White Blood Cell (WBC) Count 7.5 10x3/uL (4.8-10.8)
[2023-09-30] MEDS: HumaLOG 300 UNITS/3 ML VIAL SC PRN ×2 (07:15→17:05)
[2023-09-30] MEDS: Sevelamer Carbonate 800 MG TAB PO SCH ×2 (12:14→17:05)
[2023-09-30] MEDS ORDERED: Ipratropium/Albuterol 3 ML NEB NEB PRN (17:37)
[2023-09-30] MEDS ORDERED: Ipratropium/Albuterol 3 ML NEB NEB SCH (17:45)
[2023-09-30] MEDS: Apixaban 2.5 MG TAB PO SCH (20:21)
[2023-09-30] MEDS: QUEtiapine 25 MG TAB PO SCH (20:22)
[2023-09-30] MEDS: Atorvastatin Calcium 40 MG TAB PO SCH (20:22)
[2023-10-01 04:31] LABS: Hematocrit 36.9 % (36.0-47.0); Hemoglobin 11.1 g/dL (12.0-16.0); Mean Corpuscular HGB CONC 30.1 g/dL (32.0-36.0); Mean Corpuscular Hemoglobin 33.8 pg (27.0-31.0); Mean Corpuscular Volume 112.5 fl (78.0-98.0); Mean Platelet Volume 11.5 fL (7.4-10.4); Platelet Count 163 10x3/uL (130-400); RBC Distribution Width 16.6 % (11.5-14.5); Red Blood Cell (RBC) Count 3.28 mill/uL (4.20-5.40); White Blood Cell (WBC) Count 6.8 10x3/uL (4.8-10.8)
[2023-10-01 04:31] LABS: Anion Gap 19 mmol/L (10-20); BUN (Urea Nitrogen) 18 mg/dL (9.8-20.1); Calc. Creatinine Clearance 11 mL/min (70-130); Calcium 8.6 mg/dL (7.8-10.44); Carbon Dioxide 24 mmol/L (23-31); Chloride 98 mmol/L (98-107); Estimated GFR 11; Glucose 158 mg/dL (83-110); Potassium 3.7 mmol/L (3.5-5.1); Sodium 137 mmol/L (136-145)
[2023-10-01 06:26] LABS: Anisocytosis SLIGHT = 6-15 cells HPF (0-5); Burr Cells SLIGHT = 2-5 cells HPF (0-1); CellaVision Operator ID LAB.JMM; Elliptocytes SLIGHT = 2-5 cells HPF (0-1); Macrocytosis SLIGHT = 6-15 cells HPF (0-5); Ovalocytes SLIGHT = 2-5 cells HPF (0-1); Platelet Adequacy Comment Platelets Normal; Poikilocytosis SLIGHT = 6-15 cells HPF (0-5); Polychromasia SLIGHT = 2-3 cells HPF (0-2); Stomatocytes SLIGHT = 2-5 cells HPF (0-1)
[2023-10-01 06:37] LABS: %Eosinophils 2.5 % (0.0-10.0); %Lymphocytes 21.1 % (21.0-51.0); %Monocytes 12.2 % (0.0-10.0); %Neutrophils 62.9 % (42.0-75.0)
[2023-10-01 06:38] LABS: #Basophils 0.1 thou/uL (0.0-0.2); #Eosinphils 0.2 thou/uL (0.0-0.7); #Monocytes 0.8 thou/uL (0.11-0.59); #Neutrophils 4.3 thou/uL (1.40-6.50)
[2023-10-01] MEDS: HumaLOG 300 UNITS/3 ML VIAL SC PRN ×2 (06:46→17:43)
[2023-10-01] MEDS: Sevelamer Carbonate 800 MG TAB PO SCH ×3 (11:52→17:43)
[2023-10-01] MEDS: Aspirin 81 mg Enteric Coated Tablet PO SCH (12:56)
[2023-10-01] MEDS: BuPROPion XL 150 MG ER.TAB PO SCH (12:57)
[2023-10-01] MEDS: Losartan 25 MG TAB PO SCH (12:57)
[2023-10-01] MEDS: Cyclobenzaprine 10 MG TAB PO SCH (12:57)
[2023-10-01] MEDS: Multivitamin W/ Minerals 1 TAB PO SCH (12:57)
[2023-10-01] MEDS: Isosorbide Mononitrate 60 MG ER.TAB PO SCH (12:57)
[2023-10-01] MEDS: dilTIAZem CD 120 MG CAP PO SCH (12:57)
[2023-10-01] MEDS: Apixaban 2.5 MG TAB PO SCH ×2 (12:57→20:34)
[2023-10-01] MEDS ORDERED: Sodium Chloride 0.9% 250 ML IV SCH (20:00)
[2023-10-01] MEDS: QUEtiapine 25 MG TAB PO SCH (20:34)
[2023-10-01] MEDS: Atorvastatin Calcium 40 MG TAB PO SCH (20:34)
[2023-10-01] MEDS ORDERED: Sodium Chloride 0.9% 250 ML 250 ML IV SCH (21:45)
[2023-10-01] MEDS ORDERED: Midodrine HCl 5 MG TAB PO SCH (22:00)
[2023-10-02] MEDS ORDERED: OLANZapine 2.5 MG TAB PO SCH (01:15)
[2023-10-02] MEDS: HumaLOG 300 UNITS/3 ML VIAL SC PRN (06:02)
[2023-10-02 07:32] VITALS: BP 116/56; TEMP 97.6
[2023-10-02] MEDS: BuPROPion XL 150 MG ER.TAB PO SCH (08:00)
[2023-10-02] MEDS: dilTIAZem CD 120 MG CAP PO SCH (08:00)
[2023-10-02] MEDS: Sevelamer Carbonate 800 MG TAB PO SCH (08:00)
[2023-10-02] MEDS: Multivitamin W/ Minerals 1 TAB PO SCH (08:00)
[2023-10-02] MEDS: Isosorbide Mononitrate 60 MG ER.TAB PO SCH (08:00)
[2023-10-02] MEDS: Aspirin 81 mg Enteric Coated Tablet PO SCH (08:00)
[2023-10-02] MEDS: Cyclobenzaprine 10 MG TAB PO SCH (08:00)
[2023-10-02] MEDS: Apixaban 2.5 MG TAB PO SCH (08:00)
[2023-10-02] MEDS: Losartan 25 MG TAB PO SCH (08:01)
[2023-10-03] MEDS ORDERED: Midodrine HCl 5 MG TAB PO SCH (07:00)
== END 2023-10-02 10:30 | disposition home or self-care (01) | DRG 291 ==
LOC: ERS 13:34 → 2NO 17:43
PROVIDERS: ADMIT Internal Medicine; ATTEND Internal Medicine
PROC: 5A1D70Z Performance of Urinary Filtration, Intermittent, Less than 6 Hours Per Day (ICD-10-PCS; principal; 2023-09-29)
DX: I13.2 Hypertensive heart and chronic kidney disease with heart failure and with stage 5 chronic kidney disease, or end stage renal disease (principal); J96.01 Acute respiratory failure with hypoxia; N18.6 End stage renal disease; J96.10 Chronic respiratory failure, unspecified whether with hypoxia or hypercapnia; I35.0 Nonrheumatic aortic (valve) stenosis; E78.5 Hyperlipidemia, unspecified; I50.9 Heart failure, unspecified; M54.50 Low back pain, unspecified; I25.10 Atherosclerotic heart disease of native coronary artery without angina pectoris; J44.9 Chronic obstructive pulmonary disease, unspecified; G47.33 Obstructive sleep apnea (adult) (pediatric); F32.A Depression, unspecified; M19.90 Unspecified osteoarthritis, unspecified site; E11.22 Type 2 diabetes mellitus with diabetic chronic kidney disease; I48.0 Paroxysmal atrial fibrillation; Z96.642 Presence of left artificial hip joint; Z99.2 Dependence on renal dialysis; Z11.52 Encounter for screening for COVID-19; Z88.8 Allergy status to other drugs, medicaments and biological substances; Z88.5 Allergy status to narcotic agent; Z91.013 Allergy to seafood; Z79.82 Long term (current) use of aspirin; Z79.899 Other long term (current) drug therapy; Z90.49 Acquired absence of other specified parts of digestive tract; Z90.710 Acquired absence of both cervix and uterus; Z98.1 Arthrodesis status; Z95.2 Presence of prosthetic heart valve; Z98.890 Other specified postprocedural states; Z71.2 Person consulting for explanation of examination or test findings
CPT/HCPCS: 36415; 36416; 71045; 80048; 80053; 83880; 84484; 85025; 86704; 90935; 93005; 94640; 97139; G0257; J1644; J1815; J7050; J7620

== ENCOUNTER 2023-12-17 09:42 | Inpatient (IN) | payer MEDICARE, OTHER ==
[2023-12-17] MEDS ORDERED: Heparin 10,000 UNITS/ 10 ML VIAL ONE (09:48)
[2023-12-17 10:20] LABS: #Basophils 0.1 thou/uL (0.0-0.2); #Eosinphils 0.2 thou/uL (0.0-0.7); #Monocytes 0.7 thou/uL (0.11-0.59); #Neutrophils 4.6 thou/uL (1.40-6.50); %Basophils 1.1 % (0.0-1.0); %Lymphocytes 15.6 % (21.0-51.0); %Monocytes 10.7 % (0.0-10.0); %Neutrophils 69.3 % (42.0-75.0); Hematocrit 41.4 % (36.0-47.0); Mean Corpuscular HGB CONC 31.4 g/dL (32.0-36.0); Mean Corpuscular Hemoglobin 31.6 pg (27.0-31.0); Mean Corpuscular Volume 100.5 fl (78.0-98.0); Mean Platelet Volume 10.9 fL (7.4-10.4); Platelet Count 153 10x3/uL (130-400); RBC Distribution Width 16.8 % (11.5-14.5); Red Blood Cell (RBC) Count 4.12 mill/uL (4.20-5.40); White Blood Cell (WBC) Count 6.7 10x3/uL (4.8-10.8)
[2023-12-17 10:23] LABS: Actual Bicarbonate (HCO3a) 21.9 mEq/L (22-28); Analyzer IN Cardio ER; Base Excess (BEa) -1.7 mEq/L (-2.0 to +3.0); CO2 Tension 33.8 mmHg (35.0-45.0); Carboxyhemoglobin (COHb) 1.7 gm% (0.0-3.0); Hematocrit-ABG 39 % (36.0-47.0); Hemoglobin (Hb) 13.4 g/dL (12.0-16.0); O2 Tension (PaO2), arterial 78.3 mmHg (> 60.0); Potassium - ABG Lab 4.58 mmol/L (3.70-5.30)
[2023-12-17 10:28] LABS: Puncture Site RRA
[2023-12-17 10:55] LABS: Troponin I 0.038 ng/mL (< 0.028)
[2023-12-17 11:04] LABS: ALT (SGPT) 13 U/L (8-55); AST (SGOT) 13 U/L (5-34); Albumin 3.9 g/dL (3.4-4.8); Alkaline Phosphatase 138 U/L (40-110); Anion Gap 18 mmol/L (10-20); BUN (Urea Nitrogen) 31 mg/dL (9.8-20.1); Bilirubin, Total 1.1 mg/dL (0.2-1.2); Calc. Creatinine Clearance 0 mL/min (70-130); Calcium 9.1 mg/dL (7.8-10.44); Carbon Dioxide 27 mmol/L (23-31); Chloride 96 mmol/L (98-107); Estimated GFR 8; Globulin 2.7 g/dL (2.4-3.5); Glucose 255 mg/dL (83-110); Magnesium 2.2 mg/dL (1.6-2.6); Protein, Total 6.6 g/dL (5.8-8.1); Sodium 136 mmol/L (136-145)
[2023-12-17] MEDS ORDERED: Furosemide 40 MG (4 mL) VIAL ONE (11:07)
[2023-12-17] MEDS ORDERED: Bisacodyl 10 MG SUPP PR PRN (12:39)
[2023-12-17] MEDS ORDERED: Ondansetron PF 4 MG/2 ML Vial IVP PRN (12:39)
[2023-12-17] MEDS ORDERED: Bisacodyl 5 MG TAB PO PRN (12:39)
[2023-12-17] MEDS ORDERED: Senokot S 8.6-50 MG TAB PO PRN ×2 (12:39→13:30)
[2023-12-17] MEDS ORDERED: Glucagon 1 MG/ML KIT IM PRN (12:53)
[2023-12-17] MEDS ORDERED: Dextrose 50% Abboject 50 ML SYRINGE SLOW IVP PRN (12:53)
[2023-12-17] MEDS ORDERED: Dextrose 5% in Water 1,000 ML IV PRN (12:53)
[2023-12-17 13:35] LABS: Hemoglobin A1c 9.7 % (4.0-6.0)
[2023-12-17] MEDS ORDERED: ALPRAZolam 0.25 MG TAB ONE (13:39)
[2023-12-17] MEDS: ALPRAZolam 0.25 MG TAB PO SCH (13:52)
[2023-12-17 15:41] LABS: Troponin I 0.047 ng/mL (< 0.028)
[2023-12-18 02:36] LABS: Influenza A by NAA Not Detected (NotDetected); Influenza B by NAA Not Detected (NotDetected); SARS-CoV-2 NAA Rapid Test Not Detected (NotDetected)
[2023-12-18 04:44] LABS: #Basophils 0.1 thou/uL (0.0-0.2); #Eosinphils 0.4 thou/uL (0.0-0.7); #Monocytes 0.7 thou/uL (0.11-0.59); #Neutrophils 4.5 thou/uL (1.40-6.50); %Basophils 1.8 % (0.0-1.0); %Eosinophils 5.6 % (0.0-10.0); %Lymphocytes 13.1 % (21.0-51.0); %Monocytes 10.1 % (0.0-10.0); %Neutrophils 69.1 % (42.0-75.0); Hematocrit 42.9 % (36.0-47.0); Hemoglobin 13.2 g/dL (12.0-16.0); Mean Corpuscular HGB CONC 30.8 g/dL (32.0-36.0); Mean Corpuscular Hemoglobin 31.6 pg (27.0-31.0); Mean Corpuscular Volume 102.6 fl (78.0-98.0); Mean Platelet Volume 11.6 fL (7.4-10.4); Platelet Count 166 10x3/uL (130-400); RBC Distribution Width 16.7 % (11.5-14.5); Red Blood Cell (RBC) Count 4.18 mill/uL (4.20-5.40); White Blood Cell (WBC) Count 6.6 10x3/uL (4.8-10.8)
[2023-12-18] MEDS: ALPRAZolam 0.25 MG TAB PO PRN (05:03)
[2023-12-18 05:05] LABS: ALT (SGPT) 13 U/L (8-55); AST (SGOT) 22 U/L (5-34); Albumin 3.5 g/dL (3.4-4.8); Alkaline Phosphatase 116 U/L (40-110); Anion Gap 18 mmol/L (10-20); BUN (Urea Nitrogen) 20 mg/dL (9.8-20.1); Bilirubin, Direct 0.4 mg/dL (0.1-0.3); Calc. Creatinine Clearance 12 mL/min (70-130); Carbon Dioxide 23 mmol/L (23-31); Chloride 98 mmol/L (98-107); Estimated GFR 12; Glucose 171 mg/dL (83-110); Potassium 4.8 mmol/L (3.5-5.1); Protein, Total 6.4 g/dL (5.8-8.1); Sodium 134 mmol/L (136-145)
[2023-12-18] MEDS: Sevelamer Carbonate 800 MG TAB PO SCH (18:20)
[2023-12-18] MEDS: Apixaban 2.5 MG TAB PO SCH (22:36)
[2023-12-19 05:04] LABS: Anion Gap 16 mmol/L (10-20); BUN (Urea Nitrogen) 27 mg/dL (9.8-20.1); Calc. Creatinine Clearance 11 mL/min (70-130); Calcium 8.9 mg/dL (7.8-10.44); Carbon Dioxide 24 mmol/L (23-31); Chloride 101 mmol/L (98-107); Estimated GFR 10; Glucose 263 mg/dL (83-110); Magnesium 2.1 mg/dL (1.6-2.6); Potassium 4.3 mmol/L (3.5-5.1); Sodium 137 mmol/L (136-145)
[2023-12-19 05:25] LABS: #Basophils 0.1 thou/uL (0.0-0.2); #Eosinphils 0.3 thou/uL (0.0-0.7); #Neutrophils 4.2 thou/uL (1.40-6.50); %Basophils 1.2 % (0.0-1.0); %Eosinophils 4.4 % (0.0-10.0); %Lymphocytes 16.7 % (21.0-51.0); %Monocytes 14.6 % (0.0-10.0); %Neutrophils 62.8 % (42.0-75.0); Hematocrit 43.1 % (36.0-47.0); Hemoglobin 13.4 g/dL (12.0-16.0); Mean Corpuscular HGB CONC 31.1 g/dL (32.0-36.0); Mean Corpuscular Hemoglobin 30.8 pg (27.0-31.0); Mean Platelet Volume 11.3 fL (7.4-10.4); Platelet Count 152 10x3/uL (130-400); RBC Distribution Width 16.4 % (11.5-14.5); Red Blood Cell (RBC) Count 4.35 mill/uL (4.20-5.40); White Blood Cell (WBC) Count 6.6 10x3/uL (4.8-10.8)
[2023-12-19 05:35] LABS: Mean Corpuscular Volume 99.1 fl (78.0-98.0)
[2023-12-19] MEDS: HumaLOG 300 UNITS/3 ML VIAL SC PRN ×2 (06:34→20:57)
[2023-12-19] MEDS: dilTIAZem CD 120 MG CAP PO SCH (07:53)
[2023-12-19] MEDS: Albumin 25% 25 GM (100 mL) BOT IVPB SCH (15:00)
[2023-12-19] MEDS ORDERED: Lactulose 20 GM (30 mL) UDCUP PO PRN (17:37)
[2023-12-19] MEDS: Atorvastatin Calcium 40 MG TAB PO SCH (20:56)
[2023-12-19] MEDS: QUEtiapine 25 MG TAB PO SCH (20:56)
[2023-12-19] MEDS: Ipratropium/Albuterol 3 ML NEB NEB PRN (23:10)
[2023-12-20] MEDS: Albumin 25% 25 GM (100 mL) BOT IVPB SCH (00:46)
[2023-12-20 04:19] LABS: #Basophils 0.1 thou/uL (0.0-0.2); #Eosinphils 0.2 thou/uL (0.0-0.7); #Monocytes 0.7 thou/uL (0.11-0.59); #Neutrophils 3.6 thou/uL (1.40-6.50); %Basophils 1.2 % (0.0-1.0); %Eosinophils 3.6 % (0.0-10.0); %Lymphocytes 19.1 % (21.0-51.0); %Monocytes 12.8 % (0.0-10.0); %Neutrophils 62.8 % (42.0-75.0); Hematocrit 37.3 % (36.0-47.0); Hemoglobin 11.5 g/dL (12.0-16.0); Mean Corpuscular HGB CONC 30.8 g/dL (32.0-36.0); Mean Corpuscular Hemoglobin 31.9 pg (27.0-31.0); Mean Corpuscular Volume 103.3 fl (78.0-98.0); Platelet Count 136 10x3/uL (130-400); RBC Distribution Width 16.3 % (11.5-14.5); Red Blood Cell (RBC) Count 3.61 mill/uL (4.20-5.40); White Blood Cell (WBC) Count 5.8 10x3/uL (4.8-10.8)
[2023-12-20 04:56] LABS: Anion Gap 15 mmol/L (10-20); BUN (Urea Nitrogen) 29 mg/dL (9.8-20.1); Calc. Creatinine Clearance 12 mL/min (70-130); Calcium 8.5 mg/dL (7.8-10.44); Carbon Dioxide 26 mmol/L (23-31); Chloride 99 mmol/L (98-107); Estimated GFR 11; Glucose 332 mg/dL (83-110); Potassium 4.2 mmol/L (3.5-5.1); Sodium 136 mmol/L (136-145)
[2023-12-20] MEDS: Midodrine HCl 5 MG TAB PO SCH (09:49)
[2023-12-21] MEDS: diphenhydrAMINE 25 MG CAP PO SCH (03:42)
[2023-12-21 05:34] LABS: #Basophils 0.1 thou/uL (0.0-0.2); #Eosinphils 0.3 thou/uL (0.0-0.7); #Monocytes 0.9 thou/uL (0.11-0.59); #Neutrophils 5.2 thou/uL (1.40-6.50); %Eosinophils 3.8 % (0.0-10.0); %Monocytes 11.6 % (0.0-10.0); %Neutrophils 68.2 % (42.0-75.0); Hematocrit 40.1 % (36.0-47.0); Hemoglobin 12.3 g/dL (12.0-16.0); Mean Corpuscular HGB CONC 30.7 g/dL (32.0-36.0); Mean Corpuscular Hemoglobin 30.8 pg (27.0-31.0); Mean Corpuscular Volume 100.5 fl (78.0-98.0); Mean Platelet Volume 11.3 fL (7.4-10.4); Platelet Count 159 10x3/uL (130-400); RBC Distribution Width 16.1 % (11.5-14.5); Red Blood Cell (RBC) Count 3.99 mill/uL (4.20-5.40); White Blood Cell (WBC) Count 7.7 10x3/uL (4.8-10.8)
[2023-12-21 06:04] LABS: Anion Gap 18 mmol/L (10-20); BUN (Urea Nitrogen) 46 mg/dL (9.8-20.1); Calc. Creatinine Clearance 9 mL/min (70-130); Calcium 8.6 mg/dL (7.8-10.44); Carbon Dioxide 24 mmol/L (23-31); Chloride 99 mmol/L (98-107); Estimated GFR 8; Glucose 137 mg/dL (83-110); Magnesium 2.1 mg/dL (1.6-2.6); Potassium 4.8 mmol/L (3.5-5.1); Sodium 136 mmol/L (136-145)
[2023-12-21] MEDS ORDERED: E-Z-HD 98% W/W 340GM BOT (x-ray ONLY) ONE (09:50)
[2023-12-22 06:35] LABS: #Basophils 0.1 thou/uL (0.0-0.2); #Eosinphils 0.3 thou/uL (0.0-0.7); #Monocytes 0.8 thou/uL (0.11-0.59); #Neutrophils 4.8 thou/uL (1.40-6.50); %Basophils 1.5 % (0.0-1.0); %Eosinophils 4.1 % (0.0-10.0); %Lymphocytes 13.8 % (21.0-51.0); %Neutrophils 69.3 % (42.0-75.0); Hematocrit 41.1 % (36.0-47.0); Hemoglobin 12.7 g/dL (12.0-16.0); Mean Corpuscular HGB CONC 30.9 g/dL (32.0-36.0); Mean Corpuscular Hemoglobin 31.1 pg (27.0-31.0); Mean Corpuscular Volume 100.5 fl (78.0-98.0); Mean Platelet Volume 10.9 fL (7.4-10.4); Platelet Count 170 10x3/uL (130-400); RBC Distribution Width 15.9 % (11.5-14.5); Red Blood Cell (RBC) Count 4.09 mill/uL (4.20-5.40); White Blood Cell (WBC) Count 6.9 10x3/uL (4.8-10.8)
[2023-12-22 07:05] LABS: Anion Gap 15 mmol/L (10-20); BUN (Urea Nitrogen) 25 mg/dL (9.8-20.1); Calc. Creatinine Clearance 12 mL/min (70-130); Calcium 8.8 mg/dL (7.8-10.44); Carbon Dioxide 27 mmol/L (23-31); Chloride 100 mmol/L (98-107); Estimated GFR 12; Glucose 126 mg/dL (83-110); Potassium 4.3 mmol/L (3.5-5.1); Sodium 138 mmol/L (136-145)
[2023-12-22] MEDS ORDERED: hydrOXYzine 25 MG TAB PO PRN (09:27)
[2023-12-22] MEDS: hydrOXYzine 10 MG TAB PO PRN (11:15)
[2023-12-23 05:13] LABS: #Basophils 0.1 thou/uL (0.0-0.2); #Eosinphils 0.3 thou/uL (0.0-0.7); #Monocytes 0.8 thou/uL (0.11-0.59); #Neutrophils 3.8 thou/uL (1.40-6.50); %Basophils 1.4 % (0.0-1.0); %Lymphocytes 20.9 % (21.0-51.0); %Monocytes 12.8 % (0.0-10.0); %Neutrophils 60.7 % (42.0-75.0); Hematocrit 39.6 % (36.0-47.0); Hemoglobin 12.7 g/dL (12.0-16.0); Mean Corpuscular HGB CONC 32.1 g/dL (32.0-36.0); Mean Corpuscular Hemoglobin 31.9 pg (27.0-31.0); Mean Corpuscular Volume 99.5 fl (78.0-98.0); Mean Platelet Volume 11.3 fL (7.4-10.4); Platelet Count 175 10x3/uL (130-400); RBC Distribution Width 15.9 % (11.5-14.5); Red Blood Cell (RBC) Count 3.98 mill/uL (4.20-5.40); White Blood Cell (WBC) Count 6.3 10x3/uL (4.8-10.8)
[2023-12-23 05:47] LABS: Anion Gap 14 mmol/L (10-20); BUN (Urea Nitrogen) 43 mg/dL (9.8-20.1); Calc. Creatinine Clearance 10 mL/min (70-130); Calcium 9.2 mg/dL (7.8-10.44); Carbon Dioxide 26 mmol/L (23-31); Chloride 97 mmol/L (98-107); Estimated GFR 10; Glucose 155 mg/dL (83-110); Magnesium 2.1 mg/dL (1.6-2.6); Potassium 4.7 mmol/L (3.5-5.1); Sodium 132 mmol/L (136-145)
[2023-12-23] MEDS: Midodrine HCl 5 MG TAB PO SCH (13:34)
[2023-12-24 04:47] LABS: #Basophils 0.1 thou/uL (0.0-0.2); #Eosinphils 0.2 thou/uL (0.0-0.7); #Monocytes 0.9 thou/uL (0.11-0.59); #Neutrophils 4.6 thou/uL (1.40-6.50); %Basophils 1.8 % (0.0-1.0); %Eosinophils 3.3 % (0.0-10.0); %Lymphocytes 19.7 % (21.0-51.0); %Monocytes 11.9 % (0.0-10.0); Hematocrit 37.9 % (36.0-47.0); Hemoglobin 12.1 g/dL (12.0-16.0); Mean Corpuscular HGB CONC 31.9 g/dL (32.0-36.0); Mean Corpuscular Volume 97.2 fl (78.0-98.0); Mean Platelet Volume 11.3 fL (7.4-10.4); Platelet Count 166 10x3/uL (130-400); RBC Distribution Width 15.7 % (11.5-14.5); White Blood Cell (WBC) Count 7.3 10x3/uL (4.8-10.8)
[2023-12-24 05:08] LABS: Anion Gap 18 mmol/L (10-20); BUN (Urea Nitrogen) 59 mg/dL (9.8-20.1); Calc. Creatinine Clearance 8 mL/min (70-130); Calcium 9.2 mg/dL (7.8-10.44); Carbon Dioxide 24 mmol/L (23-31); Chloride 94 mmol/L (98-107); Estimated GFR 7; Glucose 200 mg/dL (83-110); Magnesium 2.2 mg/dL (1.6-2.6); Sodium 130 mmol/L (136-145)
[2023-12-24] MEDS: Acetaminophen 325 MG TAB PO PRN (12:21)
[2023-12-24] MEDS: Albumin 25% 25 GM (100 mL) BOT IVPB PRN (16:00)
[2023-12-24 16:14] VITALS: BMI 23.9
[2023-12-24] MEDS: diphenhydrAMINE 30 GM TUBE TOP PRN (17:49)
[2023-12-25 10:07] LABS: #Basophils 0.1 thou/uL (0.0-0.2); #Eosinphils 0.2 thou/uL (0.0-0.7); #Monocytes 0.9 thou/uL (0.11-0.59); #Neutrophils 4.2 thou/uL (1.40-6.50); %Basophils 1.7 % (0.0-1.0); %Eosinophils 3.5 % (0.0-10.0); %Lymphocytes 17.2 % (21.0-51.0); %Monocytes 13.2 % (0.0-10.0); %Neutrophils 64.1 % (42.0-75.0); Hemoglobin 12.4 g/dL (12.0-16.0); Mean Corpuscular HGB CONC 31.8 g/dL (32.0-36.0); Mean Corpuscular Hemoglobin 31.8 pg (27.0-31.0); Mean Platelet Volume 11.2 fL (7.4-10.4); Platelet Count 185 10x3/uL (130-400); RBC Distribution Width 15.9 % (11.5-14.5); White Blood Cell (WBC) Count 6.5 10x3/uL (4.8-10.8)
[2023-12-25 11:03] LABS: Anion Gap 20 mmol/L (10-20); BUN (Urea Nitrogen) 32 mg/dL (9.8-20.1); Calc. Creatinine Clearance 12 mL/min (70-130); Calcium 9.2 mg/dL (7.8-10.44); Carbon Dioxide 23 mmol/L (23-31); Chloride 99 mmol/L (98-107); Estimated GFR 12; Glucose 203 mg/dL (83-110); Sodium 137 mmol/L (136-145)
[2023-12-26 06:29] LABS: #Basophils 0.1 thou/uL (0.0-0.2); #Eosinphils 0.3 thou/uL (0.0-0.7); #Monocytes 0.7 thou/uL (0.11-0.59); #Neutrophils 3.9 thou/uL (1.40-6.50); %Basophils 1.8 % (0.0-1.0); %Eosinophils 4.8 % (0.0-10.0); %Lymphocytes 21.2 % (21.0-51.0); %Monocytes 11.2 % (0.0-10.0); %Neutrophils 60.7 % (42.0-75.0); Hematocrit 38.3 % (36.0-47.0); Hemoglobin 12.1 g/dL (12.0-16.0); Mean Corpuscular HGB CONC 31.6 g/dL (32.0-36.0); Mean Corpuscular Hemoglobin 31.5 pg (27.0-31.0); Mean Corpuscular Volume 99.7 fl (78.0-98.0); Mean Platelet Volume 11.5 fL (7.4-10.4); Platelet Count 181 10x3/uL (130-400); RBC Distribution Width 15.9 % (11.5-14.5); Red Blood Cell (RBC) Count 3.84 mill/uL (4.20-5.40); White Blood Cell (WBC) Count 6.5 10x3/uL (4.8-10.8)
[2023-12-26 06:51] LABS: Anion Gap 20 mmol/L (10-20); BUN (Urea Nitrogen) 47 mg/dL (9.8-20.1); Calc. Creatinine Clearance 10 mL/min (70-130); Calcium 9.4 mg/dL (7.8-10.44); Carbon Dioxide 22 mmol/L (23-31); Chloride 97 mmol/L (98-107); Estimated GFR 9; Glucose 210 mg/dL (83-110); Potassium 5.6 mmol/L (3.5-5.1); Sodium 133 mmol/L (136-145)
[2023-12-26] MEDS ORDERED: Albumin 25% 25 GM (100 mL) BOT IVPB PRN (10:54)
[2023-12-26] MEDS: Albuterol 2.5 MG (3 mL) NEB NEB SCH (18:34)
[2023-12-26 19:25] LABS: Anion Gap 15 mmol/L (10-20); BUN (Urea Nitrogen) 20 mg/dL (9.8-20.1); Calc. Creatinine Clearance 16 mL/min (70-130); Calcium 9.7 mg/dL (7.8-10.44); Carbon Dioxide 28 mmol/L (23-31); Chloride 97 mmol/L (98-107); Estimated GFR 17; Glucose 267 mg/dL (83-110); Potassium 4.4 mmol/L (3.5-5.1); Sodium 136 mmol/L (136-145)
[2023-12-26] MEDS: Insulin Regular 300 UNITS/3 ML VIAL IVP SCH (19:51)
[2023-12-26] MEDS: Dextrose 50% Abboject 50 ML SYRINGE SLOW IVP SCH (19:51)
[2023-12-26] MEDS: Sodium Polystyrene Sulfonate 15 GM (60 mL) BOT PO SCH (19:51)
[2023-12-26 20:37] LABS: Mycoplasma pneumoniae IgG AB 211 U/mL (0-99); Mycoplasma pneumoniae IgM AB Less than 770 U/mL (0-769)
[2023-12-27 05:32] LABS: #Basophils 0.1 thou/uL (0.0-0.2); #Eosinphils 0.3 thou/uL (0.0-0.7); #Monocytes 0.8 thou/uL (0.11-0.59); #Neutrophils 4.2 thou/uL (1.40-6.50); %Basophils 1.7 % (0.0-1.0); %Eosinophils 4.6 % (0.0-10.0); %Lymphocytes 16.3 % (21.0-51.0); %Monocytes 12.5 % (0.0-10.0); %Neutrophils 64.6 % (42.0-75.0); Hematocrit 36.2 % (36.0-47.0); Hemoglobin 11.4 g/dL (12.0-16.0); Mean Corpuscular HGB CONC 31.5 g/dL (32.0-36.0); Mean Corpuscular Hemoglobin 31.1 pg (27.0-31.0); Mean Corpuscular Volume 98.6 fl (78.0-98.0); Mean Platelet Volume 11.2 fL (7.4-10.4); Platelet Count 190 10x3/uL (130-400); RBC Distribution Width 15.7 % (11.5-14.5); Red Blood Cell (RBC) Count 3.67 mill/uL (4.20-5.40); White Blood Cell (WBC) Count 6.6 10x3/uL (4.8-10.8)
[2023-12-27 05:51] LABS: Anion Gap 17 mmol/L (10-20); BUN (Urea Nitrogen) 27 mg/dL (9.8-20.1); Calc. Creatinine Clearance 13 mL/min (70-130); Calcium 9.6 mg/dL (7.8-10.44); Carbon Dioxide 25 mmol/L (23-31); Chloride 98 mmol/L (98-107); Estimated GFR 13; Glucose 150 mg/dL (83-110); Potassium 4.7 mmol/L (3.5-5.1); Sodium 135 mmol/L (136-145)
[2023-12-27 12:10] VITALS: BP 142/92
[2023-12-27 16:43] VITALS: TEMP 97.6
[2023-12-28] MEDS ORDERED: Loratadine 10 MG TAB PO SCH (09:00)
== END 2023-12-27 18:00 | DRG 291 ==
LOC: ERS 09:42 → ERHOLD 12:44 → IMCU/EMU 19:08
PROVIDERS: ADMIT Family Medicine; ATTEND Internal Medicine
PROC: 4A033R1 Measurement of Arterial Saturation, Peripheral, Percutaneous Approach (ICD-10-PCS; principal; 2023-12-17)
PROC: 5A09457 Assistance with Respiratory Ventilation, 24-96 Consecutive Hours, Continuous Positive Airway Pressure (ICD-10-PCS; 2023-12-17)
PROC: 30233J1 Transfusion of Nonautologous Serum Albumin into Peripheral Vein, Percutaneous Approach (ICD-10-PCS; 2023-12-20)
DX: I13.2 Hypertensive heart and chronic kidney disease with heart failure and with stage 5 chronic kidney disease, or end stage renal disease (principal); G93.41 Metabolic encephalopathy; I50.33 Acute on chronic diastolic (congestive) heart failure; J96.01 Acute respiratory failure with hypoxia; N18.6 End stage renal disease; Z88.5 Allergy status to narcotic agent; Z91.041 Radiographic dye allergy status; Z88.0 Allergy status to penicillin; Z88.2 Allergy status to sulfonamides; Z99.2 Dependence on renal dialysis; I25.10 Atherosclerotic heart disease of native coronary artery without angina pectoris; E11.22 Type 2 diabetes mellitus with diabetic chronic kidney disease; E78.5 Hyperlipidemia, unspecified; Z90.710 Acquired absence of both cervix and uterus; Z90.49 Acquired absence of other specified parts of digestive tract; Z96.642 Presence of left artificial hip joint; F32.A Depression, unspecified; I35.0 Nonrheumatic aortic (valve) stenosis; J44.9 Chronic obstructive pulmonary disease, unspecified; D63.1 Anemia in chronic kidney disease; F03.90 Unspecified dementia, unspecified severity, without behavioral disturbance, psychotic disturbance, mood disturbance, and anxiety
CPT/HCPCS: 36415; 36416; 36600; 70450; 70486; 71045; 71250; 74230; 80048; 80076; 82140; 82805; 83036; 83735; 83880; 84443; 84484; 85025; 86850; 86900; 86901; 87040; 87081; 90935; 93005; 93010; 93306; 94640; 94660; 94760; G0257; J1644; J1815; J1940; J7611; J7620; P9047

== ENCOUNTER 2024-04-03 13:28 | Inpatient (IN) | payer MEDICARE, OTHER ==
[2024-04-03 14:20] LABS: #Basophils 0.08 10x3/uL (0.0-0.2); %Basophils 1.3 % (0.0-1.0); %Eosinophils 2.1 % (0.0-10.0); %Lymphocytes 25.4 % (21.0-51.0); %Monocytes 12.6 % (0.0-10.0); %Neutrophils 58.3 % (42.0-75.0); Hematocrit 35.8 % (36.0-47.0); Hemoglobin 11.6 g/dL (12.0-16.0); Mean Corpuscular HGB CONC 32.4 g/dL (32.0-36.0); Mean Corpuscular Hemoglobin 32.3 pg (27.0-31.0); Mean Corpuscular Volume 99.7 fL (78.0-98.0); Mean Platelet Volume 11.4 fL (7.4-10.4); Platelet Count 188 10x3/uL (130-400); Red Blood Cell (RBC) Count 3.59 mill/uL (4.20-5.40)
[2024-04-03 14:37] LABS: ALT (SGPT) 11 U/L (8-55); AST (SGOT) 12 U/L (5-34); Alkaline Phosphatase 159 U/L (40-110); Anion Gap 18 mmol/L (10-20); BUN (Urea Nitrogen) 28 mg/dL (9.8-20.1); Bilirubin, Total 0.8 mg/dL (0.2-1.2); Calc. Creatinine Clearance 0 mL/min (70-130); Calcium 9.6 mg/dL (7.8-10.44); Carbon Dioxide 28 mmol/L (23-31); Chloride 96 mmol/L (98-107); Estimated GFR 11; Glucose 220 mg/dL (83-110); Lipase 11 U/L (8-78); Magnesium 2.2 mg/dL (1.6-2.6); Potassium 3.9 mmol/L (3.5-5.1); Sodium 138 mmol/L (136-145)
[2024-04-03 14:40] LABS: Troponin I 0.034 ng/mL (< 0.028)
[2024-04-03] MEDS ORDERED: Vancomycin HCl 500 MG VIAL ONE (16:38)
[2024-04-03] MEDS ORDERED: Cefepime 1 GM VIAL ONE ×2 (16:38→17:08)
[2024-04-03] MEDS ORDERED: Vancomycin 1 GM/200 ML (FROZEN) BAG ONE (17:07)
[2024-04-03 17:17] LABS: Lactic Acid 2.5 mmol/L (0.5-2.2)
[2024-04-03 17:30] LABS: #Basophils 0.08 10x3/uL (0.0-0.2); %Basophils 1.2 % (0.0-1.0); %Eosinophils 2.4 % (0.0-10.0); %Lymphocytes 22.7 % (21.0-51.0); %Monocytes 12.8 % (0.0-10.0); %Neutrophils 60.6 % (42.0-75.0); Hematocrit 36.1 % (36.0-47.0); Hemoglobin 11.5 g/dL (12.0-16.0); Mean Corpuscular HGB CONC 31.9 g/dL (32.0-36.0); Mean Corpuscular Volume 103.7 fL (78.0-98.0); Mean Platelet Volume 11.1 fL (7.4-10.4); Platelet Count 186 10x3/uL (130-400); RBC Distribution Width 16.1 % (11.5-14.5); Red Blood Cell (RBC) Count 3.48 mill/uL (4.20-5.40)
[2024-04-03 17:41] LABS: Albumin 3.9 g/dL (3.4-4.8); Anion Gap 18 mmol/L (10-20); BUN (Urea Nitrogen) 29 mg/dL (9.8-20.1); BUN/Creatinine Ratio 7.29; Calc. Creatinine Clearance 0 mL/min (70-130); Calcium 9.8 mg/dL (7.8-10.44); Carbon Dioxide 24 mmol/L (23-31); Chloride 97 mmol/L (98-107); Estimated GFR 11; Glucose 180 mg/dL (83-110); Phosphorus 4.2 mg/dL (2.3-4.7); Potassium 4.1 mmol/L (3.5-5.1); Sodium 135 mmol/L (136-145)
[2024-04-03] MEDS ORDERED: Glucagon 1 MG/ML KIT IM PRN (18:53)
[2024-04-03] MEDS ORDERED: Dextrose 50% Abboject 50 ML SYRINGE SLOW IVP PRN (18:53)
[2024-04-03] MEDS ORDERED: Dextrose 5% in Water 1,000 ML IV PRN (18:53)
[2024-04-03] MEDS: QUEtiapine 25 MG TAB PO SCH (21:05)
[2024-04-03] MEDS: Acetaminophen 325 MG TAB PO PRN (21:05)
[2024-04-03] MEDS: Apixaban 5 MG TAB PO SCH (21:05)
[2024-04-03] MEDS: Midodrine HCl 5 MG TAB PO SCH (21:05)
[2024-04-03] MEDS: Atorvastatin Calcium 40 MG TAB PO SCH (21:05)
[2024-04-04] MEDS: hydrOXYzine 25 MG TAB PO SCH (01:02)
[2024-04-04] MEDS: HumaLOG 300 UNITS/3 ML VIAL SC PRN ×2 (01:03→17:39)
[2024-04-04] MEDS: Melatonin 3 MG TAB PO PRN (01:03)
[2024-04-04 01:49] VITALS: BMI 25.9
[2024-04-04] MEDS: Ipratropium/Albuterol 3 ML NEB NEB PRN (04:20)
[2024-04-04 05:35] LABS: #Basophils 0.07 10x3/uL (0.0-0.2); %Eosinophils 2.8 % (0.0-10.0); %Lymphocytes 17.6 % (21.0-51.0); %Neutrophils 66.2 % (42.0-75.0); Hematocrit 34.3 % (36.0-47.0); Hemoglobin 10.6 g/dL (12.0-16.0); Mean Corpuscular HGB CONC 30.9 g/dL (32.0-36.0); Mean Corpuscular Hemoglobin 33.1 pg (27.0-31.0); Mean Corpuscular Volume 107.2 fL (78.0-98.0); Mean Platelet Volume 11.7 fL (7.4-10.4); Platelet Count 159 10x3/uL (130-400); RBC Distribution Width 16.1 % (11.5-14.5)
[2024-04-04 06:10] LABS: Albumin 3.6 g/dL (3.4-4.8); Anion Gap 21 mmol/L (10-20); BUN (Urea Nitrogen) 35 mg/dL (9.8-20.1); BUN/Creatinine Ratio 8.08; Calc. Creatinine Clearance 10 mL/min (70-130); Calcium 9.3 mg/dL (7.8-10.44); Carbon Dioxide 21 mmol/L (23-31); Chloride 98 mmol/L (98-107); Estimated GFR 10; Glucose 150 mg/dL (83-110); Phosphorus 4.6 mg/dL (2.3-4.7); Potassium 4.5 mmol/L (3.5-5.1); Sodium 135 mmol/L (136-145)
[2024-04-04] MEDS ORDERED: Epoetin (ESRD) 20,000 UNITS/ML MDV SC SCH (09:15)
[2024-04-04] MEDS ORDERED: Heparin 10,000 UNITS/ 10 ML VIAL ONE (09:22)
[2024-04-04] MEDS: BuPROPion XL 150 MG ER.TAB PO SCH (09:30)
[2024-04-04] MEDS: Donepezil HCl 5 MG TAB PO SCH (09:30)
[2024-04-04] MEDS: Insulin Glargine 30 UNITS/0.3 ML VIAL SC SCH (09:31)
[2024-04-04] MEDS: Sevelamer Carbonate 800 MG TAB PO SCH (09:31)
[2024-04-04] MEDS: dilTIAZem ER 60 MG CAP PO SCH (13:15)
[2024-04-04] MEDS: EPOETIN ALFA-EPBX (ESRD) 10,000 UNITS/ML VIAL SC SCH (13:16)
[2024-04-04 14:41] VITALS: BMI 25.9
[2024-04-04] MEDS: Cefepime 1 GM in Sodium Chloride 0.9% 100 ML IVPB SCH (17:38)
[2024-04-04] MEDS: Apixaban 2.5 MG TAB PO SCH (21:42)
[2024-04-05] MEDS: guaiFENesin ER 600 MG TAB PO SCH ×2 (00:23→10:37)
[2024-04-05] MEDS: Guaifenesin DM 100-10/5 ML UDCUP PO PRN (20:57)
[2024-04-05] MEDS: Benzonatate 100 MG CAP PO SCH (20:57)
[2024-04-06] MEDS: Fioricet 325/50/40 mg Tablet PO PRN (02:37)
[2024-04-06] MEDS: Ondansetron PF 4 MG/2 ML Vial IVP PRN (02:38)
[2024-04-06 05:24] LABS: #Basophils 0.09 10x3/uL (0.0-0.2); %Basophils 1.2 % (0.0-1.0); %Eosinophils 3.8 % (0.0-10.0); %Lymphocytes 19.3 % (21.0-51.0); %Monocytes 13.1 % (0.0-10.0); %Neutrophils 62.1 % (42.0-75.0); Hematocrit 35.3 % (36.0-47.0); Hemoglobin 11.7 g/dL (12.0-16.0); Mean Corpuscular HGB CONC 33.1 g/dL (32.0-36.0); Mean Corpuscular Hemoglobin 33.2 pg (27.0-31.0); Mean Corpuscular Volume 100.3 fL (78.0-98.0); Mean Platelet Volume 12.2 fL (7.4-10.4); Platelet Count 202 10x3/uL (130-400); RBC Distribution Width 16.3 % (11.5-14.5); Red Blood Cell (RBC) Count 3.52 mill/uL (4.20-5.40)
[2024-04-06 09:12] LABS: Anion Gap 21 mmol/L (10-20); BUN (Urea Nitrogen) 37 mg/dL (9.8-20.1); Calc. Creatinine Clearance 10 mL/min (70-130); Calcium 9.5 mg/dL (7.8-10.44); Carbon Dioxide 20 mmol/L (23-31); Chloride 97 mmol/L (98-107); Estimated GFR 9; Glucose 177 mg/dL (83-110); Potassium 4.9 mmol/L (3.5-5.1); Sodium 133 mmol/L (136-145)
[2024-04-06] MEDS: Furosemide 20 MG (2 mL) VIAL SLOW IVP SCH (15:08)
[2024-04-06 16:05] LABS: Actual Bicarbonate (HCO3a) 25.3 mEq/L (22-28); Base Excess (BEa) 0.2 mEq/L (-2.0 to +3.0); CO2 Tension 42.9 mmHg (35.0-45.0); Calcium, Ionized (arterial) 1.16 mmol/L (1.12-1.30); Hematocrit-ABG 35 % (36.0-47.0); Hemoglobin (Hb) 11.9 g/dL (12.0-16.0); O2 Tension (PaO2), arterial 66.7 mmHg (> 60.0); Potassium - ABG Lab 4.56 mmol/L (3.70-5.30); pH, Arterial 7.389 (7.35-7.45)
[2024-04-06 16:06] LABS: ALV-art Gradient 236.175 mmHg (0-20); Puncture Site LRA
[2024-04-06] MEDS: Sevelamer Carbonate 800 MG TAB PO SCH (16:47)
[2024-04-07 04:43] LABS: %Basophils 1.3 % (0.0-1.0); %Eosinophils 4.2 % (0.0-10.0); %Lymphocytes 19.1 % (21.0-51.0); %Monocytes 11.7 % (0.0-10.0); %Neutrophils 63.4 % (42.0-75.0); Hematocrit 34.8 % (36.0-47.0); Hemoglobin 11.2 g/dL (12.0-16.0); Mean Corpuscular HGB CONC 32.2 g/dL (32.0-36.0); Mean Corpuscular Hemoglobin 32.4 pg (27.0-31.0); Mean Corpuscular Volume 100.6 fL (78.0-98.0); Platelet Count 201 10x3/uL (130-400); RBC Distribution Width 16.1 % (11.5-14.5); Red Blood Cell (RBC) Count 3.46 mill/uL (4.20-5.40)
[2024-04-07 04:57] LABS: Anion Gap 20 mmol/L (10-20); BUN (Urea Nitrogen) 45 mg/dL (9.8-20.1); Calc. Creatinine Clearance 8 mL/min (70-130); Calcium 9.6 mg/dL (7.8-10.44); Carbon Dioxide 24 mmol/L (23-31); Chloride 96 mmol/L (98-107); Estimated GFR 8; Glucose 96 mg/dL (83-110); Potassium 4.8 mmol/L (3.5-5.1); Sodium 135 mmol/L (136-145)
[2024-04-07] MEDS ORDERED: Heparin 10,000 UNITS/ 10 ML VIAL ONE (07:02)
[2024-04-08] MEDS: Cyclobenzaprine 10 MG TAB PO SCH (01:45)
[2024-04-08] MEDS: diphenhydrAMINE 25 MG CAP PO SCH (05:02)
[2024-04-08 05:56] LABS: %Basophils 1.4 % (0.0-1.0); %Eosinophils 5.2 % (0.0-10.0); %Lymphocytes 19.8 % (21.0-51.0); %Monocytes 11.3 % (0.0-10.0); %Neutrophils 61.9 % (42.0-75.0); Hematocrit 38.7 % (36.0-47.0); Hemoglobin 12.3 g/dL (12.0-16.0); Mean Corpuscular HGB CONC 31.8 g/dL (32.0-36.0); Mean Corpuscular Hemoglobin 32.6 pg (27.0-31.0); Mean Corpuscular Volume 102.7 fL (78.0-98.0); Mean Platelet Volume 10.8 fL (7.4-10.4); Platelet Count 234 10x3/uL (130-400); RBC Distribution Width 16.5 % (11.5-14.5); Red Blood Cell (RBC) Count 3.77 mill/uL (4.20-5.40)
[2024-04-08 06:14] LABS: Anion Gap 14 mmol/L (10-20); BUN (Urea Nitrogen) 27 mg/dL (9.8-20.1); Calc. Creatinine Clearance 11 mL/min (70-130); Calcium 9.5 mg/dL (7.8-10.44); Carbon Dioxide 29 mmol/L (23-31); Chloride 95 mmol/L (98-107); Estimated GFR 10; Glucose 108 mg/dL (83-110); Magnesium 2.3 mg/dL (1.6-2.6); Potassium 4.2 mmol/L (3.5-5.1); Sodium 134 mmol/L (136-145)
[2024-04-08] MEDS ORDERED: Heparin 10,000 UNITS/ 10 ML VIAL ONE (08:39)
[2024-04-08] MEDS: Senokot S 8.6-50 MG TAB PO PRN (21:32)
[2024-04-09 04:53] LABS: #Basophils 0.11 10x3/uL (0.0-0.2); %Basophils 1.4 % (0.0-1.0); %Eosinophils 3.8 % (0.0-10.0); %Monocytes 12.3 % (0.0-10.0); %Neutrophils 60.2 % (42.0-75.0); Hematocrit 38.7 % (36.0-47.0); Hemoglobin 12.4 g/dL (12.0-16.0); Mean Corpuscular Hemoglobin 33.2 pg (27.0-31.0); Mean Corpuscular Volume 103.8 fL (78.0-98.0); Mean Platelet Volume 10.4 fL (7.4-10.4); Platelet Count 236 10x3/uL (130-400); RBC Distribution Width 16.1 % (11.5-14.5); Red Blood Cell (RBC) Count 3.73 mill/uL (4.20-5.40)
[2024-04-09 05:11] LABS: Anion Gap 13 mmol/L (10-20); BUN (Urea Nitrogen) 18 mg/dL (9.8-20.1); Calc. Creatinine Clearance 14 mL/min (70-130); Calcium 9.6 mg/dL (7.8-10.44); Carbon Dioxide 31 mmol/L (23-31); Chloride 93 mmol/L (98-107); Estimated GFR 14; Glucose 145 mg/dL (83-110); Potassium 3.9 mmol/L (3.5-5.1); Sodium 133 mmol/L (136-145)
[2024-04-09] MEDS ORDERED: Heparin 10,000 UNITS/ 10 ML VIAL ONE (08:51)
[2024-04-10 05:57] LABS: #Basophils 0.13 10x3/uL (0.0-0.2); %Basophils 1.7 % (0.0-1.0); %Eosinophils 3.4 % (0.0-10.0); %Lymphocytes 25.8 % (21.0-51.0); %Monocytes 12.8 % (0.0-10.0); %Neutrophils 56.2 % (42.0-75.0); Hematocrit 44.5 % (36.0-47.0); Hemoglobin 14.3 g/dL (12.0-16.0); Mean Corpuscular HGB CONC 32.1 g/dL (32.0-36.0); Mean Corpuscular Hemoglobin 32.5 pg (27.0-31.0); Mean Corpuscular Volume 101.1 fL (78.0-98.0); Mean Platelet Volume 10.4 fL (7.4-10.4); Platelet Count 224 10x3/uL (130-400)
[2024-04-10 06:13] LABS: Anion Gap 14 mmol/L (10-20); BUN (Urea Nitrogen) 21 mg/dL (9.8-20.1); Calc. Creatinine Clearance 16 mL/min (70-130); Calcium 9.7 mg/dL (7.8-10.44); Carbon Dioxide 30 mmol/L (23-31); Chloride 97 mmol/L (98-107); Estimated GFR 17; Glucose 88 mg/dL (83-110); Potassium 4.1 mmol/L (3.5-5.1); Sodium 137 mmol/L (136-145)
[2024-04-10 08:48] VITALS: TEMP 98
[2024-04-10 13:07] VITALS: BP 120/77
== END 2024-04-10 16:22 | disposition home or self-care (01) | DRG 291 ==
LOC: ERS 13:28 → 2NO 15:35 → MSONC 04-05 13:11
PROVIDERS: ADMIT Internal Medicine; ATTEND Internal Medicine
PROC: 4A033R1 Measurement of Arterial Saturation, Peripheral, Percutaneous Approach (ICD-10-PCS; principal; 2024-04-06)
DX: I50.33 Acute on chronic diastolic (congestive) heart failure (principal); J96.21 Acute and chronic respiratory failure with hypoxia; N18.6 End stage renal disease; I48.21 Permanent atrial fibrillation; I25.10 Atherosclerotic heart disease of native coronary artery without angina pectoris; K21.9 Gastro-esophageal reflux disease without esophagitis; F41.9 Anxiety disorder, unspecified; D63.1 Anemia in chronic kidney disease; M48.02 Spinal stenosis, cervical region; I95.9 Hypotension, unspecified; Z99.2 Dependence on renal dialysis; Z88.5 Allergy status to narcotic agent; Z91.013 Allergy to seafood; Z79.899 Other long term (current) drug therapy; Z95.818 Presence of other cardiac implants and grafts; Z79.01 Long term (current) use of anticoagulants; Z98.890 Other specified postprocedural states; Z90.710 Acquired absence of both cervix and uterus; Z87.891 Personal history of nicotine dependence
CPT/HCPCS: 36415; 36416; 36600; 71045; 80048; 80053; 80069; 82805; 83605; 83690; 83735; 83880; 84484; 85025; 87040; 93005; 94640; 96374; 96375; J0692; J1644; J1815; J1940; J2405; J3370; J3370-JW; J3490; J7620

== ENCOUNTER 2024-10-29 12:42 | Emergency (ER) | payer MEDICARE, OTHER ==
[2024-10-29] MEDS ORDERED: Ketorolac Tromethamine 30 MG (1 mL) VIAL ONE (13:40)
[2024-10-29] MEDS ORDERED: Dexamethasone 10 MG/ML VIAL ONE (13:41)
[2024-10-29 13:53] LABS: #Basophils 0.08 10x3/uL (0.0-0.2); %Eosinophils 2.6 % (0.0-10.0); %Lymphocytes 17.9 % (21.0-51.0); %Monocytes 10.7 % (0.0-10.0); %Neutrophils 67.6 % (42.0-75.0); Hematocrit 38.9 % (36.0-47.0); Hemoglobin 12.6 g/dL (12.0-16.0); Mean Corpuscular HGB CONC 32.4 g/dL (32.0-36.0); Mean Corpuscular Hemoglobin 32.5 pg (27.0-31.0); Mean Corpuscular Volume 100.3 fL (78.0-98.0); Mean Platelet Volume 10.7 fL (7.4-10.4); Platelet Count 207 10x3/uL (130-400); RBC Distribution Width 14.7 % (11.5-14.5); Red Blood Cell (RBC) Count 3.88 mill/uL (4.20-5.40)
[2024-10-29] MEDS ORDERED: Clindamycin/D5W 900 MG in Premix 1 BAG IVPB SCH (14:00)
[2024-10-29 14:12] LABS: ALT (SGPT) 12 U/L (8-55); AST (SGOT) 11 U/L (5-34); Albumin 4.1 g/dL (3.4-4.8); Alkaline Phosphatase 177 U/L (40-110); Anion Gap 19 mmol/L (10-20); BUN (Urea Nitrogen) 32 mg/dL (9.8-20.1); Bilirubin, Total 0.6 mg/dL (0.2-1.2); CRP,High Sensitivity (Inhouse) 3.28 mg/dL (< or = 0.5); Calc. Creatinine Clearance 0 mL/min (70-130); Calcium 10.1 mg/dL (7.8-10.44); Carbon Dioxide 27 mmol/L (23-31); Chloride 96 mmol/L (98-107); Estimated GFR 11; Globulin 3.7 g/dL (2.4-3.5); Glucose 181 mg/dL (83-110); Potassium 4.5 mmol/L (3.5-5.1); Protein, Total 7.8 g/dL (5.8-8.1); Sodium 137 mmol/L (136-145)
[2024-10-29] MEDS ORDERED: Iopamidol-370 76% 500 ML MDV (1 ML CHARGE) ONE (14:30)
== END 2024-10-29 15:53 | disposition home or self-care (01) ==
LOC: ERS 12:42
DX: R60.9 Edema, unspecified (principal); K08.89 Other specified disorders of teeth and supporting structures; I13.2 Hypertensive heart and chronic kidney disease with heart failure and with stage 5 chronic kidney disease, or end stage renal disease; E11.22 Type 2 diabetes mellitus with diabetic chronic kidney disease; N18.6 End stage renal disease; I50.9 Heart failure, unspecified; Z99.2 Dependence on renal dialysis
CPT/HCPCS: 70491; 80053; 83605; 85025; 86141; 87040; 96365; 96375; 99284; J1100; J3490; Q9967; J1885

== ENCOUNTER 2024-11-21 11:50 | Emergency (ER) | payer MEDICARE, OTHER | END 2024-11-21 13:37 | LOC: ERS 11:50 | DX: Z53.21 Procedure and treatment not carried out due to patient leaving prior to being seen by health care provider (principal) ==

== ENCOUNTER 2024-12-16 07:14 | Emergency (ER) | payer MEDICARE, OTHER ==
[2024-12-16 07:53] LABS: %Basophils 1.4 % (0.0-1.0); %Lymphocytes 22.9 % (21.0-51.0); %Monocytes 10.8 % (0.0-10.0); %Neutrophils 62.6 % (42.0-75.0); Hematocrit 38.3 % (36.0-47.0); Hemoglobin 12.3 g/dL (12.0-16.0); Mean Corpuscular HGB CONC 32.1 g/dL (32.0-36.0); Mean Corpuscular Hemoglobin 32.5 pg (27.0-31.0); Mean Corpuscular Volume 101.3 fL (78.0-98.0); Mean Platelet Volume 11.1 fL (7.4-10.4); Platelet Count 214 10x3/uL (130-400); RBC Distribution Width 14.5 % (11.5-14.5); Red Blood Cell (RBC) Count 3.78 mill/uL (4.20-5.40)
[2024-12-16 08:09] LABS: ALT (SGPT) 16 U/L (Less than 34); AST (SGOT) 20 U/L (11-34); Albumin 3.9 g/dL (3.1-4.5); Alkaline Phosphatase 150 U/L (40-110); Anion Gap 20 mmol/L (10-20); BUN (Urea Nitrogen) 34 mg/dL (9.8-20.1); Bilirubin, Total 0.7 mg/dL (0.3-1.2); Calc. Creatinine Clearance 0 mL/min (70-130); Calcium 10.8 mg/dL (7.8-10.44); Carbon Dioxide 25 mmol/L (23-31); Chloride 98 mmol/L (98-107); Estimated GFR 11; Globulin 3.4 g/dL (2.4-3.5); Glucose 77 mg/dL (83-110); Magnesium 2.6 mg/dL (1.6-2.6); Potassium 5.4 mmol/L (3.5-5.1); Protein, Total 7.3 g/dL (5.8-8.1); Sodium 138 mmol/L (136-145)
[2024-12-16] MEDS ORDERED: Divalproex Sodium 500 MG ER.TAB ONE (10:52)
== END 2024-12-16 10:17 | disposition home or self-care (01) ==
LOC: ERS 07:14
DX: T82.838A Hemorrhage due to vascular prosthetic devices, implants and grafts, initial encounter (principal); G24.5 Blepharospasm; G25.9 Extrapyramidal and movement disorder, unspecified; I50.9 Heart failure, unspecified
CPT/HCPCS: 36415; 80053; 83735; 85025; 93005; 94760; 99284

== ENCOUNTER 2025-09-17 13:00 | Outpatient (CLI) | payer MEDICARE, OTHER ==
[2025-09-17 16:29] LABS: #Basophils 0.12 10x3/uL (0.0-0.2); #Eosinophils 0.44 10x3/uL (0.0-0.7); #Monocytes 1.02 10x3/uL (0.11-0.59); #Neutrophils 4.77 10x3/uL (1.40-6.50); %Basophils 1.4 % (0.0-1.0); %Eosinophils 5.2 % (0.0-10.0); %Lymphocytes 24.9 % (21.0-51.0); %Monocytes 12.0 % (0.0-10.0); %Neutrophils 56.1 % (42.0-75.0); Hematocrit 42.7 % (36.0-47.0); Hemoglobin 13.5 g/dL (12.0-16.0); Mean Corpuscular Hemoglobin 33.0 pg (27.0-31.0); Mean Corpuscular Volume 104.4 fL (78.0-98.0); Platelet Count 200 10x3/uL (130-400); Red Blood Cell (RBC) Count 4.09 mill/uL (4.20-5.40); White Blood Cell (WBC) Count 8.50 10x3/uL (4.8-10.8)
[2025-09-17 16:42] LABS: INR-International Normal Ratio 1.5; Prothrombin Time 17.8 sec (12.0-14.7)
[2025-09-17 16:43] LABS: Anion Gap 23 mmol/L (10-20); BUN (Urea Nitrogen) 41 mg/dL (9.8-20.1); Calc. Creatinine Clearance 0 mL/min (70-130); Calcium 9.6 mg/dL (7.8-10.44); Carbon Dioxide 25 mmol/L (23-31); Chloride 95 mmol/L (98-107); Glucose 194 mg/dL (83-110); PTT 36.3 sec (22.9-36.1); Potassium 5.2 mmol/L (3.5-5.1); Sodium 138 mmol/L (136-145)
== END 2025-09-17 13:01 | disposition home or self-care (01) ==
LOC: LABBT 13:00
PROVIDERS: ATTEND Surgery
DX: Z01.818 Encounter for other preprocedural examination (principal); N18.6 End stage renal disease
CPT/HCPCS: 71046; 80048; 85025; 85610; 85730; 93005; 93010